=== PATIENT | female | born 1970 | race Caucasian/White ===

== ENCOUNTER 2017-11-19 10:10 | Outpatient (CLI) | payer MEDICAID, SELFPAY ==
[2017-11-19 13:02] LABS: INR 1.4 (1.0-3.5); Prothrombin Time 13.4 sec (9.3-10.8)
== END 2017-11-19 10:30 ==
PROVIDERS: PCP Family Medicine; Visit Provider Family Medicine
DX: I26.99 Other pulmonary embolism without acute cor pulmonale (principal); Z79.01 Long term (current) use of anticoagulants
CPT/HCPCS: 36415; 85610

== ENCOUNTER 2017-12-24 02:31 | Outpatient (CLI) | payer MEDICAID, SELFPAY ==
[2017-12-24 11:37] LABS: Prothrombin Time 59.8 sec (9.3-10.8)
[2017-12-24 11:43] LABS: INR 6.6 (1.0-3.5)
== END 2017-12-24 02:51 ==
PROVIDERS: PCP Family Medicine; Visit Provider Family Medicine
DX: I26.99 Other pulmonary embolism without acute cor pulmonale (principal); Z79.01 Long term (current) use of anticoagulants
CPT/HCPCS: 36415; 85610

== ENCOUNTER 2018-01-18 01:36 | Outpatient (CLI) | payer MEDICAID, SELFPAY ==
[2018-01-18 11:40] LABS: INR 1.6 (1.0-3.5); Prothrombin Time 15.6 sec (9.3-10.8)
[2018-01-18 13:26] LABS: Anion Gap 7.1 mmol/L (3-11); BUN 7 mg/dL (7-18); CO2 28.9 mmol/L (21.0-32.0); CREATININE 1.04 mg/dL (0.55-1.02); Calcium 8.7 mg/dL (8.5-10.1); Chloride 103 mmol/L (98-107); Cholesterol 200 mg/dL (50-200); Estimated GFR 56.56 (mL/min/1.73m2); Glucose 87 mg/dL (70-100); HDL Cholesterol 45 mg/dL (40-60); LDL CHOLESTEROL 134 mg/dL (<100); Potassium 4.4 mmol/L (3.5-5.1); Sodium 139 mmol/L (136-145); Triglyceride 142 mg/dL (30-150)
== END 2018-01-18 01:56 ==
PROVIDERS: PCP Family Medicine; Visit Provider Family Medicine
DX: F41.8 Other specified anxiety disorders (principal); M17.10 Unilateral primary osteoarthritis, unspecified knee; D68.4 Acquired coagulation factor deficiency; Z79.01 Long term (current) use of anticoagulants; Z00.00 Encounter for general adult medical examination without abnormal findings; I26.99 Other pulmonary embolism without acute cor pulmonale
CPT/HCPCS: 36415; 80048; 80061; 83721; 85610

== ENCOUNTER 2018-02-02 10:25 | Outpatient (CLI) | payer MEDICAID, SELFPAY ==
[2018-02-02 11:44] LABS: INR 1.3 (1.0-3.5); Prothrombin Time 12.5 sec (9.3-10.8)
== END 2018-02-02 10:45 ==
PROVIDERS: PCP Family Medicine; Visit Provider Family Medicine
DX: I26.99 Other pulmonary embolism without acute cor pulmonale (principal); Z79.01 Long term (current) use of anticoagulants
CPT/HCPCS: 36415; 85610

== ENCOUNTER 2018-02-18 08:24 | Outpatient (CLI) | payer MEDICAID, SELFPAY ==
[2018-02-18 11:30] LABS: Prothrombin Time 20.7 sec (9.3-10.8)
[2018-02-18 11:35] LABS: INR 2.2 (1.0-3.5)
== END 2018-02-18 08:44 ==
PROVIDERS: PCP Family Medicine; Visit Provider Family Medicine
DX: I26.99 Other pulmonary embolism without acute cor pulmonale (principal); Z79.01 Long term (current) use of anticoagulants
CPT/HCPCS: 36415; 85610

== ENCOUNTER 2018-04-02 08:13 | Outpatient (CLI) | payer MEDICAID, SELFPAY ==
[2018-04-02 12:01] LABS: INR 2.4 (0.9-1.1); Prothrombin Time 24.2 sec (9.3-11.0)
== END 2018-04-02 08:33 ==
PROVIDERS: PCP Family Medicine; Visit Provider Family Medicine
DX: I26.99 Other pulmonary embolism without acute cor pulmonale (principal); Z79.01 Long term (current) use of anticoagulants
CPT/HCPCS: 36415; 85610

== ENCOUNTER 2018-07-16 04:12 | Outpatient (CLI) | payer MEDICAID, SELFPAY ==
[2018-07-16 11:37] LABS: INR 3.7 (0.9-1.1); Prothrombin Time 37.2 sec (9.3-11.0)
== END 2018-07-16 04:32 ==
PROVIDERS: PCP Family Medicine; Visit Provider Family Medicine
DX: I26.99 Other pulmonary embolism without acute cor pulmonale (principal); Z79.01 Long term (current) use of anticoagulants
CPT/HCPCS: 36415; 85610

== ENCOUNTER 2018-07-30 01:16 | Outpatient (CLI) | payer MEDICAID, SELFPAY ==
[2018-07-30 11:32] LABS: INR 2.6 (0.9-1.1)
== END 2018-07-30 01:36 ==
PROVIDERS: PCP Family Medicine; Visit Provider Family Medicine
DX: I26.99 Other pulmonary embolism without acute cor pulmonale (principal); Z79.01 Long term (current) use of anticoagulants
CPT/HCPCS: 36415; 85610

== ENCOUNTER 2018-08-30 09:34 | Outpatient (CLI) | payer MEDICAID, SELFPAY ==
[2018-08-30 13:24] LABS: INR 1.7 (0.9-1.1); Prothrombin Time 16.7 sec (9.3-11.0)
== END 2018-08-30 09:54 ==
PROVIDERS: PCP Family Medicine; Visit Provider Family Medicine
DX: I26.99 Other pulmonary embolism without acute cor pulmonale (principal); Z79.01 Long term (current) use of anticoagulants
CPT/HCPCS: 36415; 85610

== ENCOUNTER 2018-10-19 02:29 | Outpatient (CLI) | payer MEDICAID, SELFPAY ==
[2018-10-19 12:07] LABS: INR 3.2 (0.9-1.1); Prothrombin Time 32.6 sec (9.3-11.0)
== END 2018-10-19 02:49 ==
PROVIDERS: PCP Family Medicine; Visit Provider Family Medicine
DX: I26.99 Other pulmonary embolism without acute cor pulmonale (principal); Z79.01 Long term (current) use of anticoagulants
CPT/HCPCS: 36415; 85610

== ENCOUNTER 2018-12-02 07:51 | Outpatient (CLI) | payer MEDICAID, SELFPAY ==
[2018-12-02 11:43] LABS: INR 1.5 (0.9-1.1); Prothrombin Time 14.6 sec (9.3-11.0)
== END 2018-12-02 08:11 ==
PROVIDERS: PCP Family Medicine; Visit Provider Family Medicine
DX: I26.99 Other pulmonary embolism without acute cor pulmonale (principal); Z79.01 Long term (current) use of anticoagulants
CPT/HCPCS: 36415; 85610

== ENCOUNTER 2018-12-21 10:51 | Outpatient (CLI) | payer MEDICAID, SELFPAY ==
[2018-12-21 14:28] LABS: INR 1.4 (0.9-1.1); Prothrombin Time 13.6 sec (9.3-11.0)
== END 2018-12-21 11:11 ==
PROVIDERS: PCP Family Medicine; Visit Provider Family Medicine
DX: I26.99 Other pulmonary embolism without acute cor pulmonale (principal); Z79.01 Long term (current) use of anticoagulants
CPT/HCPCS: 36415; 85610

== ENCOUNTER 2019-01-26 10:13 | Outpatient (CLI) | payer MEDICAID, SELFPAY ==
[2019-01-26 12:52] LABS: INR 1.3 (0.9-1.1); Prothrombin Time 13.3 sec (9.3-11.0)
== END 2019-01-26 10:33 ==
PROVIDERS: PCP Family Medicine; Visit Provider Family Medicine
DX: I26.99 Other pulmonary embolism without acute cor pulmonale (principal); Z79.01 Long term (current) use of anticoagulants
CPT/HCPCS: 36415; 85610

== ENCOUNTER 2019-02-28 09:46 | Outpatient (CLI) | payer MEDICAID, SELFPAY ==
[2019-02-28 14:07] LABS: Prothrombin Time 40.3 sec (9.3-11.0)
[2019-02-28 14:17] LABS: INR 4.2 (0.9-1.1)
== END 2019-02-28 10:06 ==
PROVIDERS: PCP Family Medicine; Visit Provider Family Medicine
DX: I26.99 Other pulmonary embolism without acute cor pulmonale (principal); Z79.01 Long term (current) use of anticoagulants
CPT/HCPCS: 36415; 85610

== ENCOUNTER 2019-03-11 08:10 | Outpatient (CLI) | payer MEDICAID, SELFPAY ==
[2019-03-11 10:30] LABS: INR 3.2 (0.9-1.1); Prothrombin Time 31.2 sec (9.3-11.0)
== END 2019-03-11 08:30 ==
PROVIDERS: PCP Family Medicine; Visit Provider Family Medicine
DX: I26.99 Other pulmonary embolism without acute cor pulmonale (principal); Z79.01 Long term (current) use of anticoagulants
CPT/HCPCS: 36415; 85610

== ENCOUNTER 2019-04-06 00:32 | Outpatient (CLI) | payer MEDICAID, SELFPAY ==
[2019-04-06 11:08] LABS: INR 1.4 (0.9-1.1)
== END 2019-04-06 00:52 ==
PROVIDERS: PCP Family Medicine; Visit Provider Family Medicine
DX: I26.99 Other pulmonary embolism without acute cor pulmonale (principal); Z79.01 Long term (current) use of anticoagulants
CPT/HCPCS: 36415; 85610

== ENCOUNTER 2019-04-15 01:13 | Outpatient (CLI) | payer MEDICAID, SELFPAY ==
[2019-04-15 13:04] LABS: INR 3.8 (0.9-1.1); Prothrombin Time 37.1 sec (9.3-11.0)
== END 2019-04-15 01:33 ==
PROVIDERS: PCP Family Medicine; Visit Provider Family Medicine
DX: I26.99 Other pulmonary embolism without acute cor pulmonale (principal); Z79.01 Long term (current) use of anticoagulants
CPT/HCPCS: 36415; 85610

== ENCOUNTER 2019-04-29 09:30 | Outpatient (CLI) | payer MEDICAID, SELFPAY ==
[2019-04-29 13:11] LABS: INR 1.5 (0.9-1.1); Prothrombin Time 15.3 sec (9.3-11.0)
== END 2019-04-29 09:50 ==
PROVIDERS: PCP Family Medicine; Visit Provider Family Medicine
DX: I26.99 Other pulmonary embolism without acute cor pulmonale (principal); Z79.01 Long term (current) use of anticoagulants
CPT/HCPCS: 36415; 85610

== ENCOUNTER 2019-11-01 10:45 | Outpatient (REF) | payer MEDICAID, SELFPAY ==
--- NOTE | 2019-11-01 10:20 | PAPFT_PTH ---
PATIENT: Andreia Mayer LOC: [facility] U#:[id number] AGE/SX: 48/F ROOM: RE11/01/[address]: Jossie Gardner NP : 1970 BED: DIS: 11/01/2019 SPEC #: [id number] RECD: 11/01/19 12:52 STATUS: FAIZA REQ #: [id number] JOSE R: 11/01/19 10:[address]: Jossie Gardner NP DEPT: [facility] Cytology RECD BY: Ebony Herrera ENTERED: 11/01/19 12:52 SP TYPE: PAPFT OTHR DR: Latasha Verdugo, ARB[employer]URE INSTRUCTOR Tissues: 1 - CX/ENDOCX FOR PAP SMEARS Procedures: PAP THIN PREP/UVM Screening HPV DNA PROBE Comments: [id number]
== END 2019-11-01 11:05 ==
LOC: LBN 10:45
PROVIDERS: PCP Nurse Practitioner Family; Visit Provider Nurse Practitioner Women's Health
DX: Z12.4 Encounter for screening for malignant neoplasm of cervix (principal); Z11.51 Encounter for screening for human papillomavirus (HPV)
CPT/HCPCS: 88142; 87624

== ENCOUNTER 2019-11-03 01:57 | Outpatient (CLI) | payer MEDICAID, SELFPAY ==
--- NOTE | 2019-11-03 12:00 | DI.MAMMO_ITS ---
EXAM: MG MAMMO SCREENING CLINICAL HISTORY: screening TECHNIQUE: Mammograms were interpreted according to the usual protocol including computer analysis w [employer] CAD system, tomosynthesis and C-view imaging. COMPARISON: FINDINGS: The breasts are of moderate density with fairly symmetrical distribution of fibroglandular tissue. N o dominant mass or clumped microcalcification is identified in either breast. The current examinatio n is compared with previous examination August 2013 and there has been no gross interval change in appe arance in comparison with prior study. IMPRESSION: No specific evidence of malignancy at this time. Routine screening examinations are suggested at yea rly intervals in this age group according to the ACS ACR guidelines. BI-RADS Category 1 - Negative Breast Density - Category B - Scattered areas of fibroglandular density
== END 2019-11-03 02:17 ==
PROVIDERS: PCP Nurse Practitioner Family; Visit Provider Nurse Practitioner Women's Health
DX: Z12.31 Encounter for screening mammogram for malignant neoplasm of breast (principal)
CPT/HCPCS: 77063; 77067

== ENCOUNTER 2019-12-16 03:59 | Outpatient (CLI) | payer MEDICAID, SELFPAY ==
--- NOTE | 2019-12-16 06:30 | DI.RAD_ITS ---
EXAM: XR LUMBAR SPINE COMPLETE CLINICAL HISTORY: chronic low back pain ON ACUTE LOW BACK PAIN,M54.5 TECHNIQUE: COMPARISON: CR LUMBAR SPINE COMPLETE from 12/12/2009 FINDINGS: Five views were obtained. The intervertebral disc spaces are well maintained. There are mild hypert rophic degenerative changes of the vertebral endplates and facet joints throughout the lumbar region. There is no evidence spondylolysis or spondylolisthesis. There are mild degenerative changes of anselmo th SI joints. IMPRESSION: DJD of the lumbar spine as described above. RADIATION DOSE DELIVERED: Total DLP
--- NOTE | 2019-12-16 06:30 | DI.RAD_ITS ---
EXAM: XR KNEE LT 3V AP,LAT,PURA CLINICAL HISTORY: chronic left knee pain, s/p surgery,M25.562 TECHNIQUE: COMPARISON: CR LEFT KNEE 3 VIEW COMPLETE from 12/09/2013 FINDINGS: Three views were obtained. There are fixation screws in the distal femur and proximal tibia with loc ation consistent with ACL reconstruction. Two additional screws of the femur and 1 additional screw of the tibia are noted. There is moderate hypertrophic marginal osteophyte formation involving the m edial and lateral tibiofemoral joints with mild narrowing of the cartilaginous joint space of the lat eral tibiofemoral joint and probably of the patellofemoral joint as well. IMPRESSION: Multiple fixation screws in place, prior ACL reconstruction, moderate DJD most marked involving later al tibiofemoral joint RADIATION DOSE DELIVERED: Total DLP
== END 2019-12-16 04:19 ==
PROVIDERS: PCP Nurse Practitioner Family; Visit Provider Nurse Practitioner Family
DX: M47.816 Spondylosis without myelopathy or radiculopathy, lumbar region (principal); M17.12 Unilateral primary osteoarthritis, left knee; M25.562 Pain in left knee
CPT/HCPCS: 73562; 72110

== ENCOUNTER 2019-12-19 02:10 | Outpatient (CLI) | payer MEDICAID, SELFPAY ==
[2019-12-19 12:30] LABS: HCT 30.6 % (36.0-46.0); HGB 9.1 g/dL (11.2-15.7); MCH 22.2 pg (27.0-33.0); MCHC 29.7 % (32.0-36.0); MCV 74.6 fL (80-95); MPV 11.6 fL (8.0-11.0); Platelet Count 202 10^3/uL (130-400); RDW 14.6 % (11.7-14.6); RDW-SD 39.2 fL
[2019-12-19 13:09] LABS: ALT 26 U/L (14-59); AST 16 U/L (15-37); Albumin 3.5 g/dL (3.4-5.0); Alkaline Phosphatase 61 U/L (46-116); Anion Gap 10.5 mmol/L (3-11); BUN 7 mg/dL (7-18); Bilirubin, Total 0.8 mg/dL (0.2-1.0); CO2 23.5 mmol/L (21.0-32.0); Calcium 8.5 mg/dL (8.5-10.1); Calculated LDL 138 mg/dL (<100); Chloride 106 mmol/L (98-107); Cholesterol 186 mg/dL (<200); Estimated GFR 52.58 (mL/min/1.73m2); Glucose 112 mg/dL (74-106); HDL Cholesterol 29 mg/dL (40-60); Potassium 3.9 mmol/L (3.5-5.1); Sodium 140 mmol/L (136-145); Total Protein 7.1 g/dL (6.4-8.2); Triglyceride 97 mg/dL (<150)
[2019-12-19 13:11] LABS: Hemoglobin A1C 5.9 % (<5.7)
[2019-12-19 13:47] LABS: Total Iron Binding Capacity 513 ug/dL (250-450)
[2019-12-19 14:01] LABS: Ferritin 4 ng/mL (8-252)
== END 2019-12-19 02:30 ==
PROVIDERS: PCP Nurse Practitioner Family; Visit Provider Nurse Practitioner Family
DX: D50.9 Iron deficiency anemia, unspecified (principal); E78.5 Hyperlipidemia, unspecified; R73.09 Other abnormal glucose; Z79.01 Long term (current) use of anticoagulants
CPT/HCPCS: 36415; 80053; 80061; 85027; 82728; 83036; 83550

== ENCOUNTER 2020-01-05 15:53 | Outpatient (REF) | payer MEDICAID, SELFPAY ==
[2020-01-05 21:14] LABS: HCT 30.7 % (36.0-46.0); MCH 21.1 pg (27.0-33.0); MCHC 29.3 % (32.0-36.0); MCV 71.9 fL (80-95); MPV 12.1 fL (8.0-11.0); RBC 4.27 10^6/uL (3.93-5.22); RDW 15.3 % (11.7-14.6); RDW-SD 39.4 fL; WBC 6.73 10^3/uL (4.4-10.8)
[2020-01-05 21:28] LABS: Platelet Count 293 10^3/uL (130-400)
== END 2020-01-05 16:13 ==
LOC: LBN 15:53
PROVIDERS: PCP Nurse Practitioner Family; Visit Provider Nurse Practitioner Family
DX: D64.9 Anemia, unspecified (principal)
CPT/HCPCS: 85027

== ENCOUNTER 2020-01-29 12:47 | Emergency (ER) | payer MEDICAID, SELFPAY ==
[2020-01-29 12:52] VITALS: BP 164/99; PULSE 127; RESP 20; TEMP 36.8; O2SAT 100
[2020-01-29 12:59] VITALS: RESP 20
--- NOTE | 2020-01-29 13:12 | ED.GENADUL_ITS ---
Discharge Plan Disposition Patient Disposition: HOME Condition: Stable Discharge Details Clinical Impression: Acute deep vein thrombosis (DVT) of left lower extremity Primary Care Provider: Latasha Verdugo ED Provider: Vu Merrill Home Meds and New Rx's Prescriptions: Continued gabapentin 300 mg capsule 300 mg PO TID Qty: 270 RF: 3 Narcan 4 mg/actuation spray,non-aerosol 1 spray intranasal Q2-3M PRN (Reason: opioid overdose) Qty: 2 RF: 4 norethindrone acetate [Aygestin] 5 mg tablet 5 mg PO DAILY Qty: 90 RF: 4 ferrous sulfate 325 mg (65 mg iron) tablet 325 mg PO BID Qty: 180 RF: 4 Complete Multi 1 EACH tablet 1 tab PO DAILY RF: 0 oxycodone 10 mg tablet 10 mg PO BID MDD 20 mg PRN (Reason: pain) Qty: 60 RF: 0 clonazepam [Klonopin] 0.5 mg tablet 0.5 mg PO TID PRN (Reason: anxiety) Qty: 90 RF: 0 warfarin 5 mg Tablet 5 mg PO DAILY RF: 0 Discharge Instructions Instructions: Deep Vein Thrombosis (ED) Additional Instructions: Home to rest today. Our care management team will will arrange a follow-up for you in clinic this week for recheck. Continue your warfarin as prescribed 5 mg daily. May apply warm compress to the leg for comfort. Return if you develop new chest pain, difficulty breathing, or any other acute concerns. Medical Decision Making 49-year-old female with history of PE, who has been taking rivaroxaban which she stopped approximately 1 month ago due to excessive vaginal bleeding. She has been seen in gynecology clinic and started on oral contraceptive. She now notes approximately 1 week of left calf pain and swelling. She states she had warfarin at home which she has begun 5 mg daily for the past week. She has not had chest pain or shortness of breath. She arrives to the ER anxious, slightly hypertensive with a pulse approximately 110. She will note that she takes oxycodone 10 mg twice a day and has not had her daily medications. Her exam reveals slightly enlarged left calf that is tender to the touch. Patient referred for laboratory testing and ultrasound of the left lower extremity. Labs reveal sodium 135, potassium 4.0, chloride 101, bicarb 24. Creatinine 1.25. AST 195, ALT 482. Total bili normal at 0.5. INR is 1.8 today. Ultrasound reveals DVT from distal femoral to posterior tibial veins. With INR 1.8, will have her continue warfarin. She has also complained about anxiety disorder and chronic pain. She will require follow-up in clinic this week for recheck. Unclear the impact the recent initiation of oral contraceptive, and the patient's cessation of rivaroxaban and independent initiation of warfarin has had on her development of DVT. Additionally, her slightly elevated transaminases will require recheck. We will ask care management to arrange follow-up. HPI General Mode of arrival: ambulatory . Date/Time Provider Initiated Documentation: 01/29/20 12:48 . Limitations to Documentation: no limitations . Information obtained by: patient . History of Present Illness 49 year old F presents to the emergency department with the chief complaint of Left leg pain, concerned for blood clot, described as moderate, Quality is described as dull and constant, and is localized to the left and lower extremity. Patient reports no radiation. Patient started experiencing this week(s) and it has been constant. No relieving factors improve symptom(s), No exacerbating factors reported . Patient notes denies chest pain and shortness of breath. Patient did receive the following treatments prior to arrival, other (Started warfarin 5 mg daily for the past week) Related Data Home Medications Medication Instructions Recorded Confirmed Complete Multi 1 tab PO DAILY 06/08/12 01/29/20 norethindrone acetate 5 mg tablet 5 mg PO DAILY #90 tab 11/01/19 01/29/20 gabapentin 300 mg capsule 300 mg PO TID #270 tab-cap 11/10/19 01/29/20 naloxone 4 mg/actuation nasal spray 1 spray INTRANASAL Q2-3M PRN #2 ea 12/14/19 01/29/20 ferrous sulfate 325 mg (65 mg 325 mg PO BID #180 tab 01/05/20 01/29/20 iron) tablet oxycodone 10 mg tablet 10 mg PO BID PRN #60 tab MDD 20 mg 01/10/20 01/29/20 clonazepam 0.5 mg tablet 0.5 mg PO TID PRN #90 tab-cap 01/22/20 01/29/20 warfarin 5 mg PO DAILY 01/29/20 01/29/20 Previous Rx's Medication Instructions Recorded norethindrone acetate 5 mg tablet 5 mg PO DAILY #90 tab 11/01/19 gabapentin 300 mg capsule 300 mg PO TID #270 tab-cap 11/10/19 naloxone 4 mg/actuation nasal spray 1 spray INTRANASAL Q2-3M PRN #2 ea 12/14/19 ferrous sulfate 325 mg (65 mg 325 mg PO BID #180 tab 01/05/20 iron) tablet oxycodone 10 mg tablet 10 mg PO BID PRN #60 tab MDD 20 mg 01/10/20 clonazepam 0.5 mg tablet 0.5 mg PO TID PRN #90 tab-cap 01/22/20 Allergies Allergy/AdvReac Type Severity Reaction Status Date / Time streptokinase Allergy Severe SOB; Unverified 01/29/20 12:57 TINGLING;ANAPHALYSIS General Stated Complaint: Vascular REINA: 3 Review of Systems Narrative: 6 systems reviewed and otherwise negative. Not taking rivaroxaban, restarted warfarin. [facility] Medical History Chronic low back pain Factor V Leiden mutation Generalized anxiety disorder Hyperlipidemia Iron deficiency anemia Major depressive disorder Osteoarthritis Perimenopausal menorrhagia Postoperative pain of left knee Prediabetes Pulmonary embolism In 1993 Surgical History S/P left knee surgery (09/30/12) Arthroscopic ligamentous reconstruction of ACL, PCL with menisectomy for dislocation Family History Mother No problems noted. Father No problems noted. Social History Smoking/Tobacco Use Status: Never Smoking risk assessment performed?: Yes Alcohol Intake: never Drug use: Occasionally Substance use type: marijuana Current gender identity: female Duration: 15-30 minutes/day Frequency: 3-4 times per week Seatbelt use: always Do you feel safe at home: Yes Do you feel safe in your relationship?: Yes Female Reproductive History Menstrual Duration of menses: 3-5 days control method: none History History 3 Para 3 Hx # Term Pregnancies Multiple births Hx # Pregnancies Ectopic pregnancies AB induced Hx Number of Living Children AB spontaneous Exam Narrative Exam Narrative: GEN: awake, alert, oriented 3. Pleasant, well groomed, interactive. HEAD: Normocephalic, atraumatic ENT: Mucous membranes moist, oropharynx unremarkable, External ear exam unremarkable EYES: PERRL, EOMI NECK: Full ROM, no UNA, no menigismus CHEST/RESP: Nontender, clear to auscultation bilateral, no wheeze/rhonchi/rales CARDIOVASCULAR: Regular and tachycardic, no murmur, rub robb. 2+ Rad pulse bilateral EXT: Full ROM, left calf asymmetrically swollen approximately 1 cm greater circumference than contralateral. Tender posteriorly, do not appreciate cords. Neuro: Grossly normal neurologic exam, conversant, interactive. Psych: Speech fluent, thoughts congruent, affect normal Course Vital Signs Vital signs: Vital Signs Temperature 36.8 C 01/29/20 12:52 Pulse 127 H 01/29/20 12:52 Respiratory Rate 20 01/29/20 12:52 Blood Pressure 164/99 H 01/29/20 12:52 Pulse Oximetry 100 01/29/20 12:52 Temperature 36.8 C 01/29/20 12:52 Temperature Source Temporal Artery Scan 01/29/20 12:52 Pulse 127 H 01/29/20 12:52 Respiratory Rate 20 01/29/20 12:59 Respiratory Effort Non-Labored 01/29/20 12:59 Respiratory Pattern Normal 01/29/20 12:59 Blood Pressure 164/99 H 01/29/20 12:52 Blood Pressure Position Sitting 01/29/20 12:52 Pulse Oximetry 100 01/29/20 12:52 Oxygen Delivery Method Room Air 01/29/20 12:52 Oxygen Flow Rate 0 01/29/20 12:52 Pain Level 10 01/29/20 12:52
--- NOTE | 2020-01-29 13:15 | DI.US_ITS ---
EXAM: US LOWER EXTREMITY VENOUS LT CLINICAL HISTORY: swelling, hx PE TECHNIQUE: Left lower extremity venous ultrasound performed using grayscale, color-flow, and spectra l Doppler analysis. COMPARISON: No exams were available for comparison FINDINGS: Occlusive thrombus is visible beginning in the distal femoral vein in extending through the popliteal vein through the posterior tibial as well as peroneal veins. Approximate length is 14 cm. The sap henous vein appears free of thrombus. There is mild edema in the distal soft tissues. IMPRESSION: The venous thrombosis extending from the distal femoral vein through the calf. DATA REPOSITORY:
[2020-01-29 13:34] LABS: Abs Immature Grans 0.07 10^3/uL (0.0-0.06); Absolute Basophil Count 0.07 10^3/uL (0.0-0.2); Absolute Eosinophil Count 0.18 10^3/uL (0.0-0.7); Absolute Lymphocyte Count 1.23 10^3/uL (1.2-3.4); Absolute Monocyte Count 0.47 10^3/uL (0.1-0.8); Absolute Neutrophil Count 8.77 10^3/uL (1.2-6.7); Basophils % 0.6; Eosinophils % 1.7; HCT 33.8 % (36.0-46.0); HGB 9.6 g/dL (11.2-15.7); Immature Grans % 0.6; Lymphocytes % 11.4; MCH 19.9 pg (27.0-33.0); MCHC 28.4 % (32.0-36.0); MCV 70.1 fL (80-95); MPV 10.7 fL (8.0-11.0); Monocytes % 4.4; Neutrophils % 81.3; Nucleated RBC 0 %; Platelet Count 312 10^3/uL (130-400); RBC 4.82 10^6/uL (3.93-5.22); RDW 16.6 % (11.7-14.6); WBC 10.79 10^3/uL (4.4-10.8)
[2020-01-29 13:42] LABS: INR 1.8 (0.9-1.1); Prothrombin Time 18.1 sec (9.3-11.0)
[2020-01-29 13:44] LABS: ALT 482 U/L (14-59); AST 185 U/L (15-37); Albumin 3.4 g/dL (3.4-5.0); Alkaline Phosphatase 71 U/L (46-116); Anion Gap 9.6 mmol/L (3-11); BUN 9 mg/dL (7-18); Bilirubin, Total 0.5 mg/dL (0.2-1.0); CO2 24.4 mmol/L (21.0-32.0); CREATININE 1.25 mg/dL (0.55-1.02); Calcium 8.9 mg/dL (8.5-10.1); Chloride 101 mmol/L (98-107); Estimated GFR 45.36 (mL/min/1.73m2); Glucose 102 mg/dL (74-106); Sodium 135 mmol/L (136-145)
[2020-01-29 13:53] LABS: Anisocytosis 1+; Diff Comment RBC Morph Reviewed; Hypochromasia 2+; Microcytosis 2+
[2020-01-29] MEDS: oxyCODONE 10 MG TAB PO ×2 (14:06→14:47)
[2020-01-29 14:08] VITALS: BP 122/78; PULSE 101; RESP 18; O2SAT 100
--- NOTE | 2020-01-29 14:19 | NUR.NOTE ---
Referral to [facility] for f/u dvt/chronic pain.Nursing Note:
--- NOTE | 2020-01-29 14:22 | DI.VRAD_ITS ---
Addendum created by Dawood Christian MD on 01/29/2020 2:23:14 PM EST: THIS REPORT CONTAINS FINDINGS THAT MAY BE CRITICAL TO PATIENT CARE. The findings were verbally communicated via telephone conference with ZEESHAN REILLY at 2:22 PM EST on 01/29/2020. The findings were acknowledged and understood. Initial report created on 01/29/2020 2:21:46 PM EST: PROCEDURE INFORMATION: Exam: US Duplex Left Lower Extremity Veins, Limited Exam date and time: 01/29/2020 2:05 PM Age: 49 years old Clinical indication: Other: Swelling/calf pain x 1 week , HX of pe TECHNIQUE: Imaging protocol: Real-time Duplex ultrasound of the Left Lower Extremity with 2-D trejo scale, color Doppler flow and spectral waveform analysis with image documentation. Limited exam focused on the left lower extremity veins. COMPARISON: No relevant prior studies available. FINDINGS: There is occlusive thrombus extending from the distal lower extremity veins (tibial and peroneal) to the distal femoral vein (approximately 14 cm length). No thrombus identified within the common femoral, proximal femoral and mid femoral veins. The proximal profundus femoral vein is without evidence of thrombus. Saphenofemoral junction is patent without thrombus. Mild distal edema. IMPRESSION: There is occlusive thrombus extending from the distal lower extremity veins (tibial and peroneal) to the distal femoral vein (approximately 14 cm length). Dictated and Authenticated by: Dawood Christian MD. Ordering:JIMMY Womack MD
== END 2020-01-29 14:50 | disposition home or self-care (01) ==
PROVIDERS: Emergency Provider Emergency Medicine; PCP Nurse Practitioner Family
DX: I82.412 Acute embolism and thrombosis of left femoral vein (principal); I82.442 Acute embolism and thrombosis of left tibial vein; R74.01 Elevation of levels of liver transaminase levels; D68.51 Activated protein C resistance; Z86.711 Personal history of pulmonary embolism
CPT/HCPCS: 36415; 80053; 99284; 85025; 85610; 93971

== ENCOUNTER 2020-02-10 01:29 | Outpatient (CLI) | payer MEDICAID, SELFPAY ==
[2020-02-10 13:14] LABS: Prothrombin Time > 83.4 sec (9.3-11.0)
[2020-02-10 13:18] LABS: INR > 8.8 (0.9-1.1)
== END 2020-02-10 01:49 ==
PROVIDERS: PCP Nurse Practitioner Family; Visit Provider Nurse Practitioner Family
DX: I82.412 Acute embolism and thrombosis of left femoral vein (principal); Z79.01 Long term (current) use of anticoagulants
CPT/HCPCS: 36415; 85610

== ENCOUNTER 2020-02-13 02:51 | Outpatient (CLI) | payer MEDICAID, SELFPAY ==
[2020-02-13 13:07] LABS: INR 1.8 (0.9-1.1); Prothrombin Time 17.5 sec (9.3-11.0)
== END 2020-02-13 03:11 ==
PROVIDERS: PCP Nurse Practitioner Family; Visit Provider Nurse Practitioner Family
DX: I26.99 Other pulmonary embolism without acute cor pulmonale (principal); Z79.01 Long term (current) use of anticoagulants
CPT/HCPCS: 36415; 85610

== ENCOUNTER 2020-02-27 03:07 | Outpatient (CLI) | payer MEDICAID, SELFPAY ==
[2020-02-27 13:03] LABS: INR 2.3 (0.9-1.1); Prothrombin Time 22.4 sec (9.3-11.0)
== END 2020-02-27 03:27 ==
PROVIDERS: PCP Nurse Practitioner Family; Visit Provider Nurse Practitioner Family
DX: I26.99 Other pulmonary embolism without acute cor pulmonale (principal); Z79.01 Long term (current) use of anticoagulants
CPT/HCPCS: 36415; 85610

== ENCOUNTER 2020-03-12 03:39 | Outpatient (CLI) | payer MEDICAID, SELFPAY ==
[2020-03-12 12:52] LABS: INR 2.5 (0.9-1.1); Prothrombin Time 24.3 sec (9.3-11.0)
== END 2020-03-12 03:59 ==
PROVIDERS: PCP Nurse Practitioner Family; Visit Provider Nurse Practitioner Family
DX: I26.99 Other pulmonary embolism without acute cor pulmonale (principal); Z79.01 Long term (current) use of anticoagulants
CPT/HCPCS: 36415; 85610

== ENCOUNTER 2020-03-29 18:09 | Outpatient (REF) | payer MEDICAID, SELFPAY ==
[2020-03-31 14:10] LABS: 2-Hydroxy Ethyl Flurazepam Not Detected ng/mL (Cutoff: 10); 6-monoacetylmorphine Not Detected ng/mL (Cutoff: 25); Alpha-Hydroxy Midazolam Not Detected ng/mL (Cutoff: 10); Alpha-Hydroxy Triazolam Not Detected ng/mL (Cutoff: 10); Alpha-Hydroxyalprazolam Not Detected ng/mL (Cutoff: 10); Alpha-OH-alprazolam Glucuronid Not Detected ng/mL (Cutoff: 50); Alprazolam Not Detected ng/mL (Cutoff: 10); Amphetamines Negative ng/mL (Cutoff: 500); Barbiturates Negative ng/mL (Cutoff: 200); Buprenorphine Not Detected ng/mL (Cutoff: 5); Chlordiazepoxide Not Detected ng/mL (Cutoff: 10); Clobazam Not Detected ng/mL (Cutoff: 10); Clonazepam Not Detected ng/mL (Cutoff: 10); Cocaine Negative ng/mL (Cutoff: 150); Codeine Not Detected ng/mL (Cutoff: 25); Comment Normal; Diazepam Not Detected ng/mL (Cutoff: 10); Dihydrocodeine Not Detected ng/mL (Cutoff: 25); EDDP Not Detected ng/mL (Cutoff: 25); Fentanyl Not Detected ng/mL (Cutoff: 2); Flurazepam Not Detected ng/mL (Cutoff: 10); Hydrocodone Not Detected ng/mL (Cutoff: 25); Hydromorphone Present ng/mL (Cutoff: 25); Hydromorphone-3-beta-glucuroni Present ng/mL (Cutoff: 100); Lorazepam Not Detected ng/mL (Cutoff: 10); Lorazepam Glucuronide Not Detected ng/mL (Cutoff: 50); Meperidine Not Detected ng/mL (Cutoff: 25); Methadone Not Detected ng/mL (Cutoff: 25); Midazolam Not Detected ng/mL (Cutoff: 10); Morphine Present ng/mL (Cutoff: 25); N-Desmethylclobazam Not Detected ng/mL (Cutoff: 200); N-desmethyltapentadol Not Detected ng/mL (Cutoff: 50); Naloxone Not Detected ng/mL (Cutoff: 25); Norbuprenorphine Not Detected ng/mL (Cutoff: 5); Norfentanyl Not Detected ng/mL (Cutoff: 2); Norhydrocodone Not Detected ng/mL (Cutoff: 25); Normeperidine Not Detected ng/mL (Cutoff: 25); Noroxycodone Present ng/mL (Cutoff: 25); Noroxymorphone Present ng/mL (Cutoff: 25); O-desmethyltramadol Not Detected ng/mL (Cutoff: 25); Oxazepam Glucuronide Not Detected ng/mL (Cutoff: 50); Phencyclidine Negative ng/mL (Cutoff: 25); Prazepam Not Detected ng/mL (Cutoff: 10); Propoxyphene Not Detected ng/mL (Cutoff: 25); Specific Gravity 1.017; Tapentadol Not Detected ng/mL (Cutoff: 25); Temazepam Not Detected ng/mL (Cutoff: 10); Temazepam Glucuronide Not Detected ng/mL (Cutoff: 50); Tetrahydrocannabinol Presumptive Positive ng/mL (Cutoff: 50); Tramadol Not Detected ng/mL (Cutoff: 25); Triazolam Not Detected ng/mL (Cutoff: 10); Zolpidem Phenyl-4-Carboxy acid Not Detected ng/mL (Cutoff: 10); pH 7.3
[2020-04-10 10:58] LABS: Carboxy-THC Interpretation Positive.; Delta-9 CarboxyThc by LC-MS/MS 368 ng/mL (Cutoff:<3)
== END 2020-03-29 18:29 ==
LOC: LBN 18:09
PROVIDERS: PCP Nurse Practitioner Family; Visit Provider Nurse Practitioner Family
DX: Z79.891 Long term (current) use of opiate analgesic (principal)
CPT/HCPCS: 80307; 80347; 80349; 80364

== ENCOUNTER 2020-04-09 04:18 | Outpatient (CLI) | payer MEDICAID, SELFPAY ==
[2020-04-09 12:56] LABS: Prothrombin Time 47.3 sec (9.3-11.0)
[2020-04-09 13:20] LABS: INR 4.9 (0.9-1.1)
== END 2020-04-09 04:38 ==
PROVIDERS: PCP Nurse Practitioner Family; Visit Provider Nurse Practitioner Family
DX: I26.99 Other pulmonary embolism without acute cor pulmonale (principal); Z79.01 Long term (current) use of anticoagulants
CPT/HCPCS: 36415; 85610

== ENCOUNTER 2020-04-23 01:49 | Outpatient (CLI) | payer MEDICAID, SELFPAY ==
[2020-04-23 12:39] LABS: INR 1.2 (0.9-1.1); Prothrombin Time 11.6 sec (9.3-11.0)
== END 2020-04-23 01:50 | disposition home or self-care (01) ==
LOC: LOS 01:49
PROVIDERS: PCP Nurse Practitioner Family; Visit Provider Nurse Practitioner Family
DX: I26.99 Other pulmonary embolism without acute cor pulmonale (principal); Z79.01 Long term (current) use of anticoagulants
CPT/HCPCS: 36415; 85610

== ENCOUNTER 2020-05-01 01:20 | Outpatient (CLI) | payer MEDICAID, SELFPAY ==
--- NOTE | 2020-05-01 07:45 | DI.US_ITS ---
EXAM: US PELVIS CLINICAL HISTORY: heavy bleeding,PERIMENOPAUSAL MENORRHAGIA,N92.4 TECHNIQUE: Transabdominal imaging was performed using standard protocol. COMPARISON: No exams were available for comparison FINDINGS: KIDNEYS: Kidneys are symmetric in size. No evidence of renal calculi. No evidence of hydronephrosis. No renal mass or cyst identified. UTERUS: Anteverted. 10.9 x 5.3 x 6.5 cm. Endometrium: 8 millimeters. Slightly heterogeneous. No focal abnormality is visible. Myometrium: Unremarkable. Cervix: Unremarkable. OVARIES: Right: Cyst or mass: None. Left: Cyst or mass: None. DOPPLER: Color: Symmetric and uniform flow to both ovaries. No hyperemia. Duplex: Normal ovarian arterial waveforms visualized. CUL-DE-SAC: Free fluid: None. IMPRESSION: 1. Somewhat limited exam due to lack of transvaginal imaging. Mildly heterogeneous endometrium.. 2. Unremarkable bilateral ovaries. DATA REPOSITORY:
== END 2020-05-01 01:21 ==
LOC: DI 01:20
PROVIDERS: PCP Nurse Practitioner Family; Visit Provider Nurse Practitioner Women's Health
DX: N92.4 Excessive bleeding in the premenopausal period (principal)
CPT/HCPCS: 76856

== ENCOUNTER 2020-05-02 16:53 | Outpatient (REF) | payer MEDICAID, SELFPAY ==
--- NOTE | 2020-05-02 15:30 | ENDOMET_PTH ---
PATIENT: Andreia Mayer LOC: [facility] #:[id number] AGE/SX: 49/F ROOM: RE05/02/[address]: Reema Balbuena : 1970 BED: DIS: 05/02/2020 SPEC #: [id number] RECD: 05/02/20 17:33 STATUS: FAIZA REDejuan #: [id number] JOSE R: 05/02/20 15:[address]: Reema Balbuena DEPT: Surgical Specimen RECD BY: Ebony Herrera ENTERED: 05/02/20 17:35 SP TYPE: Endomet OTHR DR: Ottoniel Gaines, MANAGER ORDER Tissues: 1 - ENDOMETRIUM BX/SCOOTER Procedures: GROSS AND MICRO LEVEL 4 Comments: [id number]
[2020-05-04 14:50] LABS: Chlamydia Result Negative (Negative); GC Result Negative (Negative)
[2020-05-04 21:52] LABS: HSV 1 PCR, Varies Negative (Negative); HSV 2 PCR, Varies Positive (Negative); Herpes Source VAGINAL
== END 2020-05-02 16:54 | disposition home or self-care (01) ==
LOC: LBN 16:53
PROVIDERS: PCP Nurse Practitioner Family; Visit Provider Obstetrics & Gynecology Gynecology
DX: B37.3 Candidiasis of vulva and vagina (principal); N92.4 Excessive bleeding in the premenopausal period; R30.0 Dysuria; Z11.59 Encounter for screening for other viral diseases; N85.8 Other specified noninflammatory disorders of uterus
CPT/HCPCS: 87491; 87529; 87591; 88305; 87086

== ENCOUNTER 2020-05-11 02:06 | Outpatient (CLI) | payer MEDICAID, SELFPAY ==
[2020-05-11 12:45] LABS: INR 1.2 (0.9-1.1); Prothrombin Time 11.7 sec (9.3-11.0)
== END 2020-05-11 02:07 | disposition home or self-care (01) ==
LOC: LOS 02:06
PROVIDERS: PCP Nurse Practitioner Family; Visit Provider Nurse Practitioner Family
DX: I26.99 Other pulmonary embolism without acute cor pulmonale (principal); Z79.01 Long term (current) use of anticoagulants
CPT/HCPCS: 36415; 85610

== ENCOUNTER 2020-06-15 01:35 | Outpatient (CLI) | payer MEDICAID, SELFPAY ==
[2020-06-15 13:06] LABS: INR 1.5 (0.9-1.1)
== END 2020-06-15 01:36 | disposition home or self-care (01) ==
LOC: LOS 01:35
PROVIDERS: PCP Nurse Practitioner Family; Visit Provider Nurse Practitioner Family
DX: I26.99 Other pulmonary embolism without acute cor pulmonale (principal); Z79.01 Long term (current) use of anticoagulants
CPT/HCPCS: 36415; 85610

== ENCOUNTER 2020-06-29 02:24 | Outpatient (CLI) | payer MEDICAID, SELFPAY ==
[2020-06-29 14:35] LABS: Prothrombin Time 29.1 sec (9.3-11.0)
== END 2020-06-29 02:25 | disposition home or self-care (01) ==
LOC: LBO 02:25
PROVIDERS: PCP Nurse Practitioner Family; Visit Provider Nurse Practitioner Family
DX: I26.99 Other pulmonary embolism without acute cor pulmonale (principal); Z79.01 Long term (current) use of anticoagulants
CPT/HCPCS: 36415; 85610

== ENCOUNTER 2020-08-13 04:49 | Outpatient (CLI) | payer MEDICAID, SELFPAY ==
[2020-08-13 12:03] LABS: INR 1.8 (0.9-1.1); Prothrombin Time 18.1 sec (9.3-11.0)
[2020-08-13 12:11] LABS: Hemoglobin A1C 5.5 % (<5.7)
[2020-08-13 12:39] LABS: ALT 36 U/L (14-59); AST 18 U/L (15-37); Albumin 3.9 g/dL (3.4-5.0); Alkaline Phosphatase 79 U/L (46-116); Anion Gap 9.7 mmol/L (3-11); BUN 10 mg/dL (7-18); Bilirubin, Total 1.3 mg/dL (0.2-1.0); CO2 27.3 mmol/L (21.0-32.0); CREATININE 1.4 mg/dL (0.55-1.02); Calcium 9.4 mg/dL (8.5-10.1); Calculated LDL 105 mg/dL (<100); Chloride 105 mmol/L (98-107); Cholesterol 175 mg/dL (<200); Glucose 110 mg/dL (74-106); HDL Cholesterol 52 mg/dL (40-60); Potassium 4.6 mmol/L (3.5-5.1); Sodium 142 mmol/L (136-145); Total Protein 7.4 g/dL (6.4-8.2); Triglyceride 94 mg/dL (<150)
== END 2020-08-13 04:50 | disposition home or self-care (01) ==
LOC: LBO 04:49
PROVIDERS: PCP Nurse Practitioner Family; Visit Provider Nurse Practitioner Family
DX: R73.03 Prediabetes; Z13.220 Encounter for screening for lipoid disorders; I26.99 Other pulmonary embolism without acute cor pulmonale; Z79.01 Long term (current) use of anticoagulants
CPT/HCPCS: 36415; 80053; 80061; 83036; 85610

== ENCOUNTER 2020-08-16 01:39 | Outpatient (CLI) | payer MEDICAID, SELFPAY ==
[2020-08-16] MEDS: Breeza Beverage 473 ML BTL PO (12:23)
[2020-08-16] MEDS: Omnipaque 350 MG/ML 100 ML BTL 75 ML IJ (13:25)
--- NOTE | 2020-08-16 13:25 | DI.CT_ITS ---
Exam(s) CT ABDOMEN PELVIS W EXAM: CT ABDOMEN PELVIS W CLINICAL HISTORY: Continued vaginal bleeding with abdominal pain,R10.33. TECHNIQUE: Imaging Protocol: Axial computed tomography images with coronal and sagittal reformatted images were created and reviewed CONTRAST MATERIAL: Intravenous: Omnipaque 350 Contrast volume: 75 ml Oral: yes / COMPARISON: No exams were available for comparison FINDINGS: Exam is somewhat limited by respiratory motion. ABDOMEN: Lung Bases: Normal where visualized. Liver: Normal density. No measurable mass. Gallbladder and biliary tract: No radiodense calculus or dilation. Pancreas: Normal density, no abnormal calcifications or inflammatory process. Spleen: Normal. Kidneys: Normal size, contour and axis. No radiodense stones or obstructive uropathy. No masses seen. Adrenal glands: No masses seen. Abdominal Aorta: Abdominal portion non-dilated. PELVIS: Bladder: Symmetric distention, no gross wall thickening. Bowel: No obstruction or bowel wall thickening. Normal appendix. Normal quantity of stool. Peritoneal cavity: No ascites, collection or mesenteric inflammatory response. Bones: Degenerative changes greater in the lower thoracic region. Reproductive organs: Within normal limits. No visible fibroids. No visible in the medial thickening. Ovaries normal in size. Lymph nodes: Unremarkable. Impression: Unremarkable CT scan of the abdomen and pelvis. RADIATION DOSE DELIVERED: 1,436.82mGy.cm Total DLP DATA REPOSITORY: All CT scans at this facility are submitted to the National Radiology Data Registry (NRDR) Dose Index Registry (DIR) with the [employer] (ACR). RADIATION OPTIMIZATION: All CT scans at this facility use at least one of these dose optimization te chniques: automated exposure control; mA and/or kV adjustment per patient size (includes targeted exa ms where dose is matched to clinical indication); or iterative reconstruction.
[2020-08-16] MEDS: Normal Saline - Diluent 50 ML VIAL IV (13:27)
== END 2020-08-16 01:59 ==
PROVIDERS: PCP Nurse Practitioner Family; Visit Provider Nurse Practitioner Family
DX: R10.33 Periumbilical pain (principal); N93.8 Other specified abnormal uterine and vaginal bleeding
CPT/HCPCS: 74177; J3490

== ENCOUNTER 2020-10-08 02:25 | Outpatient (CLI) | payer MEDICAID, SELFPAY ==
[2020-10-08 11:18] LABS: HCT 46.9 % (36.0-46.0); HGB 15.8 g/dL (11.2-15.7); MCH 29.6 pg (27.0-33.0); MCHC 33.7 % (32.0-36.0); MPV 10.7 fL (8.0-11.0); Platelet Count 252 10^3/uL (130-400); RBC 5.33 10^6/uL (3.93-5.22); RDW 12.8 % (11.7-14.6); RDW-SD 41.1 fL; WBC 7.74 10^3/uL (4.4-10.8)
[2020-10-08 11:31] LABS: INR 1.4 (0.9-1.1); Prothrombin Time 14.2 sec (9.3-11.0)
[2020-10-09 17:46] LABS: Source Nasal/Nares
[2020-10-09 19:33] LABS: COVID-19 PCR Negative (Negative)
== END 2020-10-08 02:26 | disposition home or self-care (01) ==
LOC: LBO 02:26
PROVIDERS: PCP Nurse Practitioner Family; Visit Provider Obstetrics & Gynecology Gynecology
DX: N93.8 Other specified abnormal uterine and vaginal bleeding (principal); R10.2 Pelvic and perineal pain; D68.2 Hereditary deficiency of other clotting factors; Z79.01 Long term (current) use of anticoagulants
CPT/HCPCS: 36415; 85027; 87635; 85610

== ENCOUNTER 2020-10-10 08:40 | Day surgery (SDC) | payer MEDICAID, SELFPAY ==
[2020-10-10] VITALS (9 sets, daily range): BP systolic 105–136; BP diastolic 62–97; PULSE 78–94; RESP 14–19; TEMP 36.2–36.6; O2SAT 99–100; BMI 36.9
[2020-10-10] MEDS: Lactated Ringers 1,000 ML 125 ML IV (09:20)
--- NOTE | 2020-10-10 09:53 | ANES.PREOP_ITS ---
General Info Date of Service Date Performed: 10/10/20 Height: 5 ft 5 in Weight: 100.7 kg Body Mass Index (BMI): 36.9 Surgical Procedure: Operation Date: 10/10/20 10:40 Proposed Procedures Side Surgeon p Endometrial Ablation HTA Reema Balbuena MD Meds Allergies and Home Medications Allergies Allergy/AdvReac Type Severity Reaction Status Date / Time streptokinase Allergy Severe SOB; Verified 10/10/20 09:21 TINGLING;ANAPHALYSIS Home Medication Medication Instructions Recorded Complete Multi 1 tab PO DAILY 06/08/12 gabapentin 300 mg capsule 300 mg PO TID #270 tab-cap 11/10/19 naloxone 4 mg/actuation nasal spray 1 spray INTRANASAL Q2-3M PRN #2 ea 12/14/19 ferrous sulfate 325 mg (65 mg 325 mg PO BID #180 tab 01/05/20 iron) tablet valacyclovir 500 mg tablet 500 mg PO BID #10 tab 05/29/20 warfarin 5 mg tablet 5 mg PO DAILY #60 tab 09/03/20 norethindrone acetate 5 mg tablet 5 mg PO DAILY #60 tab 09/12/20 ropinirole 0.25 mg tablet 0.25 mg PO QHS #90 tab 09/17/20 clonazepam 0.5 mg tablet 0.5 mg PO TID PRN #90 tab-cap 09/28/20 Current Visit Medications: Current Medications Generic Name Dose Route Start Last Admin Trade Name Freq PRN Reason Stop Dose Admin Ringer's Solution 1,000 mls @ 125 mls/hr 10/10/20 06:00 10/10/20 09:20 IV 11/08/20 23:59 125 mls/hr INFUSION PA Administration IV Miscellaneous Supplies 1 each 10/10/20 06:00 Iv Access IV 11/08/20 23:59 DIRECTED PA Sodium Chloride 0 ml 10/10/20 06:00 Normal Saline Flush 10 Ml Syr IV 11/08/20 23:59 PRN PRN Sodium Chloride 0 ml 10/10/20 06:00 Normal Saline 10 Ml Vial IJ 11/08/20 23:59 DIRECTED PRN Sterile Water 0 ml 10/10/20 06:00 Water,Injection,Sterile 10 Ml Vial IJ 11/08/20 23:59 DIRECTED PRN Allergy/Medication Comments:: Coumadin last dose 10/08/20 [facility] Active Problems Active Problems: Problem Status Onset Code Restless leg syndrome G25.81 Abdominal pain R10.9 Abnormal uterine bleeding (AUB) N93.9 Genital herpes A60.00 Opioid use F11.90 Genital lesion, female N94.9 Vaginal candidiasis B37.3 Dysuria R30.0 Encounter for medication review Z79.899 Annual physical exam Z00.00 Prediabetes R73.03 Postoperative pain of left knee G89.18, M25.562 Hyperlipidemia E78.5 Chronic low back pain M54.5, G89.29 Generalized anxiety disorder F41.1 Osteoarthritis M19.90 Major depressive disorder F32.9 Factor V Leiden mutation D68.51 Perimenopausal menorrhagia N92.4 Chronic anticoagulation Z79.01 Medical History Medical History Abnormal uterine bleeding (AUB) Chronic low back pain Factor V Leiden mutation Generalized anxiety disorder Genital herpes Genital lesion, female Hyperlipidemia Iron deficiency anemia Major depressive disorder Osteoarthritis Perimenopausal menorrhagia Postoperative pain of left knee Prediabetes Pulmonary embolism In 1993 Vaginal candidiasis Surgical History Surgical History S/P left knee surgery (09/30/12) Arthroscopic ligamentous reconstruction of ACL, PCL with menisectomy for dislocation Tobacco Smoking/Tobacco Use Status: Never Alcohol Alcohol Intake: never Substance Use Substance use: Occasionally Substance use type: marijuana Details: Smoked marijuana yesterday. Prental History History 3 Para 3 Hx # Term Pregnancies Multiple births Hx # Pregnancies Ectopic pregnancies AB induced Hx Number of Living Children AB spontaneous Vital Signs and Lab Results Vital Signs Most Recent Vital Signs in EMR: Most Recent Vital Signs Temp Pulse Resp BP Pulse Ox 36.4 C L 94 H 18 136/90 100 10/10/20 08:55 10/10/20 08:55 10/10/20 08:55 10/10/20 08:55 10/10/20 08:55 Lab Results Blood Type / Crossmatch: No Data to Display Complete Blood Count: White Blood Count 7.74 10^3/uL (4.4-10.8) 10/08/20 11:08 10/08/20 Red Blood Count 5.33 10^6/uL (3.93-5.22) H 10/08/20 11:08 10/08/20 Hemoglobin 15.8 g/dL (11.2-15.7) H 10/08/20 11:08 10/08/20 Hematocrit 46.9 % (36.0-46.0) H 10/08/20 11:08 10/08/20 Platelet Count 252 10^3/uL (130-400) 10/08/20 11:08 10/08/20 Complete Metabolic Panel: No Data to Display Liver Function Panel: No Data to Display Coagulation Panel: INR International Normalized Ratio 1.4 (0.9-1.1) H 10/08/20 11:08 10/08/20 Prothrombin Time 14.2 sec (9.3-11.0) H 10/08/20 11:08 10/08/20 Cardiac Panel: No Data to Display Arterial Blood Gas: No Data to Display Venous Blood Gas: No Data to Display Pancreas Panel: No Data to Display Thyroid Panel: No Data to Display Infectious Disease: Coronavirus (COVID-19)(PCR) Negative (Negative) 10/08/20 11:08 10/08/20 Coronavirus 2019 Source Nasal/Nares 10/08/20 11:08 10/08/20 Blood Cultures: No Data to Display Toxicology Panel: No Data to Display Panel: No Data to Display Anesthesia Assessment and Plan Anesthesia History Personal History: No History of Anesthesia Complications Family History: No Family History of Anesthesia Complications Exercise Tolerance Exercise Tolerance: Metabolic Equivalents>4 Pertinent Negatives Pertinent Negatives: No Symptoms of GERD, No Major Cardiovascular Symptoms or Complaints and Other (History of PE and mini strokes per patient 1993) Cardiac & Pulmonary Exam Cardiac Exam: Normal S1/S2 Heart Sounds Pulmonary Exam: Clear Bilateral Breath Sounds Airway Exam Known Difficult Airway: No Mallampati Class: 3 Mouth Opening: Normal (> 3cm) Thyromental Distance: Greater than 3 cm Neck Range of Motion: Full ROM and History of Cervical Fusion Neck Circumference: Normal Teeth Condition: Normal Dentition ASA Classification ASA Score: ASA 2 Emergency Case?: No NPO Status NPO Status: NPO Clears >2 hours, Solids >8 hours Status Status: Not Relevant due to Medical History and Not Per Patient Anesthesia Plan Resuscitation Status: Full Code Anesthesia Technique: General Anesthesia Airway Planned: Natural Airway (LMA back up) Pain Management: Surgeon and patient request nerve block Monitors Used: Standard Monitors
[2020-10-10] MEDS: Bupivacaine 0.25% Pres-Free 30 ML VIAL (11:27)
--- NOTE | 2020-10-10 12:02 | ENDOMET_PTH ---
PATIENT: Andreia Mayer LOC: [facility] U#:[id number] AGE/SX: 49/F ROOM: RE10/10/[address]: Reema Balbuena : 1970 BED: DIS: 10/10/2020 SPEC #: [id number] RECD: 10/10/20 18:05 STATUS: FAIZA REQ #: [id number] JOSE R: 10/10/20 12:[address]: Reema Balbuena DEPT: Surgical Specimen RECD BY: Ebony Herrera ENTERED: 10/10/20 18:06 SP TYPE: Endomet OTHR DR: Ottoniel Gaines, CHARY Tissues: 1 - ENDOMETRIUM BX/RANGELETTE Procedures: GROSS AND MICRO LEVEL 4 Comments: [id number]
[2020-10-10] MEDS: Silver Nitrate Stick 1 EACH (12:45)
[2020-10-10] MEDS: fentaNYL 100 MCG/2 ML VIAL IVP ×2 (13:20→13:36)
--- NOTE | 2020-10-10 13:38 | W.PM.DSUDISC ---
Discharge Plan Disposition Patient Disposition: HOME Condition: Fair Discharge Details Reason For Visit: endometrial albation Attending Provider: Reema Balbuena Primary Care Provider: Ottoniel Gaines Home Meds and New Rx's Prescriptions: No Action gabapentin 300 mg capsule 300 mg PO TID Qty: 270 RF: 3 valacyclovir 500 mg tablet 500 mg PO BID Qty: 10 RF: 3 Narcan 4 mg/actuation spray,non-aerosol 1 spray intranasal Q2-3M PRN (Reason: opioid overdose) Qty: 2 RF: 4 ferrous sulfate 325 mg (65 mg iron) tablet 325 mg PO PRN RF: 0 Complete Multi 1 EACH tablet 1 tab PO DAILY RF: 0 clonazepam [Klonopin] 0.5 mg tablet 0.5 mg PO TID PRN (Reason: anxiety) Qty: 90 RF: 0 ropinirole 1 mg tablet 1 mg PO QHS Qty: 90 RF: 4 warfarin 5 mg tablet 5 mg PO DAILY Qty: 60 RF: 5 Discharge Instructions Additional Instructions: A prescription for Oxycodone 10mg tablets will be called into your pharmacy. Take one tablet every 8 hrs as needed for severe pain. Keep your follow up appointment with Dr. Balbuena [facility]. Nothing in the vagina: no tampons, no intercourse. You will have yellow and coffee ground discharge from your vagina for the next 3 to 4 days. That will be followed by watery vaginal discharged for 4 weeks. Stand Alone Forms: Anesthesia Discharge Inst., DSU Post Gynecology Surgery Activity:: Activity as Tolerated Diet:: As Tolerated Discharge Orders Discharge Orders: Discharge Order (Routine); Ordered 10/10/20 Ordered By: Reema Balbuena Discharge Data Discharge Date/Time-TO BE ENTERED AT DEPARTURE: 10/10/20 15:20 Discharge Comment: Ambulated to ride with RN. DS: Diagnosis Discharge Diagnosis (1) Abnormal uterine bleeding (AUB): Status: Acute (2) S/P endometrial ablation: Status: Acute
[2020-10-10] MEDS: oxyCODONE 10 MG TAB PO (14:05)
--- NOTE | 2020-10-10 15:24 | W.ANESPOSTOP ---
Postoperative Evaluation Date, Time and Location Date Performed: 10/10/20 Time Performed: 15:24 Patient Location: Day Surgery Unit Vital Signs Most Recent Imported Vital Signs: Most Recent Vital Signs Temp Pulse Resp BP Pulse Ox 36.6 C 87 16 110/73 100 10/10/20 14:49 10/10/20 14:49 10/10/20 14:49 10/10/20 14:49 10/10/20 14:49 Pain Score Most Recent Pain Score: Most Recent Pain Score Pain Level 8 10/10/20 14:49 Assessment Mental Status: Awake (Alert & Oriented to Patient Baseline) Airway and Respiratory Function: Patent airway with normal (patient baseline) respiratory exam Cardiovascular Function: Hemodynamically Stable Hydration Status: Adequately Hydrated Nausea & Vomiting: No Nausea or Vomiting Pain: Pt. Denies Any Pain Peripheral Nerve Block: Patient did not receive a nerve block
--- NOTE | 2020-10-12 11:14 | ROE_ITS ---
Date of service: 10/12/20 Time of Service: 11:14 Operative Note Operative Note DATE OF PROCEDURE: 10/10/20 PRE-OP DIAGNOSIS: Abnormal uterine bleeding POST-OP DIAGNOSIS: same PROCEDURE: Attempted hydrothermal endometrial ablation. Successfully completed Novosure endometrial ablation SURGEON: Reema Balbuena ANESTHESIA TYPE: General:No Airway Refer to Anesthesia Record ESTIMATED BLOOD LOSS: 200 PATHOLOGY: other (curretting of nodule on anterior uterine wall) COMPLICATIONS: None Patient was transported to: PACU Patient's condition: stable Indications: 49yo female with onset of abnormal uterine bleeding onset with change in administration of chronic anticoagulation. Treated with Norethindrone in varying amounts and dosing schedules w/o complete resolution. EMBx and imaging studies of uterus and pelvis are normal. Findings: At time of hysteroscopy uterine cavity smooth with exception of 0.5cm nodule on broad base. Both tubal orifices visualized. Procedure Description: Patient was taken to the operating room where she was placed in the dorsal supine position and general anesthesia was administered without difficulty. She was then placed in the dorsolithotomy position in yellowfin stirrups and prepped and draped in the usual sterile fashion. SCDs were in place. No antibiotics were required. After a surgical timeout was performed a bivalve speculum was placed in the patient's vagina. The anterior lip of the cervix was infiltrated with 1 cc 0.25% bupivacaine and a single-tooth tenaculum was used to grasp the anterior lip of the cervix. A paracervical block was performed with infiltration of 5 cc of 0.25% bupivacaine at the 4:00 and 6:00 para-cervical spaces respectively. Cervix was then sequentially dilated to a maximum of 16 Du. A HTA hysteroscope sheath was inserted into the uterine cavity and a cavity assessment was performed with the above noted findings. The tip of the hysteroscope sheath was positioned to allow visualization of the uterine fundus, both tubal ostia in the midportion of the uterine cavity. The sheath was protected from the vaginal haas by the vagina proximity to the speculum. Heated isotonic saline was then administered via gravity into the uterus through the sheath. Once a safety assessment was performed the treatment phase of the procedure began but was halted 2x during the heating of the fluid entering into the uterus. Both time the sensor reading indicated a loss of seal. Despite placement of additional single tooth tenaculum in proximity to the external cervical os the sensor reading alarmed a 3rd time and the procedure was halted, the intracavitary fluid drained and the hysteroscopic equipment removed. Two of the three single tooth tenaculum were removed from the cervix. A banjo currete was used to perform a curretage on the anterior uterine wall and the tissue sent to pathology. A Novasure device was then inserted into the uterine cavity after the cavity length and width were measured. The array was inserted and the cervical os sealed with two additional single tooth tenaculums applied vertically in relation to the external cervical os The Novasure array was then successfully deployed and a cavity assessment was performed. The uterine lining was then treated for 2minutes at a current of 144 dean. At the completion of the procedure the device array was closed and removed from the uterine cavity. There was bleeding from where the single tooth tenaculums were removed and careful inspection showed a laceration of the body of the cervix at the 2 o'clock and 6 o'clock postion with the cervical laceration extending to the vaginal epithelium. 2 sutures of 2-0 Vicryl were used to achieve hemostasis at the 2 o'clock position. The cervical laceration and adjoining vaginal epithelium was re- approximated with interrupted sutures of 0-Vicryl. Silver Nitrate was applied to superficial abrasion of the vaginal wall. Monsels paste was applied to the cervix and vaginal haas with excellent hemostasis achieved. Instruments were removed from her vagina, the was placed in the supine position awakened and transported to the recovery room in stable condition. All sponge, lap and sponge counts were correct x2.
== END 2020-10-10 15:20 | disposition home or self-care (01) ==
PROVIDERS: PCP Nurse Practitioner Family; Visit Provider Obstetrics & Gynecology Gynecology
PROC: (CPT 58353; principal; 2020-10-10 10:30)
DX: N84.0 Polyp of corpus uteri (principal); N93.9 Abnormal uterine and vaginal bleeding, unspecified; D68.51 Activated protein C resistance; Z79.01 Long term (current) use of anticoagulants; R73.03 Prediabetes
CPT/HCPCS: 58563; 88305; J1885; J2001; J2250; J2405; J2704; J3010

== ENCOUNTER 2020-10-15 10:13 | Outpatient (CLI) | payer MEDICAID, SELFPAY ==
[2020-10-15 14:21] LABS: INR 1.1 (0.9-1.1); Prothrombin Time 11.5 sec (9.3-11.0)
== END 2020-10-15 10:14 | disposition home or self-care (01) ==
LOC: LOS 10:13
PROVIDERS: PCP Nurse Practitioner Family; Visit Provider Nurse Practitioner Family
DX: I26.99 Other pulmonary embolism without acute cor pulmonale (principal); Z79.01 Long term (current) use of anticoagulants
CPT/HCPCS: 85610

== ENCOUNTER 2020-10-23 15:54 | Outpatient (CLI) | payer MEDICAID, SELFPAY ==
[2020-10-23 12:35] LABS: INR 1.7 (0.9-1.1); Prothrombin Time 16.7 sec (9.3-11.0)
== END 2020-10-23 15:55 | disposition home or self-care (01) ==
LOC: LOS 10-24 15:56
PROVIDERS: PCP Nurse Practitioner Family; Visit Provider Nurse Practitioner Family
DX: I26.99 Other pulmonary embolism without acute cor pulmonale (principal); Z79.01 Long term (current) use of anticoagulants
CPT/HCPCS: 36415; 85610

== ENCOUNTER 2020-11-01 09:09 | Outpatient (CLI) | payer MEDICAID, SELFPAY ==
[2020-11-01 13:02] LABS: INR 1.7 (0.9-1.1); Prothrombin Time 16.7 sec (9.3-11.0)
== END 2020-11-01 09:10 | disposition home or self-care (01) ==
PROVIDERS: PCP Nurse Practitioner Family; Visit Provider Nurse Practitioner Family
DX: I26.99 Other pulmonary embolism without acute cor pulmonale (principal); Z79.01 Long term (current) use of anticoagulants
CPT/HCPCS: 36415; 85610

== ENCOUNTER 2020-11-23 01:13 | Outpatient (CLI) | payer MEDICAID, SELFPAY ==
[2020-11-23 12:35] LABS: INR 1.3 (0.9-1.1); Prothrombin Time 13.2 sec (9.3-11.0)
== END 2020-11-23 01:14 | disposition home or self-care (01) ==
LOC: LOS 01:13
PROVIDERS: PCP Nurse Practitioner Family; Visit Provider Nurse Practitioner Family
DX: I26.99 Other pulmonary embolism without acute cor pulmonale (principal); Z79.01 Long term (current) use of anticoagulants
CPT/HCPCS: 36415; 85610

== ENCOUNTER 2020-12-14 10:32 | Outpatient (CLI) | payer MEDICAID, SELFPAY ==
[2020-12-14 12:27] LABS: INR 1.2 (0.9-1.1); Prothrombin Time 11.6 sec (9.3-11.0)
== END 2020-12-14 10:33 | disposition home or self-care (01) ==
LOC: LBO 10:35
PROVIDERS: PCP Nurse Practitioner Family; Visit Provider Nurse Practitioner Family
DX: Z79.01 Long term (current) use of anticoagulants (principal); I26.99 Other pulmonary embolism without acute cor pulmonale
CPT/HCPCS: 36415; 85610

== ENCOUNTER 2021-01-04 14:24 | Outpatient (CLI) | payer MEDICAID, SELFPAY ==
[2021-01-04 13:24] LABS: Prothrombin Time 19.3 sec (9.3-11.0)
[2021-01-04 13:27] LABS: INR 1.9 (0.9-1.1)
== END 2021-01-04 14:25 | disposition home or self-care (01) ==
LOC: LOS 14:24
PROVIDERS: PCP Nurse Practitioner Family; Visit Provider Nurse Practitioner Family
DX: I26.99 Other pulmonary embolism without acute cor pulmonale (principal); Z79.01 Long term (current) use of anticoagulants
CPT/HCPCS: 36415; 85610

== ENCOUNTER 2021-01-29 04:06 | Outpatient (CLI) | payer MEDICAID, SELFPAY ==
[2021-01-29 11:56] LABS: INR 1.3 (0.9-1.1); Prothrombin Time 13.2 sec (9.3-11.0)
== END 2021-01-29 04:07 | disposition home or self-care (01) ==
PROVIDERS: PCP Nurse Practitioner Family; Visit Provider Nurse Practitioner Family
DX: I26.99 Other pulmonary embolism without acute cor pulmonale (principal); Z79.01 Long term (current) use of anticoagulants
CPT/HCPCS: 36415; 85610

== ENCOUNTER → 2022-01-27 15:15 | Outpatient (CLI) | payer MEDICAID, SELFPAY ==
--- NOTE | 2022-01-27 14:45 | DI.US_ITS ---
Exam(s) US SOFT TISSUE EXTREMITY EXAM: US SOFT TISSUE EXTREMITY CLINICAL HISTORY: dog bite, pain/itching. R/o FB or abscess. TECHNIQUE: Ultrasound was performed using standard protocol. COMPARISON: No exams were available for comparison FINDINGS: Sonographic assessment utilizing grayscale and color Doppler imaging was performed and targeted to th e area of clinical concern. There is no evidence of fluid collection or abscess. There is some edema with mildly hypoechoic area s with surrounding hyperemia in the area of the dog bite. IMPRESSION: No evidence of abscess or drainable fluid collection. DATA REPOSITORY:
--- OUTSIDE RECORDS SUMMARY | 2022-01-27 15:17 | XMS_ITS | Encounter Summary ---
:1970 Author Organization [facility] Address [address] [place] [address] Care Team Providers Name Role Phone Unavailable Primary Care Provider Unavailable Encounter Details Date Type Department Care Team Description 05/08/[address] [facility] - Juhi Gutierrez, Converted Visit Maple conversion CEMETERY VAULT INSTALLER (Maple) [address] [address] [place], [place] [phone] (Wo rk) Social History Tobacco Use Types Packs/Day Years Used Date Smoking Tobacco: Never Assessed Sex Assigned at Date Recorded Not on file documented as of this encounter Plan of Treatment Not on filedocumented as of this encounter Procedures Procedure Name Priority Date/Time Associated Comments Diagnosis HPV DETECTION, HIGH Routine 05/08/2008 9:20 Resul ts for this RISK TYPES EST procedure are i n the results section. CYTOPATHOLOGY Routine 05/08/2008 0:00 Results for this EST procedure are i n the results section. documented in this encounter Results HUMAN PAPILLOMA VIRUS DNA TEST (05/08/2008 9:20 EST) [facility] Method Time Signature Specimen Cervix, CARCAMO Description ThinPrep vial [facility] Result Positive for one or more of HPV types 16,18,31,33,35,39,45,51,52,56,58,59, or 68. These CARCAMO high/intermediate risk HPV t ypes are associated with dysplasia and some cervical cancers. [facility] Report Status Final CARCAMO 05/18/2008 [facility] Specimen Anatomical Collection Method Collection Time Receive d Time (Source) Location / / Volume Laterality 05/08/2008 9:20 05/12/2008 9 :57 EST EST Juhi Gutierrez CEMETERY VAULT INSTALLER MICROBIOLOGY - GENERAL ORDER CASANDRA Performing Organization Address City/State/ZIP Code Phon e Number [facility] [address] [place] [address] SERVICES [facility] [address] [place] [address] CYTOPATHOLOGY (05/08/2008 0:00 EST) Component Value Ref Test Analysis Performed At [facility] Range Method Time Signature Pathology CYTOPATHOLOGY REPORT ? [facility] Report: ? [facility] Reports generated via [employer] interface contain original data; ? however they are lacking the format of the original report. ? Caution should be taken when reading/interpreting unformatted reports. ? Name: ? JORDYN MAYER ? Accession #: ? [id number] ? : ? 1970 (Age: 37) ??F ?Collect Date: ? 05/08/2008 ? Location: ? [facility] ? Receive Date: ? 05/09/2008 ? Provider: ?JUHI HAYG OOD CEMETERY VAULT INSTALLER ? Copy to: ? Specimen/Source: ? Pap Test, Cervix/Endocervix, ThinPrep Imaging System ? with manual evaluation ? Last Menstrual Period: ? 02/22/09 ? Previous Gynecologic Patholo gy: ? LSIL: 12/99 ? ASC-US: 04/01, paps neg. sin ce ? Other: ? HPVA - HPV testing requested if ASC-US on the current ThinPrep Pap test. ? SPECIMEN ADEQUACY ? Satisfactory for Eval uation ? - transformation zone compon ent present ? GENERAL CATEGORIZATION ? Epithelial Cell Abnor mality ? INTERPRETATION ? Squamous Cell Abnorma lity - Atypical squamous cells, undetermined ? significance (ASC-US). ? EDUCATIONAL NOTES/RECOMMENDA TIONS ? [facility] recommends kunalo wing the 2006 Consensus Guidelines for the Management of Women with Abnormal Cervi panda Cancer Screening Tests (JLGTD, ? 2007;11(4):201-222). ??Conse nsus guidelines are available online at ? www.ASCCP.org. ? Document reviewed and electr onically signed by: ? Nury March MD ? Report Date: ??05/11/ 2009 17:59 ? End of Report ? Specimen (Source) Anatomical Location Collection Method / Collectio n Time Received Time / Laterality Volume 05/08/2008 05/09/2008 Juhi Gutierrez CEMETERY VAULT INSTALLER PATHOLOGY ORDERABLES Performing Organization Address City/State/ZIP Code Phon e Number [facility] [address] [place] [address] SERVICES [facility] [address] [place] [address] documented in this encounter Visit Diagnoses Not on filedocumented in this encounter
--- OUTSIDE RECORDS SUMMARY | 2022-01-27 15:17 | XMS_ITS | Encounter Summary ---
:1970 Author Organization [facility] Address [address] [place] [address] Care Team Providers Name Role Phone Dawood Welch MD Primary Care Provider Unavailable Encounter Details Date Type Department Care Team Description 11/02/2019 Lab Requisition [facility] Jossie Gardner En counter for other Pathology & A, COOLER SERVICER general examination Laboratory Medicine [address] [place], [place] [address] [facility] [id number] [place] [address] Social History Tobacco Use Types Packs/Day Years Used Date Smoking Tobacco: Never Assessed Sex Assigned at Date Recorded Not on file documented as of this encounter Plan of Treatment Not on filedocumented as of this encounter Procedures Procedure Name Priority Date/Time Associated Comments Diagnosis PAP TEST Today 11/01/2019 10:20 Encounter for other Resu lts for this EDT general examination procedur e are in the results section. HUMAN PAPILLOMAVIRUS Today 11/01/2019 10:20 Encounter for ot her Results for this (HPV) DETECTION-HIGH EDT general examination procedure are in RISK TYPES the results section. documented in this encounter Results HUMAN PAPILLOMAVIRUS (HPV) DETECTION-HIGH RISK TYPES (11/01/2019 10:20 EDT) [facility] Method Time Signature Human Negative Negative 11/15/2019 [facility] Papillomavirus 20:03 EDT CENTER (HPV) LABORATORY Detection-High SERVICES Types Comment: No E6 or E7 mRNA is detected fr om HPV types 16,18,31,33,35,39,45,51,52,56,58,59,66, and 68 by office machine service supervisor mediated amplification. Specimen Anatomical Collection Method Collection Time Receive d Time (Source) Location / / Volume Laterality Pap Test (Cervix 11/01/2019 10:20 020 and/or EDT 16:47 EDT Endocervix) Jossie Gardner APRN MICROBIOLOGY - GENERAL ORDER CASANDRA Performing Organization Address City/State/ZIP Code Phon e Number [facility] [address] [place] [address] SERVICES PAP TEST (11/01/2019 10:20 EDT) Component Value Ref Test Analysis Performed At [facility] gist Range Method Time Signature Specimens A. Cervix and/or 11/15/2019 [facility] Endocervix , 20:03 [facility] ThinPrep Imaging LABORATORY System with SERVICES Manual Evaluation Specimen Satisfactory for 11/15/2019 [facility] Adequacy Evaluation - 20:03 [facility] transformation LABORATORY zone component SERVICES absent General Negative for 11/15/2019 [facility] Categorization intraepithelial 20:03 [facility] lesion or LABORATORY malignancy SERVICES Attestation . 11/15/2019 [facility] Elect ronically 20:03 [facility] CENTER signed by LABORATORY Óscar Yu, SERVICES CT(ASCP)(I AC) on 0 at 2002 HPV The result for the Human Pap illomavirus (HPV) Detection-High Risk Types is Negative. No E6 or E7 mRNA is detected from HPV types 16,18,31,33,35,39,45,51,52,56,58,59,66, and 68 by office machine service supervisor mediated 11/15/2019 [facility] amplification.Testing was pe rformed on specimen [id number] and was resulted on 11/15/20198 EDT by RUBA, LAB INSTRUMENT RESULTS IN 20:03 [facility] LABORATORY SERVICES Scanned Images 11/15/2019 [facility] 20:03 [facility] LABORATORY SERVICES Specimen Anatomical Collection Method Collection Time Receive d Time (Source) Location / / Volume Laterality Pap Test (Cervix 11/01/2019 10:20 020 9:09 and/or EDT EDT Endocervix) Jossie Gardner APRN PATHOLOGY ORDERABLES Performing Organization Address City/[facility]/ZIP Code Phon e Number [facility] [address] [place] [address] SERVICES documented in this encounter Visit Diagnoses Diagnosis Encounter for other general examination documented in this encounter Care Teams Assembler Flexible Leads Relationship Specialty Start Date End Date Dawood Welch MD PCP - General 08/10/13 [address] [place] [address] documented as of this encounter
--- OUTSIDE RECORDS SUMMARY | 2022-01-27 15:17 | XMS_ITS | Encounter Summary ---
:1970 Author Organization [facility] Address [address] [place] [address] Care Team Providers Name Role Phone aRmy Palmer MD Primary Care Provider Unavailable Encounter Details Date Type Department Care Team Description 04/01/2001 Results Only [facility] - Noe Pineda MD conversion [address] [place] [id number] Social History Tobacco Use Types Packs/Day Years Used Date Smoking Tobacco: Never Assessed Sex Assigned at Date Recorded Not on file documented as of this encounter Plan of Treatment Not on filedocumented as of this encounter Procedures Procedure Name Priority Date/Time Associated Diagnosis Comme nts CYTOPATHOLOGY Routine 04/01/2001 0:00 EST Results for this procedure are i n the results section . documented in this encounter Results CYTOPATHOLOGY (04/01/2001 0:00 EST) Component Value Ref Test Analysis Performed At [facility] Range Method Time Signature Pathology CYTOPATHOLOGY REPORT [facility] Report: [facility] Reports generated via electronic interface contain original data; however they are lacking the format of the original report. Caution should be taken when reading/interpreting unformatte d reports. Name: ? JORDYN MAYER ? Accession #: ? [id number] : ? 1970 (Age: 30) ??F ?Collect Date: ? 04/01/2001 Location: ? [facility] ? Receive Date: ? 04/05/2001 Provider: ?NOE CARUSO MD Copy to: ? Specimen/Source: ?ThinPrep Pap Test, Cervix/Endoce rvix Last Menstrual Period: ? Unsure 18 wks. ago ? Menstrual/ Status: ? Previous Gynecologic Pathology: ? LSIL: ASC-US: cannot rule out JYOTI 06/07 ? SPECIMEN ADEQUACY ? Satisfactory for Evaluation - transformation zone component present GENERAL CATEGORIZATION ? Negative for Intraepithelial Lesion or Malignancy INTERPRETATION ? Fungal organisms pres ent morphologically consistent with Araceli species. ? Document reviewed and electronically signed by: ? Wendy Bangura [facility](ASCP) ? Report Date: ??04/07/2001 09:31 End of Report Specimen (Source) Anatomical Location Collection Method / Collectio n Time Received Time / Laterality Volume 04/01/2001 04/05/2001 Noe Caruso MD PATHOLOGY ORDERABLES Performing Organization Address City/State/ZIP Code Phon e Number [facility] [address] [place] [address] SERVICES [facility] [address] [place] [address] documented in this encounter Visit Diagnoses Not on filedocumented in this encounter Care Teams Product Mgr Relationship Specialty Start Date End Date Ramy Palmer MD PCP - General 01/04/09 08/09/13 documented as of this encounter
--- OUTSIDE RECORDS SUMMARY | 2022-01-27 15:17 | XMS_ITS | Encounter Summary ---
:1970 Author Organization [facility] Address [address] [place] [address] Care Team Providers Name Role Phone Dawood Welch MD Primary Care Provider Unavailable Encounter Details Date Type Department Care Team Description 05/03/2020 Lab Requisition [facility] Outr Resulting Lab, Pathology & Laboratory Provider [facility] [address] [place] [address] Social History Tobacco Use Types Packs/Day Years Used Date Smoking Tobacco: Never Assessed Sex Assigned at Date Recorded Not on file documented as of this encounter Plan of Treatment Not on filedocumented as of this encounter Procedures Procedure Name Priority Date/Time Associated Comments Diagnosis CHLAMYDIA/N. Routine 05/02/2020 13:30 Results for this GONORRHOEAE AMPLIFIED EST proced ure are in RNA the results section. documented in this encounter Results CHLAMYDIA/N. GONORRHOEAE AMPLIFIED RNA (05/02/2020 13:30 EST) [facility] Method Time Signature Gonococcus Negative Negative 05/04/2020 [facility] Result 14:45 [facility] SERVICES Chlamydia Negative Negative 05/04/2020 [facility] Result 14:45 [facility] SERVICES Specimen Anatomical Collection Method Collection Time Receive d Time (Source) Location / / Volume Laterality Swab ENTIRE ENDOCERVIX 05/02/2020 13:30 2020 / Unknown EST 17:40 EST Provider Outr Resulting Lab MICROBIOLOGY - GENERAL ORD ERABLES Performing Organization Address City/State/ZIP Code Phon e Number [facility] [address] [place] [address] SERVICES documented in this encounter Visit Diagnoses Not on filedocumented in this encounter Care Teams Safety Physician Relationship Specialty Start Date End Date Dawood Welch MD PCP - General 08/10/[address] [place] [address] documented as of this encounter
--- OUTSIDE RECORDS SUMMARY | 2022-01-27 15:17 | XMS_ITS | Encounter Summary ---
:1970 Author Organization [facility] Address [address] [place] [address] Care Team Providers Name Role Phone Ramy Palmer MD Primary Care Provider Unavailable Encounter Details Date Type Department Care Team Description 09/21/2009 Results Only [facility] Eric Gutierrez, COMMERCIAL LINES ACCOUNT ASSISTANT Laboratory Services - [address] [facility] [address] [address] [place] [address] [phone] Social History Tobacco Use Types Packs/Day Years Used Date Smoking Tobacco: Never Assessed Sex Assigned at Date Recorded Not on file documented as of this encounter Plan of Treatment Not on filedocumented as of this encounter Procedures Procedure Name Priority Date/Time Associated Diagnosis Comme [facility] CYTOPATHOLOGY Routine 09/21/2009 0:00 EDT Results for this procedure are i n the results section . documented in this encounter Results CYTOPATHOLOGY (09/21/2009 0:00 EDT) Component Value Ref Test Analysis Performed At [facility] Method Time [facility] Pathology CYTOPATHOLOGY REPORT ? [facility] Report: ? [facility] Reports generated via electr [employer]ic interface contain original data; ? however they are lacking the format of the original report. ? Caution should be taken when reading/interpreting unformatted reports. ? Name: ? MAYER, JORDYN ? Accession #: ? [id number] ? : ? 1970 (Age: 38) ??F ?Collect Date: ? 09/21/2009 ? Location: ? [facility] ? Receive Date: ? 09/24/2009 ? Provider: ?JUHI HAYG OOD COMMERCIAL LINES ACCOUNT ASSISTANT ? Copy to: ? Specimen/Source: ? Pap Test, Cervix/Endocervix, ThinPrep Imaging System ? with manual evaluation ? Last Menstrual Period: ? 6/28/10 ? Previous Gynecologic Patholo gy: ? ASC-US: 3/09 ? HPV: + 10/09 ? Treatment History: ? Colposcopy: bx negative ? Other: ? HPVA - HPV testing requested if ASC-US on the current ThinPrep Pap test. ? SPECIMEN ADEQUACY ? Satisfactory for Eval uation ? - transformation zone compon ent present ? GENERAL CATEGORIZATION ? Negative for Intraepi thelial Lesion or Malignancy ? INTERPRETATION ? Fungal organisms pres ent morphologically consistent with Araceli species. ? Document reviewed and electr onically signed by: ? Jessee Armenta, [place] (ASCP) ? Report Date: ??07/21/ 2010 14:30 ? End of Report ? Specimen (Source) Anatomical Location Collection Method / Collectio n Time Received Time / Laterality Volume 09/21/2009 09/24/2009 Juhi Gutierrez COMMERCIAL LINES ACCOUNT ASSISTANT PATHOLOGY ORDERABLES Performing Organization Address City/State/ZIP Code Phon e Number [facility] [address] [place] [address] SERVICES [facility] [address] [place] [address] documented in this encounter Visit Diagnoses Not on filedocumented in this encounter Care Teams Statistics Intern Relationship Specialty Start Date End Date Ramy Palmer MD PCP - General 01/04/09 08/09/13 documented as of this encounter
--- OUTSIDE RECORDS SUMMARY | 2022-01-27 15:17 | XMS_ITS | Encounter Summary ---
:1970 Author Organization [facility] Address [address] [place] [address] Care Team Providers Name Role Phone Dawood Welch MD Primary Care Provider Unavailable Encounter Details Date Type Department Care Team Description 05/02/2020 Lab Requisition [facility] Reema Harris, En counter for other Pathology & MD general examination Laboratory Medicine [address] [place] [address] [address] [place] [address] Social History Tobacco Use Types Packs/Day Years Used Date Smoking Tobacco: Never Assessed Sex Assigned at Date Recorded Not on file documented as of this encounter Plan of Treatment Not on filedocumented as of this encounter Procedures Procedure Name Priority Date/Time Associated Diagnosis Comme nts SURGICAL PATHOLOGY Today 05/02/2020 15:30 Encounter for othe r Results for this EST general examination procedur e are in the results section. documented in this encounter Results SURGICAL PATHOLOGY (05/02/2020 15:30 EST) Component Value Ref Test Analysis Performed At [facility] Range Method Time Signature Final A. ENDOMETRIUM, BIOPSY: 05/07/2020 [facility] Diagnosis - Inactive/atrophic endometr ium with marked exogenous progestin effect 10:09 [facility] LABORATORY SERVICES Attestation There was 05/07/2020 [facility] Elect ronically significant 10:09 EST CENTER signed b y resident/fellow LABORATORY Belkys Brink, involvement in SERVICES MD on 05/07/2020 the diagnostic at 10 09 evaluation of this case. By the signature below, the attending physician certifies that they have personally conducted a gross and/or microscopic examination of the described specimens and rendered or confirmed the above diagnosis. Clinical Abnormal uterine 05/07/2020 [facility] History bleeding 10:09 [facility] LABORATORY SERVICES Gross A. 05/07/2020 [facility] Description Received in formalin chiquita d with proper patient identification (initials H, C) and endometrium is an aggregate of white soft tissue admixed with a scant amount of dark brown blood clot (2.0 x 1.8 x 0.5 cm). Entirely submitted in A1-A2. 10:09 [facility] LABORATORY Joselo Philip 05/03/2020 11:18 SERVICES Resident/Kobi Kebede 05/07/2020 [facility] AL w: DO Dawood 10:09 [facility] LABORATORY SERVICES Performing Lab [facility] 05/07/2020 [facility] AL LAB 10:09 [facility] LABORATORY SERVICES Scanned Images 05/07/2020 [facility] 10:09 [facility] LABORATORY SERVICES Specimen Anatomical Location Collection Method Collection Time Received Time (Source) / Laterality / Volume Tissue ENTIRE ENDOMETRIUM 05/02/2020 15:30 05/02 / Unknown EST 21:41 EST Reema Harris MD PATHOLOGY ORDERABLES Performing Organization Address City/State/ZIP Code Phon e Number [facility] [address] [place] [address] SERVICES documented in this encounter Visit Diagnoses Diagnosis Encounter for other general examination documented in this encounter Care Teams Professional Nursing Tutor Relationship Specialty Start Date End Date Dawood Welch MD PCP - General 08/10/13 [address] [place] [address] documented as of this encounter
--- OUTSIDE RECORDS SUMMARY | 2022-01-27 15:17 | XMS_ITS | Clinical Summary ---
:1970 Author Organization [facility] Address [address] [place] [address] Care Team Providers Name Role Phone Dawood Welch MD Primary Care Provider Unavailable Social History Tobacco Use Types Packs/Day Years Used Date Smoking Tobacco: Never Assessed Sex Assigned at Date Recorded Not on file Plan of Treatment Health Maintenance Due Date Last Done Comments Hepatitis C Screen 1970 COVID-19 Vaccine (#1) 05/17/1970 Insurance Payer Benefit Plan Subscriber ID Effective Phone Address Typ e / Group Dates MEDICAID ACO MEDICAID ACO [id number] 2019-Pres [phone] [address] [place] [address] [facility] [place] [address] Care Teams Belt Builder Relationship Specialty Start Date End Date Dawood Welch MD PCP - General 08/10/13 [address] [place] [address]
--- OUTSIDE RECORDS SUMMARY | 2022-01-27 15:17 | XMS_ITS | Encounter Summary ---
:1970 Author Organization [facility] Address [address] [place] [address] Care Team Providers Name Role Phone Unavailable Primary Care Provider Unavailable Encounter Details Date Type Department Care Team Description 01/02/2009 Orders Only [facility]- Luisito Castanon MD [phone] [place] [address] Social History Tobacco Use Types Packs/Day Years Used Date Smoking Tobacco: Never Assessed Sex Assigned at Date Recorded Not on file documented as of this encounter Plan of Treatment Not on filedocumented as of this encounter Procedures Procedure Name Priority Date/Time Associated Diagnosis Comme nts CYTOPATHOLOGY Routine 01/02/2009 0:00 EDT Results for this procedure are i n the results section. SURGICAL PATHOLOGY Routine 01/02/2009 0:00 EDT Re sults for this procedure are i n the results section. documented in this encounter Results CYTOPATHOLOGY (01/02/2009 0:00 EDT) Component Value Ref Test Analysis Performed At [facility] Range Method Time Signature Pathology CYTOPATHOLOGY REPORT ? [facility]O Report: ? [facility] Reports generated via [place] interface contain original data; ? however they are lacking the format of the original report. ? Caution should be taken when reading/interpreting unformatted reports. ? Name: ? JORDYN MAYER ? Accession #: ? [id number] ? : ? 1970 (Age: 38) ??F ?Collect Date: ? 01/02/2009 ? Location: ? [facility] ? Receive Date: ? 01/03/2009 ? Provider: ?LUISITO S KE NNY MD ? Copy to: ? Specimen/Source: ? Pap Test, Cervix/Endocervix, ThinPrep Imaging System ? with manual evaluation ? Last Menstrual Period: ? Previous Gynecologic Patholo gy: ? ASC-US: previous pap ? SPECIMEN ADEQUACY ? Satisfactory for Eval uation ? - transformation zone compon ent present ? GENERAL CATEGORIZATION ? Negative for Intraepi thelial Lesion or Malignancy ? INTERPRETATION ? Fungal organisms pres ent morphologically consistent with Araceli species. ? Document reviewed and electr onically signed by: ? Cedrick Stjaguar, CT( CP) ? Report Date: ??11/04/ 2009 14:28 ? End of Report ? Specimen (Source) Anatomical Location Collection Method / Collectio n Time Received Time / Laterality Volume 01/02/2009 01/03/2009 Luisito Cardona MD PATHOLOGY ORDERABLES Performing Organization Address City/State/ZIP Code Phon e Number [facility] [address] [place] [address] SERVICES [facility] [address] [place] [address] SURGICAL PATHOLOGY (01/02/2009 0:00 EDT) Component Value Ref Test Analysis Performed At [facility] Range Method Time Signature Pathology SURGICAL PATHOLOGY REPORT ? CARROLL HER Report: Reports generated via electr onic interface contain original data; ? [facility] GOTTI however they are lacking the format of the original report. ? Caution should be taken when reading/interpreting unformatted reports. ? Name: ? JORDYN MAYER ? Accession #: ? [id number] ? : ? 1970 (Age: 38) ??F ? Collec t Date: ? 01/02/2009 ? Location: ? [facility] ? R eceive Date: ? 01/03/2009 ? Provider: LUISITO CARDONA MD ? Copy to: KHADRA BOLAÑOS MD ? Final Pathologic Diagnosis: ? A. ?Cervix, 7 o 'clock, biopsy: ? 1. ?Fragments o f benign squamous and glandular mucosa. ? B. ?Endocervix, curettage: ? 1. ?Fragments o f benign endocervical glands and stroma. ? Comment: ? Deeper sections of sp brendan (A) have been reviewed. ??(Dr. Monteiro) ? Document reviewed and electr onically signed by: ? Yuri Monteiro MD ? Report ??Date: 01/08/2009 13 :25 ? By the signature above, the attending physician certifies that he/she has ? personally conducted a gross and/or microscopic examination of the described ? specimens and rendered or co nfirmed the above diagnosis. ? Specimen(s) Received: ? A. ?Cx 7 o'cloc k ? B. ? Endocervical curett age ? Clinical History: ? Abnormal Pap - ASCUS ? Gross Description: ? Received in formalin labelled Jordyn Mayer and cx 7 o'clock is a ? phoenxi-pink biopsy measuring 0. 4 x 0.3 x 0.2 cm. ??Also present is approximately 0.5 cc of blood tinged mucus. ?? The specimen is submitted entirely as (A). ? Received in formalin chiquita d Jordyn Mayer and endocx is 1 cc of blood ?? tinged mucus admixed with fr agments of red-brown tissue. ??The specimen is ? submitted entirely as (B) fo llowing filtration. ??(TERRI [employer])/tmg ? End of Report ? Specimen (Source) Anatomical Collection Method Collection Time Re ceived Time Location / / Volume Laterality 01/02/2009 01/03/2009 9:46 EDT Luisito Cardona MD PATHOLOGY ORDERABLES Performing Organization Address City/State/ZIP Code Phon e Number [facility] [address] [place] [address] SERVICES [facility] [address] [place] [address] documented in this encounter Visit Diagnoses Not on filedocumented in this encounter
--- OUTSIDE RECORDS SUMMARY | 2022-01-27 15:17 | XMS_ITS | Encounter Summary ---
:1970 Author Organization [facility] Address [address] [place] [address] Care Team Providers Name Role Phone Ramy Palmer MD Primary Care Provider Unavailable Encounter Details Date Type Department Care Team Description 09/25/2011 Results Only [facility] [address] Kiya, DO [phone] [facility] [facility] [place] [address] (Wo rk) Social History Tobacco Use Types Packs/Day Years Used Date Smoking Tobacco: Never Assessed Sex Assigned at Date Recorded Not on file documented as of this encounter Plan of Treatment Not on filedocumented as of this encounter Procedures Procedure Name Priority Date/Time Associated Diagnosis Comme [facility] SURGICAL PATHOLOGY Routine 09/25/2011 0:00 EDT Re sults for this procedure are i n the results section. documented in this encounter Results SURGICAL PATHOLOGY (09/25/2011 0:00 EDT) Component Value Ref Test Analysis Performed At [facility] Range Method Time Signature Pathology SURGICAL PATHOLOGY REPORT NEPTALI JUÁREZ Report: Reports generated via electronic interface contain jennifer max; [facility] GOTTI however they are lacking the format of the original report. Caution should be taken when reading/interpreting unformatte d reports. Name: ? JORDYN MAYER ? Accession #: ? [id number] ? : ? 1970 (Age: 40) ??F ? Collect Date: ? 09/25/2011 ? Location: ? [facility] ? Receive Date: ? 09/25/2011 ? Provider: ANTHONY STREET DO Copy to: MONROE BROWN MD ? Final Pathologic Diagnosis: ? Soft tissue of forearm, left, biopsy: - Angiolipoma. Document reviewed and electronically signed by: OLEKSANDR KENYON MD Report ??Date: 09/30/2011 16:07 By the signature above, the attending physician certifies th at he/she has personally conducted a gross and/or microscopic examin ation of the described specimens and rendered or confirmed the above diagnosis. Specimen(s) Received: ? Surgical removal of left forearm lipoma Clinical History: ? Left forearm lipoma for pathology; clinical diagnosis code: ??214.1 Gross Description: ? Received in formalin labelled Jordyn Mayer and left forearm lipoma is a 2.0 x 1.7 x 1.0 cm unoriented porti on of yellow lobulated adipose tissue. The majority of the outer payne rface is somewhat roughened without any discernible capsule, however, one side has a small amount of possible thin, translucent capsule. ??The specimen is entirely inked black. ??The spe cimen is serially sectioned to reveal a yellow , homogeneous, glistening cut surface. ??The specimen is entirely submitted in (A1) and (A2). ??([employer])/[facility] End of Report Specimen (Source) Anatomical Collection Method Collection Time Re ceived Time Location / / Volume Laterality 09/25/2011 09/25/2011 20:[address] DO PATHOLOGY ORDERABLES Performing Organization Address City/State/ZIP Code Phon e Number [facility] [address] [place] [address] SERVICES [facility] [address] [place] [address] documented in this encounter Visit Diagnoses Not on filedocumented in this encounter Care Teams Appointment Specialist Relationship Specialty Start Date End Date Ramy Palmer MD PCP - General 01/04/09 08/09/13 documented as of this encounter
--- OUTSIDE RECORDS SUMMARY | 2022-01-27 15:17 | XMS_ITS | Encounter Summary ---
:1970 Author Organization [facility] Address [address] [place] [address] Care Team Providers Name Role Phone Ramy Palmer MD Primary Care Provider Unavailable Encounter Details Date Type Department Care Team Description 12/08/2001 Results Only [facility] - Noe Pineda MD conversion [address] [place] [address] Social History Tobacco Use Types Packs/Day Years Used Date Smoking Tobacco: Never Assessed Sex Assigned at Date Recorded Not on file documented as of this encounter Plan of Treatment Not on filedocumented as of this encounter Procedures Procedure Name Priority Date/Time Associated Diagnosis Comme nts CYTOPATHOLOGY Routine 12/08/2001 0:00 EDT Results for this procedure are i n the results section . documented in this encounter Results CYTOPATHOLOGY (12/08/2001 0:00 EDT) Component Value Ref Test Analysis Performed At [facility] Range Method Time Signature Pathology CYTOPATHOLOGY REPORT DONA Report: [facility] Reports generated via electronic interface contain original data; however they are lacking the format of the original report. Caution should be taken when reading/interpreting unformatte d reports. Name: ? JORDYN MAYER ? Accession #: ? [id number] : ? 1970 (Age: 31) ??F ?Collect Date: ? 12/08/2001 Location: ? [facility] ? Receive Date: ? 12/09/2001 Provider: ?NOE CARUSO MD Copy to: ? Specimen/Source: ?ThinPrep Pap Test, Cervix/Endoce rvix Last Menstrual Period: ? 11/29/01 Menstrual/ Status: ? Post Previous Gynecologic Pathology: ? LSIL: ASC-US: DIGITAL RESEARCH ANALYST JYOTI 06/07 ? SPECIMEN ADEQUACY ? Satisfactory for Evaluation - transformation zone component present GENERAL CATEGORIZATION ? Negative for Intraepithelial Lesion or Malignancy INTERPRETATION ? Fungal organisms pres ent morphologically consistent with Araceli species. ? Document reviewed and electronically signed by: ? ATUL Gant(ASCP) ? Report Date: ??12/14/2001 11:03 End of Report Specimen (Source) Anatomical Location Collection Method / Collectio n Time Received Time / Laterality Volume 12/08/2001 12/09/2001 Noe Caruso MD PATHOLOGY ORDERABLES Performing Organization Address City/State/ZIP Code Phon e Number [facility] [address] [place] [address] SERVICES [facility] [address] [place] [address] documented in this encounter Visit Diagnoses Not on filedocumented in this encounter Care Teams Forest Aide Relationship Specialty Start Date End Date Ramy Palmer MD PCP - General 01/04/09 08/09/13 documented as of this encounter
--- OUTSIDE RECORDS SUMMARY | 2022-01-27 15:17 | XMS_ITS | Encounter Summary ---
:1970 Author Organization [facility] Address [address] [place] [address] Care Team Providers Name Role Phone Ramy Palmer MD Primary Care Provider Unavailable Encounter Details Date Type Department Care Team Description 08/05/2013 Hospital Encounter [facility] [place] Unknown, Provider, [facility] [address] [place] [address] [place] [address] (Work) [phone] Social History Tobacco Use Types Packs/Day Years Used Date Smoking Tobacco: Never Assessed Sex Assigned at Date Recorded Not on file documented as of this encounter Discharge Disposition Disposition Code Departure Means Destination Home or Self Half-Way documented in this encounter Plan of Treatment Not on filedocumented as of this encounter Visit Diagnoses Not on filedocumented in this encounter Care Teams Studio Grip Relationship Specialty Start Date End Date Ramy Palmer MD PCP - General 01/04/09 08/09/13 documented as of this encounter
--- OUTSIDE RECORDS SUMMARY | 2022-01-27 15:17 | XMS_ITS | Encounter Summary ---
:1970 Author Organization [facility] Address [address] [place] [address] Care Team Providers Name Role Phone Ramy Palmer MD Primary Care Provider Unavailable Encounter Details Date Type Department Care Team Description 12/13/2004 Results Only [facility] - Juhi Rodriguez od, PROGRAM ARCHITECT [address] [place] [phone] (Wo rk) Social History Tobacco Use Types Packs/Day Years Used Date Smoking Tobacco: Never Assessed Sex Assigned at Date Recorded Not on file documented as of this encounter Plan of Treatment Not on filedocumented as of this encounter Procedures Procedure Name Priority Date/Time Associated Diagnosis Comme [facility] CYTOPATHOLOGY Routine 12/13/2004 0:00 EDT Results for this procedure are i n the results section . documented in this encounter Results CYTOPATHOLOGY (12/13/2004 0:00 EDT) Component Value Ref Test Analysis Performed At [facility] Method Time [facility] Pathology CYTOPATHOLOGY REPORT DONA Report: [facility] Reports generated via electronic interface contain original data; however they are lacking the format of the original report. Caution should be taken when reading/interpreting unformatte d reports. Name: ? JORDYN MAYER ? Accession #: ? [id number] : ? 1970 (Age: 34) ??F ?Collect Date: ? 12/13/2004 Location: ? [facility] ? Receive Date: ? 12/17/2004 Provider: ?JUHI GUTIERREZ PROGRAM ARCHITECT Copy to: ? Specimen/Source: ? ThinPrep Pap Test, Cervix/Endocervix, processed on [employer] ThinPrep Imaging System, with manual evaluation Last Menstrual Period: ? 12/11/04 Previous Gynecologic Pathology: ? LSIL: ASC-US: 06/07 Other: ? HPVA - HPV testing requested if ASC-US on the current ThinPr ep Pap test. ? SPECIMEN ADEQUACY ? Satisfactory for Evaluation - transformation zone component present GENERAL CATEGORIZATION ? Negative for Intraepithelial Lesion or Malignancy INTERPRETATION ? Shift in hugh present suggestive of bacterial vagino sis. ? Document reviewed and electronically signed by: ? AUDREY Castellanos(ASCP) ? Report Date: ??12/23/2004 14:00 End of Report Specimen (Source) Anatomical Location Collection Method / Collectio n Time Received Time / Laterality Volume 12/13/2004 12/17/2004 Juhi Gutierrez PROGRAM ARCHITECT PATHOLOGY ORDERABLES Performing Organization Address City/State/ZIP Code Phon e Number [facility] [address] [place] [address] SERVICES [facility] [address] [place] [address] documented in this encounter Visit Diagnoses Not on filedocumented in this encounter Care Teams Interdisciplinary Professor Relationship Specialty Start Date End Date Ramy Palmer MD PCP - General 01/04/09 08/09/13 documented as of this encounter
--- OUTSIDE RECORDS SUMMARY | 2022-01-27 15:17 | XMS_ITS | Encounter Summary ---
:1970 Author Organization [facility] Address [address] [place] [address] Care Team Providers Name Role Phone Dawood Welch MD Primary Care Provider Unavailable Encounter Details Date Type Department Care Team Description 10/10/2020 Lab Requisition [place] Reema Harris, En counter for other Pathology & MD general examination Laboratory Medicine [facility] [facility] [address] [place] [phone] Social History Tobacco Use Types Packs/Day Years Used Date Smoking Tobacco: Never Assessed Sex Assigned at Date Recorded Not on file documented as of this encounter Plan of Treatment Not on filedocumented as of this encounter Procedures Procedure Name Priority Date/Time Associated Diagnosis Comme nts SURGICAL PATHOLOGY Today 10/10/2020 12:02 Encounter for othe r Results for this EDT general examination procedur e are in the results section. documented in this encounter Results SURGICAL PATHOLOGY (10/10/2020 12:02 EDT) Component Value Ref Test Analysis Performed At [facility] Range Method Time Signature Note to The following 10/15/2020 [facility] MEDICAL Patient pathology results 9:50 EDT CENTER have been LABORATORY interpreted by SERVICES your pathologist and may be available to you before your health provider has had the opportunity to review them. Please allow time for your provider to receive these results and explore management options, if applicable. Final A. ENDOMETRIUM, CURETTINGS: 10/15/2020 [facility] Diagnosis - Benign endometrial polyp. 9:50 EDT CE NTER - Inactive endometrium. VALENCIA TIERNEY SERVICES Attestation There was 10/15/2020 [facility] MEDICAL Elect ronically significant 9:50 EDT CENTER signed mahesh Sandoval, resident/fellow LABORATORY Robyn Aguilar MD on involvement in SERVICES 021 at 0950 the diagnostic evaluation of this case. By the signature below, the attending physician certifies that they have personally conducted a gross and/or microscopic examination of the described specimens and rendered or confirmed the above diagnosis. Clinical Abnormal uterine 10/15/2020 [facility] MEDICAL History bleeding 9:50 [facility] LABORATORY SERVICES Gross A. 10/15/2020 [facility] MEDICAL Description Received in formalin chiquita d with proper patient identification (initials H, C) and endometrial curettings is an aggregate of hemorrhage (2.7 x 2.6 x 0.6 cm). The specimen is submitted entirely in A1-A2. 9:50 [facility] LABORATORY TONY BENÍTEZ(ASCP) 10/11/2020 8:36 SERVICES Resident/Vijaya Zafar, 10/15/2020 [facility] MED KARIS w: 9:50 [facility] LABORATORY SERVICES Performing Lab [facility] 10/15/2020 [facility] MEDIC AL LAB 9:50 [facility] LABORATORY SERVICES Scanned Images 10/15/2020 [facility] MEDICAL 9:50 [facility] LABORATORY SERVICES Specimen Anatomical Location Collection Method Collection Time Received Time (Source) / Laterality / Volume Tissue ENTIRE ENDOMETRIUM 10/10/2020 12:02 10/10 / Unknown EDT 22:52 EDT Reema Harris MD PATHOLOGY ORDERABLES Performing Organization Address City/State/ZIP Code Phon e Number [facility] [address] [place] [address] SERVICES documented in this encounter Visit Diagnoses Diagnosis Encounter for other general examination documented in this encounter Care Teams Financial Planning Consultant Relationship Specialty Start Date End Date Dawood Welch MD PCP - General 08/10/13 [address] [place] [address] documented as of this encounter
--- OUTSIDE RECORDS SUMMARY | 2022-01-27 15:17 | XMS_ITS | Encounter Summary ---
:1970 Author Organization [facility] Address [address] [place] [id number] Care Team Providers Name Role Phone Ramy Palmer MD Primary Care Provider Unavailable Encounter Details Date Type Department Care Team Description 03/18/2012 Results Only [facility] Eric Gutierrez, [employer]TAIN [employer]SEMBLER Laboratory Services - [address] Elizabeth Rodriguez [address] [address] [place] [address] [phone] Social History Tobacco Use Types Packs/Day Years Used Date Smoking Tobacco: Never Assessed Sex Assigned at Date Recorded Not on file documented as of this encounter Plan of Treatment Not on filedocumented as of this encounter Procedures Procedure Name Priority Date/Time Associated Diagnosis Comme nts PAP TEST- RESULT Routine 03/18/2012 0:00 EST Resu lts for this ONLY procedure are i n the results section. documented in this encounter Results PAP TEST- RESULT ONLY (03/18/2012 0:00 EST) Component Value Ref Test Analysis Performed At [facility] Method Time Signature Pathology CYTOPATHOLOGY REPORT DONA Report: [facility] Reports generated via electronic interface contain original data; however they are lacking the format of the original report. Caution should be taken when reading/interpreting unformatte d reports. Name: ? JORDYN MAYER ? Accession #: ? [id number] ? : ? 1970 (Age: 41) ??F ?Collect Da te: ? 03/18/2012 ? Location: ? [facility] ? Receive Date: ? 03/19/2012 ? Provider: JUHI GUTIERREZ [employer]SEMBLER Copy to: ? Final Report SPECIMEN ADEQUACY ? Satisfactory for Evaluation - transformation zone component present - scant squamous epithelial component secondary to excessive inflammation - scant squamous epithelial component secondary to excessive blood GENERAL CATEGORIZATION ? Negative for Intraepithelial Lesion or Malignancy INTERPRETATION ? Shift in hugh present suggestive of bacterial vagino sis. Previous Gynecologic Pathology: ASC-US: 2009 HPV: + Treatment History: Colposcopy: bx ??benign Specimen/Source: ??Pap Test, Cervix/Endocervix, ThinPr ep Imaging System with manual evaluation Document reviewed and electronically signed by: ? Saniya Yu, CT(ASCP)(IAC) ? Report ??Date: 03/23/2012 16:11 HPV with Pap Test ? Date Ordered: ? 03/23/2012 ? Status: ?? Rabia d Out ?Date Complete: ? 03/26/2012 ? By: ??System Interface ? Date Reported: ? 03/26/2012 ? Interpretation RESULT: Negative for HPV. No E6 or E7 mRNA is detected from HPV types 16,18,31,33,35, 39,45,51,52,56,58,59,66, and 68 by employment consultant mediated amplification. Comments Document reviewed and electronically signed by: ? System Interface ? Report date: 03/26/2012 By the signature above, the attending physician certifies th at he/she has personally conducted a gross and/or microscopic examin ation of the described specimens and rendered or confirmed the above diagnosis. End of Report Specimen (Source) Anatomical Location Collection Method / Collectio n Time Received Time / Laterality Volume 03/18/2012 03/19/2012 Juhi Gutierrez [employer] PATHOLOGY ORDERABLES Performing Organization Address City/State/ZIP Code Phon e Number [facility] [address] [place] [address] SERVICES [facility] [address] [place] [address] documented in this encounter Visit Diagnoses Not on filedocumented in this encounter Care Teams Sign Hanger Supervisor Relationship Specialty Start Date End Date Ramy Palmer MD PCP - General 01/04/09 08/09/13 documented as of this encounter
--- OUTSIDE RECORDS SUMMARY | 2022-01-27 15:17 | XMS_ITS | Encounter Summary ---
:1970 Author Organization [facility] Address [address] [place] [address] Care Team Providers Name Role Phone Ramy Palmer MD Primary Care Provider Unavailable Encounter Details Date Type Department Care Team Description 05/14/2010 Results Only [facility] Alpesh Peace MD Laboratory Services - [address] [place] [address],S [facility] [address] [place] [phone] (Wo rk) Social History Tobacco Use Types Packs/Day Years Used Date Smoking Tobacco: Never Assessed Sex Assigned at Date Recorded Not on file documented as of this encounter Plan of Treatment Not on filedocumented as of this encounter Procedures Procedure Name Priority Date/Time Associated Diagnosis Comme [facility] CY[facility]OLOGY Routine 05/14/2010 0:00 EST Results for this procedure are i n the results section . documented in this encounter Results CYTOPATHOLOGY (05/14/2010 0:00 EST) Component Value Ref Test Analysis Performed At [facility] Method [facility] Pathology CYTOPATHOLOGY REPORT ? DONA Report: ? [facility] Reports generated via electr onic interface contain original data; ? however they are lacking the format of the original report. ? Caution should be taken when reading/interpreting unformatted reports. ? Name: ? MAYER, JORDYN ? Accession #: ? [id number] ? : ? 1970 (Age: 39) ??F ?Collect Date: ? 05/14/2010 ? Location: ? [facility] ? Receive Date: ? 05/15/2010 ? Provider: ?GAILYN B T HOMAS MD ? Copy to: ? Specimen/Source: ? Pap Test, Cervix/Endocervix, ThinPrep Imaging System ? with manual evaluation ? Last Menstrual Period: ? 05/02/2010 ? Previous Gynecologic Patholo gy: ? ASC-US: 3/09 ? HPV: 10/09 ? Treatment History: ? Colposcopy: Bx Neg ? SPECIMEN ADEQUACY ? Satisfactory for Eval uation ? - transformation zone compon ent present ? GENERAL CATEGORIZATION ? Negative for Intraepi thelial Lesion or Malignancy ? Document reviewed and electr onically signed by: ? Ngoc Figueredo, SCT( ASCP) ? Report Date: ??03/10/ 2011 15:34 ? End of Report ? Specimen (Source) Anatomical Location Collection Method / Collectio n Time Received Time / Laterality Volume 05/14/2010 05/15/2010 Cassie Peace MD PATHOLOGY ORDERABLES Performing Organization Address City/State/ZIP Code Phon e Number [facility] [address] [place] [address] SERVICES [facility] [address] [place] [address] documented in this encounter Visit Diagnoses Not on filedocumented in this encounter Care Teams Dolly Driver Relationship Specialty Start Date End Date Ramy Palmer MD PCP - General 01/04/09 08/09/13 documented as of this encounter
--- OUTSIDE RECORDS SUMMARY | 2022-01-27 15:17 | XMS_ITS | Encounter Summary ---
:1970 Author Organization [facility] Address [address] [place] [address] Care Team Providers Name Role Phone Ramy Palmer MD Primary Care Provider Unavailable Encounter Details Date Type Department Care Team Description 10/06/2003 Results Only [facility] - Noe Pineda MD conversion [address] [place] [id number] Social History Tobacco Use Types Packs/Day Years Used Date Smoking Tobacco: Never Assessed Sex Assigned at Date Recorded Not on file documented as of this encounter Plan of Treatment Not on filedocumented as of this encounter Procedures Procedure Name Priority Date/Time Associated Diagnosis Comme nts CYTOPATHOLOGY Routine 10/06/2003 0:00 EDT Results for this procedure are i n the results section . documented in this encounter Results CYTOPATHOLOGY (10/06/2003 0:00 EDT) Component Value Ref Test Analysis Performed At [facility] Range Method Time Signature Pathology CYTOPATHOLOGY REPORT DONA Report: [facility] Reports generated via electronic interface contain original data; however they are lacking the format of the original report. Caution should be taken when reading/interpreting unformatte d reports. Name: ? JORDYN MAYER ? Accession #: ? [id number] : ? 1970 (Age: 32) ??F ?Collect Date: ? 10/06/2003 Location: ? [facility] ? Receive Date: ? 10/09/2003 Provider: ?NOE CARUSO MD Copy to: ? Specimen/Source: ?ThinPrep Pap Test, Cervix/Endoce rvix Last Menstrual Period: ? 09/16/2003 Previous Gynecologic Pathology: ? LSIL: ASC-US: 06/07 ? SPECIMEN ADEQUACY ? Satisfactory for Evaluation - transformation zone component present GENERAL CATEGORIZATION ? Negative for Intraepithelial Lesion or Malignancy INTERPRETATION ? Reactive cellular moira nges associated with inflammation present (includes repair). Fungal organisms present morphologically consistent with Can dida species. ? Document reviewed and electronically signed by: ? GRAHAM ANTHONY MD ? Report Date: ??10/16/2003 13:21 End of Report Specimen (Source) Anatomical Location Collection Method / Collectio n Time Received Time / Laterality Volume 10/06/2003 10/09/2003 Noe Caruso MD PATHOLOGY ORDERABLES Performing Organization Address City/State/ZIP Code Phon e Number [facility] [address] [place] [address] SERVICES [facility] [address] [place] [address] documented in this encounter Visit Diagnoses Not on filedocumented in this encounter Care Teams After School Tutor Relationship Specialty Start Date End Date Ramy Palmer MD PCP - General 01/04/09 08/09/13 documented as of this encounter
--- OUTSIDE RECORDS SUMMARY | 2022-01-27 15:18 | XMS_ITS | Encounter Summary ---
:1970 Author Organization [facility] [place] [address] Care Team Providers Name Role Phone Dawood Welch MD Primary Care Provider Encounter Details Date Type Department Care Team Description 09/21/2012 Telephone [place] [facility] Scott, [place] [phone] Social History Tobacco Use Types Packs/Day Years Used Date Smoking Tobacco: Never Smokeless Tobacco: Never Alcohol Use Standard Drinks/Week Comments No 0 (1 standard drink = 0.6 oz pure alcoho l) Sex Assigned at Date Recorded Not on file documented as of this encounter Miscellaneous Notes Telephone Encounter - Terese Scott RN - 09/21/2012 8:48 AM EDT Phone call to the office of Dr. Dawood Welch to inform of upcoming surgery and the possible need to bridge Andreia from coumadin to lovenox prior to surgery dependant on the recommendations of the providermonitoring and managing her coumadin. No answer at this time - message left with this information and request for call back. documented in this encounter Plan of Treatment Not on filedocumented as of this encounter Visit Diagnoses Not on filedocumented in this encounter Care Teams Tint Layer Relationship Specialty Start Date End Date Dawood Welch MD PCP - General 07/23/12 12/05/[address] [place] [address] documented as of this encounter
--- OUTSIDE RECORDS SUMMARY | 2022-01-27 15:18 | XMS_ITS | Encounter Summary ---
:1970 Author Organization [place] [address] Care Team Providers Name Role Phone Monroe Brown MD Primary Care Provider Reason for Referral Consultation (Routine) - Closed by system - unspecified Specialty Diagnoses / Procedures Referred By Contact Refer red To Contact Orthopaedic Surgery Diagnoses Knee dislocation Cherise Neff, HEAD BUYER TOBACCO [facility] [place] [address] Referral ID Status Reason Start Expiration Visits Visits Date Date Requested Authorized [id number] Closed by Assume 10/01/2012 03/30/2013 1 1 system - Subset of unspecified Care Encounter Details Date Type Department Care Team Description 09/30/2012 - [address] Rebekah Kovacs, Protein C def iciency (Primary Dx); 10/01/2012 Encounter Isaias Berumen MD Knee dislocation; [facility] 09/30/2012 Left knee extra-ar ticular, arthroscopic, ligamentous reconstruction of the ACL and PCL with menisectomy for knee dislocation [facility] [address] [place], [place] SURGERY [address] [place], [place] [phone] [id number] Social History Tobacco Use Types Packs/Day Years Used Date Smoking Tobacco: Never Smokeless Tobacco: Never Alcohol Use Standard Drinks/Week Comments No 0 (1 standard drink = 0.6 oz pure alcoho l) Sex Assigned at Date Recorded Not on file documented as of this encounter Last Filed Vital Signs Vital Sign Reading Time Taken Comments Blood Pressure 118/72 10/01/2012 2:04 PM EDT Pulse 113 10/01/2012 2:04 PM EDT Temperature 37.2 ??C (99 ??F) 10/01/2012 2:04 PM EDT Respiratory Rate 18 10/01/2012 2:04 PM EDT Oxygen Saturation 99% 10/01/2012 2:04 PM EDT Inhaled Oxygen Concentration - - Weight 90.2 kg (198 lb 13.7 oz) 09/30/2012 5:21 PM EDT Height 165.1 cm (5' 5) 09/30/2012 5:21 PM EDT Body Mass Index 33.09 09/30/2012 5:21 PM EDT documented in this encounter Discharge Instructions Discharge InstructionsCherise Neff, HEAD BUYER TOBACCO - 10/01/2012 3:49 PM EDT Activity: 1. You can touchdown weight bear on your Left leg remembering to use a walker or crutches at all times for balance and protection. 2. You should NOT place a pillow under your left knee. 3. Keep the knee immobilizer on and locked in extension. When you are reclining in bed, you may openthe knee immobilizer at least once a day to inspect your skin. Re-secure the knee immobilizer beforeyour get up. Do not bend your knee when the immobilizer is open when you are checking your skin. 4. To help with extension you can place a pillow under your heel or lower leg or placed lengthwise along the leg. Again DO NOT place a pillow under the operated knee for comfort. 5. You should wear the FEDERICO hose to knee to your right leg until you are seen in followup. Remove these at least once per day to inspect your skin. Coumadin flow sheet: Date Notes INR Coumadin dose (mg) 09/30 day of operation 1.0 Lovenox 40 + 5 10/01 POD 1 1.0 Lovenox 40 + 5 due at 5 pm Anti-coagulation follow up: 1. You should take 5 mg (one of the 5mg pills) of Coumadin today, October 01, at 5 pm. Take this medication at the same time each day - usually 5pm. 2. Your coumadin level or INR target range is 2-3 and this will need to be checked by the VisitingNurse on the day after discharge and at least twice per week thereafter (usually every Thursday and ). The INR should be reported to the [facility] Ortho clinic at [phone], and you will be informed of any needed changes in your Coumadin dose. 3. If your INR level is ever above 3.5 you should not participate in aggressive Physical therapy exercises - you can mobilize/ambulate. This will decrease the possibility of more bleeding into your joint. Once your INR is less than 3.5 you can resume Physical therapy. One of the Orthopedic nurses willcall you with further instructions as needed. 4. You will continue to be on Coumadin as before your surgery. The Orthopaedic Coumadin Clinic will manage your INR/Coumadin dosing for a short time and then you will be referred back to your Primary Care Physician for ongoing management. Lovenox injections: Your INR level did not increase as much as expected after surgery so you have been discharged on Lovenox AND coumadin. You will be on the Lovenox injections (40mg daily) until your INR level is greater than 2.0. Once that happens, stop the Lovenox and continue just the coumadin as instructed above. Diet: Resume usual diet, but increase your intake of fluids and fiber while you are on narcotic painmeds to prevent constipation Driving: No, not until you are cleared to do so by your Orthopedic surgeon. Ideally you should not drive if you are on narcotic pain meds as these can affect your judgement and reaction time. Call yoursurgeon with any questions. Medication: 1. The pain medication that you are using can cause constipation, so make sure you increase your intake of fluids and fiber while you are on them. You should also take the stool softener that was ordered, sennakot, to factilitate a bowel movement. An yjgf-wbl-psnbzpc medication, miralax can also be used if needed to combat constipation 2. If you need a renewal on your narcotic pain medication, you need to give the Orthopedic clinic enough time to process your request. This can take up to three days, so plan accordingly. 3. You have been discharged on a short acting narcotic, Oxycodone. You will be on this medication for a limited period of time only. As your pain lessens, taper down and off this medication as tolerated. 4. Continue the Tylenol around the clock for the next 10 days (October 10). This can be effective incontrolling pain along with your other medications. Shower: 1. You can shower only if you can securely apply a plastic bag over your leg with immobilizer in place and keep your dressing dry. Remember your activity limitations and always have a chair available for balance and protection. DO NOT submerge the dressing/incision. A sponge bath may be easier. 2. Keep your dressing clean and dry. Do not get wet. Wound (Mepilex): 1. Sutures/nhung: Staple/suture removal will be done at your post-op appointment on October 12. 2. Remove your operative dressing on Post-op day 2 (October 02) and change. Change daily until your follow-up appointment. Keep your leg straight when the immobilizer is off. Re-apply the knee immobilizer after you change the dressing. FOLLOWUP APPOINTMENTS: 1. You will have followup appointments at [facility] as indicated in Future Appointments and Orders. Youwill have an xray prior to those appointments so please come to Radiology, desk 3T, 1 hour BEFORE your appointment for those x-rays. documented in this encounter Medications at Time of Discharge Medication Sig Dispensed Refills Start Date End Date acetaminophen Take 2 tablets by 0 10/01/2012 (TYLENOL) 500 mg mouth every 8 hours. tablet Last day for scheduled dosing = October 10. Then may take every 8 hours as needed. Do not take more than 4,000 mg of acetaminophen in 24 hours. multivitamin Take 1 tablet by mouth 0 10/01/2012 Tkjg-Nv-XX-Min daily. (THERAPEUTIC-M) 27-0.4 mg tablet warfarin (COUMADIN) 5 Take 1 tablet by mouth 45 tablet 0 10/01/2012 mg tablet once for 1 dose. Your dose may vary depending on the INR value. You may need to break or combine pills to achieve the right dose. Take Coumadin 5 mg at 5 pm on October 01. enoxaparin (LOVENOX) Inject 0.4 mLs 2 Syringe 2 10/01/2012 10/12/2012 40 mg/0.4 mL Syrg subcutaneously daily injection as needed (daily until INR is greater than 2.0). OXYcodone 10 mg Tab Take 1-2 tablets by 100 tablet 0 013 10/05/2012 mouth every 3 hours as needed. senna-docusate Take 1-4 tablets by 60 tablet 0 10/01/2012 0 10/12/2012 (PERICOLACE) 8.6-50 mg mouth 2 times daily. per tablet documented as of this encounter Progress Notes Ken Sheets RN - 10/01/2012 4:26 PM EDT Patient discharged to home with VNA services. IV removed, site benign. My assessment remains unchanged from my previous assessment. Patient denies chest pain and shortness of breath. Discussed pain management with patient, pain tolerable. Patient medicated prior to discharge. Patient has all belongings. Patient received discharge summary and prescriptions. These were reviewed. All questions answered.Patient encouraged to call with questions or concerns. Patient discharged to home with family. Discharge Summary was faxed, RN called report to VNA. Keren Stearns RN - 10/01/2012 12:48 PM EDT This is a 41 yo woman who is s/p ACL, PCL and MCL reconstruction on 09/30/[address] Kovacs. 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 Pt has [facility]. Met with pt this am and she is currently comfortable reclined in bed, has a L leg brace in place to knee. Pt has been OOB ambulating with PT and been cleared for discharge home today. Pt explain she has all needed DME. She has arranged for a ride home this afternoon. Pt is agreeable to referral for [facility]NA thru [facility] as she has used in past. We discussed d/c plan. Pt agreeable. Pt explains she has limited funds and may only be able to afford her pain med's. We discussed that she has already got 6 doses of Lovenox at home from [facility] ( pt explains she pays $3 co pay for this script ). We discussed alternative management of potential constipation from her narcotics if she can not afford to get the colace filled right away. Pt plans to take scripts to [facility] in [facility]. They are open til 9pm tonight. No other needs identified, will complete referral for VNA services anticipate d/c later this afternoon. rAen Sepulveda - 10/01/2012 9:34 AM EDT Regional Anesthesia Progress Note Date of Encounter: 10/01/2012 Provider: AREN SEPULVEDA MD Attending: Melita Claire MD ID: Patient is POD# 1 s/p left ACL/PCL/MCL repair for which the patient received left femoral nerve block for post-operative pain control. Subjective: Today the patient has average pain control and at present states pain is 7 out of 10. Objective: Please see VS flowsheet Appears comfortable Sensory Exam: denies numnbess Motor Exam: able to perform straight leg raise Block insertion site free of bruising, hematoma, or erythema Assessment: Peripheral nerve block for post-operative pain control, currently with average pain control. Block appears to be appropriately resolving. Plan and/or Recommendations: ?? Continue current pain regimen as ordered Will sign off; please contact Regional Anesthesia Team ([phone]) for any unresolved sensory or motor deficits or bleeding or bruising at site of block. Thank you for this consultation. AREN SEPULVEDA MD Regional team pager [phone] Rebekah Kovacs MD - 10/01/2012 5:37 AM EDT ORTHOPAEDIC PROGRESS NOTE SURGERY/ISSUE: ACL, PCL and MCL reconstruction Patient Active Problem List Diagnoses Code ??? 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 Hx pulmonary embolism 1993 V12.55 ??? Anxiety 300.00 ??? 09/30/2012 Left knee extra-articular, arthroscopic, ligamentous reconstruction of the ACL and PCLwith menisectomy for knee dislocation 836.50 Interval History: No major issues overnight per nursing. Satting well on RA. Pain well controlled. Denies CP/SOB/N/V. No new numbness or tingling. Tolerating PO. Temp: [36.4 ??C (97.5 ??F)-36.8 ??C (98.2 ??F)] Heart Rate: [104-128] Resp: [16-28] BP: (101-148)/(61-107) SpO2: [95 %-100 %] I/O last 3 completed shifts: In: 3663 [I.V.:3663] Out: 652 [Urine:502; Blood:150] I/O this shift: In: - Out: 1200 [Urine:1200] PE: NAD RRR per palpation LLE Dressing C/D/I SITLT in DP/SP/T 07/11 EHL/TA/GC Foot WWP, palpable PT Lab Results Component Value Date WBC 12.3* 10/01/2012 RBC 3.76* 10/01/2012 HGB 11.0* 10/01/2012 HCT 33.6* 10/01/2012 PLATELET 222 10/01/2012 NA 135 10/01/2012 K 4.1 10/01/2012 CO2 24 10/01/2012 BUN 7* 10/01/2012 CREATININE 0.79 10/01/2012 INR 1.0 10/01/2012 INR 1.3* 07/29/2012 XRAYS: s/p ACL, MCL and PCL reconstruction, hardware intact A/P: Stable this AM. Will begin to mobilize this AM ?? Activity: TDWB ?? Pain Control: transition to PO ?? Antibiotics: x 24 hrs ?? Anticoagulation: Coumadin with lovenox bridge ?? Dressing/Spints: Change daily starting POD#2 ?? Looney: d/c today ?? Dispo: home vs rehab when cleared per PT ?? Follow up as scheduled Future Appointments Date Time Provider Department Center 10/12/2012 1:20 PM Rebekah Kovacs MD [facility] 3D None Attending addendum: The preceeding portion of this note was written by Dr. Nguyễn. I personally saw and evaluated the patient at the bedside and I agree with the assessment and plan documented above. We will need to assure she has appropriate pain medications upon discharge as she has had some trouble getting prescriptions filled in the past. Anticipate D/C late today/tomorrow. Rebekah Kovacs M.D., M.S. Noa Mcmahon RN - 10/01/2012 1:44 AM EDT Pt HR has been 1 teens to 120's. BP 101/66, 96%RA, RR 16. MD made aware. Will continue to monitor. NOA MCMAHON RN Hanna Boykin RN - 09/30/2012 5:20 PM EDT Patient arrived to floor via bed. Patient A&O x 3, lungs clear, heart rate regular. Patient has an IV of LR infusing at 100mL an hour. Patient states their pain level is 4/10. Patient denies chest pain, shortness of breath, numbness or tingling. Patient oriented to room and call almonte in reach. RN will monitor patient. See assessment. Onofre Guzmán MD - 09/30/2012 4:11 PM EDT Orthopaedic Surgery Post-Operative Progress Note Surgery: Left knee extra-articular, arthroscopic, ligamentous reconstruction of the ACL and PCL withmenisectomy Patient Active Problem List Diagnoses Code ??? 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 Hx pulmonary embolism 1993 V12.55 ??? Anxiety 300.00 ??? Knee dislocation 836.50 Patient seen: PACU at 1545 hrs Subjective/Events: Patient extubated. Patient denies chest pain, shortness of breath, dizziness, headache, abdominal pain, nausea, vomiting. Pain well-controlled. Objective: Vitals: Temp: [36.6 ??C (97.9 ??F)] Heart Rate: [105-128] Resp: [18-28] BP: (121-148)/(74-107) SpO2: [97 %-100 %] I/O this shift: In: 3300 [I.V.:3300] Out: 652 [Urine:502; Blood:150] Exam: General: NAD, awake/alert, responds to questions Resp: Breathing comfortably Abd: Soft, nontender, nondistended. LLE: LLE in knee immobilizer, locked in extension Dressing c/d/i Sensory intact to light touch in to SPN/DPN/Tibial/Sural/Saphenous distributions distally Motor intact to FHL/EHL/TA/gastroc-soleus Brisk capillary refill distally, foot warm/well-perfused Labs: No results found for this basename: WBC:3,HGB:3,HCT:3,PLATELET:3,NA:3,K:3,CL:3,CO2:3,BUN:3,CREATININE:3 in the last 72 hours Radiology: 09/30/2012 - A/P and lateral x-ray of the left knee is pending A/P: 41 y.o. year old female POD#0 s/p Left knee extra-articular, arthroscopic, ligamentous reconstruction of the ACL and PCL with menisectomy. Vitals stable, uop adequate. - orders reviewed - continue all post-operative care Dora Young RN - 09/30/2012 3:49 PM EDT Report to 3w. Pt states she feels much better. Dozing on and off. Dr Ahuja in to see pt. Dora Young RN - 09/30/2012 2:26 PM EDT Left foot very cold. Able to doppler pulses. Dr Nguyễn made aware. Warm blanket applied. Denies CP/SOB. Odalis Marquis RN - 09/30/2012 6:41 AM EDT UPT neg. documented in this encounter H&P Notes Jeremi Nguyễn MD - 09/30/2012 6:42 AM EDT No changes in health since seen by PCP. Jeremi Nguyễn MD - 09/30/2012 6:42 AM EDT Please see scanned H&P. documented in this encounter Procedure Notes Provider, Scanning - 10/02/2012 11:43 AM EDTAssociated Order(s): SCAN DOC: IMPLANTABLE DEVICES documented in this encounter Miscellaneous Notes Initial Assessments - Cayla Mg, PT - 10/01/2012 10:21 AM EDT Physical Therapy Evaluation Patient profile: Pt. is a 41 y.o. female admitted on 09/30/2012 by Rebekah Lorenzo MD for ACL, PCLand MCL reconstruction secondary to knee dislocation. PMH: No past medical history on file. Past Surgical History Procedure Date ??? [facility] revision, knee, extra-artic 09/30/2012 LIGAMENTOUS RECONSTRUCTION, KNEE, EXTRA ARTICULAR performed by Rebekah Kovacs MD at [facility] OR ??? Knee scope, med/lat menisectomy 09/30/2012 ARTHROSCOPY KNEE, MENISCECTOMY SINGLE W/ SHAVING performed by Rebekah Kovacs MD at [facility] OR ??? Knee scope, aid ant cruciate repair 09/30/2012 ARTHROSCOPIC ANTERIOR CRUCIATE LIGAMENT REPAIR performed by Rebekah Kovacs MD at [facility] OR ??? Knee scope, aid post cruc repair 09/30/2012 ARTHROSCOPIC POSTERIOR CRUCIATE LIGAMENT REPAIR performed by Rebekah Kovacs MD at [facility] OR Social History/Prior Level of Function: Pt lives with her 3 children (ages 21, 12, 10) in a mobile home. At baseline pt is I with all ADL/IADL, no hx of mobility impairment, no use of AD. Has friends available to stay with her for additional support, as her 21 yo child works maritime engineer. Stairs at home: none, ramped entry, single level inside Precautions/Special Considerations: TDWB L LE, Hinged Knee Brace (Hope) locked in Full Extension at all times Subjective: ???I have been doing this for a month so i know what I'm doing. 'I will NOT try crutches! Objective: Pt seen for evaluation today. Pain: minimal at rest, moderate with activity Vital Signs: Sp02: HR: high 90s-100s at rest, increased up to 110s with activity Mental Status: alert, oriented to person, place, and time Musculoskeletal: ROM: WFL all extremities except L knee locked in extension Strength: WFL Sensation: WFL Bed Mobility: Supine to Sit: independent Sit to Supine: independent Transfers: Sit to Stand: independent with FWW, preferring NWB L LE vs TDWB Stand to Sit: independent Bed <>Chair: independent Gait: Distance: 12 ft x2 Device used: FWW, declined crutches Level of assist: independent Gait pattern: NWB L LE instead of TDWB per pt preference Balance: Sitting: good Standing: good with FWW Informed Consent: The patient agrees to and understands the PT treatment plan and goals. Education: patient has been educated on Bed mobility, Transfers, Assistive device/technique, Positioning, Safety , Gait , Role of therapy and Discharge planning and verbalizes and demonstrates understanding. Patient status, treatment, and mobility recommendations discussed with nursing. Assessment: Pt tolerated today???s evaluation well and has met all PT goals necessary for safe d/c home. Pt has financial concerns and feels she can rehab her own knee rather than go to PT. Made pt's concerns aware to team. Pt will greatly benefit from further PT upon d/c to progress her appropriately. Plan: D/c acute PT Equipment needs: Patient has all necessary equipment Discharge Recommendations: Home PT services given pt does not necessarily have resources/ability to go to outpatient PT Total time spent with patient: 33 minutes Total timed interventions: 0 minutes CAYLA MG, PT 10/01/2012 Pager: [phone] Physical Therapy Rehabilitation Department Plan of Care - Noa Mcmahon RN - 10/01/2012 2:00 AM EDT Problem: Skin Integrity Impairment, Risk/Actual (Adult, Obstetric) Goal: Skin Integrity Impairment, Risk/Actual: Skin Integrity/Wound Healing Outcome: Absent and monitoring Pt. turned q 2 hours or upon pt. request for comfort and as a pressure reduction measure. Bone prominences observed and assessed for signs of erythremia or breakdown. Will continue to monitor. Problem: Pain, Acute (Adult, Obstetric) Goal: Acute Pain: Acceptable Pain Control/Comfort Level - Pain, Acute (Adult, Obstetric) Pt rating pain 6/10. Pt verbalizes adequate pain relief with Dilaudid BONE CRUSHER and PRN Oxycodone. Knows to notify RN when pain is not being controlled. Will continue to monitor. Problem: Trauma/Injury Risk (Adult, Obstetric) Goal: Trauma/Injury Risk: Absence of Trauma/Injury/Falls Outcome: Absent and monitoring Pt call almonte in reach. Bed in low position. Fall reduction program maintained. Safety measures in place.Will continue to monitor. Op Note - Rebekah Kovacs MD - 09/30/2012 6:42 PM EDT [facility] Operative Note Patient Name: Andreia Mayer : [id number] MR#: [id number] Case Date: 09/30/2012 Surgeon: Surgeon(s) and Role: * Rebekah Kovacs MD - Primary * Jeremi Nguyễn MD - Resident-Surgeon Chief * Syed Nolasco MD - Resident-Lesser Role Preoperative diagnosis: LEFT knee dislocation Postoperative diagnosis: LEFT knee dislocation Procedure(s): LIGAMENTOUS RECONSTRUCTION, KNEE, EXTRA ARTICULAR (MCL) ARTHROSCOPY KNEE, MENISCECTOMY SINGLE W/ SHAVING (lateral) ARTHROSCOPIC ANTERIOR CRUCIATE LIGAMENT REPAIR (Allograft BTB) ARTHROSCOPIC POSTERIOR CRUCIATE LIGAMENT REPAIR (Allograft Achilles) General Estimated Blood Loss: 150cc Drains: none Disposition: awakened from anesthesia, extubated and taken to the recovery room in a stable condition, having suffered no apparent untoward event. Condition: doing well without problems Tourniquet time: 204 min @275mmHg. Implants: ACL: Small fragment screw with washer as femoral post - femur, Small fragment screw with washer as tibial post. - tibia. PCL: 8x25 Athrex metal interference screw - femur, 10x30 mitek regina interference screw tibia withtibial post back up. MCL: 6.0 cancellous screw with spiked washer for femur and tibia. Operative Findings: Suprapatellar pouch: moderate adhesions Medial and lateral gutters: clear w/no loose bodies Patellofemoral Joint: Patella: grade 1-2 chondral change Trochlea: grade 1-2 chondral changes. Lateral Compartment: Meniscus: complex tear with compete radial component - debrided. Femoral condyle: grade 2 chondral change Tibial plateau: grade 2 chondral change w/focal grade 3 Medial Compartment: Meniscus: menicocapsular injury - no tear Femoral condyle: grade 1-2 Tibial plateau: grade 1 Interconylar notch: complete rupture of the ACL/PCL INDICATIONS: 41 year old female s/p low energy knee dislocation. After discussing the risks and benefits of operative and non-operative management, the patient elected to undergo the above procedures. PRE-OPERATIVE COURSE: The patient was greeted in the preoperative holding area where the left knee was confirmed to be the correct site of surgery with both the patient and the informed consent. The operative knee was then marked with a green [place]. The plan was reviewed with the patient and all questions were answered. The patient was then taken to the operating room and placed supine on the operating room table. After anesthesia was induced, the patient was positioned with all bony prominences well padded. A non-sterile tourniquet was place high on the operative thigh. A lateral post and sand bag were placed in the appropriate position. An SCD was placed on the non-operative lower extremity. The operative extremity was then prepped and draped in a sterile fashion with chlorhexidine scrub and Chloraprep. A time-out was called with proper procedure, site and consent confirmed. Antibiotics were administered prior to incision. EXAM UNDER ANESTHESIA:\ Lachmans: 3B Anterior drawer 3+ Posterior drawer 3+ ROM: 0-130 Gapped to valgus in full extension and 3+ in 30 of flexion. OPERATIVE DESCRIPTION: Graft Preparation: On the back table the the allografts were soaked in saline with Vancomycin until appropriated thawed. #1 (PCL) The tendon portion was whip stitched with a #2 non-absorbable suture starting 30mm from thebone block. An additional stitch was placed to tubularize the distal portion of the graft. It was then fashioned with a 25mm bone block which passed through a 11 sizer. Two drill holes were placed in the bone block and #2 fiberwire sutures were passed. The graft was then placed on tension in the graftmaster and covered with a Vancomycin soaked gauze. #2 (ACL) graft was fashioned with two 25mm bone blocks which passed through a 10 sizer. Two drill holes were placed in the bone blocks and #2 fiberwire sutures were passed. The graft was then covered with a Vancomycin soaked gauze. #3 MCL - A semitendinosus was whip stitched at each end w/#2 fiberwire. At this point, the knee was injected with 80 mL normal saline. Standard lateral portal was established. Arthroscopic camera was advanced into the joint and a systematic arthroscopic examination of the knee revealed the findings as noted above. Under direct visualization, a medial compartment was established. Lateral Meniscectomy: In the lateral compartment, there was a complex tear of the posterior horn to body of the lateral meniscus with a radial flap component. This was debrided back to stable base. ACL/PCL Preparation: At this point, the intercondylar notch was cleared of both remnant ACL and PCL fibers. This was performed with the use of ArthroCare and a full radius shaver. At this point, we did elevate the tourniquet after exsanguination to 275 mmHg. The tourniquet was let down after two hours and four minutes. We turned our attention first to small notchplasty and then drilling of our ACL femoral tunnel. A size 7 Transportal guide was placed through our medial portal. Beath pin was used to make a fermín on the medial aspect of the lateral femoral condyle. This was viewed from the medial portal and found to be appropriate. The knee was flexed to 110 degrees and the Beath pin was advanced up the lateral thigh. This was overreamed with a size 10 low profile reamer. Checking after 10 mm, we thought we had an appropriate back wall. We therefore reamed to a depth of 25 mm. Viewing from the medial portal, we found we had violated the posterior wall of the femoral condyle. We next turned our attention to the femoral tunnel for the PCL. The camera was switched to the medial portal and a size 11 [place]ore[place] Torres reamer was advanced through the lateral portal and up to the insertion site of the PCL on the lateral aspect of the medial femoral condyle. Beath pin was advanced through this Luis Llorens Torres reamer and then the Luis Llorens Torres reamer was reamed to a depth of 25 mm. At this point we began preparing for our tibial tunnels. Posteromedial dilcia was established with an outside-in technique using a spinal needle. A 5/5 cannula was placed. An ArthroCare wand was used to debride the PCL remnant off the posterior aspect of the tibia. Fluoroscopy was also used at this time to assure that we debrided distal enough. A femoral guide was then placed and a 6 cm incision was made over the anteromedial aspect of the tibia for both our PCL and ACL tibial tunnels as well as for our medial collateral ligament reconstruction. This was dissected down to bone. The PCL guide was then placed and the Beath pin was advanced up the tibia and out the proximal posterior aspect of the tibia. This was visualized with fluoroscopy throughout as well as arthroscopically. We then advanced a size 10 Luis [place]orens Torres reamer over the Beath pin, holding the Beath pin with a curette throughout. Tibial tunnel for ACL was then drilled using an ACL guide centered at the space between the anterior horn and lateral meniscus in the intercondylar notch. The Beath pin and size 10 Luis Llorens Torres reamer were used to create the tibial tunnel for the ACL. Soft tissue was removed from both the intra and extraarticular portions of all tunnels with the use of a shaver as well as Metzenbaum scissors. At this point, we proceeded with a graft passage. First, the size 11 Luis Llorens Torres reamer was advanced back into the femoral tunnel for the PCL. The Beath pin was advanced through the size 11 Luis Llorens Torres reamer and a shuttling stitch was placed. The PCL bone block was advanced into the femur and fixed with an Arthrex metal Interference screw. The [place] rasper had been previously placed up the tibial tunnel. The anterior aspect of the tibial tunnel aperture had been rasped with the [place] rasper and then the [place] rasper was used to shuttle the graft stitches for the Achilles down the tibial tunnel. At this point, we turned our attention to the ACL. The ACL was advanced up the tibial tunnel and out the femoral tunnel, because we did not have an appropriate back wall. I then made a 4 cm lateral incision dissecting down to the passing stitches and ultimately to the lateral aspect of the femur. A small fragment screw with washer was placed to act as a post and the sutures were tied over this post. We then proceeded with cruciate graft fixation on the femur. The knee was flexed to 90 degrees and an anterior drawer was placed. Tension was placed on the graft and a [place] Interference screw was advanced up the PCL tibial tunnel. The knee was then brought to just shy of full extension and gentle posterior drawer was applied. We had graft host mismatch and the bone block was extruding from the tibial tunnel. It was therefore shortened to approximately 15 mm and a trough was made with the oscillating saw and an osteotome. The bone block lay flush within this trough. A tibial post was placed distal to the PCL tunnel and with the knee just shy of full extension the ACL was fixated over this tibial post with appropriate tension on the graft. The knee was then flexed back to 90 and the PCL was backed up over the same tibial post. The tibial post was then advanced flush the cortex. MCL Reconstruction: At this point, fluoroscopy was used to identify the medial epicondyle. A 3 cm incision was made centered over the medial epicondyle with dissection down to bone. Fluoroscopy again identified a position just proximal and posterior to the medial epicondyle and a guide pin was placed. A second guide pin was placed 6 cm distal to the tibial joint line and as posterior as possible on the tibial face. Suture was used to confirm that the points were isometric through flexion and extension. Large fragment was then drilled for both the femoral and tibial fixation points. A 6.5 cancellous screw with a spiked washer was placed on the femur. The graft was looped over this. Tension was applied and the screw was advanced down to bone. On the tibial side, an additional 6.5 cancellous with spiked washer was placed. The graft was looped over this. The knee was brought to just shy of full extension and varus stress was applied. With tension on the graft, the 6.5 cancellous screw was advanced down to bone, capturing our semitendinosus allograft MCL reconstruction. At this point, our reconstruction was complete. We had excellent stability with varus/valgus stress, full extension, and 30 degrees of flexion. We had a negative Magaly's and a negative posterior drawer. Suture and graft were cut flush to bone. All wounds were copiously irrigated and closed in layers with 0 Vicryl suture for deep tissue, 3-0 Vicryl subcutaneous tissue, and 4-0 Prolene for skin. Wounds were covered with Xeroform and a dry sterile dressing. The patient was placed in a Hope brace locked in extension. She was extubated, transferred back to her hospital bed and to the PACU in stable condition. All counts were correct at the end of the case. There were no apparent complications. I should note tourniquet was let down after two hours and four minutes. The patient did experience some difficulty with oxygenation during the case, but was extubated without difficulty postoperatively. Postoperative Plan: The patient will be maintained on Coumadin with a Lovenox bridge due to her underlying hypercoagulable state. Toe touch weightbearing with the knee locked in extension with patella mobilization, quad and hamstring setting exercises for the first 10 days, and then will initiate a range of motion plan after that. Discharge Summary - Cherise Neff APRN - 09/30/2012 6:12 PM EDT Department of Orthopaedic Medicine - Discharge Summary Patient Name: Andreia Mayer Patient Age: 41 y.o. Birthdate: 1970 Admit date: 09/30/2012 Discharge date: 10/01/2012 Attending Physician: Rebekah Kovacs MD Discharge Diagnoses (Hospital Problems) and Secondary Diagnoses (Chronic Problems): Patient Active Problem List Diagnoses Code ??? 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 Hx pulmonary embolism 1993 V12.55 ??? Anxiety 300.00 ??? 09/30/2012 Left knee extra-articular, arthroscopic, ligamentous reconstruction of the ACL and PCLwith menisectomy for knee dislocation 836.50 Operations/Major Procedures: 09/30/2012 Surgeon(s) and Role: * Rebekah Kovacs MD - Primary * Jeremi Nguyễn MD - Resident-Surgeon Chief * Syed Nolasco MD - Resident-Lesser Role Procedure: LIGAMENTOUS RECONSTRUCTION, LEFT KNEE, EXTRA ARTICULAR MODIFIER ACHILLES TENDON ARTHROSCOPY KNEE, MENISCECTOMY SINGLE W/ SHAVING ARTHROSCOPIC ANTERIOR CRUCIATE LIGAMENT REPAIR ARTHROSCOPIC POSTERIOR CRUCIATE LIGAMENT REPAIR Hospital Course: The patient was admitted via Same Day Surgery for the above operation. DVT prophylaxis: Coumadin with Lovenox bridge. Patient began rehab on POD#1 w/ touchdown weight bearing of left leg with knee immobilizer in place, remembering to use protection at all times for balance and protection. Looney was removed POD#1 and patient was voiding spontaneously. Dressing left knee was inspected POD#1 and found to be clean, dry and intact. Patient did not have a bowel movement prior to dischargebut was passing flatus and taking PO without difficulty . By POD#1 the patient was medically stable and was cleared for safe discharge to home. Important Studies and Lab Data: Labs: Lab Results Component Value Date HGB 11.0* 10/01/2012 HCT 33.6* 10/01/2012 Transfusions: No Studies: None. Discharge Conditions/Prognosis: Stable, awake, and alert. Mobilizing with a walker/crutches, pain controlled on oral medications. Vital Signs: Last value Range last 24 hrs Temperature Temp: 37.2 ??C (99 ??F) Temp: [36.4 ??C (97.5 ??F)-37.2 ??C (99 ??F)] Heart Rate Heart Rate: 113 Heart Rate: [108-121] Blood Pressure BP: 118/72 mmHg BP: (101-123)/(61-84) Respiratory Rate Resp: 18 Resp: [16-18] SpO2 SpO2: 99 % SpO2: [95 %-99 %] Art BP BP (Arterial Line): 125/68 mmHg BP (Arterial Line): -- Discharge to: Home with VNA. Discharge Medications: No medications prior to admission that will be resumed at discharge. New medications prescribed at discharge: Medication Sig Dispense Refill ??? acetaminophen (TYLENOL) 500 mg tablet Take 2 tablets by mouth every 8 hours. Last day for scheduled dosing = October 10. Then may take every 8 hours as needed. Do not take more than 4,000 mg of acetaminophen in 24 hours. ??? enoxaparin (LOVENOX) 40 mg/0.4 mL Syrg injection Inject 0.4 mLs subcutaneously daily as needed (daily until INR is greater than 2.0). 2 Syringe 2 ??? multivitamin Cpzd-Be-JU-Min (THERAPEUTIC-M) 27-0.4 mg tablet Take 1 tablet by mouth daily. ??? OXYcodone 10 mg Tab Take 1-2 tablets by mouth every 3 hours as needed. 100 tablet 0 ??? senna-docusate (PERICOLACE) 8.6-50 mg per tablet Take 1-4 tablets by mouth 2 times daily. 60 tablet 0 ??? warfarin (COUMADIN) 5 mg tablet Take 1 tablet by mouth once for 1 dose. Your dose may vary depending on the INR value. You may need to break or combine pills to achieve the right dose. Take Coumadin 5 mg at 5 pm on October 01. 45 tablet 0 Updated Allergies/ADRs: Allergies Allergen Reactions ??? Streptokinase Instructions Given to Patient at Discharge: Provider Instructions None General Instructions Activity: 1. You can touchdown weight bear on your Left leg remembering to use a walker or crutches at all times for balance and protection. 2. You should NOT place a pillow under your left knee. 3. Keep the knee immobilizer on and locked in extension. When you are reclining in bed, you may openthe knee immobilizer at least once a day to inspect your skin. Re-secure the knee immobilizer beforeyour get up. Do not bend your knee when the immobilizer is open when you are checking your skin. 4. To help with extension you can place a pillow under your heel or lower leg or placed lengthwise along the leg. Again DO NOT place a pillow under the operated knee for comfort. 5. You should wear the FEDERICO hose to knee to your right leg until you are seen in followup. Remove these at least once per day to inspect your skin. Coumadin flow sheet: Date Notes INR Coumadin dose (mg) 09/30 day of operation 1.0 Lovenox 40 + 5 10/01 POD 1 1.0 Lovenox 40 + 5 due at 5 pm Anti-coagulation follow up: 1. You should take 5 mg (one of the 5mg pills) of Coumadin today, October 01, at 5 pm. Take this medication at the same time each day - usually 5pm. 2. Your coumadin level or INR target range is 2-3 and this will need to be checked by the VisitingNurse on the day after discharge and at least twice per week thereafter (usually every Thursday and ). The INR should be reported to the [facility] Ortho clinic at [phone], and you will be informed of any needed changes in your Coumadin dose. 3. If your INR level is ever above 3.5 you should not participate in aggressive Physical therapy exercises - you can mobilize/ambulate. This will decrease the possibility of more bleeding into your joint. Once your INR is less than 3.5 you can resume Physical therapy. One of the Orthopedic nurses willcall you with further instructions as needed. 4. You will continue to be on Coumadin as before your surgery. The Orthopaedic Coumadin Clinic will manage your INR/Coumadin dosing for a short time and then you will be referred back to your Primary Care Physician for ongoing management. Lovenox injections: Your INR level did not increase as much as expected after surgery so you have been discharged on Lovenox AND coumadin. You will be on the Lovenox injections (40mg daily) until your INR level is greater than 2.0. Once that happens, stop the Lovenox and continue just the coumadin as instructed above. Diet: Resume usual diet, but increase your intake of fluids and fiber while you are on narcotic painmeds to prevent constipation Driving: No, not until you are cleared to do so by your Orthopedic surgeon. Ideally you should not drive if you are on narcotic pain meds as these can affect your judgement and reaction time. Call yoursurgeon with any questions. Medication: 1. The pain medication that you are using can cause constipation, so make sure you increase your intake of fluids and fiber while you are on them. You should also take the stool softener that was ordered, sennakot, to factilitate a bowel movement. An [id number] medication, miralax can also be used if needed to combat constipation 2. If you need a renewal on your narcotic pain medication, you need to give the Orthopedic clinic enough time to process your request. This can take up to three days, so plan accordingly. 3. You have been discharged on a short acting narcotic, Oxycodone. You will be on this medication for a limited period of time only. As your pain lessens, taper down and off this medication as tolerated. 4. Continue the Tylenol around the clock for the next 10 days (October 10). This can be effective incontrolling pain along with your other medications. Shower: 1. You can shower only if you can securely apply a plastic bag over your leg with immobilizer in place and keep your dressing dry. Remember your activity limitations and always have a chair available for balance and protection. DO NOT submerge the dressing/incision. A sponge bath may be easier. 2. Keep your dressing clean and dry. Do not get wet. Wound (Mepilex): 1. Sutures/nhung: Staple/suture removal will be done at your post-op appointment on October 12. 2. Remove your operative dressing on Post-op day 2 (October 02) and change. Change daily until your follow-up appointment. Keep your leg straight when the immobilizer is off. Re-apply the knee immobilizer after you change the dressing. FOLLOWUP APPOINTMENTS: 1. You will have followup appointments at [facility] as indicated in Future Appointments and Orders. Youwill have an xray prior to those appointments so please come to Radiology, desk 3T, 1 hour BEFORE your appointment for those x-rays. Future Appointments and Orders Future Appointments: Provider: Department: Dept Phone: Center: 10/12/2012 1:20 PM Rebekah Kovacs MD Orthopaedics [phone] None Future Orders Please Complete By Expires Referral for Anticoagulation Monitoring [STV000 Custom] Process Instructions: If no progress note charted, please enter Clinical details in comments. Scheduling Instructions: Comments: Questions: Responses: Responsible Group [facility] Reason for referral Coumadin s/p Left Knee extra-articular arthroscopic ligamentous reconstruction of the ACL/PCL and menisectomy 09/30/12 Risk Factors: HX of PE on Coumadin before surgery. 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: self In discussion with the attending physician, it is certified that this patient is under their care and that they, or a nurse practitioner, clinical nurse specialist or physician's medical assistant internal medicine who is working directly with them, had a face to face encounter that meets the physician face to face encounter re quirements with this patient on 10/01/2012 The encounter with the patient was in whole, or in part, for the following medical condition, which is the primary reason for home health care services: s/p ACL, PCL and MCL reconstruction also on lovenox bridge to coumadin In discussion with the provider, it is certified that, based on their findings, the following services are medically necessary for home health services. To provide the following care/treatments with the clinical findings supporting the need for servicesas follows: Home Health Agency: [facility]. PHONE: [phone] FAX: [phone] Home care orders : RN and or /PT Mobility instructions: Toe touch weightbearing with the knee locked in extension with patella mobilization, quad and hamstring setting exercises until f/u appointment October 12. 1. Draw PT/INR as follows: per MD orders- NEXT INR DRAW-Thursday, October 02, then - PT/INR: every Thursday and x 4 weeks Point of care testing is acceptable to obtain results PT/INR results to be called to the following: [facility] Orthopedic anticoagulation (Coumadin) clinic @ ; 2. Assess wound, pain management, medication effectiveness and management, elimination, nutrition patterns 3. Staple or Suture removal in 10-14 days- will be done at post-op appointment with Dr. Kovacs on October 12. 4. Home safety evaluation and therapy for ongoing strength and conditioning. In discussion with the attending physician, it is certified that the clinical findings support that this patient is homebound (i.e. absences from home require considerable and taxing effort and are formedical reasons or evangelical services of infrequently or of short duration when for other reasons) All VNA agencies which cover the area of patient's residence have been reviewed, either verbally or in writing, and patient/family have chosen the home health care agency as noted for home services. Questions: Responses: Agency name and contact information [facility] Patient location post discharge home What services are requested Registered Nurse Physical Therapy Start date Responsible MD post discharge contact info PCP Primary Care Provider: MONROE BROWN MD [phone] Joints: [phone] Signed: CHERISE NEFF APRN 10/01/2012 Brief Op Note - Rebekah Kovacs MD - 09/30/2012 1:39 PM EDT Brief Operative Note Patient Name: Andreia Mayer : [id number] MR#: [id number] Case Date: 09/30/2012 Surgeon: Surgeon(s) and Role: * Rebekah Kovacs MD - Primary * Jeremi Nguyễn MD - Resident-Surgeon Chief * Syed Nolasco MD - Resident-Lesser Role Preoperative diagnosis: knee dislocation Postoperative diagnosis: knee dislocation Procedure(s): LIGAMENTOUS RECONSTRUCTION, KNEE, EXTRA ARTICULAR MODIFIER ACHILLES TENDON ARTHROSCOPY KNEE, MENISCECTOMY SINGLE W/ SHAVING ARTHROSCOPIC ANTERIOR CRUCIATE LIGAMENT REPAIR ARTHROSCOPIC POSTERIOR CRUCIATE LIGAMENT REPAIR Anesthesia: General Findings: see operative note Complications: Intra-operative hypoxia. Fluids: 3L crystaloid UOP: 425cc Estimated Blood Loss: 150cc Drains: braulio Disposition: extubation pending improved oxygenation Condition: doing well with some problems : Hypoxia - not extubated yet. (Please see the Surgical Encounter Summary for any Implant and Specimen details pertinent to this patient.) OR Attestation - Rebekah Kovacs MD - 09/30/2012 1:39 PM EDT Attestation: Case Date: 09/30/2012 I was present and I participated during the entire procedure (does not need to include opening and closing). REBEKAH KOVACS MD 09/30/2012 Miscellaneous - Provider, Scanning - 09/30/2012 9:26 AM EDT documented in this encounter Plan of Treatment Pending Results Name Type Priority Associated Diagnoses Date/Ti me XR Fluoro OR c-arm Imaging Routine 3 11:10 AM EDT storage only Scheduled Orders Name Type Priority Associated Diagnoses Order S chedule XR Fluoro OR c-arm Imaging Routine Once PRN (for Radiant storage only use) for 1 Occu rrences starting 2012 until 09/30/2012 Scheduled Referrals Name Type Priority Associated Diagnoses Order S chedule Referral for Outpatient Routine 09/30/2012 Left knee Ordered: Anticoagulation Referral extra-articular, 10/02/19 13 Monitoring arthroscopic, ligamentous reconstruction of the ACL and PCL with menisectomy for knee dislocation documented as of this encounter Procedures Procedure Name Priority Date/Time Associated Diagnosis Comme nts IMPLANTABLE DEVICES 10/02/2012 11:43 Resu lts for this SCAN AM EDT procedure are i n the results section. DIFFERENTIAL, Routine 10/01/2012 4:46 AM Results for this AUTOMATED EDT procedure are i n the results section. PROTHROMBIN TIME Routine 10/01/2012 4:46 AM Resul ts for this EDT procedure are i n the results section. CBC (WITH DIFF) Routine 10/01/2012 4:46 AM Result s for this EDT procedure are i n the results section. BASIC METABOLIC PANEL Routine 10/01/2012 4:46 AM Results for this (NON-FASTING) EDT procedure are in the results section. XR KNEE DIAGNOSTIC 1 Routine 09/30/2012 4:34 PM R esults for this OR 2 VIEW EDT procedure are i n the results section. XR CHEST ONE VIEW Routine 09/30/2012 2:49 PM Resu lts for this EDT procedure are i n the results section. BLOOD GAS 2 ARTERIAL Routine 09/30/2012 1:20 PM R esults for this EDT procedure are i n the results section. ARTHROSCOPIC Routine 09/30/2012 1:12 PM Knee dislocation POSTERIOR CRUCIATE EDT LIGAMENT REPAIR ARTHROSCOPIC ANTERIOR Routine 09/30/2012 1:12 PM Knee dislocat ion CRUCIATE LIGAMENT EDT REPAIR BLOOD GAS 2 ARTERIAL Routine 09/30/2012 12:37 Res ults for this PM EDT procedure are i n the results section. BLOOD GAS 2 ARTERIAL Routine 09/30/2012 12:10 Res ults for this PM EDT procedure are i n the results section. BLOOD GAS 2 ARTERIAL Routine 09/30/2012 11:28 Res ults for this AM EDT procedure are i n the results section. ARTHROSCOPIC 09/30/2012 7:16 AM Knee dislocation POSTERIOR CRUCIATE EDT LIGAMENT REPAIR (WRVU 17.41) ARTHROSCOPIC ANTERIOR 09/30/2012 7:16 AM Knee dislocat ion CRUCIATE LIGAMENT EDT REPAIR (WRVU 14.3) ARTHROSCOPY KNEE, 09/30/2012 7:16 AM Knee dislocation MENISCECTOMY SINGLE EDT W/ SHAVING (WRVU 7.03) MODIFIER ACHILLES 09/30/2012 7:16 AM Knee dislocation TENDON EDT LIGAMENTOUS 09/30/2012 7:16 AM Knee dislocation RECONSTRUCTION, KNEE, EDT EXTRA ARTICULAR (WRVU 9.79) PROTHROMBIN TIME STAT 09/30/2012 6:30 AM Protein C deficien cy Results for this EDT procedure are i n the results section. ARTHROSCOPY KNEE, Routine 09/30/2012 6:02 AM Knee dislocation MENISCECTOMY SINGLE EDT W/ SHAVING documented in this encounter Results SCAN DOC: IMPLANTABLE DEVICES (10/02/2012 11:43 AM EDT) Narrative 10/02/2012 11:43 AM EDT Procedure Note Provider, Scanning - 10/02/2012 11:43 AM EDT Scanning Provider MEDIA MGR SCAN EXT ORDR/RSLT (ABNORMAL) Differential, Automated (10/01/2012 4:46 AM EDT) Patholo gist Method Time Signature Neutrophils % 78.8 (H) 34.0 - CERNER 71.0 % MILLENNIUM Neutr Abs (ANC) 9.69 (H) 1.50 - CERNER 6.30 MILLENNIUM x10(3)/mc L Lymphocytes % 13.4 (L) 19.0 - CERNER 53.0 % MILLENNIUM Lymphocytes Abs 1.6 1.0 - 3.6 CERNER x10(3)/mc MILLENNIUM L Monocytes % 7.4 4.0 - CERNER 13.0 % MILLENNIUM Monocyte Abs 0.9 0.2 - 1.0 CERNER x10(3)/mc MILLENNIUM L Eosinophils % 0.1 0.0 - 7.0 CERNER % MILLENNIUM Eosinophils Abs 0.0 0.0 - 0.5 CERNER x10(3)/mc MILLENNIUM L Basophils % 0.1 0.0 - 2.0 CERNER % MILLENNIUM Basophils Abs 0.0 0.0 - 0.2 CERNER x10(3)/mc MILLENNIUM L Immature Gran % 0.20 0.00 - CERNER 0.66 % MILLENNIUM Comment: Immature granulocytes(IG's)percentage an d absolute count will include metamyelocytes, myelocytes, and promyelo cytes. Blood smears from CBCs yielding IG's will be scanned manually for concor dance. If this scan disagrees with the automated IG or if promyelocytes are not ed, a manual differential will be performed. Yolie Gran Abs 0.02 0.00 - 0.05 x10(3)/mcL CER NER MILLENNIUM Specimen Anatomical Collection Method Collection Time Receive d Time (Source) Location / / Volume Laterality Blood specimen 10/01/2012 4:46 AM 013 4:53 (specimen) EDT AM EDT Rebekah Kovacs MD HEMATOLOGY ORDERABLES Performing Organization Address City/State/ZIP [place] [address] CERNER MILLENNIUM Prothrombin Time (10/01/2012 4:46 AM EDT) athologist Signature PT 14.0 12.0 - 15.0 CERNER sec MILLENNIUM Comment: [facility] Transfusion Committee Guidelines: I NR less than 2.0, PTT less than OR equal to 43.5 seconds, or Fibrinogen gre ater than or equal to 100 mg/dl indicate adequate procoagulant activity for hemostasis in patients without underlying bleeding disorders. INR 1.0 0.9 - 1.1 CERNER MILLENNIUM Specimen Anatomical Collection Method Collection Time Receive d Time (Source) Location / / Volume Laterality Blood specimen 10/01/2012 4:46 AM 013 4:53 (specimen) EDT AM EDT Resulting Agency Comment Spec In Lab Rebekah Kovacs MD HEMATOLOGY ORDERABLES Performing Organization Address City/State/ZIP Code Phon e Number [place] [phone] CERNER MILLENNIUM (ABNORMAL) Basic Metabolic Panel (non-fasting) (10/01/2012 4:46 AM EDT) P athologist Signature Glucose Lvl 108 60 - 199 CERNER mg/dL MILLENNIUM Comment: Diabetes: >=200 mg/dL plus symp toms BUN 7 (L) 8 - 18 mg/dL CERNER MILLENNIUM Creatinine 0.79 0.70 - 1.20 mg/dL CERNER MILL ENNIUM Comment: Please note that the pediatric reference intervals supplied above were not validated at [facility]. Results from pediatri c patients should be interpreted in conjunction to the patient's age, height and muscle mass. Sodium 135 135 - 145 mmol/L CERNER PADMINI NIUM Potassium 4.1 3.5 - 5.0 mmol/L CERNER PADMINI NIUM Comment: Please note: ??Patients with WBC >100,00 0 may have falsely elevated Potassium levels. ??For accurate Potassium quantif ication in these patients send serum separator tube (gold top) for subsequent determinations. ??Contact the Clinical Chemistry Laboratory if there are any qu estions. Chloride 100 98 - 107 mmol/L CERNER MILLENN IUM CO2 24 22 - 31 mmol/L CERNER MILLENNI UM Anion Gap 11 5 - 15 mmol/L CERNER MILLENNIU M Calcium 8.5 8.5 - 10.5 mg/dL CERNER PADMINI NIUM Estimated GFR >60 >=60 CERNER MILLENNIU M Comment: This estimated GFR (eGFR) value was calc ulated using the MDRD equation which has been validated on patients between t he ages of 18 and 70. The MDRD should not be used to assess kidney function in patients < 18 years of age or in patients with extremes of body mass, or in patients with acute kidney failure. This value should be multiplied by 1.2 f or patients. For further information please copy and past e the following links into your internet browser. http://www.nkdep.nih.gov/lab-evaluation. shtml http://www.kidney.org/professionals/ Specimen Anatomical Collection Method Collection Time Receive d Time (Source) Location / / Volume Laterality Blood specimen 10/01/2012 4:46 AM 013 4:53 (specimen) EDT AM EDT Resulting Agency Comment Spec In Lab Rebekah Kovacs MD CHEMISTRY ORDERABLES Performing Organization Address City/State/[place] [address] CERNER MILLENNIUM (ABNORMAL) CBC (with Diff) (10/01/2012 4:46 AM EDT) P athologist Signature WBC 12.3 (H) 4.0 - 10.0 CERNER x10(3)/mcL MILLENNIUM RBC 3.76 (L) 3.93 - CERNER 5.22 MILLENNIUM x10(6)/mcL Hemoglobin 11.0 (L) 11.2 - CERNER 15.7 gm/dL MILLENNIUM Hematocrit 33.6 (L) 34.0 - CERNER 45.0 % MILLENNIUM MCV 89.4 79.0 - CERNER 94.0 fL MILLENNIUM MCH 29.3 26.6 - CERNER 32.2 pg MILLENNIUM MCHC 32.7 32.0 - CERNER 36.5 gm/dL MILLENNIUM Platelets 222 145 - 370 CERNER x10(3)/mcL MILLENNIUM RDWSD 45.7 35.0 - CERNER 46.0 fL MILLENNIUM RDWCV 14.1 10.9 - CERNER 14.4 % MILLENNIUM MPV 9.8 9.0 - 12.0 CERNER fL MILLENNIUM Specimen Anatomical Collection Method Collection Time Receive d Time (Source) Location / / Volume Laterality Blood specimen 10/01/2012 4:46 AM 013 4:53 (specimen) EDT AM EDT Resulting Agency Comment Spec In Lab Rebekah Kovacs MD HEMATOLOGY ORDERABLES Performing Organization Address City/State/ZIP [place] [address] MIKE J&J SolutionsENNIUM XR knee diagnostic 1 or 2 view (09/30/2012 4:34 PM EDT) Anatomical Region Laterality Modality Knee N/A Radiographic Imaging Specimen (Source) Anatomical Collection Method Collection Time Re ceived Time Location / / Volume Laterality 09/30/2012 4:34 PM EDT Narrative 09/30/2012 4:51 PM EDT Examination KNEE 1 OR 2 VIEWS/LEFT/XPORT Clinical History s/p ACL/PCL/MCL reconstructions, verify alignment, placement, etc Comparison None Technique Findings Interval repair of AC, PCL and MCL. ??Th ere are additional screws in the distal femur and proximal tibia. air-fluid level in the left knee joint r epresents early postsurgical change. ?? Multiple bone fragments overlie the post erior joint line. ??The alignment of the knee is anatomic. Impression Interval repair of ACL PCL and MCL. Procedure Note Magui Cao MD - 09/30/2012Formatt ing of this note might be different from the original. Examination KNEE 1 OR 2 VIEWS/LEFT/XPORT Clinical History s/p ACL/PCL/MCL reconstructions, verify alignment, placement, etc Comparison None Technique Findings Interval repair of AC, PCL and MCL. Ther e are additional screws in the distal femur and proximal tibia. air-fluid level in the left knee joint r epresents early postsurgical change. Multiple bone fragments overlie the post erior joint line. The alignment of the knee is anatomic. Impression Interval repair of ACL PCL and MCL. Rebekah Kovacs MD IMG DX ORDERABLES XR chest PA or AP- 1 view (09/30/2012 2:49 PM EDT) Anatomical Region Laterality Modality Chest N/A Radiographic Imaging Specimen (Source) Anatomical Collection Method Collection Time Re ceived Time Location / / Volume Laterality 09/30/2012 2:49 PM EDT Narrative 10/04/2012 8:54 AM EDT Examination CHEST AP/XPORT Clinical History low p to f ratio Comparison None. Technique AP portable. Findings Significantly low lung volumes. No pneum othorax. Bilateral haziness of lung bases which is due to decreased lung vol umes and vascular crowding. Cardiomediastinal silhouette, neto, and pleura are unremarkable. Moderately distended stomach. ?? Impression Haziness of lungs which is due to low carlos ng volumes and subsequent vascular crowding. No acute cardiopulmonary proce ss. Moderately distended stomach filled with air. Film and interpretation reviewed by the attending Procedure Note Tiffany Davila MD - 10/04/2012Formatt ing of this note might be different from the original. Examination CHEST AP/XPORT Clinical History low p to f ratio Comparison None. Technique AP portable. Findings Significantly low lung volumes. No pneum othorax. Bilateral haziness of lung bases which is due to decreased lung vol umes and vascular crowding. Cardiomediastinal silhouette, neto, and pleura are unremarkable. Moderately distended stomach. Impression Haziness of lungs which is due to low carlos ng volumes and subsequent vascular crowding. No acute cardiopulmonary proce ss. Moderately distended stomach filled with air. Film and interpretation reviewed by the attending Ann-Marie Metzger MD IMG DX ORDERABLES (ABNORMAL) BLOOD GAS 2 ARTERIAL (09/30/2012 1:20 PM EDT) Analysis Performed At Patho logist Time Signature pH Art 7.42 CERNER MILLENNIUM pCO2 Art 30 (L) mmHg CERNER MILLENNIUM pO2 Art 146 (H) mmHg CERNER MILLENNIUM HCO3 Art 19.3 (L) mmol/L CERNER MILLENNIUM BE Art -5.1 (L) mmol/L CERNER MILLENNIUM Hgb Blood Gas 13.4 [facility] Comment: Total Hemoglobin (in gm/dL) ?Based on [facility] Hematology ran ges: ?Age ?Referen ce Range Less than 3 days ?14.5 to 22.5 3 days to 2 weeks ? 12.5 to 20.5 2 weeks to 1 month ?10.0 to 18.0 1 to 6 months ?9.4 to 14 .0 6 months to 2 years ? 10.5 to 13.5 2 to 6 years ?11.5 to 13 .5 6 to 12 years ? 11.5 to 15. 5 12 to 18 years (female) 12.0 to 16.0 ? (male) ?? 13.0 to 16.0 > 18 years ? (female) 11.2 to 15.7 ? (male) ?? 13.7 to 17.5 O2HB Art 97.9 (H) % CERNER MILLENNIUM COHB Art 1.2 % CERNER MILLENNIUM Comment: Nonsmokers: 0.5-1.5% COHB Smokers: Variable, but usually less than 10% Toxic: 20-30% COHB Lethal: Greater than 60% COHB METHB Art 0.1 % CERNER MILLENNIUM Na Whole Blood 135 mmol/L CERNER MILLENNI UM K Whole Blood 4.4 mmol/L CERNER MILLENNIU M Comment: Please note: Patients with WBC >100,000 may have falsely elevated Potassium levels. Contact the Clinical Chemistry L aboratory if there are any questions. ICa Whole Blood 1.04 (L) mmol/L CERNER MILLENN IUM Comment: Reference Ranges: ?? < 19 yrs: 1.22 - 1.37 mmol/L ? Adults: 1.15 - 1.33 mmol/L Note: ??Total bilirubin higher than 20 m g/dL may lead to falsely low ionized calcium. CL Whole Blood 109 (H) mmol/L CERNER MILLENNI UM Gluc Whole Bld 126 mg/dL CERNER MILLENNI UM Comment: Diabetes: >=200 mg/dL plus symp toms. Specimen Anatomical Collection Method Collection Time Receive d Time (Source) Location / / Volume Laterality Blood specimen 09/30/2012 1:20 PM 013 1:20 (specimen) EDT PM EDT Rebekah Kovacs MD CHEMISTRY ORDERABLES Performing Organization Address City/State/ZIP Code Phon e Number [place] [phone] CERNER MILLENNIUM (ABNORMAL) BLOOD GAS 2 ARTERIAL (09/30/2012 12:37 PM EDT) P athologist Signature pH Art 7.42 CERNER MILLENNIUM pCO2 Art 34 (L) mmHg CERNER MILLENNIUM pO2 Art 185 (H) mmHg CERNER MILLENNIUM HCO3 Art 21.5 mmol/L CERNER MILLENNIUM BE Art -2.9 mmol/L CERNER MILLENNIUM Hgb Blood Gas 14.1 gm/dL CERNER MILLENNIUM Comment: Total Hemoglobin (in gm/dL) ?Based on [facility] Hematology ran ges: ?Age ?Referen ce Range Less than 3 days ?14.5 to 22.5 3 days to 2 weeks ? 12.5 to 20.5 2 weeks to 1 month ?10.0 to 18.0 1 to 6 months ?9.4 to 14 .0 6 months to 2 years ? 10.5 to 13.5 2 to 6 years ?11.5 to 13 .5 6 to 12 years ? 11.5 to 15. 5 12 to 18 years (female) 12.0 to 16.0 ? (male) ?? 13.0 to 16.0 > 18 years ? (female) 11.2 to 15.7 ? (male) ?? 13.7 to 17.5 O2HB Art 98.4 (H) % CERNER MILLENNIUM COHB Art 1.2 % CERNER MILLENNIUM Comment: Nonsmokers: 0.5-1.5% COHB Smokers: Variable, but usually less than 10% Toxic: 20-30% COHB Lethal: Greater than 60% COHB METHB Art 0.0 % CERNER MILLENNIUM Na Whole Blood 134 (L) mmol/L CERNER MILLENNI UM K Whole Blood 5.2 (H) mmol/L CERNER MILLENNIU M Comment: Please note: Patients with WBC >100,000 may have falsely elevated Potassium levels. Contact the Clinical Chemistry L aboratory if there are any questions. ICa Whole Blood 1.10 (L) mmol/L CERNER MILLENN IUM Comment: Reference Ranges: ?? < 19 yrs: 1.22 - 1.37 mmol/L ? Adults: 1.15 - 1.33 mmol/L Note: ??Total bilirubin higher than 20 m g/dL may lead to falsely low ionized calcium. CL Whole Blood 106 mmol/L CERNER MILLENNI UM Gluc Whole Bld 133 mg/dL CERNER MILLENNI UM Comment: Diabetes: >=200 mg/dL plus symp toms. Specimen Anatomical Collection Method Collection Time Receive d Time (Source) Location / / Volume Laterality Blood specimen 09/30/2012 12:37 3 (specimen) PM EDT 12:37 PM EDT Rebekah Kovacs MD CHEMISTRY ORDERABLES Performing Organization Address City/State/Z[place] [address] CERNER MILLENNIUM (ABNORMAL) BLOOD GAS 2 ARTERIAL (09/30/2012 12:10 PM EDT) Analysis Performed At Patho logist Time Signature pH Art 7.32 (L) CERNER MILLENNIUM pCO2 Art 47 (H) mmHg CERNER MILLENNIUM pO2 Art 120 (H) mmHg CERNER MILLENNIUM HCO3 Art 23.5 mmol/L CERNER MILLENNIUM BE Art -2.6 mmol/L CERNER MILLENNIUM Hgb Blood Gas 14.1 gm/dL CERNER MILLENNIUM Comment: Total Hemoglobin (in gm/dL) ?Based on [facility] Hematology ran ges: ?Age ?Referen ce Range Less than 3 days ?14.5 to 22.5 3 days to 2 weeks ? 12.5 to 20.5 2 weeks to 1 month ?10.0 to 18.0 1 to 6 months ?9.4 to 14 .0 6 months to 2 years ? 10.5 to 13.5 2 to 6 years ?11.5 to 13 .5 6 to 12 years ? 11.5 to 15. 5 12 to 18 years (female) 12.0 to 16.0 ? (male) ?? 13.0 to 16.0 > 18 years ? (female) 11.2 to 15.7 ? (male) ?? 13.7 to 17.5 O2HB Art 97.1 (H) % CERNER MILLENNIUM COHB Art 1.2 % CERNER MILLENNIUM Comment: Nonsmokers: 0.5-1.5% COHB Smokers: Variable, but usually less than 10% Toxic: 20-30% COHB Lethal: Greater than 60% COHB METHB Art 0.1 % CERNER MILLENNIUM Na Whole Blood 134 (L) mmol/L CERNER MILLENNI UM K Whole Blood 5.2 (H) mmol/L CERNER MILLENNIU M Comment: Please note: Patients with WBC >100,000 may have falsely elevated Potassium levels. Contact the Clinical Chemistry L aboratory if there are any questions. ICa Whole Blood 1.13 (L) mmol/L CERNER MILLENN IUM Comment: Reference Ranges: ?? < 19 yrs: 1.22 - 1.37 mmol/L ? Adults: 1.15 - 1.33 mmol/L Note: ??Total bilirubin higher than 20 m g/dL may lead to falsely low ionized calcium. CL Whole Blood 105 mmol/L CERNER MILLENNI UM Gluc Whole Bld 139 mg/dL CERNER MILLENNI UM Comment: Diabetes: >=200 mg/dL plus symp toms. Specimen Anatomical Collection Method Collection Time Receive d Time (Source) Location / / Volume Laterality Blood specimen 09/30/2012 12:10 3 (specimen) PM EDT 12:10 PM EDT Rebekah Kovacs MD CHEMISTRY ORDERABLES Performing Organization Address City/State/ZIP Code Phon e Number [place] [phone] CERNER MILLENNIUM (ABNORMAL) BLOOD GAS 2 ARTERIAL (09/30/2012 11:28 AM EDT) athologist Signature pH Art 7.25 CERNER (Critical) MILLENNIUM Comment: Noted by instrument and control technician. pCO2 Art 54 (Critical) mmHg ARASELINER MILLENNIU M Comment: Noted by instrument and control technician. pO2 Art 79 (L) mmHg CERNER MILLENNIUM HCO3 Art 22.8 mmol/L CERNER MILLENNIUM BE Art -4.4 (L) mmol/L CERNER MILLENNIUM Hgb Blood Gas 14.7 gm/dL MIKE PICKARDIU M Comment: Total Hemoglobin (in gm/dL) ?Based on [facility] Hematology ran ges: ?Age ?Referen ce Range Less than 3 days ?14.5 to 22.5 3 days to 2 weeks ? 12.5 to 20.5 2 weeks to 1 month ?10.0 to 18.0 1 to 6 months ?9.4 to 14 .0 6 months to 2 years ? 10.5 to 13.5 2 to 6 years ?11.5 to 13 .5 6 to 12 years ? 11.5 to 15. 5 12 to 18 years (female) 12.0 to 16.0 ? (male) ?? 13.0 to 16.0 > 18 years ? (female) 11.2 to 15.7 ? (male) ?? 13.7 to 17.5 O2HB Art 91.8 (L) % CERNER MILLENNIUM COHB Art 1.4 % CERNER MILLENNIUM Comment: Nonsmokers: 0.5-1.5% COHB Smokers: Variable, but usually less than 10% Toxic: 20-30% COHB Lethal: Greater than 60% COHB METHB Art 0.2 % CERNER MILLENNIUM Na Whole Blood 133 (L) mmol/L CERNER MILLENNI UM K Whole Blood 5.1 (H) mmol/L CERNER MILLENNIU M Comment: Please note: Patients with WBC >100,000 may have falsely elevated Potassium levels. Contact the Clinical Chemistry L aboratory if there are any questions. ICa Whole Blood 1.18 mmol/L CERNER MILLENN IUM Comment: Reference Ranges: ?? < 19 yrs: 1.22 - 1.37 mmol/L ? Adults: 1.15 - 1.33 mmol/L Note: ??Total bilirubin higher than 20 m g/dL may lead to falsely low ionized calcium. CL Whole Blood 103 mmol/L CERNER MILLENNI UM Gluc Whole Bld 139 mg/dL CERNER MILLENNI UM Comment: Diabetes: >=200 mg/dL plus symp toms. Specimen Anatomical Collection Method Collection Time Receive d Time (Source) Location / / Volume Laterality Blood specimen 09/30/2012 11:28 3 (specimen) AM EDT 11:28 AM EDT Rebekah Kovacs MD CHEMISTRY ORDERABLES Performing Organization Address City/[facility]/[place]IP [place] [address] CERNER MILLENNIUM Prothrombin Time (09/30/2012 6:30 AM EDT) P athologist Signature PT 13.0 12.0 - 15.0 CERNER sec MILLENNIUM Comment: [facility] Transfusion Committee Guidelines: I NR less than 2.0, PTT less than OR equal to 43.5 seconds, or Fibrinogen gre ater than or equal to 100 mg/dl indicate adequate procoagulant activity for hemostasis in patients without underlying bleeding disorders. INR 1.0 0.9 - 1.1 CERNER MILLENNIUM Specimen Anatomical Collection Method Collection Time Receive d Time (Source) Location / / Volume Laterality Blood specimen 09/30/2012 6:30 AM 013 6:40 (specimen) EDT AM EDT Resulting Agency Comment Spec In Lab Corey Gaviria MD HEMATOLOGY ORDERABLES Performing Organization Address City/[facility]/ZIP Code Phon e Number [address] CERNER MILLENNIUM documented in this encounter Visit Diagnoses Diagnosis 09/30/2012 Left knee extra-articular, art hroscopic, ligamentous reconstruction of the ACL and PCL with menisectomy for knee di slocation - Primary Closed dislocation of knee, unspecified part Protein C deficiency Primary hypercoagulable state 09/30/2012 Left knee extra-articular, art hroscopic, ligamentous reconstruction of the ACL and PCL with menisectomy for knee di slocation Closed dislocation of knee, unspecified part documented in this encounter Administered Medications Inactive Administered Medications - up to 3 most recent administrations Medication Order MAR Action Action Date Dose Rate Site acetaminophen (TYLENOL) tablet Given 10/01/2012 2:00 PM EDT 1,00 0 mg 1,000 mg 1,000 mg, Oral, EVERY 8 HOURS SCHEDULED, First dose on Lydia 09/30/12 at 1445, Until Discontinued, Maximum dose of acetaminophen is 4000 mg from all sources in 24 hours., Routine Given 10/01/2012 5:16 AM EDT 1,000 mg Given 09/30/2012 9:05 PM EDT 1,000 mg ceFAZolin (ANCEF) 1g in dextrose New Bag 10/01/2012 6:06 AM ED T 1,000 mg 100 mL/hr 5% 50mL 1,000 mg (1 g), Intravenous, EVERY 8 HOURS, 3 doses, First dose on Lydia 09/30/12 at 1445, Last dose on Thu10/01/12 at 0645, Administer over 30 Minutes, For 3 doses postoperatively. Adjust to 8 hours from intraoperative dose., Indication for (Active or Suspected): Prophylaxis New Bag 09/30/2012 10:01 PM EDT 1,000 mg 100 mL/hr New Bag 09/30/2012 4:00 PM EDT 1,000 mg 100 mL/hr enoxaparin (LOVENOX) injection 40 mg Given 10/01/2012 9:00 AM EDT 40 mg 40 mg, Subcutaneous, DAILY, First dose on Lydia 09/30/12 at 2000, Until Discontinued, Continue daily until INR > 1.8, Routine Given 09/30/2012 8:00 PM EDT 40 mg HYDROmorphone (DILAUDID) 1 mg/mL New Syringe/Cartridge 09/30/2012 2:3 0 PM EDT BONE CRUSHER 30 mL Intravenous, BONE CRUSHER ONLY, Starting on Lydia 09/30/12 at 1445, Until Thu10/01/12 at 0550 HYDROmorphone (DILAUDID) injection 0.2-0 .4 mg Given 09/30/2012 2:49 PM EDT 0.4 mg 0.2-0.4 mg, Intravenous, EVERY 5 MIN PRN, Starting on Lydia 09/30/12 at 1403, Until Lydia 09/30/12 at 1626, Pain, For moderate pain give: 0.2 mg every 5 minute prn For severe pain give: 0.4 mg every 5 minutes prn Maximum dose: 4 mg per hour Hold for respiratory rate less than 10 per minute., PACU Recovery, Routine Given 09/30/2012 2:33 PM EDT 0.4 mg Given 09/30/2012 2:26 PM EDT 0.4 mg lactated ringers infusion 1,000 New Bag 10/01/2012 1:30 AM EDT 1,000 mLs 100 mL/hr mL 1,000 mL, at 100 mL/hr, Intravenous, CONTINUOUS, Starting on Lydia 09/30/12 at 1445, Until Thu10/01/12 at 1047 New Bag 09/30/2012 2:45 PM EDT 1,000 mLs 100 mL/hr multivitamin Wlsm-Ty-XV-Min (THERAPEUTIC-M) Given 09/07 9:00 AM EDT 1 tablet 27-0.4 mg tablet 1 tablet 1 tablet, Oral, DAILY, First dose on Lydia 09/30/12 at 1830, Until Discontinued OXYcodone (ROXICODONE) immediate release Given 10/01/2012 1:35 A M EDT 10 mg tablet 10 mg 10 mg, Oral, EVERY 4 HOURS PRN, Starting on Lydia 09/30/12 at 1417, Until Thu10/01/12 at 1012, Pain, moderate pain, For Moderate pain. Do not exceed 15 mg in 4 hours. If pain not relieved, call provider., Routine Given 09/30/2012 7:59 PM EDT 10 mg Given 09/30/2012 2:43 PM EDT 10 mg OXYcodone (ROXICODONE) immediate release Given 10/01/2012 9:30 A M EDT 15 mg tablet 15 mg 15 mg, Oral, EVERY 4 HOURS PRN, Starting on Lydia 09/30/12 at 1417, Until Thu10/01/12 at 1012, Pain, severe pain, For severe pain. Do not exceed 15 mg in 4 hours. If pain not relieved, call provider., Routine Given 10/01/2012 5:42 AM EDT 15 mg OXYcodone (ROXICODONE) immediate release Given 10/01/2012 3:08 P M EDT 20 mg tablet 20 mg 20 mg, Oral, EVERY 3 HOURS PRN, Starting on Thu10/01/12 at 1015, Until Thu10/01/12 at 1832, Pain, severe pain, Routine Given 10/01/2012 11:56 AM EDT 20 mg senna-docusate (PERICOLACE) 8.6-50 mg per Given 2012 9:00 AM EDT 2 tablets tablet 1-4 tablet 1-4 tablet, Oral, 2 TIMES DAILY, First dose on Lydia 09/30/12 at 2100, Until Discontinued, Start with 1 tablet or liquid equivalent orally twice daily and titrate up to achieve: 1. One bowel movement at least every 48 hours, AND 2. Without straining, Routine Given 09/30/2012 8:00 PM EDT 2 tablets sodium chloride 0.9 % flush 5 mL Given by Other 09/30/2012 6:45 AM EDT 5 mLs 5 mL, Intravenous, EVERY 12 HOURS, First dose on Thu09/30/12 at 0645, Until Discontinued, Day of Surgery (Day of Procedure) sodium chloride 0.9 % flush 5 mL Given by Other 09/30/2012 6:45 AM EDT 5 mLs 5 mL, Intravenous, EVERY 12 HOURS, First dose on Lydia 09/30/12 at 0645, Until Discontinued, Day of Surgery (Day of Procedure) sodium chloride 0.9 % flush 5 mL Given 10/01/2012 5:16 AM EDT 5 mLs 5 mL, Intravenous, EVERY 12 HOURS, First dose on Lydia 09/30/12 at 1745, Until Discontinued Given 09/30/2012 5:45 PM EDT 5 mLs warfarin (COUMADIN) tablet 5 mg Given 09/30/2012 4:45 PM EDT 5 mg 5 mg, Oral, ONCE, 1 dose, On Lydia 09/30/12 at 1745, Routine documented in this encounter Active and Recently Administered Medications Times are shown in EDT. Scheduled Medication Order 09/29/2012 09/30/2012 10/01/2012 acetaminophen (TYLENOL) tablet 1,000 mg 1445 (Not Given - Provider: Dora Young RN - Reason: Patient Unable)2105 (Given - Provider: Noa Mcmahon, RN) 0516 (Given - Provider: Noa Mcmahon, MIKE)1400 (Given - Provider: Ken Sheets RN) 1,000 mg, Oral, EVERY 8 HOURS SCHEDULED, First dose on Lydia 09/30/12 at 1445, Until Discontinued, Maximum dose of acetaminophen is 4000 mg from all sources in 24 hours., Routine ceFAZolin (ANCEF) 1g in dextrose 5% 50mL (COMPLETED) 1600 (New Bag - Provider: Dora Young, MIKE)2201 (New Bag - Provider: Noa Mcmahon, RN) 0606 (New Bag - Provider: Noa Mcmahon RN) 1 g = 1,000 mg, Intravenous, EVERY 8 JAZZ RS, 3 doses, First dose on Lydia 09/30/12 at 1445, Last dose on Thu10/01/12 at 0645, for 30 Minutes, For 3 doses postoperatively. Adjust to 8 hours from intraoperati ve dose., Indication (Active or Suspected): Prophylaxis enoxaparin (LOVENOX) injection 40 mg 1999 (Given - Provider: Noa Mcmahon RN) 0900 (Given - Provider: Ken Sheets RN) 40 mg, Subcutaneous, DAILY, First dose o n Lydia 09/30/12 at 2000, Until Discontinued, Continue daily until INR > 1.8, Routine multivitamin Loax-Fn-CD-Min (THERAPEUTIC-M) 27-0.4 mg tablet 1 tablet 1830 (Not Given - Provider: Hanna Boykin RN - Reason: See comment - Comment: will take am dose) 0900 (Given - Provider: Ken willson RN) 1 tablet, Oral, DAILY, First dose on Lydia 09/30/12 at 1830, Until Discontinued, Routine senna-docusate (PERICOLACE) 8.6-50 mg per tablet 1-4 tablet 1999 (Given - Provider: Noa Mcmahon RN) 0900 (Given - Provider: Ken willson RN) 1-4 tablet, Oral, 2 TIMES DAILY, First d ose on Lydia 09/30/12 at 2100, Until Discontinued, Start with 1 tablet or liquid equivalent orally twice daily and titrate up to achieve: 1. One bowel movement at le ast every 48 hours, AND 2. Without straining, Routine sodium chloride 0.9 % flush 5 mL (CANCELED) 0645 (Given by Other - Provider: Dora Young RN) 5 mL, Intravenous, EVERY 12 HOURS, First dose on Lydia 09/30/12 at 0645, Until Discontinued, Day of Surgery (Day of Procedure), Routine sodium chloride 0.9 % flush 5 mL (CANCELED) 0645 (Given by Other - Provider: Dora Young RN)1845 (Canceled Entry - Provider: Dora Young RN) 5 mL, Intravenous, EVERY 12 HOURS, First dose on Lydia 09/30/12 at 0645, Until Discontinued, Day of Surgery (Day of Procedure), Routine sodium chloride 0.9 % flush 5 mL (CANCELED) 1745 (Given - Provider: Hanna Boykin RN) 0516 (Given - Provider: Noa Mcmahon RN) 5 mL, Intravenous, EVERY 12 HOURS, First dose on Lydia 09/30/12 at 1745, Until Discontinued, Routine warfarin (COUMADIN) tablet 5 mg (COMPLETED) 1645 (Given - Provider: Hanna Boykin RN) 5 mg, Oral, ONCE, 1 dose, Lydia 09/30/12 at 1745, Routine warfarin (COUMADIN) tablet 5 mg 5 mg, Oral, ONCE, 1 dose, Thu10/01/12 at 1700, Routine Continuous Medication Order 09/29/2012 09/30/2012 10/01/2012 HYDROmorphone (DILAUDID) 1 mg/mL BONE CRUSHER 30 mL (CANCELED) 1430 (New Syringe/Cartridge - Provider: Dora Young RN) Intravenous, BONE CRUSHER ONLY, Starting Lydia 09/30/12 at 1445, Until F ri 10/01/12 at 0550 lactated ringers infusion 1,000 mL (CANCELED) 0645 (Canceled Entry - Provider: Dora Young RN)0725 (New Bag - Provider: Syed Hayes)0904 (New Bag - Provider: Syed Hayes)1207 (Stopped - Provider: Syed Hayes)1329 (New Bag - Provider: Syed Hayes) 1,000 mL, at 100 mL/hr, Intravenous, CON TINUOUS, Starting Lydia 09/30/12 at 0645, Until Lydia 09/30/12 at 1626, Day of Surgery (Day of Procedure) 1340 (Anesthesia Volume Adjustment - Provider: Syed Hayes) lactated ringers infusion 1,000 mL (CANCELED) 1445 (New Bag - Provider: Dora Young RN) 0130 (New Bag - Provider: Edgar Villalobos) 1,000 mL, at 100 mL/hr, Intravenous, CON TINUOUS, Starting Lydia 09/30/12 at 1445, Until Thu10/01/12 at 1047 PRN Medication Order 09/29/2012 09/30/2012 10/01/2012 HYDROmorphone (DILAUDID) injection 0.2-0.4 mg (CANCELED) 1414 (Given - Provider: Dora Young RN)1421 (Given - Provider: Dora Young RN)1426 (Given - Provider: Dora Young RN)1433 (Given - Provider: Dora Young RN)1449 (Given - Provider: Dora Young RN) 0.2-0.4 mg, Intravenous, EVERY 5 MIN PRN , Starting Lydia 09/30/12 at 1403, Until Lydia 09/30/12 at 1626, Pain, For moderate pain give: 0.2 mg every 5 minute prn For severe pain give: 0.4 mg every 5 minutes pr n Maximum dose: 4 mg per hour Hold for r espiratory rate less than 10 per minute., PACU Recovery, Routine OXYcodone (ROXICODONE) immediate release tablet 10 mg (CANCE LED) 1443 (Given - Provider: Dora Young RN)1959 (Given - Provider: Noa Mcmahon RN) 0135 (Given - Provider: Noa Mcmahon, MIKE)0542 (See Alternative - Provider: Noa Mcmahon RN)0930 (See Alternative - Provider: Ken Sheets RN)1156 (See Alternative - Provider: Ken Sheets RN) 10 mg, Oral, EVERY 4 HOURS PRN, Starting Lydia 09/30/12 at 1417, Until Thu10/01/12 at 1012, Pain, moderate pain, For Moderate pain. Do not exceed 15 mg in 4 hours. If pain not relieved, call provider., Routine 1508 (See Alternative - Provider: Ken Sheets RN) OXYcodone (ROXICODONE) immediate release tablet 10 mg 1156 (See Alternative - Provider: Ken Sheets RN)1508 (See Alternative - Provider: Ken Sheets RN) 10 mg, Oral, EVERY 3 HOURS PRN, Starting Thu10/01/12 at 1015, Until Thu10/01/12 at 1832, Pain, Routine OXYcodone (ROXICODONE) immediate release tablet 15 mg (CANCE LED) 1443 (See Alternative - Provider: Dora Young RN)1959 (See Alternative - Provider: Noa Mcmahon RN) 0135 (See Alternative - Provider: Noa Mcmahon RN)0542 (Given - Provider: Noa Mcmahon RN)0930 (Given - Provider: Ken Sheets RN)1156 (See Alternative - Provider: Ken Sheets RN)1508 (See Alternative - Provider: Ken Sheets RN) 15 mg, Oral, EVERY 4 HOURS PRN, Starting Lydia 09/30/12 at 1417, Until Thu10/01/12 at 1012, Pain, severe pain, For severe pain. Do not exceed 15 mg in 4 hours. If pain not relieved, call provider., Routine OXYcodone (ROXICODONE) immediate release tablet 20 mg (CANCELED) 1156 (Given - Provider: Ken Sheets RN)1508 (Given - Provider: Ken Sheets RN) 20 mg, Oral, EVERY 3 HOURS PRN, Pain, severe pain, Sta rting Thu10/01/12 at 1015 vancomycin (VANCOCIN) injection (CANCELED) 0900 (Given - Provider: Rebekah Kovacs MD - Comment: grafts soaked in Nacl with vancomyciin) ONCE PRN, Starting Lydia 09/30/12 at 0900, Until Lydia 09/30/12 at 1626, Intra- Operative (Intra-Procedure), Routine documented in this encounter Care Teams Charter Pilot Relationship Specialty Start Date End Date Monroe Brown MD PCP - General 07/23/12 12/05/12 [address] [place] [address] documented as of this encounter
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
--- OUTSIDE RECORDS SUMMARY | 2022-01-27 15:18 | XMS_ITS | Encounter Summary ---
:1970 Author Organization [facility] [place] [address] Care Team Providers Name Role Phone Dawood Welch MD Primary Care Provider Encounter Details Date Type Department Care Team Description 10/05/2012 Anti-Coag Telephone Orthopaedics at [facility] Terese Scott, Knee dislocation Visit One [facility] [place] RN (Primary Dx) [place] [address] Social History Tobacco Use Types Packs/Day Years Used Date Smoking Tobacco: Never Smokeless Tobacco: Never Alcohol Use Standard Drinks/Week Comments No 0 (1 standard drink = 0.6 oz pure alcoho l) Sex Assigned at Date Recorded Not on file documented as of this encounter Plan of Treatment Not on filedocumented as of this encounter Visit Diagnoses Diagnosis Knee dislocation - Primary Closed dislocation of knee, unspecified part documented in this encounter Care Teams Mounter Clarinets Relationship Specialty Start Date End Date Dawood Welch MD PCP - General 07/23/12 12/05/[address] [place], [place] [address] documented as of this encounter
--- OUTSIDE RECORDS SUMMARY | 2022-01-27 15:18 | XMS_ITS | Encounter Summary ---
:1970 Author Organization [facility] [place] [address] Care Team Providers Name Role Phone Dawood Welch MD Primary Care Provider Reason for Visit Reason Onset Date Comments Medication Refill 11/11/2012 Encounter Details Date Type Department Care Team Description 11/11/2012 Refill Orthopaedics at [facility] [place] [address] Social History Tobacco Use Types Packs/Day Years Used Date Smoking Tobacco: Never Smokeless Tobacco: Never Alcohol Use Standard Drinks/Week Comments No 0 (1 standard drink = 0.6 oz pure alcoho l) Sex Assigned at Date Recorded Not on file documented as of this encounter Miscellaneous Notes Telephone Encounter - Kathleen Field RN - 11/11/2012 8:53 AM EDT Patient called and left a message 11/10/12 at 5:50 pm. She called back at 8:45 am today and questionedif her request for her Oxycodone was done from last week. She was advised that the prescription was done 11/09/12. I reviewed the dosing, weaning instructions and the amount ordered with patient. She wasadvised that the prescription was mailed to her home 11/09/12 in the afternoon or the next day. Patient has a follow up visit with Dr. Blanchard 11/12/12. documented in this encounter Plan of Treatment Not on filedocumented as of this encounter Visit Diagnoses Not on filedocumented in this encounter Care Teams Assistant Food Service Manager Relationship Specialty Start Date End Date Dawood Welch MD PCP - General 07/23/12 12/05/[address] [place] [address] documented as of this encounter
--- OUTSIDE RECORDS SUMMARY | 2022-01-27 15:18 | XMS_ITS | Encounter Summary ---
:1970 Author Organization [facility] [place] [address] Care Team Providers Name Role Phone Dawood Welch MD Primary Care Provider Reason for Visit Reason Onset Date Comments Medication Refill 11/18/2012 Oxycodone wean sched starbolivar. Encounter Details Date Type Department Care Team Description 11/18/2012 Refill [place] [facility] [place] Field, Left knee pain (Primary One [facility] Veronica velarde RN Dx) [place] [address] Social History Tobacco Use Types Packs/Day Years Used Date Smoking Tobacco: Never Smokeless Tobacco: Never Alcohol Use Standard Drinks/Week Comments No 0 (1 standard drink = 0.6 oz pure alcoho l) Sex Assigned at Date Recorded Not on file documented as of this encounter Miscellaneous Notes Telephone Encounter - Kathleen Field, RN - 11/18/2012 10:01 AM EDT Date of surgery: 09/30/2012 Left knee extra-articular, arthroscopic, ligamentous reconstruction of the ACL and PCL with menisectomy for knee dislocation by Dr. Blanchard. Last refill: 11/16/[address] Blanchard Patient's usage: Oxycodone 10 mg 1-2 tablets po every 8 hours prn. Gradually begin to space the timebetween doses further apart. Plan going forward: Wean schedule set up as noted below per Dr. Blanchard. Patient was advised to call he as noted below to initiate the prescription refill. Medication dispensed: Starting: On 11/18/12 mail prescription for #60 for anticipated arrival to patient 11/22/12. On 11/25/12 mail prescription for #50 for anticipated arrival to patient 11/29/12. On 12/02/12 mail prescription for #40 for anticipated arrival to patient 12/06/12. On 12/09/12 mail prescription for #30 for anticipated arrival to patient 12/13/12. On 12/16/12 mail prescription for #20 for anticipated arrival to patient 12/20/12. On 12/23/12 mail prescription for #10 for anticipated arrival to patient 12/27/12. Mailed prescription for today, 11/18/12 to patient's home. documented in this encounter Plan of Treatment Not on filedocumented as of this encounter Visit Diagnoses Diagnosis Left knee pain - Primary Pain in joint, lower leg documented in this encounter Care Teams Gas Usage Meter Clerk Relationship Specialty Start Date End Date Dawood Welch MD PCP - General 07/23/12 12/05/[address] [place] [address] documented as of this encounter
--- OUTSIDE RECORDS SUMMARY | 2022-01-27 15:18 | XMS_ITS | Encounter Summary ---
:1970 Author Organization [facility] [place] [address] Care Team Providers Name Role Phone Dawood Welch MD Primary Care Provider Reason for Visit Reason Onset Date Comments Medication Refill 12/02/2012 Encounter Details Date Type Department Care Team Description 12/02/[address] [facility] Kathleen Field, Left knee pain (Primary One [facility] Veronica velarde RN Dx) [place] [address] Social History Tobacco Use Types Packs/Day Years Used Date Smoking Tobacco: Never Smokeless Tobacco: Never Alcohol Use Standard Drinks/Week Comments No 0 (1 standard drink = 0.6 oz pure alcoho l) Sex Assigned at Date Recorded Not on file documented as of this encounter Miscellaneous Notes Telephone Encounter - Kathleen Field, RN - 12/02/2012 12:32 PM EDT Received a call from patient requesting a refill of Oxycodone wean. Patient states that she is stressed She has contacted [facility] and is awaiting follow up. Patient advised to reschedule her Pain Clinic appointment as soon as able. She was advised that the Pain Clinic may only make recommendation for pain management and not to expect that they will prescribe meds for her.She may also need to talk with her PCP regarding the pain management. She was reminded that the narcotic wean set up by Dr. Blanchard will continue. The following action was taken: x Refill mailed to the patient's home address. Refer to the medication record for specific information. Patient knows how to contact the nurse and understands that she may do so at any time should any further questions or concerns occur. documented in this encounter Plan of Treatment Not on filedocumented as of this encounter Visit Diagnoses Diagnosis Left knee pain - Primary Pain in joint, lower leg documented in this encounter Care Teams Packaging Clerk Relationship Specialty Start Date End Date Dawood Welch MD PCP - General 07/23/12 12/05/[address] [place] [address] documented as of this encounter
--- OUTSIDE RECORDS SUMMARY | 2022-01-27 15:18 | XMS_ITS | Encounter Summary ---
:1970 Author Organization [facility] [place] [address] Care Team Providers Name Role Phone Dawood Welch MD Primary Care Provider Reason for Visit Reason Onset Date Comments Other 2012 6-WK CK Encounter Details Date Type Department Care Team Description 2012 Telephone [place] [facility] [place]ando Blanchard MD Other (6-WK CK) [facility] [place] [address] ORTHOPAEDIC SURGERY [phone] [place], [place] [address] (Wo rk) Social History Tobacco Use Types Packs/Day Years Used Date Smoking Tobacco: Never Smokeless Tobacco: Never Alcohol Use Standard Drinks/Week Comments No 0 (1 standard drink = 0.6 oz pure alcoho l) Sex Assigned at Date Recorded Not on file documented as of this encounter Miscellaneous Notes Telephone Encounter - Dannielle Soler - 11/18/2012 10:24 AM EDT LMOM #2 to call for 6 week appt w/Dr. Blanchard. Telephone Encounter - Dannielle Soler - 2012 8:17 AM EDT LMOM#1 for 6 week follow up from her 11/[address] Blanchard. No xrays needed. documented in this encounter Plan of Treatment Not on filedocumented as of this encounter Visit Diagnoses Not on filedocumented in this encounter Care Teams Interactive Video Technician Relationship Specialty Start Date End Date Dawood Welch MD PCP - General 07/23/12 12/05/[address] [place] [address] documented as of this encounter
--- OUTSIDE RECORDS SUMMARY | 2022-01-27 15:18 | XMS_ITS | Encounter Summary ---
:1970 Author Organization [facility] [place] [address] Care Team Providers Name Role Phone Dawood Welch MD Primary Care Provider Reason for Visit Reason Onset Date Comments Medication Refill 10/29/2012 Encounter Details Date Type Department Care Team Description 10/29/2012 Refill Orthopaedics at [facility] Terese Scott, RN Left knee pain (Primary One [facility] D [place]ve Dx) [place] [address] Social History Tobacco Use Types Packs/Day [...] leg documented in this encounter Care Teams Feather Separator Relationship Specialty Start Date End Date Dawood Welch MD PCP - General 07/23/12 12/05/[address] [place] [address] documented as of this encounter
--- OUTSIDE RECORDS SUMMARY | 2022-01-27 15:18 | XMS_ITS | Encounter Summary ---
:1970 Author Organization [place] [address] Care Team Providers Name Role Phone Dawood Welch MD Primary Care Provider Reason for Referral Home Health Care (Routine) - Closed by system - unspecified Specialty Diagnoses / Procedures Referred By Contact Refer red To Contact Unknown Specialty Diagnoses Left knee dislocation [facility] Orthopaedics 3[address] [facility] [place] [address] Referral ID Status Reason Start Expiration Visits Visits Date Date Requested Authorized [id number] Closed by Consult, 07/30/2012 01/26/2013 12 12 system - Test & unspecified Treat Encounter Details Date Type Department Care Team Description 07/30/2012 Orders Only Orthopaedics at [facility] Terese Scott, Left knee dislocation [facility] Veronica syd [place] (Primary Dx) [place] [address] Social History Tobacco Use Types Packs/Day Years Used Date Smoking Tobacco: Never Smokeless Tobacco: Never Alcohol Use Standard Drinks/Week Comments No 0 (1 standard drink = 0.6 oz pure alcoho l) Sex Assigned at Date Recorded Not on file documented as of this encounter Plan of Treatment Scheduled Referrals Name Type Priority Associated Diagnoses Order S chedule Referral to Home Outpatient Referral Routine Left knee disloca tion Ordered: Health 07/30/2012 documented as of this encounter Visit Diagnoses Diagnosis Left knee dislocation - Primary Closed dislocation of knee, unspecified part documented in this encounter Care Teams Floral Arranger Relationship Specialty Start Date End Date Dawood Welch MD PCP - General 07/23/12 12/05/[address] [place] [address] documented as of this encounter
--- OUTSIDE RECORDS SUMMARY | 2022-01-27 15:18 | XMS_ITS | Encounter Summary ---
:1970 Author Organization [facility] Address [address] [address] Care Team Providers Name Role Phone Dawood Welch MD Primary Care Provider Reason for Visit Reason Onset Date Comments Other 10/19/2012 bued appointment Encounter Details Date Type Department Care Team Description 10/19/2012 Telephone Orthopaedics at [facility] Brando Blanchard MD Other ([facility] D [facility] appointment) [place] [address] ORTHOPAEDIC SURGERY [place], [place] [address] Social History Tobacco Use Types Packs/Day Years Used Date Smoking Tobacco: Never Smokeless Tobacco: Never Alcohol Use Standard Drinks/Week Comments No 0 (1 standard drink = 0.6 oz pure alcoho l) Sex Assigned at Date Recorded Not on file documented as of this encounter Miscellaneous Notes Telephone Encounter - Lidia Kowalski - 10/25/2012 12:13 PM EDT PATIENT CALLED BACK AND WAS RESCHEDULED TO 11/12/12. Telephone Encounter - Isabela Aguilar - 10/25/2012 9:17 AM EDT LMOM for patient to reschedule bumped appointment. Can see Lo the same day but in the PM. Telephone Encounter - Lora Israel - 10/19/2012 8:38 AM EDT LM for patient, she is on Lo bump list for 11/09. This is the 2nd call to her. documented in this encounter Plan of Treatment Not on filedocumented as of this encounter Visit Diagnoses Not on filedocumented in this encounter Care Teams Net Developer With W[employer] Relationship Specialty Start Date End Date Dawood Welch MD PCP - General 07/23/12 12/05/[address] [place] [address] [address] [place] [address] documented as of this encounter
--- OUTSIDE RECORDS SUMMARY | 2022-01-27 15:18 | XMS_ITS | Encounter Summary ---
:1970 Author Organization [facility] [address] Care Team Providers Name Role Phone Dawood Welch MD Primary Care Provider Reason for Visit Reason Onset Date Comments Medication Refill 07/26/2012 Encounter Details Date Type Department Care Team Description 07/26/2012 Refill Orthopaedics at [facility] Cain Moon MD Pain (Primary Dx) [facility] [place] [address] ORTHOPAEDIC SURGERY [phone] [place], [place] [address] (Wo rk) Social History Tobacco Use Types Packs/Day Years Used Date Smoking Tobacco: Never Assessed Sex Assigned at Date Recorded Not on file documented as of this encounter Plan of Treatment Not on filedocumented as of this encounter Visit Diagnoses Diagnosis Pain - Primary Generalized pain documented in this encounter Care Teams Pediatric Nephrologist Relationship Specialty Start Date End Date Dawood Welch MD PCP - General 07/23/12 12/05/[address] [place] [address] documented as of this encounter
--- OUTSIDE RECORDS SUMMARY | 2022-01-27 15:18 | XMS_ITS | Encounter Summary ---
:1970 Author Organization [facility] [place] [address] Care Team Providers Name Role Phone Dawood Welch MD Primary Care Provider Reason for Visit Reason Onset Date Comments Medication Refill 08/13/2012 Encounter Details Date Type Department Care Team Description 08/13/2012 Refill Orthopaedics at [facility] Terese Scott RN Dislocation of left knee [facility] Veronica velarde (Primary Dx) [place] [address] Social History Tobacco Use Types Packs/Day Years Used Date Smoking Tobacco: Never Smokeless Tobacco: Never Alcohol Use Standard Drinks/Week Comments No 0 (1 standard drink = 0.6 oz pure alcoho l) Sex Assigned at Date Recorded Not on file documented as of this encounter Miscellaneous Notes Telephone Encounter - Terese Scott RN - 08/13/2012 1:26 PM EDT Discuss with Ita JIMENEZ - prescription to hold until next office visit mailed to Andreia. Telephone Encounter - Terese Scott RN - 08/13/2012 10:59 AM EDT Discuss with Keyana Groves refill of medication - Adnreia has medication at this point and Keyana reports that she is closely monitoring. Andreia will need #40 tablets to have enough to last until she is seen in the clinic next. documented in this encounter Plan of Treatment Not on filedocumented as of this encounter Visit Diagnoses Diagnosis Dislocation of left knee - Primary Closed dislocation of knee, unspecified part documented in this encounter Care Teams Information Systems Specialist Relationship Specialty Start Date End Date Dawood Welch MD PCP - General 07/23/12 12/05/[address] [place] [address] documented as of this encounter
--- OUTSIDE RECORDS SUMMARY | 2022-01-27 15:18 | XMS_ITS | Encounter Summary ---
:1970 Author Organization [facility] [place] [address] Care Team Providers Name Role Phone Nima Hauser MD Primary Care Provider Reason for Referral Physical Therapy (Routine) - Complete - Patient Seen (External Appt Consult Notes Rcv'd) Specialty Diagnoses / Procedures Referred By Contact Refer red To Contact Physical Therapy Diagnoses Knee instability, right Michael Pollard PA [facility] [place] [address] Referral ID Status Reason Start Expiration Visits Visits Date Date Requested Authorized [id number] Complete - Evaluate and 08/16/2013 1 1 Patient Seen Treat 3 (External Appt Consult Notes Rcv'd) Reason for Visit Reason Comments Follow Up Surgery Left knee ligament recon DOS 09/30/2012 Encounter Details Date Type Department Care Team Description 02/17/2013 Office Visit Orthopaedics at [facility] Brando Blanchard MD Knee instability, right (Primary Dx); [facility] [address] Knee disl ocation, left, subsequent encounter [facility] [place] [address] ORTHOPAEDIC [phone] SURGERY [place], [place] [address] Social History Tobacco Use Types Packs/Day Years Used Date Smoking Tobacco: Never Smokeless Tobacco: Never Alcohol Use Standard Drinks/Week Comments No 0 (1 standard drink = 0.6 oz pure alcoho l) Sex Assigned at Date Recorded Not on file documented as of this encounter Last Filed Vital Signs Vital Sign Reading Time Taken Comments Blood Pressure 108/79 02/17/2013 10:27 AM EST Pulse 100 02/17/2013 10:27 AM EST Temperature - - Respiratory Rate - - Oxygen Saturation - - Inhaled Oxygen Concentration - - Weight 94.2 kg (207 lb 11.2 oz) 02/17/2013 10:27 AM EST Height 165.1 cm (5' 5) 02/17/2013 10:27 AM EST Body Mass Index 34.56 02/17/2013 10:27 AM EST documented in this encounter Progress Notes Michael Pollard PA - 02/21/2013 8:50 AM EST Case Date: 09/30/2012 Surgeon: Brando Blanchard MD Pre-operative diagnosis: LEFT knee dislocation Procedure(s): LIGAMENTOUS RECONSTRUCTION, KNEE, EXTRA ARTICULAR (MCL) ARTHROSCOPY KNEE, MENISCECTOMY SINGLE W/ SHAVING (lateral) ARTHROSCOPIC ANTERIOR CRUCIATE LIGAMENT REPAIR (Allograft BTB) ARTHROSCOPIC POSTERIOR CRUCIATE LIGAMENT REPAIR (Allograft Achilles) Implants: ACL: Small fragment screw with washer as femoral post - femur, Small fragment screw with washer as tibial post. - tibia. PCL: 8x25 Athrex metal interference screw - femur, 10x30 mitek edmund interference screw tibia withtibial post back up. MCL: 6.0 cancellous screw with spiked washer for femur and tibia. HPI: Ms Mayer returns 6 months from her knee dislocation and reconstruction. She continues to have pain; she had chronic pain prior to the injury. The knee is more symptomatic with activity and willswell. She has done little PT; she was forced to relocate her family and had to spend all her energypacking and moving her house. She was able to do this but was symptomatic. She uses her hinged brace. Her health has been stable aside from the knee. No chest pain or SOB. Physical exam: Ambulatory without assist or antalgia; hinged brace to the left knee. No effusion. There is diffuse tenderness to the knee. No pain or laxity with varus and valgus stress. Some laxity with anterior drawer with some apprehension but firm endpoint. Calves soft and nontender without edema.Some quad deficit compared to the contralateral knee. Assessment: S/p Multi ligamentous knee reconstruction Plan: We discussed her knee. I see no complication. I think she would benefit from PT; I wrote her areferral today. Given the magnitude of her injury and pre- existing degenerative changes, I think shemay well have residual discomfort indefinetly. There may be acute increased discomfort associated with this. I gave her a prescription for celebrex to help counteract the increased symptoms. She is on coumadin and cannot tolerate NSAIDs. We'll plan to see her again as needed. documented in this encounter Plan of Treatment Scheduled Referrals Name Type Priority Associated Diagnoses Order S chedule Referral to Outpatient Referral Routine Knee instability, Ord ered: Physical Therapy right 02/17/2013 documented as of this encounter Visit Diagnoses Diagnosis Knee instability, right - Primary Knee dislocation, left, subsequent encou nter documented in this encounter Care Teams Grader Marker Relationship Specialty Start Date End Date Nima Hauser MD PCP - General 12/06/[address] [place] [phone] documented as of this encounter
--- OUTSIDE RECORDS SUMMARY | 2022-01-27 15:18 | XMS_ITS | Encounter Summary ---
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 Mailed to pt. documented in this encounter Plan of Treatment Not on filedocumented as of this encounter Visit Diagnoses Diagnosis Left knee pain - Primary Pain in joint, lower leg documented in this encounter Care Teams Emergency Medicine Medical Director Relationship Specialty Start Date End Date Dawood Welch MD PCP - General 07/23/12 12/05/[address] [place] [address] documented as of this encounter
--- OUTSIDE RECORDS SUMMARY | 2022-01-27 15:18 | XMS_ITS | Encounter Summary ---
:1970 Author Organization [facility] [place] [address] Care Team Providers Name Role Phone Dawood Welch MD Primary Care Provider Reason for Visit Reason Onset Date Comments Medication Refill 09/17/2012 Encounter Details Date Type Department Care Team Description 09/17/2012 Refill Orthopaedics at [facility] Michael Pollard, Dislocation of left [facility] PA knee (Primary Dx) [facility] [place] [address] ORTHOPAEDIC SURGERY [phone] [place], [place] [address] (Wo rk) Social History Tobacco Use Types Packs/Day Years Used Date Smoking Tobacco: Never Smokeless Tobacco: Never Alcohol Use Standard Drinks/Week Comments No 0 (1 standard drink = 0.6 oz pure alcoho l) Sex Assigned at Date Recorded Not on file documented as of this encounter Miscellaneous Notes Telephone Encounter - FriendMarleni - 09/17/2012 9:56 AM EDT Mailed Oxycodone 10 mg to Andreia Mayer 09/17/[address] Blanchard - refill every 7 days to manage post operative pain . Ameya JIMENEZ changed script to 2 tabs every 8 hours. documented in this encounter Plan of Treatment Not on filedocumented as of this encounter Visit Diagnoses Diagnosis Dislocation of left knee - Primary Closed dislocation of knee, unspecified part documented in this encounter Care Teams Manager Hospital Relationship Specialty Start Date End Date Dawood Welch MD PCP - General 07/23/12 12/05/[address] [place] [address] documented as of this encounter
--- OUTSIDE RECORDS SUMMARY | 2022-01-27 15:18 | XMS_ITS | Encounter Summary ---
:1970 Author Organization [facility] [place] [address] Care Team Providers Name Role Phone Dawood Welch MD Primary Care Provider Encounter Details Date Type Department Care Team Description 12/03/2012 Notes Only Care Management Coty Aponte, [place] [address] Social History Tobacco Use Types Packs/Day Years Used Date Smoking Tobacco: Never Smokeless Tobacco: Never Alcohol Use Standard Drinks/Week Comments No 0 (1 standard drink = 0.6 oz pure alcoho l) Sex Assigned at Date Recorded Not on file documented as of this encounter Progress Notes Coty Aponte - 12/03/2012 3:38 PM EDT I met with this patient who had questions about filing for disability. She was hoping it was something that I could for her. I explained disability and that the process was lengthy. I offered her information about the [facility]. I asked her if she has inquired with her employer possibilitiesof changing her job duties temporarily while she is rehabing. She has not asked them and feels it isnot an option. I explained that I cannot complete the application for her, but offered to look at the application with her on one of the computers in the health education area. She declined and seemed frustrated by this. She states she has someone who can help her with this at home. She has my contact information and I am available if she has further needs or questions. documented in this encounter Plan of Treatment Not on filedocumented as of this encounter Visit Diagnoses Not on filedocumented in this encounter Care Teams Marketing Traffic Coordinator Relationship Specialty Start Date End Date Dawood Welch MD PCP - General 07/23/12 12/05/[address] [facility] [place] [address] documented as of this encounter
--- OUTSIDE RECORDS SUMMARY | 2022-01-27 15:18 | XMS_ITS | Encounter Summary ---
:1970 Author Organization [facility] Address [address] [place] [address] Care Team Providers Name Role Phone Ramy Palmer MD Primary Care Provider Unavailable Encounter Details Date Type Department Care Team Description 02/04/2001 Results Only [facility] - Marybeth Arguelles CNM conversion [address] [place] [address] [place], [place] [address] [phone] Social History Tobacco Use Types Packs/Day Years Used Date Smoking Tobacco: Never Assessed Sex Assigned at Date Recorded Not on file documented as of this encounter Plan of Treatment Not on filedocumented as of this encounter Procedures Procedure Name Priority Date/Time Associated Diagnosis Comme [facility] CYTOPATHOLOGY Routine 02/04/2001 0:00 EST Results for this procedure are i n the results section . documented in this encounter Results CYTOPATHOLOGY (02/04/2001 0:00 EST) Component Value Ref Test Analysis Performed At [facility] Method Time Signature Pathology CYTOPATHOLOGY REPORT DONA Report: [facility] Reports generated via electronic interface contain original data; however they are lacking the format of the original report. Caution should be taken when reading/interpreting unformatte d reports. Name: ? JORDYN MAYER ? Accession #: ? [id number] : ? 1970 (Age: 30) ??F ?Collect Date: ? 02/04/2001 Location: ? [facility] ? Receive Date: ? 02/05/2001 Provider: ?MARYBETH CRANDALL CNM Copy to: ? Specimen/Source: ?Conventional Pap Test, Cervix/En docervix Last Menstrual Period: ? 11/23/00 Menstrual/ Status: ? Previous Gynecologic Pathology: ? LSIL: ASC-US: 06/07 ASC-US: Cannot R/o JYOTI ? SPECIMEN ADEQUACY ? Unsatisfactory for evaluation due to obscuring blood, which precludes interpretation of 75% or more of the epithelial cells. GENERAL CATEGORIZATION ? Unsatisfactory Recommend repeat Pap test or further follow up, as clinicall y indicated. ? Document reviewed and electronically signed by: ? AUDREY Castellanos(ASCP) ? Report Date: ??02/10/2001 08:19 End of Report Specimen (Source) Anatomical Location Collection Method / Collectio n Time Received Time / Laterality Volume 02/04/2001 02/05/2001 Marybeth Aamir [facility] ORDERABLES Performing Organization Address City/State/ZIP Code Phon e Number [facility] [address] [place] [address] [facility] [address] [place] [address] documented in this encounter Visit Diagnoses Not on filedocumented in this encounter Care Teams Health Outcomes Liaison Relationship Specialty Start Date End Date Ramy Palmer MD PCP - General 01/04/09 08/09/13 documented as of this encounter
--- OUTSIDE RECORDS SUMMARY | 2022-01-27 15:18 | XMS_ITS | Encounter Summary ---
:1970 Author Organization [facility] [place] [address] Care Team Providers Name Role Phone Dawood Welch MD Primary Care Provider Reason for Visit Reason Onset Date Comments Medication Refill 09/03/2012 Encounter Details Date Type Department Care Team Description 09/03/2012 Refill [place] [place] [facility] Terese Scott, RN Dislocation of left knee [facility] Veronica velarde (Primary Dx) [place] [address] Social History Tobacco Use Types Packs/Day [...] part documented in this encounter Care Teams Conductor Road Freight Relationship Specialty Start Date End Date Dawood Welch MD PCP - General 07/23/12 12/05/[address] [place] [address] documented as of this encounter
--- OUTSIDE RECORDS SUMMARY | 2022-01-27 15:18 | XMS_ITS | Encounter Summary ---
:1970 Author Organization [facility] Address [address] [facility] [place] [address] Care Team Providers Name Role Phone Dawood Welch MD Primary Care Provider Reason for Visit Reason Comments Left Knee Pain Encounter Details Date Type Department Care Team Description 08/24/2012 Office Visit Orthopaedics at [facility] Brando Blanchard MD Knee dislocation (Primary Dx); [facility] Dislocati on of left knee [place] [address] ORTHOPAEDIC [phone] SURGERY [place], [place] [address] Social History Tobacco Use Types Packs/Day Years Used Date Smoking Tobacco: Never Smokeless Tobacco: Never Alcohol Use Standard Drinks/Week Comments No 0 (1 standard drink = 0.6 oz pure alcoho l) Sex Assigned at Date Recorded Not on file documented as of this encounter Last Filed Vital Signs Vital Sign Reading Time Taken Comments Blood Pressure 117/72 08/24/2012 1:30 PM EDT Pulse 117 08/24/2012 1:30 PM EDT Temperature - - Respiratory Rate - - Oxygen Saturation - - Inhaled Oxygen Concentration - - Weight 90.3 kg (199 lb) 08/24/2012 1:30 PM EDT Height 165.1 cm (5' 5) 08/24/2012 1:30 PM EDT Body Mass Index 33.12 08/24/2012 1:30 PM EDT documented in this encounter Progress Notes Brando Blanchard MD - 08/24/2012 2:33 PM EDT Injury: Left knee dislocation. Date of Injury: 07/23/2012 Interval History: Andreia returns now 1 month status post her knee dislocation. She has been working hard on her range of motion. She continues to have pain and is on narcotic pain medicines. She is anxious to move forward with operative reconstruction of her ligaments. Physical Exam: Andreia appears well today, her spirits are high. Left knee exam shows a significant decrease in swelling from her last visit. Ecchymosis is nearly resolved although it is still present. Still with a significant knee effusion. She has pain to palpation medially as well as laterally along the joint line. In full extension she has 2+ gapping to valgus stress, she is stable to varus stress. At 30 degrees of flexion gapping is increased to valgus stress but remains stable to varus stress. She has a 1 to 2+ Magaly's, 1 to 2+ anterior drawer, 1 to 2+ posterior drawer with a posterior sag. Her MRI scan is reviewed and shows the complete obliteration of her medial collateral ligament as well as ACL and PCL tears and a lateral meniscal tear. We had an extensive discussion today around surgical management, we discussed single stage versus double stage reconstruction. Given the extent of challenges of rehabilitation Andreia has elected to have this performed in a staged manner, will therefore proceed initially with an MCL reconstruction and knee arthroscopy to treat her lateral meniscus tear, we will follow that with a planned ACL/PCL reconstruction approximately 12 weeks following the MCL reconstruction. Goals, risks and benefits of MCL reconstruction with knee arthroscopy were reviewed in detail today. Informed consent was obtained. We are going to have to plan coordination of Andreia's Coumadin with a transition to Lovenox prior to surgery and will plan to transition her back onto Coumadin in the postop period. We will plan to do this as an inpatient with an overnight stay, allograft Achilles for her MCL, prescription for pain medication was refilled today with the assistance of Terese Scott. documented in this encounter Plan of Treatment Not on filedocumented as of this encounter Procedures Procedure Name Priority Date/Time Associated Diagnosis Comme nts LIGAMENTOUS Routine 08/24/2012 2:16 PM EDT Knee dislocation RECONSTRUCTION, KNEE, EXTRA ARTICULAR documented in this encounter Visit Diagnoses Diagnosis Knee dislocation - Primary Closed dislocation of knee, unspecified part Dislocation of left knee Closed dislocation of knee, unspecified part documented in this encounter Care Teams Rate And Cost Analyst Relationship Specialty Start Date End Date Dawood Welch MD PCP - General 07/23/12 12/05/[address] [place] [address] documented as of this encounter
--- OUTSIDE RECORDS SUMMARY | 2022-01-27 15:18 | XMS_ITS | Encounter Summary ---
:1970 Author Organization [facility] [place] [address] Care Team Providers Name Role Phone Dawood Welch MD Primary Care Provider Encounter Details Date Type Department Care Team Description 09/10/2012 Orders Only Orthopaedics at [facility] Frandy Baptiste [place] [address] ORTHOPAEDIC SURGERY [phone] [place], [place] [address] (Wo rk) Social History Tobacco [...] on filedocumented in this encounter Care Teams Strip Mill Operator Relationship Specialty Start Date End Date Dawood Welch MD PCP - General 07/23/12 12/05/[address] [place] [address] documented as of this encounter
--- OUTSIDE RECORDS SUMMARY | 2022-01-27 15:18 | XMS_ITS | Encounter Summary ---
:1970 Author Organization [facility] [place] [address] Care Team Providers Name Role Phone Dawood Welch MD Primary Care Provider Reason for Referral Physical Therapy (Routine) - Complete - Patient Will Schedule External Appt Specialty Diagnoses / Procedures Referred By Contact Refer red To Contact Physical Therapy Diagnoses Knee dislocation Brando Blanchard MD [facility] [place] [address] Referral ID Status Reason Start Expiration Visits Visits Date Date Requested Authorized [id number] Complete - Evaluate and 10/12/2012 04/10/2013 16 16 Patient Will Treat Schedule External Appt Reason for Visit Reason Comments Follow Up Surgery Left Knee Reconst. Encounter Details Date Type Department Care Team Description 10/12/2012 Office Visit Orthopaedics at [facility] Brando Blanchard, 09/30/2012 Left knee extra-ar ticular, arthroscopic, ligamentous reconstruction of the ACL and PCL with menisectomy for knee dislocation (Primary Dx); [facility] [place] [address] [facility] [phone] [place] [address] Social History Tobacco Use Types Packs/Day Years Used Date Smoking Tobacco: Never Smokeless Tobacco: Never Alcohol Use Standard Drinks/Week Comments No 0 (1 standard drink = 0.6 oz pure alcoho l) Sex Assigned at Date Recorded Not on file documented as of this encounter Last Filed Vital Signs Vital Sign Reading Time Taken Comments Blood Pressure 102/67 10/12/2012 1:43 PM EDT Pulse 95 10/12/2012 1:43 PM EDT Temperature - - Respiratory Rate - - Oxygen Saturation - - Inhaled Oxygen Concentration - - Weight 96.2 kg (212 lb) 10/12/2012 1:43 PM EDT Height 165.1 cm (5' 5) 10/12/2012 1:43 PM EDT Body Mass Index 35.28 10/12/2012 1:43 PM EDT documented in this encounter Progress Notes Brando Blanchard MD - 10/12/2012 2:28 PM EDT Case Date: 09/30/2012 Surgeon: Surgeon(s) and Role: * Brando Blanchard MD - Primary Postoperative diagnosis: LEFT knee dislocation Procedure(s): LIGAMENTOUS RECONSTRUCTION, KNEE, EXTRA ARTICULAR (MCL) ARTHROSCOPY KNEE, MENISCECTOMY SINGLE W/ SHAVING (lateral) ARTHROSCOPIC ANTERIOR CRUCIATE LIGAMENT REPAIR (Allograft BTB) ARTHROSCOPIC POSTERIOR CRUCIATE LIGAMENT REPAIR (Allograft Achilles) 2 weeks s/p above injury. Doing fairly well. Pain has been reasonable until today when she ran out of medication. Has been TTWB w/the knee in extension. Back on coumadin. Incisions are benign. Moderate effusion. Patella mobilizes well. ROM 0-30. A/P: Stable 2 weeks post-op. Pain medication. Continue TTWB. Unlock brace and initiate PT for ROM 0-90. F/U 4 weeks w/x-rays. documented in this encounter Plan of Treatment Scheduled Referrals Name Type Priority Associated Diagnoses Order S chedule Referral to Outpatient Referral Routine 09/30/2012 Left knee O rdered: Physical Therapy extra-articular, 013 arthroscopic, ligamentous reconstruction of the ACL and PCL with menisectomy for knee dislocation documented as of this encounter Visit Diagnoses Diagnosis 09/30/2012 Left knee extra-articular, art hroscopic, ligamentous reconstruction of the ACL and PCL with menisectomy for knee di slocation - Primary Closed dislocation of knee, unspecified part Left knee pain Pain in joint, lower leg documented in this encounter Care Teams Physician Asst Relationship Specialty Start Date End Date Dawood Welch MD PCP - General 07/23/12 12/05/[address] [place] [address] documented as of this encounter
--- OUTSIDE RECORDS SUMMARY | 2022-01-27 15:18 | XMS_ITS | Encounter Summary ---
:1970 Author Organization [facility] [place] [address] Care Team Providers Name Role Phone Dawood Welch MD Primary Care Provider Encounter Details Date Type Department Care Team Description 07/29/2012 Anti-Coag Telephone Orthopaedics at [facility] Terese Scott, Knee dislocation Visit [facility] RN (Primary Dx) [place] [address] Social History Tobacco Use Types Packs/Day Years Used Date Smoking Tobacco: Never Assessed Sex Assigned at Date Recorded Not on file documented as of this encounter Progress Notes Terese Scott, RN - 07/29/2012 3:54 PM EDT Anticoagulation Therapy Nurse Visit Andreia Mayer 68 Indication: DVT prophylaxis Duration of Treatment: Ongoing Monitored by: ROMAINE ortho Therapeutic Range: 2.0-3.0 INR: 1.3 Warfarin dose: xx Increased Decreased Maintained Comments: Patient presents with no signs of bleeding or bruising or signs of thromboembolic events related to primary diagnosis above. Follow-up for re- evaluation and safety of continuing anticoagulation. Bleeding: Epistaxis Black tarry stools Gingival bleeding Increased bruising Hematuria Other: Hemoptysis x No bleeding / bruising noted Comments: Symptoms of recurring primary event: Chest pain Dyspnea Palpitations Headache Dizziness Edema Confusion Slurred speech Weakness Visual changes Tender/Red/Swollen extremities x No symptoms reported Other: Comments: Recent Medication Changes: no Comments: Have you missed any dose of Coumadin this past week? No Comments: Any Illness/Cold SX/Diarrhea/Constipation> 48 hours: no Comments: Dietary Changes: No Comments: Have you increased or decreased alcohol consumption recently? No documented in this encounter Plan of Treatment Not on filedocumented as of this encounter Procedures Procedure Name Priority Date/Time Associated Diagnosis Comme nts EXTERNAL LAB RESULTS Routine 07/29/2012 Results for this procedure are i n the results section . documented in this encounter Results (ABNORMAL) External Lab Results (07/29/2012) P athologist Signature POC INR 1.3 0.9 - 1.1 (External Lab) Historical Provider CHEMISTRY ORDERABLES documented in this encounter Visit Diagnoses Diagnosis Knee dislocation - Primary Closed dislocation of knee, unspecified part documented in this encounter Care Teams Tractor Distributor Relationship Specialty Start Date End Date Dawood Welch MD PCP - General 07/23/12 12/05/[address] [place] [address] documented as of this encounter
--- OUTSIDE RECORDS SUMMARY | 2022-01-27 15:18 | XMS_ITS | Encounter Summary ---
:1970 Author Organization [facility] [place] [address] Care Team Providers Name Role Phone Dawood Welch MD Primary Care Provider Reason for Visit Reason Onset Date Comments Medication Refill 07/30/2012 Encounter Details Date Type Department Care Team Description 07/30/2012 Refill [place] [facility] [place]rese Scott RN Dislocation of left knee [facility] Veronica velarde (Primary Dx) [place] [address] Social History Tobacco Use Types Packs/Day Years Used Date Smoking Tobacco: Never Smokeless Tobacco: Never Alcohol Use Standard Drinks/Week Comments No 0 (1 standard drink = 0.6 oz pure alcoho l) Sex Assigned at Date Recorded Not on file documented as of this encounter Miscellaneous Notes Telephone Encounter - Terees Scott, RN - 07/30/2012 3:23 PM EDT New prescription generated for mailing to [facility] - they are unable to fill original script because originator is not covered under [place] Medicaid. documented in this encounter Plan of Treatment Not on filedocumented as of this encounter Visit Diagnoses Diagnosis Dislocation of left knee - Primary Closed dislocation of knee, unspecified part documented in this encounter Care Teams Electrical Logger Relationship Specialty Start Date End Date Dawood Welch MD PCP - General 07/23/12 12/05/[address] [place] [address] documented as of this encounter
--- OUTSIDE RECORDS SUMMARY | 2022-01-27 15:18 | XMS_ITS | Clinical Summary ---
:1970 Author Organization [facility] [place] [address] Care Team Providers Name Role Phone Nima Hauser MD Primary Care Provider Allergies Active Allergy Reactions Severity Noted Date Comments Streptokinase 07/23/2012 Medications Medication Sig Dispensed Refills Start Date End Date Status acetaminophen Take 2 tablets by 0 10/01/2012 Active (TYLENOL) 500 mg mouth every 8 hours. tablet Last day for scheduled dosing = October 10. Then may take every 8 hours as needed. Do not take more than 4,000 mg of acetaminophen in 24 hours. multivitamin Take 1 tablet by 0 10/01/2012 Active Naaw-Br-AU-Min mouth daily. (THERAPEUTIC-M) 27-0.4 mg tablet OXYcodone 10 mg Take 1-2 tablets by 40 tablet 0 12/02/2012 Active TabIndications: Left mouth every 8 hours knee pain as needed. Gradually decrease tablets from 2 to 1, and increase the time between your doses. Weaning schedule started 11/18/12. clonAZEpam Take 0.5 mg by mouth 0 Active (KLONOPIN) 0.5 mg 3 times daily as tablet needed. warfarin (COUMADIN) Take 7.5 mg by mouth 0 Active 5 mg tablet daily. Scale based on readings Active Problems Problem Noted Date Psychosocial stressors 12/03/2012 09/30/2012 Left knee extra-articular, arthroscopic, lig amentous 08/24/2012 reconstruction of the ACL and PCL with menisectomy for knee dislocation 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 Hx pulmonary embolism 199307/23/2012 Anxiety 07/23/2012 Resolved Problems Problem Noted Date Resolved Date Knee dislocation left 07/23/2012 08/13/2012 Social History Tobacco Use Types Packs/Day Years Used Date Smoking Tobacco: Never Smokeless Tobacco: Never Alcohol Use Standard Drinks/Week Comments No 0 (1 standard drink = 0.6 oz pure alcoho l) Sex Assigned at Date Recorded Not on file Last Filed Vital Signs Vital Sign Reading Time Taken Comments Blood Pressure 108/79 02/17/2013 10:27 AM EST Pulse 100 02/17/2013 10:27 AM EST Temperature 36.8 ??C (98.2 ??F) 12/03/2012 9:52 AM EDT Respiratory Rate 18 10/01/2012 2:04 PM EDT Oxygen Saturation 100% 12/03/2012 9:05 AM EDT Inhaled Oxygen Concentration - - Weight 94.2 kg (207 lb 11.2 oz) 02/17/2013 10:27 AM EST Height 165.1 cm (5' 5) 02/17/2013 10:27 AM EST Body Mass Index 34.56 02/17/2013 10:27 AM EST Plan of Treatment Health Maintenance Due Date Last Done Comments Hepatitis B vaccine (0-59 yrs) (1 of 3 - 3-dose series) 11/17/18 70 Covid-19 Vaccine (#1) 05/17/1970 HIV screen 11/18/1987 Hepatitis C Screening 11/18/1987 Tdap adult 1988 Tetanus vaccine 1988 HPV test 11/18/1999 PAP Smear 11/18/1999 Breast Cancer Share Decision Needed 2009 Colonoscopy 2014 Breast Cancer screening 11/18/2019 Zoster vaccine (1 of 2) 11/18/2019 Influenza (Flu) vaccine (1 of 1 - Influenza standard 11/07/2021 series) Medical Devices Implanted Type Area Strategy Analyst Device Shelf Model / Identifier Expiration Serial / Date Lot Screw,Cancls,Bn,F-T,6.5x25mm ([id number]) - [id number] IMPLANTS Left: DO NOT USE 218.025 / Implanted: Qty: 1 on 09/30/2012 by Brando Blanchard MD at [facility] Knee SY[employer]ES - / [id number] Explanted Type Area Strategy Analyst Device Shelf Model / Identifier Expiration Serial / Date Lot Screw,Cnula,Intrfrnc,7x25mm ([id number]) - [id number] IMPLANTS Left : [employer] - 05/31/2014 [id number] / Explanted: Qty: 1 on 09/30/2012 by Brando Blanchard MD at [facility] Knee [id number] / [id number] Advance Directives Latest Code Status on File Code Status Date Activated Date Inactivated Comments Full Code 09/30/2012 2:17 PM 10/01/2012 6:32 PM Code Status History Code Status Date Activated Date Inactivated Comments Full Code 07/23/2012 12:56 PM 07/25/2012 7:54 PM Care Teams Ethylene Plant Helper Relationship Specialty Start Date End Date Nima Hauser MD PCP - General 12/06/[address] [place] [address] [phone]
--- OUTSIDE RECORDS SUMMARY | 2022-01-27 15:18 | XMS_ITS | Encounter Summary ---
:1970 [place] [address] Care Team Providers Name Role Phone Monroe Brown MD Primary Care Provider Encounter Details Date Type Department Care Team Description 09/30/2012 Surgery Main Operating Room Rebekah Kovacs MD LIGAMENTOUS [facility] RECONSTRUCTION, KNEE, Hospital DR NAIF CASTANEDA ([facility] ORTHOPAEDIC S URGERY 9.79) [place] [id number] [place] [id number] [phone] Social History Tobacco Use Types Packs/Day Years [...] this encounter Discharge Instructions Discharge InstructionsCherise Neff, DISPATCHER CHIEF COAL SLURRY - 10/01/2012 3:49 PM EDT Activity: 1. [...] The INR should be reported to the [facility] Ortho clinic at [phone], and you will be informed of any [...] sennakot, to factilitate a bowel movement. An cgat-zxq-cejvulx medication, miralax can also be used if [...] 1. You will have followup appointments at [facility] as indicated in Future Appointments and Orders. [...] Take 1 tablet by mouth 0 10/01/2012 Mlgd-Cz-HW-Min daily. (THERAPEUTIC-M) 27-0.4 mg tablet warfarin (COUMADIN) [...] coumadin with h/o PE 1993. Pt has [facility]. Met with pt this am and she is currently comfortable reclined in bed, has a L leg brace in place to knee. Pt has been OOB ambulating with PT and been cleared for discharge home today. Pt explain she has all needed DME. She has arranged for a ride home this afternoon. Pt is agreeable to referral for VNA thru [facility] as she has used in past. We discussed d/c plan. Pt agreeable. Pt explains she has limited funds and may only be able to afford her pain med's. We discussed that she has already got 6 doses of Lovenox at home from [facility]. ( pt explains she pays $3 co pay for this script ). We discussed alternative management of potential constipation from her narcotics if she can not afford to get the colace filled right away. Pt plans to take scripts to [facility] in [facility]. They are open til 9pm [facility]. No other needs identified, will complete referral for VNA services anticipate d/c later this afternoon. Aren Sepulveda - 10/01/2012 9:34 AM EDT Regional [...] sign off; please contact Regional Anesthesia Team ([phone]) for any unresolved sensory or motor deficits or bleeding or bruising at site of block. Thank you for this consultation. AREN SEPULVEDA MD Regional team pager [phone] Rebekah Kovacs MD - 10/01/2012 5:37 AM [...] file. Past Surgical History Procedure Date ??? Ligmt revision, knee, extra-artic 09/30/2012 LIGAMENTOUS RECONSTRUCTION, KNEE, EXTRA ARTICULAR performed by Rebekah Kovacs MD at [facility] MAIN OR ??? Knee scope, med/lat menisectomy 09/30/2012 ARTHROSCOPY KNEE, MENISCECTOMY SINGLE W/ SHAVING performed by Rebekah Kovacs MD at [facility] MAIN OR ??? Knee scope, aid ant cruciate repair 09/30/2012 ARTHROSCOPIC ANTERIOR CRUCIATE LIGAMENT REPAIR performed by Rebekah Kovacs MD at [facility] MAIN OR ??? Knee scope, aid post cruc repair 09/30/2012 ARTHROSCOPIC POSTERIOR CRUCIATE LIGAMENT REPAIR performed by Rebekah Kovacs MD at [facility] MAIN OR Social History/Prior Level of Function: Pt lives with her 3 children (ages 21, 12, 10) in a mobile home. At baseline pt is I with all ADL/IADL, no hx of mobility impairment, no use of AD. Has friends available to stay with her for additional support, as her 21 yo child works inspector [employer]. Stairs at home: none, ramped entry, single level inside Precautions/Special Considerations: TDWB L LE, Hinged Knee Brace ([place]) locked in Full Extension at all times [...] 0 minutes CAYLA MG, PT 10/01/2012 Pager: [phone] Physical Therapy Rehabilitation Department Plan of Care [...] Pt verbalizes adequate pain relief with Dilaudid QUALITY CONTROL REPRESENTATIVE and PRN Oxycodone. Knows to notify RN when pain is not being controlled. Will continue to monitor. Problem: Trauma/Injury Risk (Adult, Obstetric) Goal: Trauma/Injury Risk: Absence of Trauma/Injury/Falls Outcome: Absent and monitoring Pt call almonte in reach. Bed in low position. Fall reduction program maintained. Safety measures in place.Will continue to monitor. Op Note - Rebekah Kovacs MD - 09/30/2012 6:42 PM EDT [facility] Operative Note Patient Name: Andreia Mayer : [id number] MR#: [id number] Case Date: 09/30/2012 Surgeon: Surgeon(s) and Role: [...] knee was then marked with a green bill moore's slough. The plan was reviewed with the patient [...] the medial portal and a size 11 [place] reamer was advanced through the lateral portal and up to the insertion site of the PCL on the lateral aspect of the medial femoral condyle. Beath pin was advanced through this [place] reamer and then the [place] reamer was reamed to a depth of [...] arthroscopically. We then advanced a size 10 [place] reamer over the Beath pin, holding the Beath pin with a curette throughout. Tibial tunnel for ACL was then drilled using an ACL guide centered at the space between the anterior horn and lateral meniscus in the intercondylar notch. The Beath pin and size 10 [place] reamer were used to create the tibial tunnel for the ACL. Soft tissue was removed from both the intra and extraarticular portions of all tunnels with the use of a shaver as well as Metzenbaum scissors. At this point, we proceeded with a graft passage. First, the size 11 [place] reamer was advanced back into the femoral tunnel for the PCL. The Beath pin was advanced through the size 11 [place] reamer and a shuttling stitch was placed. The PCL bone block was advanced into the femur and fixed with an Arthrex metal Interference screw. The [place] rasper had been previously placed up the tibial tunnel. The anterior aspect of the tibial tunnel aperture had been rasped with the [place] rasper and then the [place] rasper was used to shuttle the graft [...] dressing. The patient was placed in a Shivam brace locked in extension. She was extubated, [...] than 2.0). 2 Syringe 2 ??? multivitamin Oyuq-Fr-EE-Min (THERAPEUTIC-M) 27-0.4 mg tablet Take 1 tablet [...] The INR should be reported to the [facility] Ortho clinic at [phone], and you will be informed of any [...] sennakot, to factilitate a bowel movement. An rcyo-wlf-tyyjlmi medication, miralax can also be used if [...] 1. You will have followup appointments at [facility] as indicated in Future Appointments and Orders. Youwill have an xray prior to those appointments so please come to Radiology, desk 3T, 1 hour BEFORE your appointment for those x-rays. Future Appointments and Orders Future Appointments: Provider: Department: Dept Phone: Center: 10/12/2012 1:20 PM Rebekah Kovacs MD Orthopaedics [phone] None Future Orders Please Complete By Expires Referral for Anticoagulation Monitoring [OFM502 Custom] Process Instructions: If no progress note charted, please enter Clinical details in comments. Scheduling Instructions: Comments: Questions: Responses: Responsible Group [facility] ANTICO Reason for referral Coumadin s/p Left Knee extra-articular arthroscopic ligamentous reconstruction of the ACL/PCL and menisectomy 09/30/12 Risk Factors: HX of PE on Coumadin before surgery. To receive Lovenox 40 SQ QD until INR greater than 2 Next due INR 10/02/2012 INR Goal 2.0-3.0 Target End Date 10/28/2012 Referral to Home Health [HOC7494 CPT(R)] Process Instructions: Scheduling Instructions: Comments: DOCUMENTATION FOR VNA SERVICES (INCLUDING THOSE PATIENTS WITH MEDICARE COVERAGE REQUIRING HOME VNA SERVICES AND/OR HOSPICE SERVICES) Andreia Mayer Discharge to own home: [address] [facility] [phone] (home) Investigator's Name: self In discussion with the attending physician, it is certified that this patient is under their care and that they, or a nurse practitioner, clinical nurse specialist or physician's dental assistant who is working directly with them, had [...] need for servicesas follows: Home Health Agency: [facility] PHONE: [phone] FAX: [phone] Home care orders : RN and or [...] results to be called to the following: [facility] Orthopedic anticoagulation (Coumadin) clinic @ ; 2. [...] taxing effort and are formedical reasons or gnosticist services of infrequently or of short duration when for other reasons) All VNA agencies which cover the area of patient's residence have been reviewed, either verbally or in writing, and patient/family have chosen the home health care agency as noted for home services. Questions: Responses: Agency name and contact information [facility] Patient location post discharge home What services are requested Registered Nurse Physical Therapy Start date Responsible MD post discharge contact info PCP Primary Care Provider: MONROE BROWN MD [phone] Joints: [phone] Signed: CHERISE NEFF, ISABELLE 10/01/2012 Brief Op Note - Rebekah Kovacs MD - 09/30/2012 1:39 PM EDT Brief Operative Note Patient Name: Andreia Mayer : [id number] MR#: [id number] Case Date: 09/30/2012 Surgeon: Surgeon(s) and Role: [...] closing). REBEKAH KOVACS MD 09/30/2012 Miscellaneous - Cristobal, Danielle - 09/30/2012 9:26 AM EDT documented in [...] (ABNORMAL) Differential, Automated (10/01/2012 4:46 AM EDT) [facility] Method Time Signature Neutrophils % 78.8 (H) [...] Kovacs MD HEMATOLOGY ORDERABLES Performing Organization Address City/[facility]/ZIP Code Phon e Number [address] [facility] Prothrombin Time (10/01/2012 4:46 AM EDT) P athologist Signature PT 14.0 12.0 - 15.0 CERNER sec MILLENNIUM Comment: [facility] Transfusion Committee Guidelines: I NR less than 2.0, PTT less than OR equal to 43.5 seconds, or Fibrinogen gre ater than or equal to 100 mg/dl indicate adequate procoagulant activity for hemostasis in patients without underlying bleeding disorders. [facility]0 0[facility]9 - [facility] Spec[facility] Anatomical Collection Method Collection Time Receive d Time (Source) Location / / Volume Laterality Blood specimen 10/01/2012 4:46 AM 013 4:53 (specimen) EDT AM EDT Resulting Agency Comment Spec In Lab Rebekah Kovacs MD HEMATOLOGY ORDERABLES Performing Organization Address City/[facility]/ZIP Code Phon e Number [address] CERNER MILLENNIUM (ABNORMAL) Basic Metabolic Panel (non-fasting) (10/01/2012 4:46 AM EDT) athologist Signature Glucose Lvl 108 60 - 199 CERNER mg/dL MILLENNIUM Comment: Diabetes: >=200 mg/dL plus symp toms BUN 7 (L) 8 - 18 mg/dL CERNER MILLENNIUM Creatinine 0.79 0.70 - 1.20 mg/dL CERNER MILL ENNIUM Comment: Please note that the pediatric reference intervals supplied above were not validated at [facility]. Results from pediatri c patients should be [...] Kovacs MD CHEMISTRY ORDERABLES Performing Organization Address City/[facility]/[place] [address] CERNER MILLENNIUM (ABNORMAL) CBC [...] Kovacs MD HEMATOLOGY ORDERABLES Performing Organization Address City/[facility]/ZIP Code Phon e Number [place] [id number] CERNER MILLENNIUM XR knee diagnostic 1 or 2 view [...] (09/30/2012 1:20 PM EDT) Analysis Performed At [facility] Time Signature pH Art 7.42 CERNER MILLENNIUM pCO2 Art 30 (L) mmHg CERNER MILLENNIUM pO2 Art 146 (H) mmHg CERNER MILLENNIUM HCO3 Art 19.3 (L) mmol/L CERNER MILLENNIUM BE Art -5.1 (L) mmol/L CERNER MILLENNIUM Hgb Blood Gas 13.4 gm/dL CERNER MILLENNIUM Comment: Total Hemoglobin (in gm/dL) ?Based on [facility] Hematology ran ges: ?Age ?Referen ce Range [...] Organization Address City/State/[place] [address] CERNER MILLENNIUM (ABNORMAL) BLOOD GAS 2 ARTERIAL (09/30/2012 12:37 PM EDT) P athologist Signature pH Art 7.42 CERNER MILLENNIUM pCO2 Art 34 (L) mmHg CERNER MILLENNIUM pO2 Art 185 (H) mmHg CERNER MILLENNIUM HCO3 Art 21.5 mmol/L CERNER MILLENNIUM BE Art -2.9 mmol/L CERNER MILLENNIUM Hgb Blood Gas 14.1 gm/dL CERNER MILLENNIUM Comment: Total Hemoglobin (in gm/dL) ?Based on [facility] Hematology ran ges: ?Age ?Referen ce Range [...] Location / / Volume Laterality Blood specimen 09/30/2012:37 3 (specimen) PM EDT 12:37 PM EDT Rebekah Kovacs MD CHEMISTRY ORDERABLES Performing Organization Address City/State/ZIP Code Phon e Number [place] [phone] CERNER MILLENNIUM (ABNORMAL) BLOOD [...] Comment: Total Hemoglobin (in gm/dL) ?Based on [facility] Hematology ran ges: ?Age ?Referen ce Range [...] Organization Address City/State/[place] [address] CERNER MILLENNIUM (ABNORMAL) BLOOD GAS 2 ARTERIAL (09/30/2012 11:28 AM EDT) P athologist Signature pH Art 7.25 CERNER (Critical) MILLENNIUM Comment: Noted by instrumentation designer. pCO2 Art 54 (Critical) mmHg CERNER MILLENNIU M Comment: Noted by instrumentation designer. pO2 Art 79 (L) mmHg CERNER MILLENNIUM HCO3 Art 22.8 mmol/L CERNER MILLENNIUM BE Art -4.4 (L) mmol/L CERNER MILLENNIUM Hgb Blood Gas 14.7 gm/dL CERNER MILLENNIU M Comment: Total Hemoglobin (in gm/dL) ?Based on [facility] Hematology ran ges: ?Age ?Referen ce Range [...] Kovacs MD CHEMISTRY ORDERABLES Performing Organization Address City/[facility]/ZIP Code Phon e Number [address] [facility] Prothrombin Time (09/30/2012 6:30 AM EDT) athologist Signature PT 13.0 12.0 - 15.0 CERNER sec MILLENNIUM Comment: [facility] Transfusion Committee Guidelines: I NR less than 2.0, PTT less than OR equal to 43.5 seconds, or Fibrinogen gre ater than or equal to 100 mg/dl indicate adequate procoagulant activity for hemostasis in patients without underlying bleeding disorders. INR 1.0 0.9 - 1.1 [facility] Specimen Anatomical Collection Method Collection Time Receive d Time (Source) Location / / Volume Laterality Blood specimen 09/30/2012 6:30 AM 013 6:40 (specimen) EDT AM EDT Resulting Agency Comment Spec In Lab Corey Gaviria MD HEMATOLOGY ORDERABLES Performing Organization Address City/[facility]/ZIP Code Phon e Number [address] [facility] documented in this encounter Visit Diagnoses Diagnosis [...] slocation Closed dislocation of knee, unspecified part Knee dislocation Closed dislocation of knee, unspecified part documented in this encounter Administered Medications Inactive Administered Medications - up to 3 most recent administrations Medication Order MAR Action Action Date Dose Rate Site vancomycin (VANCOCIN) Given 09/30/2012 9:00 AM 1 g 19- Surgical Site injection EDT ONCE PRN, Starting on Lydia 09/30/12 at 0900, Until Lydia 09/30/12 at 1626, Intra-Operative (Intra-Procedure), Routine documented in this encounter Active and Recently Administered Medications Times are shown in EDT. Scheduled Medication Order 09/29/2012 09/30/2012 10/01/2012 acetaminophen (TYLENOL) tablet 1,000 mg 1445 (Not Given - Provider: Dora Young RN - Reason: Patient Unable)2105 (Given - Provider: Noa Mcmahon RN) 0516 (Given - Provider: Noa Mcmahon RN)1400 (Given - Provider: Ken Sheets RN) 1,000 mg, Oral, EVERY 8 HOURS SCHEDULED, First dose on Lydia 09/30/12 at 1445, Until Discontinued, Maximum dose of acetaminophen is 4000 mg from all sources in 24 hours., Routine ceFAZolin (ANCEF) 1g in dextrose 5% 50mL (COMPLETED) 1600 (New Bag - Provider: Dora Young RN)2201 (New Bag - Provider: Noa Mcmahon RN) 0606 (New Bag - Provider: Noa [...] daily until INR > 1.8, Routine multivitamin Mzzc-Ny-MO-Min (THERAPEUTIC-M) 27-0.4 mg tablet 1 tablet 1830 [...] Boykin RN) 0516 (Given - Provider: Noa Mcmahon, MIKE) 5 mL, Intravenous, EVERY 12 HOURS, First [...] 09/29/2012 09/30/2012 10/01/2012 HYDROmorphone (DILAUDID) 1 mg/mL QUALITY CONTROL REPRESENTATIVE 30 mL (CANCELED) 1430 (New Syringe/Cartridge - Provider: Dora Young RN) Intravenous, QUALITY CONTROL REPRESENTATIVE ONLY, Starting Lydia 09/30/12 at 1445, Until [...] Mcmahon RN) 0135 (Given - Provider: Noa Mcmahon RN)0542 (See Alternative - Provider: Noa Mcmahon RN)0930 [...] mg, Oral, EVERY 3 HOURS PRN, Starting 10/01/12 at 1015, Until Thu10/01/12 at 1832, Pain, [...] Routine documented in this encounter Care Teams Housing Relocation Relationship Specialty Start Date End Date Monroe Brown MD PCP - General 07/23/12 12/05/[address] [place] [address] documented as of this encounter
--- OUTSIDE RECORDS SUMMARY | 2022-01-27 15:18 | XMS_ITS | Encounter Summary ---
:1970 Author Organization [facility] [place] [address] Care Team Providers Name Role Phone Dawood Welch MD Primary Care Provider Encounter Details Date Type Department Care Team Description 09/30/2012 Anesthesia Event Main Operating Room Ann-Marie Karimi MD [facility] [place] [address] [place] [address] [phone] Anesthesia Record Procedure Summary Procedure Name Responsible Anesthesia Start Anesthesia Stop Anesthesiologist Time Time LIGAMENTOUS Ann-Marie Metzger MD 09/30/12 0725 09/30/12 140 9 RECONSTRUCTION, KNEE, EXTRA ARTICULAR (WRVU 9.79) (Left: Knee) Events Date Time Event Comment 09/30/2012 0725 Start 0727 AN Verify 0727 An Start Data 0730 An Induction 0731 An Intubation 0732 Anesthesia Ready 0851 An Tourn Inflated To 275 0856 Break/Relief In 0921 Break/Relief Out 1057 An Tourn Deflated 1108 Break/Relief In 1134 Break/Relief Out 1141 An Intubation 1403 Extubation/LMA Out 1409 Stop 1413 an stop data 10/01/2012 0806 Name Total fentaNYL 275 mcg Propofol 200 mg PHENYLephrine 400 mcg Dexamethasone 4 mg ceFAZolin 2 g Albuterol Inhaler 30 puff HYDROmorphone 1.8 mg Labetalol 10 mg Succinylcholine 100 mg Atropine 0.5 mg PHENYLephrine INF 160 mcg lactated ringers infusion 1,000 mL 0 mL Sodium Chloride 0.9% 1,000 mL Agents Name O2 Air N2O Sevoflurane (et) Isoflurane (et) Blood No blood administrations on file. Lines, Drains, and Airways Type Details Placement Removal PIV 09/30/12; 06/22/17 09/30/12 0000 by 06/22/17 092 1 by Harsha, (Auto removal via Dora Young, RN User utility); 0921 (Auto removal via utility) Urethral Catheter 09/30/12; indwelling 09/30/12 0000 by 10/01/12 0912 by double lumen catheter Julia Raphael RN Langl ey, Christianna (inserted using Joseph RN sterile technique by Fabiano MCKEON); 100% silicone; 16; inserted; 1; drainage bag to dependent drainage; 10/01/12; 0912 Incision 09/30/12; knee; 09/30/12 0000 by 11/04/21 1715 b y 11/04/21 (LDA cleanup Julia Raphael RN Mulle r, Dierdre L utility RA#[id number]); 1715 (LDA cleanup utility RA#[id number]) (RETIRED) Mask Ventilation: Easy 09/30/12 0742 by 09/30/12 1403 by Freddy, Non-Surgical Airway (1); LMA Type: iGel; Syed Ortiz MD LMA Size: 4 (RETIRED) Arterial 20 G; Radial 09/30/12 1217 by 09/30/12 153 6 by Dora Tabares, MIKE (RETIRED) ETT Type: Cuffed; ETT 09/30/12 1234 by 09/30/12 1403 by Freddy, Non-Surgical Airway Size: 7.5 mm Sasha Scott documented in this encounter Social History Tobacco Use Types Packs/Day Years Used Date Smoking Tobacco: Never Smokeless Tobacco: Never Alcohol Use Standard Drinks/Week Comments No 0 (1 standard drink = 0.6 oz pure alcoho l) Sex Assigned at Date Recorded Not on file documented as of this encounter OR Notes Anesthesia Postprocedure Evaluation - Syed Hayes - 09/30/2012 3:28 PM EDT Patient: Andreia Mayer Procedure(s) Performed: Procedure(s): LIGAMENTOUS RECONSTRUCTION, KNEE, EXTRA ARTICULAR MODIFIER ACHILLES TENDON ARTHROSCOPY KNEE, MENISCECTOMY SINGLE W/ SHAVING ARTHROSCOPIC ANTERIOR CRUCIATE LIGAMENT REPAIR ARTHROSCOPIC POSTERIOR CRUCIATE LIGAMENT REPAIR Actual Anesthetic: No value filed. Patient location: PACU Post-op pain: Adequate analgesia Post-op nausea: no nausea or vomiting Last Vitals: Filed Vitals: 09/30/12 1515 BP: Pulse: 112 Temp: Resp: 18 Post-op cardiovascular and respiratory status: is stable Level of consciousness: awake, alert and oriented Complications: Intraoperatively developed hypoxia with LMA in place. Switched to ETT. Improved saturations. Extubated at end of case and soing well in PCAu on NC. Fluid Status: normal No Recall Anesthesia Procedure Notes - Aren Sepulveda - 09/30/2012 7:20 AM EDTAssociated Order(s): ANESTHESIA BLOCK Procedure: Anesthesia Block Block: Post-op Pain Control, femoral nerve block Start time: 09/30/2012 7:07 AM End time: 09/30/2012 7:18 AM This patient was greeted in the block room and the risks and benefits of the anesthetic block were reviewed. The risks of infection, bleeding, local anesthetic toxicity, and nerve injury were discussed. Specifically, the approximate risk of nerve injury (03/2999-03/4999) including neuropathy, loss of sensation and motor function, whether permanent or temporary, was discussed as well as the fact that post-surgical nerve injury can be unrelated to the actual injection and may be related to intra-operative issues such as positioning and tourniquet usage. The anesthetic consent was obtained. The timeout was performed prior to procedure start. Standard ASA monitors were applied. Indication/Prep Position: supine Prep: patient draped and chlorhexidine Laterality: left Ultrasound Guidance: live and in-plane Skin Medication lidocaine 1% 5 ml Injection Injection technique:single-shot Needle Length: 5 cm Gauge: 22 Needle Type: P-[id number]-kjuwe Medication injection made incrementally with aspirations. Nerve infiltration solution through a needle Ropivicaine 0.5% 30 mL Performed by: Coco Supervising Attending/Fellow: Alethea ~~~~~~~~~~~~~~~~~~~~~~~~~~~~~~~~~~~~~~~~~~~~~~~~~~~~~~~~~~~~ Anesthesia Preprocedure Evaluation - Aren Sepulveda - 09/30/2012 5:56 AM EDT Pre-Anesthesia Evaluation for: Andreia Mayer a 41 y.o. female. Procedure(s): LIGAMENTOUS RECONSTRUCTION, KNEE, EXTRA ARTICULAR MODIFIER ACHILLES TENDON ARTHROSCOPY KNEE, MENISCECTOMY SINGLE W/ SHAVING Patient Active Problem List Diagnoses ??? Knee dislocation ??? 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 ??? Hx pulmonary embolism 1993 ??? Anxiety No past medical history on file. No past surgical history on file. History Substance Use Topics ??? Smoking status: Never Smoker ??? Smokeless tobacco: Never Used ??? Alcohol Use: No History Drug Use No Allergies Allergen Reactions ??? Streptokinase Medications: MAR and/or home medications have been reviewed. Physical Exam: There were no vitals filed for this visit. There is no height or weight on file to calculate BMI. Airway Assessment: Mallampati: III TM distance: >3 FB Neck ROM: full Cardiovascular Assessment: Rhythm: regular Rate: normal Pulmonary Assessment: breath sounds clear to auscultation Dental Assessment: - normal exam Mis Assessment: Anesthesia Plan: ASA 2 general and regional, with a(n) intravenous induction Patient is a 41 yo female wit history of protein C deficiency presenting for repair of her MCL following knee dislocation. Preoperative block with GA and LMA for anesthetic. Reports taking 47mg of Lovenox yesterday morning. Discussed R/B/A to GA and regional. Questions sought and answered. Consent obtained. Patient quite anxious. Region - Other Informed Consent: Anesthetic plan and risks discussed with patient. Use of blood products discussed with patient whom. Plan discussed with attending. [facility]. Assessment: documented in this encounter Miscellaneous Notes Addendum Note - Aren Sepulveda - 10/06/2012 1:14 PM EDT Addendum created 10/06/12 1314 by Aren Sepulveda MD Modules edited:Anesthesia Blocks and Procedures, Inpatient Notes Addendum Note - Aren Sepulveda - 10/06/2012 1:14 PM EDT Addendum created 10/06/12 1314 by Aren Sepulveda MD Modules edited:Anesthesia Blocks and Procedures, Inpatient Notes documented in this encounter Plan of Treatment Not on filedocumented as of this encounter Procedures Procedure Name Priority Date/Time Associated Diagnosis Comme nts ANESTHESIA BLOCK Routine 10/06/2012 1:14 PM Resul ts for this EDT procedure are i n the results section. documented in this encounter Results Anesthesia Block (10/06/2012 1:14 PM EDT) Narrative Aren Sepulveda - 10/06/2012 1:14 PM EDT Aren Sepulveda MD ? 10/06/2012 ??1:14 PM Procedure: ??Anesthesia Block Block: Post-op Pain Control, femoral ner ve block Start time: 09/30/2012 7:07 AM End time: 09/30/2012 7:18 AM This patient was greeted in the block ro om and the risks and benefits of the anesthetic block were re viewed. ??The risks of infection, bleeding, local anesthetic to xicity, and nerve injury were discussed. ??Specifically, the appr oximate risk of nerve injury (03/2999-03/4999) including neuropa thy, loss of sensation and motor function, whether permanent or temporary, was discussed as well as the fact that post-surgical n erve injury can be unrelated to the actual injection and ma y be related to intra-operative issues such as positioni ng and tourniquet usage. ?? The anesthetic consent was obtained. The timeout was performed prior to procedure start. ??Standard ASA monitors were applied. Indication/Prep Position: supine Prep: patient draped and chlorhexidine Laterality: left Ultrasound Guidance: live and in-plane Skin Medication lidocaine 1% 5 ml Injection Injection technique:single-shot Needle Length: 5 cm Gauge: 22 Needle Type: [id number]-uqmta Medication injection made incrementally with aspirations. Nerve infiltration solution through a ne edle Ropivicaine 0.5% 30 mL Performed by: ??Coco Supervising Attending/Fellow: ??Alethea ~~~~~~~~~~~~~~~~~~~~~~~~~~~~~~~~~~~~~~~~ ~~~~~~~~~~~~~~~~~~~~ Procedure Note Aren Sepulveda - 09/30/2012 7:20 AM EDTFo rmatting of this note might be different from the original. Procedure: Anesthesia Block Block: Post-op Pain Control, femoral ner ve block Start time: 09/30/2012 7:07 AM End time: 09/30/2012 7:18 AM This patient was greeted in the block ro om and the risks and benefits of the anesthetic block were reviewed. The risks of infection, bleeding, local anesthetic toxicity, and nerve injury were discussed. Specifically, the approximate risk of nerve injury (1/ 3000-03/4999) including neuropathy, loss of sensation and motor function, whether permanent or temporary, was discussed as well as the fact that post-surgical nerve injury can be unrelated to the actual injection and ma y be related to intra-operative issues such as positioning and tourniquet usage. The anesthetic consent was obtained. The timeout was performed prior to procedure start. Standard ASA monitors were applied. Indication/Prep Position: supine Prep: patient draped and chlorhexidine Laterality: left Ultrasound Guidance: live and in-plane Skin Medication lidocaine 1% 5 ml Injection Injection technique:single-shot Needle Length: 5 cm Gauge: 22 Needle Type: J-kpukt-eeptf Medication injection made incrementally with aspirations. Nerve infiltration solution through a ne edle Ropivicaine 0.5% 30 mL Performed by: Coco Supervising Attending/Fellow: Alethea ~~~~~~~~~~~~~~~~~~~~~~~~~~~~~~~~~~~~~~~~ ~~~~~~~~~~~~~~~~~~~~ Aren Goldberg MD DIGITAL ADVERTISING ANALYST [facility] documented in this encounter Visit Diagnoses Not on filedocumented in this encounter Administered Medications Inactive Administered Medications - up to 3 most recent administrations Medication Order MAR Action Action Date Dose Rate Site albuterol (PROVENTIL Given 09/30/2012 1:35 PM EDT 10 puffs HFA;VENTOLIN HFA) 90 mcg/actuation inhaler PRN, Starting on Lydia 09/30/12 at 0919, Until Lydia 09/30/12 at 1413, Wheezing, Anesthesia Intra-op, Routine Given 09/30/2012 12:00 PM EDT 10 puffs Given 09/30/2012 9:19 AM EDT 10 puffs atropine injection Given 09/30/2012 11:38 AM EDT 0.5 mg PRN, Starting on Lydia 09/30/12 at 1138, Until Lydia 09/30/12 at 1413, Anesthesia Intra-op, Routine ceFAZolin (ANCEF) 1g in dextrose 5% 50mL Given 09/30/2012 7:41 AM EDT 2 g PRN, Starting on Lydia 09/30/12 at 0741, Until Lyida 09/30/12 at 1413, Administer over 30 Minutes, Anesthesia Intra-op dexamethasone (DECADRON) injection Given 09/30/2012 7:34 AM EDT 4 mg PRN, Starting on Lydia 09/30/12 at 0734, Until Lydia 09/30/12 at 1413, Anesthesia Intra-op, Routine fentaNYL 50mcg/mL injection Given 09/30/2012 9:38 AM EDT 25 mcg PRN, Starting on Lydia 09/30/12 at 0746, Until Lydia 09/30/12 at 1413, Pain, Anesthesia Intra-op, Routine Given 09/30/2012 9:32 AM EDT 25 mcg Given 09/30/2012 9:27 AM EDT 25 mcg HYDROmorphone (DILAUDID) injection Given 09/30/2012 2:08 PM EDT 0.4 mg PRN, Starting on Lydia 09/30/12 at 0956, Until Lydia 09/30/12 at 1413, Pain, Anesthesia Intra-op, Routine Given 09/30/2012 11:03 AM EDT 0.2 mg Given 09/30/2012 10:50 AM EDT 0.2 mg labetalol (NORMODYNE;TRANDATE) injection Given 09/30/2012 10:02 AM EDT 5 mg PRN, Starting on Lydia 09/30/12 at 0952, Until Lydia 09/30/12 at 1413, High Blood Pressure, Anesthesia Intra-op, Routine Given 09/30/2012 9:52 AM EDT 5 mg lactated ringers infusion 1,000 mL New Bag 09/30/2012 1:29 PM EDT mL 1,000 mL, at 100 mL/hr, Intravenous, CONTINUOUS, Starting on Lydia 09/30/12 at 0645, Until Lydia 09/30/12 at 1626, Day of Surgery (Day of Procedure) New Bag 09/30/2012 9:04 AM EDT mL New Bag 09/30/2012 7:25 AM EDT mL PHENYLephrine (VILMA-SYNEPHRINE) 20 New Bag 09/30/2012 12:58 PM 20 mcg/min 15 mL/hr mg in sodium chloride 250 mL EDT infusion CONTINUOUS PRN, Starting on Lydia 09/30/12 at 1258, Until Lydia 09/30/12 at 1413, Anesthesia Intra-op, Routine PHENYLephrine HCl in NS (PF) (VILMA-SYNEPHRINE) Given 1:13 PM EDT 80 mcg 0.8 mg/10 mL (80 mcg/mL) injection Syrg PRN, Starting on Lydia 09/30/12 at 1152, Until Lydia 09/30/12 at 1413, Anesthesia Intra-op, Routine Given 09/30/2012 12:50 PM EDT 80 mcg Given 09/30/2012 12:49 PM EDT 80 mcg propofol (DIPRIVAN) 10 mg/mL bolus injection Given 7:30 AM EDT 200 mg (Anesthesia) PRN, Starting on Lydia 09/30/12 at 0730, Until Lydia 09/30/12 at 1413, Anesthesia Intra-op sodium chloride 0.9% infusion New Bag 09/30/2012 12:05 PM EDT mL CONTINUOUS PRN, Starting on Lydia 09/30/12 at 1205, Until Lydia 09/30/12 at 1413, Anesthesia Intra-op succinylcholine (ANECTINE) injection Given 09/30/2012 11:37 AM EDT 100 mg PRN, Starting on Lydia 09/30/12 at 1141, Until Lydia 09/30/12 at 1413, Anesthesia Intra-op, Routine documented in this encounter Care Teams Foil Spinner Relationship Specialty Start Date End Date Dawood Welch MD PCP - General 07/23/12 12/05/[address] [place] [address] documented as of this encounter
--- OUTSIDE RECORDS SUMMARY | 2022-01-27 15:18 | XMS_ITS | Encounter Summary ---
:1970 Author Organization [facility] [place] [address] Care Team Providers Name Role Phone Dawood Welch MD Primary Care Provider Reason for Visit Reason Onset Date Comments Medication Refill 08/27/2012 Encounter Details Date Type Department Care Team Description 08/27/2012 Refill Orthopaedics at [facility] Terese Scott RN Dislocation of left knee [facility] Veronica renettabolivar (Primary Dx) [place] [phone] Social History Tobacco Use Types Packs/Day Years Used Date Smoking Tobacco: Never Smokeless Tobacco: Never Alcohol Use Standard Drinks/Week Comments No 0 (1 standard drink = 0.6 oz pure alcoho l) Sex Assigned at Date Recorded Not on file documented as of this encounter Miscellaneous Notes Telephone Encounter - Terese Scott RN - 08/27/2012 9:02 AM EDT Mailed to Andreia gOdenrey 08/27/[address] Blanchard - refill every 7 days to manage post operative pain . documented in this encounter Plan of Treatment Not on filedocumented as of this encounter Visit Diagnoses Diagnosis Dislocation of left knee - Primary Closed dislocation of knee, unspecified part documented in this encounter Care Teams Registered Occupational Therapist Relationship Specialty Start Date End Date Dawood Welch MD PCP - General 07/23/12 12/05/[address] [place] [address] documented as of this encounter
--- OUTSIDE RECORDS SUMMARY | 2022-01-27 15:18 | XMS_ITS | Encounter Summary ---
:1970 Author Organization [facility] [place] [address] Care Team Providers Name Role Phone Dawood Welch MD Primary Care Provider Reason for Visit Reason Comments Left Knee Pain s/p left knee ligament recon struction 09/30/12 Encounter Details Date Type Department Care Team Description 12/03/2012 Office Visit Orthopaedics at [facility] Brando Blanchard, 09/30/2012 Left knee [facility] extra-articular, [facility] arthroscopic, [place] [address] [place] [address] ligamentous [phone] ORTHOPAEDIC reconstruction of the SURGERY ACL and PCL with [place], [place] menisectomy for knee 11421 dislocation Social History Tobacco Use Types Packs/Day Years Used Date Smoking Tobacco: Never Smokeless Tobacco: Never Alcohol Use Standard Drinks/Week Comments No 0 (1 standard drink = 0.6 oz pure alcoho l) Sex Assigned at Date Recorded Not on file documented as of this encounter Last Filed Vital Signs Vital Sign Reading Time Taken Comments Blood Pressure 154/106 12/03/2012 9:52 AM EDT Pulse 94 12/03/2012 9:52 AM EDT Temperature 36.8 ??C (98.2 ??F) 12/03/2012 9:52 AM EDT Respiratory Rate - - Oxygen Saturation - - Inhaled Oxygen Concentration - - Weight 93 kg (205 lb) 12/03/2012 9:52 AM EDT Height 165.1 cm (5' 5) 12/03/2012 9:52 AM EDT Body Mass Index 34.11 12/03/2012 9:52 AM EDT documented in this encounter Progress Notes David Morton PA - 12/03/2012 11:00 AM EDT Subjective: Andreia Mayer is here for follow-up after left kneearthroscopy assisted multi ligament reconstruction surgery. Pain is controlled with current analgesics. Medication(s) being used: narcotic analgesics. The patient denies fever, wound drainage, increasing redness, pus, increasing pain, increasing swelling. Post op problems reported: none She is ambulating with a slight antalgic gait no assistive devices. ROS: Denies fevers, chills, night sweats, nausea, or vomiting. Objective: General : alert, appears stated age, cooperative and mild distress Gait: Antalgic. Incision: well healed Tenderness: mild Flexion ROM: 115 Extension ROM: 0 Effusion: no DVT Evaluation: No evidence of DVT seen on physical exam. Imaging None indicated Assessment: Status post left knee arthroscopy Postoperative course complicated by continued pain Plan: Physical Therapy for post-operative rehabilitation. 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 Follow up in 8 weeks Patient was seen and evaluated with TONY Bowles documented in this encounter Plan of Treatment Not on filedocumented as of this encounter Visit Diagnoses Diagnosis 09/30/2012 Left knee extra-articular, art hroscopic, ligamentous reconstruction of the ACL and PCL with menisectomy for knee di slocation Closed dislocation of knee, unspecified part documented in this encounter Care Teams Contact Lens Lathe Operator Relationship Specialty Start Date End Date Dawood Welch MD PCP - General 07/23/12 12/05/[address] [place] [address] [address] [place] [address] documented as of this encounter
--- OUTSIDE RECORDS SUMMARY | 2022-01-27 15:18 | XMS_ITS | Encounter Summary ---
:1970 Author Organization [facility] [place] [address] Care Team Providers Name Role Phone Nima Hauser MD Primary Care Provider Reason for Visit Reason Onset Date Comments Medication Refill 12/08/2012 Encounter Details Date Type Department Care Team Description 12/08/2012 Refill Orthopaedics at [facility] Terese Scott, [place] [address] Social History Tobacco Use Types Packs/Day Years Used Date Smoking Tobacco: Never Smokeless Tobacco: Never Alcohol Use Standard Drinks/Week Comments No 0 (1 standard drink = 0.6 oz pure alcoho l) Sex Assigned at Date Recorded Not on file documented as of this encounter Miscellaneous Notes Telephone Encounter - Terese Scott RN - 12/08/2012 3:12 PM EDT Andreia calls to remind re refill of pain medication and to ask the date of her follow up appointment in the clinic. Per office note and verbal confirmation Andreia will be receiving pain medication refills through her PCP. Reminded of this. Next office appointment scheduled for 12/28/12 at 0945 am. Informed of this appointment. No answer at this time - above information left on Andreia's answering servicewith request for follow up if further questions. documented in this encounter Plan of Treatment Not on filedocumented as of this encounter Visit Diagnoses Not on filedocumented in this encounter Care Teams Apparel Trimmings Sales Representative Relationship Specialty Start Date End Date Nima Hauser MD PCP - General 12/06/[address] [place] [phone] documented as of this encounter
--- OUTSIDE RECORDS SUMMARY | 2022-01-27 15:18 | XMS_ITS | Encounter Summary ---
:1970 Author Organization [place] [address] Care Team Providers Name Role Phone Dawood Welch MD Primary Care Provider Encounter Details Date Type Department Care Team Description 11/22/2012 Telephone Care Management Coty Aponte, L[employer]ED [place] [address] Social History Tobacco Use Types Packs/Day Years Used Date Smoking Tobacco: Never Smokeless Tobacco: Never Alcohol Use Standard Drinks/Week Comments No 0 (1 standard drink = 0.6 oz pure alcoho l) Sex Assigned at Date Recorded Not on file documented as of this encounter Miscellaneous Notes Telephone Encounter - Coty Aponte - 11/22/2012 11:05 AM EDT I spoke with patient who has concerns about her housing. She has been notified by her landlord that if she does not come up with rent this month she will be evicted. She was inquiring if [facility] can help her. I explained that while there is not a specific program or way for to come up with her rent, we could write a letter explaining why she might be out of work that she could give to her landlord or check with her [facility] clerks office to see if the [facility] has any funds available to help her. I also suggested that the [facility] might be aware of any preventative programs in the area. She will call if she is interested in a letter. documented in this encounter Plan of Treatment Not on filedocumented as of this encounter Visit Diagnoses Not on filedocumented in this encounter Care Teams Fire Extinguisher Repairer Inspector Relationship Specialty Start Date End Date Dawood Welch MD PCP - General 07/23/12 12/05/[address] [place] [address] documented as of this encounter
--- OUTSIDE RECORDS SUMMARY | 2022-01-27 15:18 | XMS_ITS | Encounter Summary ---
:1970 Author Organization [place] [address] Care Team Providers Name Role Phone Dawood Welch MD Primary Care Provider Reason for Referral Consultation (Routine) - Complete - Unable to Contact Patient Specialty Diagnoses / Procedures Referred By Contact Refer red To Contact Hematology / Diagnoses ? need for continued anticoagulation [facility] Orthopaedics 3d [facility] Hem Onc 3k Hematology and [facility] [place] [address] [place] [address] Fax: Referral ID Status Reason Start Expiration Visits Visits Date Date Requested Authorized [id number] Complete - Consult, 08/03/2012 01/30/2013 1 1 Unable to Test & Contact Treat Patient onsultation (Routine) - Closed Specialty Diagnoses / Procedures Referred By Contact Refer red To Contact Pain Management Diagnoses Left knee pain [facility] Orthopaedics 3d [facility] D ri[address] [place] [phone] [facility] [address] [place], [place] [phone] Phone: Fax: Referral ID Status Reason Start Date Expiration Date Visits V isits Requested Authorized [id number] Closed Consult, 08/03/2012 01/30/2013 1 1 Test & Treat Encounter Details Date Type Department Care Team Description 08/03/2012 Orders Only Orthopaedics at [facility] [place], Terese R, Left knee pain [facility] Veronica velarde RN (Primary Dx) [place] [address] Social History Tobacco Use Types Packs/Day Years Used Date Smoking Tobacco: Never Smokeless Tobacco: Never Alcohol Use Standard Drinks/Week Comments No 0 (1 standard drink = 0.6 oz pure alcoho l) Sex Assigned at Date Recorded Not on file documented as of this encounter Plan of Treatment Scheduled Referrals Name Type Priority Associated Order Schedule Diagnoses Referral to Pain Outpatient Referral Routine Left knee pain Or dered: Clinic 08/03/2012 Referral to Outpatient Referral Routine Left knee pain Ordere d: Hematology and 08/03/2012 Oncology documented as of this encounter Visit Diagnoses Diagnosis Left knee pain - Primary Pain in joint, lower leg documented in this encounter Care Teams Health Workers Relationship Specialty Start Date End Date Dawood Welch MD PCP - General 07/23/12 12/05/[address] [place] [address] documented as of this encounter
--- OUTSIDE RECORDS SUMMARY | 2022-01-27 15:18 | XMS_ITS | Encounter Summary ---
:1970 Author Organization [facility] [place] [address] Care Team Providers Name Role Phone Dawood Welch MD Primary Care Provider Reason for Visit Reason Comments Follow Up Surgery left knee ligamnet recon 09/07 07/19 Encounter Details Date Type Department Care Team Description 11/16/2012 Office Visit Orthopaedics at [facility] Brando Blanchard, 09/30/2012 Left knee [facility] extra-articular, [facility] arthroscopic, [place] [address] [place] [address] ligamentliam [phone] ORTHOPAEDIC reconstruction of the SURGERY ACL and PCL with menisectomy for knee [address] dislocation (Primary [phone] Dx) (Work) Social History Tobacco Use Types Packs/Day Years Used Date Smoking Tobacco: Never Smokeless Tobacco: Never Alcohol Use Standard Drinks/Week Comments No 0 (1 standard drink = 0.6 oz pure alcoho l) Sex Assigned at Date Recorded Not on file documented as of this encounter Last Filed Vital Signs Vital Sign Reading Time Taken Comments Blood Pressure 136/86 11/16/2012 4:23 PM EDT Pulse 137 11/16/2012 4:23 PM EDT Temperature - - Respiratory Rate - - Oxygen Saturation - - Inhaled Oxygen Concentration - - Weight 96.2 kg (212 lb) 11/16/2012 4:23 PM EDT Height 165.1 cm (5' 5) 11/16/2012 4:23 PM EDT Body Mass Index 35.28 11/16/2012 4:23 PM EDT documented in this encounter Progress Notes Brando Blanchard MD - 2012 3:46 PM EDT Case Date: 09/30/2012 Surgeon: Surgeon(s) and Role: * Brando Blanchard MD - Primary Postoperative diagnosis: LEFT knee dislocation Procedure(s): LIGAMENTOUS RECONSTRUCTION, KNEE, EXTRA ARTICULAR (MCL) ARTHROSCOPY KNEE, MENISCECTOMY SINGLE W/ SHAVING (lateral) ARTHROSCOPIC ANTERIOR CRUCIATE LIGAMENT REPAIR (Allograft BTB) ARTHROSCOPIC POSTERIOR CRUCIATE LIGAMENT REPAIR (Allograft Achilles) 6 weeks post-op. Doing okay. Still requiring high dose opioids - we are working on a taper although she feels this taper is moving too fast and is impeding her ability to work with PT. L knee with well healed incisions. Stable to varus/valgus. Stable Magaly's and posterior drawer. ROM 0-85 today. A/P: Stable but we need to be aggressive with ROM. Discussed a modified opioid taper which she agrees to. We will stop managing pain medications at the 3 month post-op point. If she is still requiring pain medications, will ask PCP to take over. documented in this encounter Plan of Treatment Not on filedocumented as of this encounter Visit Diagnoses Diagnosis 09/30/2012 Left knee extra-articular, art hroscopic, ligamentous reconstruction of the ACL and PCL with menisectomy for knee di slocation - Primary Closed dislocation of knee, unspecified part documented in this encounter Care Teams Cath Lab Relationship Specialty Start Date End Date Dawood Welch MD PCP - General 07/23/12 12/05/[address] [place] [address] [address] [place] [address] documented as of this encounter
--- OUTSIDE RECORDS SUMMARY | 2022-01-27 15:18 | XMS_ITS | Encounter Summary ---
:1970 Author Organization [facility] [place] [address] Care Team Providers Name Role Phone Dawood Welch MD Primary Care Provider Encounter Details Date Type Department Care Team Description 08/10/2012 Telephone Orthopaedics at [facility] Terese Scott, [place] [address] Social History Tobacco Use Types Packs/Day Years Used Date Smoking Tobacco: Never Smokeless Tobacco: Never Alcohol Use Standard Drinks/Week Comments No 0 (1 standard drink = 0.6 oz pure alcoho l) Sex Assigned at Date Recorded Not on file documented as of this encounter Miscellaneous Notes Telephone Encounter - Terese Scott RN - 08/10/2012 2:09 PM EDT Phone call received from Keyana Cabral RN with the [facility] seeing Andreia Mayer. Calls to inform that will be needing refill of pain medication oxycodone. States that she has advised Andreia to cut back on medication use - currently Andreia is reported to be using 8 tablets daily. Andreia had been using 2 tablets every 4 hours (approx 12 daily) per Yoniarian's report. Discuss with Keyana referral to Pain Clinic forevaluation and consultation. Keyana is supportive of this referral. Refill of oxycodone 5 mg tablets # 90 generated and mailed 08/05/12. Request for account of this prescription and current # tablets left requested of Keyana Cabral RN. Awaiting information. documented in this encounter Plan of Treatment Not on filedocumented as of this encounter Visit Diagnoses Not on filedocumented in this encounter Care Teams Air Plant Engineer Relationship Specialty Start Date End Date Dawood Welch MD PCP - General 07/23/12 12/05/12 [address] [place] [address] documented as of this encounter
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
--- OUTSIDE RECORDS SUMMARY | 2022-01-27 15:18 | XMS_ITS | Encounter Summary ---
:1970 Author Organization [facility] [place] [address] Care Team Providers Name Role Phone Dawood Welch MD Primary Care Provider Reason for Visit Reason Onset Date Comments Medication Refill 07/26/2012 error Encounter Details Date Type Department Care Team Description 07/26/2012 Refill Orthopaedics at [facility] Vee Mercer, [place] [address] Social History Tobacco Use Types Packs/Day Years Used Date Smoking Tobacco: Never Assessed Sex Assigned at Date Recorded Not on file documented as of this encounter Plan of Treatment Not on filedocumented as of this encounter Visit Diagnoses Not on filedocumented in this encounter Care Teams Mica Inspector Relationship Specialty Start Date End Date Dawood Welch MD PCP - General 07/23/12 12/05/[address] [place] [address] documented as of this encounter
--- OUTSIDE RECORDS SUMMARY | 2022-01-27 15:18 | XMS_ITS | Encounter Summary ---
:1970 Author Organization [facility] Address [address] [place] [address] Care Team Providers Name Role Phone Ramy Palmer MD Primary Care Provider Unavailable Encounter Details Date Type Department Care Team Description 01/16/2000 Results Only [facility] Noe Pineda MD conversion [address] [place] [address] Social History Tobacco Use Types Packs/Day Years Used Date Smoking Tobacco: Never Assessed Sex Assigned at Date Recorded Not on file documented as of this encounter Plan of Treatment Not on filedocumented as of this encounter Procedures Procedure Name Priority Date/Time Associated Diagnosis Comme [facility] CYTOPATHOLOGY Routine 01/16/2000 0:00 EST Results for this procedure are i n the results section . documented in this encounter Results CYTOPATHOLOGY (01/16/2000 0:00 EST) Component Value Ref Test Analysis Performed At [facility] Method Time Signature Pathology CYTOPATHOLOGY REPORT DONA Report: [facility] Reports generated via electronic interface contain original data; however they are lacking the format of the original report. Caution should be taken when reading/interpreting unformatte d reports. Name: ? JORDYN MAYER ? Accession #: ? [id number] : ? 1970 (Age: 29) ??F ?Collect Date: ? 01/16/2000 Location: ? [facility] ? Receive Date: ? 01/20/2000 Provider: ?NOE CARUSO MD Copy to: ? Specimen/Source: ?ThinPrep Pap Test, Cervix/Endoce rvix Last Menstrual Period: ? 01/01/00 Menstrual/ Status: ? Post Previous Gynecologic Pathology: ? LSIL: ? SPECIMEN ADEQUACY ? Satisfactory for evaluation. GENERAL CATEGORIZATION ? Epithelial Cell Abnormality DESCRIPTIVE DIAGNOSIS ? Atypical squamous kenna ls of undetermined significance (ASCUS), cannot rule out squamous intraepithelial lesion (JYOTI). RECOMMENDATION ? Recommend clinical correlation and further evaluati on, as clinically indicated. ? Document reviewed and electronically signed by: ? ISHMAEL KAUFFMAN MD [facility] ? Report Date: ??02/05/2000 10:18 End of Report Specimen (Source) Anatomical Location Collection Method / Collectio n Time Received Time / Laterality Volume 01/16/2000 01/20/2000 Noe Caruso MD PATHOLOGY ORDERABLES Performing Organization Address City/State/ZIP Code Phon e Number [facility] [address] [place] [address] SERVICES [facility] [address] [place] [address] documented in this encounter Visit Diagnoses Not on filedocumented in this encounter Care Teams Mysql Dba Relationship Specialty Start Date End Date Ramy Palmer MD PCP - General 01/04/09 08/09/13 documented as of this encounter
--- OUTSIDE RECORDS SUMMARY | 2022-01-27 15:18 | XMS_ITS | Encounter Summary ---
:1970 Author Organization [facility] [place] [address] Care Team Providers Name Role Phone Dawood Welch MD Primary Care Provider Reason for Visit Reason Onset Date Comments Medication Refill 10/25/2012 Encounter Details Date Type Department Care Team Description 10/25/2012 Refill Orthopaedics at [facility] Brando Blanchard MD Left knee pain (Primary [facility] [address] [facility] [facility] Dx) [place] [address] [address] [phone] ORTHOPAEDIC SURG [place], [place] [address] (Wo rk) Social History Tobacco Use Types Packs/Day Years Used Date Smoking Tobacco: Never Smokeless Tobacco: Never Alcohol Use Standard Drinks/Week Comments No 0 (1 standard drink = 0.6 oz pure alcoho l) Sex Assigned at Date Recorded Not on file documented as of this encounter Miscellaneous Notes Addendum Note - Sarahy Tolbert LPN - 10/25/2012 2:40 PM EDT Addended by: SARAHY TOLBERT on: 10/25/2012 02:40 PM Modules accepted: Orders documented in this encounter Plan of Treatment Not on filedocumented as of this encounter Visit Diagnoses Diagnosis Left knee pain - Primary Pain in joint, lower leg documented in this encounter Care Teams Plant Engineering Supervisor Relationship Specialty Start Date End Date Dawood Welch MD PCP - General 07/23/12 12/05/[address] [place] [address] (work) documented as of this encounter
--- OUTSIDE RECORDS SUMMARY | 2022-01-27 15:18 | XMS_ITS | Encounter Summary ---
:1970 Author Organization [facility] [place] [address] Care Team Providers Name Role Phone Dawood Welch MD Primary Care Provider Reason for Visit Reason Onset Date Comments Medication Refill 10/18/2012 Encounter Details Date Type Department Care Team Description 10/18/2012 Refill Orthopaedics at [facility] Terese Scott RN Left knee pain (Primary [facility] [place] [place] [place] [address] Social History Tobacco Use Types Packs/Day Years Used Date Smoking Tobacco: Never Smokeless Tobacco: Never Alcohol Use Standard Drinks/Week Comments No 0 (1 standard drink = 0.6 oz pure alcoho l) Sex Assigned at Date Recorded Not on file documented as of this encounter Miscellaneous Notes Telephone Encounter - Terese Scott RN - 10/18/2012 10:53 AM EDT Andreia calls to request refill of pain medication - leaves message on nurse's line. Phone call to Andreia - unable to reach, no [employer] machine. Andreia calls back and reports that he pain has decreased to about an 8 - states that [facility] is supposed to be coming in this week to begin PT. Refill to [facility] at her home address. Phone call to [facility] to confirm PT. documented in this encounter Plan of Treatment Not on filedocumented as of this encounter Visit Diagnoses Diagnosis Left knee pain - Primary Pain in joint, lower leg documented in this encounter Care Teams Data Entry Clerk Relationship Specialty Start Date End Date Dawood Welch MD PCP - General 07/23/12 12/05/[address] [place] [address] documented as of this encounter
--- OUTSIDE RECORDS SUMMARY | 2022-01-27 15:18 | XMS_ITS | Encounter Summary ---
:1970 Author Organization [facility] [place] [address] Care Team Providers Name Role Phone Dawood Welch MD Primary Care Provider Reason for Visit Reason Onset Date Comments Medication Refill 08/05/2012 Encounter Details Date Type Department Care Team Description 08/05/2012 Refill Orthopaedics at [facility] Terese Scott RN Dislocation of left knee [facility] Veronica velarde (Primary Dx) [place] [phone] Social History Tobacco Use Types Packs/Day Years Used Date Smoking Tobacco: Never Smokeless Tobacco: Never Alcohol Use Standard Drinks/Week Comments No 0 (1 standard drink = 0.6 oz pure alcoho l) Sex Assigned at Date Recorded Not on file documented as of this encounter Miscellaneous Notes Telephone Encounter - Terese Scott RN - 08/05/2012 1:27 PM EDT Phone call to Andreia to discuss pain medication, need to start to cut down on amount and frequency asable and referral to Pain Clinic. She is comfortable beginning to cut medication back - states thereare times when she does not need it as badly and then times when she has more pain. She is comfortable with referral to Pain Clinic. Medication for pain until she is seen through Pain Clinic per Dr. Blanchard. documented in this encounter Plan of Treatment Not on filedocumented as of this encounter Visit Diagnoses Diagnosis Dislocation of left knee - Primary Closed dislocation of knee, unspecified part documented in this encounter Care Teams Operations Research Manager Relationship Specialty Start Date End Date Dawood Welch MD PCP - General 07/23/12 12/05/[address] [place] [address] documented as of this encounter
--- OUTSIDE RECORDS SUMMARY | 2022-01-27 15:19 | XMS_ITS | Encounter Summary ---
:1970 [place] [address] Care Team Providers Name Role Phone Dawood Welch MD Primary Care Provider Encounter Details Date Type Department Care Team Description 07/23/2012 Orders Only Emergency Department Kobi Bell MD [facility] [place] [address] [place] [address] [phone] (Wo rk) Social History Tobacco Use Types Packs/Day Years Used Date Smoking Tobacco: Never Assessed Sex Assigned at Date Recorded Not on file documented as of this encounter Plan of Treatment Not on filedocumented as of this encounter Procedures Procedure Name Priority Date/Time Associated Diagnosis Comme nts FILM LIBRARY Routine 07/23/2012 9:48 AM Results f or this STORAGE ONLY DX EDT procedure ar e in KNEE the results section. documented in this encounter Results Film Library- Storage only DX Knee (07/23/2012 9:48 AM EDT) Specimen (Source) Anatomical Collection Method Collection Time Re ceived Time Location / / Volume Laterality 07/23/2012 9:48 AM EDT Narrative RAD - 10/31/2013 11:03 PM EDT This is a non-reportable exam. Procedure Note Pascual Guillaume - 10/31/2013Formatti ng of this note might be different from the original. This is a non-reportable exam. Kobi Kay MD [facility] FILM LIBRARY ORDERABLES Performing Organization Address City/State/ZIP Code Phon e Number RAD RAD [address] [facility] [place] [address] documented in this encounter Visit Diagnoses Not on filedocumented in this encounter Care Teams Compressor Repairer Relationship Specialty Start Date End Date Dawood Welch MD PCP - General 07/23/12 12/05/[address] [place] [address] documented as of this encounter
--- OUTSIDE RECORDS SUMMARY | 2022-01-27 15:19 | XMS_ITS | Encounter Summary ---
:1970 Author Organization [facility] [place] [address] Care Team Providers Name Role Phone Dawood Welch MD Primary Care Provider Encounter Details Date Type Department Care Team Description 07/23/2012 External Results XRay at [facility] [place] [facility] Provider, [facility] [address] [place] [address] Social History Tobacco Use Types Packs/Day Years Used Date Smoking Tobacco: Never Assessed Sex Assigned at Date Recorded Not on file documented as of this encounter Plan of Treatment Not on filedocumented as of this encounter Procedures Procedure Name Priority Date/Time Associated Diagnosis Comme nts DIAGNOSTIC RADIOLOGY SCAN Routine 07/23/2012 documented in this encounter Results Scan Doc: Diagnostic Radiology (07/23/2012) Anatomical Region Laterality Modality Other Narrative This result has an attachment that is no t available. Scanning Provider MEDIA MGR SCAN EXT ORDR/RSLT documented in this encounter Visit Diagnoses Not on filedocumented in this encounter Care Teams Erp Specialist Relationship Specialty Start Date End Date Dawood Welch MD PCP - General 07/23/12 12/05/[address] [place] [address] documented as of this encounter
--- OUTSIDE RECORDS SUMMARY | 2022-01-27 15:19 | XMS_ITS | Encounter Summary ---
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 ortho service for knee dislocation. I discussed the case with resident/fellowof the accepting service. The patient was deemed to be stable and not requiring significant involvement from the attending emergency physician at this time. The accepting service has assumed further care of the patient. Please see their notes for any further clinical details. Kobi Kay MD 07/26/12 0411 documented in this encounter Miscellaneous Notes Plan of Care - Melita Moreno RN - 07/25/2012 4:34 PM EDT Problem: Pressure Ulcer Risk (Using Dillon Scale) (Adult, Obstetric) Goal: Pressure Ulcer Risk (using Dillon Scale): Tissue Integrity Patient able to change position independently. Pt with no evidence of pressure ulcers. Discharge soon.MELITA MORENO RN Problem: Pain, Acute (Adult, Obstetric) Goal: Acute Pain: Acceptable Pain Control/Comfort Level - Pain, Acute (Adult, Obstetric) Patient medicated with oxycodone 15 mg every 3 hours for pain with pain number 7/10 before pain medication and pain number 5-7/10 after pain medication given. Absence of pain indicators after medication given. Pt to be discharged with prescription for oxycodone. Educated about medication prior to disch arge.MELITA MORENO RN Problem: Trauma/Injury Risk (Adult, Obstetric) Goal: Trauma/Injury Risk: Absence of Trauma/Injury/Falls OOB NWB to left lower extremity with walker. Worked with PT and pt cleared for discharge from PT standpoint. Will be discharged with VNA services and home PT. MELITA MORENO RN Plan of Care - Bee Bright RN - 07/24/2012 6:10 PM EDT Problem: Trauma/Injury Risk (Adult, Obstetric) Intervention: Trauma/Injury Risk: Related Risk Factors Patient ambulating with standby assist and a FWW. Patient remains free of falls during this hospitalization. Patient has a call almonte within reach, and aware to alert RN when they are wanting to mobilize. Initial Assessments - Esthela Gomez RN - 07/24/2012 3:22 PM EDT Office of Care Management/Clinical [employer] (CRC)/Initial Assessment CRC Esthela Gomez RN (pager [phone]) Patient: Andreia Mayer : 1970 (41 y.o.) Home: [facility] [id number] LOS: 1 day Care reviewed with Dr. Johnson. Reviewed record and interviewed patient. Introduced CRC role and services accepted. Patient Active Problem List Diagnoses Code ??? Knee dislocation left 836.50 ??? 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 Hx pulmonary embolism 1993 V12.55 ??? Anxiety 300.00 ?? Social/Family situation: Lives with 3 young children. Reports she is well supported by friends who will stay with her 29/09 when she is discharged home. Extended Emergency Contact Information Primary Emergency Contact: Frederick Lucio Relation: Stepchild ?? Code status: Full Code ?? Advance directives: None in eDH and not interested in completing at this time. ?? Insurance coverage: [place] [employer] ?? Financial concerns: None ?? Anticipated barriers to discharge: None ?? Identified patient/family concerns r/t discharge: None ?? Lamps Tester And Inspector referral indicated: No ?? Baseline functional status/mobility: Independent ?? Current home/community services/equipment: None ?? Current functional status/mobility: Independent with walker ?? Anticipated discharge date: Possibly as early as today, Monday 07/24 ?? Anticipated discharge place: Home ?? Anticipated discharge needs: Front wheeled walker from [facility]. Requesting Deputy Sheriff Bailiff Ann-Marie Caceres contact [facility] for delivery to [facility] room 304A in anticipation of discharge home today and page me at 1501 with estimated delivery time. Patient is 5'5 and 97.5 kg. ?? Home health agency: [facility] PT orders pended. ?? Transportation at discharge: Friend ?? PCP: MONROE BROWN MD, Plan: Care Management will continue to monitor progress, follow for continuity of care, and assist with discharge planning. Plan of Care - Lexie Toribio RN - 07/24/2012 12:51 PM EDT Problem: Pressure Ulcer Risk (Using Dillon Scale) (Adult, Obstetric) Goal: Pressure Ulcer Risk (using Dillon Scale): Tissue Integrity Patients skin noted to be intact at this time and free of pressure ulcers. Patient able to independently turn themselves every 2 hours. RN will monitor patients skin. Initial Assessments - Cayla Newell, PT - 07/24/2012 10:30 AM EDT Physical Therapy Evaluation Patient profile: Patient is a 41 y.o. female adm to [facility] via ED on 07/23/[address] Blanchard, 2' traumatic lateral dislocation of the L knee. Pt report, pt was stepping out of a parked car (+ intoxication)and sustained a fall with immediate pain and obvious deformity. Was taken to OSH where x-rays confirmed dislocation and joint was reduced. Pt was transferred to [facility] for further management 2' potentialfor vascular injury and pt PMH of Protein C deficiency with chronic coumadin use. Vascular injury has been ruled out, pt awaits MRI for further assessment of likely underlying major ligamentous injury to determine further course of care. PMH: No past medical history on file. No past surgical history on file. Social History/Prior Level of Function: Pt lives with her 3 children (ages 21, 12, 10) in a mobile home. At baseline pt is I with all ADL/IADL, no hx of mobility impairment, no use of AD. Has friends available to stay with her for additional support, as her 21 yo child works time checker. Stairs at home: 3 DOLORES with rail, single level inside Equipment at home: none Precautions/Special Considerations: NWB L LE, Hinged Knee Brace (Haines) locked in Full Extension at all times. Subjective: Have you see what me leg looks like? You really expect me to get UP? Objective: Pt was seen for initial assessment Pain: 05/16, pt pre-medicated by RN 1 hr prior to rx Vital Signs: Sp02: 99% HR: 80s BP: NT, no c.o dizziness or LH Mental Status/Behavior: Drowsy but easily aroused, A+Ox3, agreeable to rx with minimal encouragement Strength: WFL in all extremities, L LE NT, intact PF/DF ROM: WFL except at L LE, brace locked Sensation: intact to LT t.o Skin: diffusely eccyhmotic t.o L LE>RLE, distal to knee Posture: WFL Bed Mobility: Supervision with minimal A for L LE Transfers: Sit <-> Stand CGA with min VC for hand placement Gait: Pt. ambulated 30'x2 with RW, CGA NWB L LE. VC for technique, no LOB Balance: intact Education: Role of PT, POC, Goals of Rx, Anticipated D/c recommendations, Use/positioning of brace Patient status, treatment, and mobility recommendations discussed with nursing. Assessment: Pt presents to skilled physical therapy with deficits in endurance and functional mobility tolerance 2' L knee dislocation with as yet undefined soft tissue/ligament injury. Anticipate thatpt will benefit from ongoing skilled PT including therex, theract, gait training, pt/caregiver education and d/c planning in order to facilitate return to prior level of function. Pt is in agreement with plan and goals of therapy. Goals: To be achieved by 07/26/12. 1. Pt will demonstrate independence with all transfers without vc 2. Pt will demonstrate independence amb >= 150' with LRAD on levels, maintaining NWB L LE 3. Pt will demonstrate independence ascend/descending 3 steps with rail and AD 4. Pt will demonstrate awareness and compliance with all precautions (locked brace, positioning/alignment) Plan: Pt to be seen 5 - 7 x per week for skilled PT rx to include gait training, therapeutic activity, therex, pt/caregiver education, and d/c planning Discharge Recommendations: Anticipate pt will d/c to home when medically ready without further skilled PT f.u. Pt in agreement with POC Total time spent with patient: 25 minutes Total timed interventions: 0 minutes (IE) Pager: [phone] CAYLA NEWELL PT Physical Therapy Rehabilitation Department Miscellaneous - Provider, Danielle - 07/23/2012 5:47 PM EDT Plan of Care - Roopa Huertas RN - 07/23/2012 4:39 PM EDT Problem: Trauma/Injury Risk (Adult, Obstetric) Goal: Trauma/Injury Risk: Absence of Trauma/Injury/Falls Outcome: Absent and monitoring Pt. Instructed on the risks for injury related to possible fatigue, decreased mobility, or decreasedROM. Pt. Understands risk factors involved with injury as it relates to their condition and treatment plan .Patient stand pivot to commode with 1 assist and walker. NWB on LLE. Patient remains free of falls during this hospitalization. Patient has a call almonte within reach, and aware to alert RN when they are wanting to mobilize. Plan of Care - Roopa Huertas RN - 07/23/2012 4:36 PM EDT Problem: Pressure Ulcer Risk (Using Dillon Scale) (Adult, Obstetric) Goal: Pressure Ulcer Risk (using Dillon Scale): Tissue Integrity Outcome: Absent and monitoring Patients skin noted to be intact at this time and free of pressure ulcers. Patient instructed to turn frequently and call for assistance if needed. RN will monitor patients skin. Problem: Pain, Acute (Adult, Obstetric) Goal: Acute Pain: Acceptable Pain Control/Comfort Level - Pain, Acute (Adult, Obstetric) Outcome: Present (see interventions, notes) Patient tolerating oxycodone Patient states pain is 7/10. When in pain pt.is aware of multiple relief techniques that may be utilized. Patient aware to alert RN if pain is not being controlled with current pain medication. RN will monitor patient. Discharge Summary - Cain Ghosh - 07/23/2012 4:36 PM EDT Department of Orthopaedic Medicine - Discharge Summary Patient Name: Andreia Mayer Patient Age: 41 y.o. Birthdate: 1970 Admit date: 07/23/2012 Discharge date: 07/25/2012 Attending Physician: Brando Blanchard MD Discharge Diagnoses (Hospital Problems) and Secondary Diagnoses (Chronic Problems): Patient Active Problem List Diagnoses Code ??? Knee dislocation left 836.50 ??? 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 Hx pulmonary embolism 1993 V12.55 ??? Anxiety 300.00 History of Presentation: 41 yo female who was stepping out of a parked car but sustained a dislocation to her left knee had immediate pain and taken to [facility] and subsequently was reduced and then transferred here for further care. Of note the patient has a protein C deficiency and is on coumadin chronically where she had an unmeasurable INR and a pt greater than 100 at [facility].She otherwise denies any other pain besides the left knee. She is able to feel her feet and and moveit. She has no other complaints. No headache, no abdominal pain. No chest Pain. Left Lower Extremity: Painless range of motion to ankle and foot. Gross swelling and edema of knee soft calf and painless movement of ankle, tense knee jiont only. Palpable pt pulse, nondopplerable and non palpable dp pulse. Skin intact. Sensation superficial peroneal intact, deep peroneal intact, tibial intact, medial plantar intact, lateral plantar intact, saphenous nerve distribution intact and sural nerve distributionintact. Motor: intact ankle df, ankle pf, ehl Hospital Course: Andreia Mayer was admitted from the Emergency Department for evaluation and treatment of the above injury. She was treated non-operatively. Pain was controlled on oral medications. The patient was referred to PT for mobility training - non-weight bearing of left leg with shivam brace in place locked in extension at all times. The farias was removed and the patient was voiding spontaneously in good amounts. She was taking po without difficulty. On HD#3 the patient was medically clear with stable vital signs and determined safe for discharge to home. Of note: Hematology and Vascular Surgery were consulted to assist with her management. Important Studies and Lab Data: Labs: Lab Results Component Value Date HGB 13.7 07/23/2012 HCT 40.1 07/23/2012 Transfusions: No Studies: CTA leg; Patent left popliteal artery. Superficial and deep muscular and subcutaneous left knee hematoma without contrast extravasation. Multiple bony fragments within the soft tissues posterior to theleft knee joint line. 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 A dominant branch of the left peroneal artery crosses behind the lateral malleolus opacifying a small vessel on the proximal lateral aspect of the dorsum of the foot. Discharge Conditions: Stable, awake, and alert. Mobilizing with walker/crutches, pain controlled on oral medications. Foot is warm and well perfused with intact sensation throughout. Vital Signs: Last value Range last 24 hrs Temperature Temp: 37.1 ??C (98.8 ??F) Temp: [37.1 ??C (98.8 ??F)-37.7 ??C (99.9 ??F)] Heart Rate Heart Rate: 112 Heart Rate: [92-112] Blood Pressure BP: 116/76 mmHg BP: (102-135)/(63-76) Respiratory Rate Resp: 18 Resp: [16-20] SpO2 SpO2: 94 % SpO2: [93 %-99 %] Art BP BP (Arterial Line): -- Discharge to: Home Discharge Medications: No medications prior to admission that will be resumed at discharge. New medications prescribed at discharge: Medication Sig Dispense Refill ??? acetaminophen (TYLENOL) 500 mg tablet Take 2 tablets by mouth every 8 hours. 30 tablet ??? OXYcodone (ROXICODONE) 5 mg immediate release tablet Take 1-3 tablets by mouth every 3 hours as needed for Pain. 100 tablet 0 ??? senna-docusate (PERICOLACE) 8.6-50 mg per tablet Take 1-4 tablets by mouth 2 times daily. 60 tablet 1 ??? warfarin (COUMADIN) 5 mg tablet Take 1 tablet by mouth daily. 30 tablet 0 ??? enoxaparin (LOVENOX) 40 mg/0.4 mL Syrg injection Inject 0.4 mLs subcutaneously daily. 5 Syringe 0 Updated Allergies/ADRs: Allergies Allergen Reactions ??? Streptokinase Instructions Given to Patient at Discharge: General Instructions Activity level: 1. Non-weight bearing on your left leg. Wear the shivam immobilizer locked in extension at all times. The brace can be opened/loosened when you are reclining in a chair BUT always secure it when you move. 2. Remember to keep your Left leg elevated on at least 2 pillows to decrease swelling and control your pain. 3. If possible, you should wear FEDERICO hose on the right until you are seen in followup. These should be removed at least once per day to inspect your skin. Coumadin dosing chart: Date notes INR Coumadin dose(mg) 07/23 HD 1 7.3 none 07/24 HD 2 1.7 07/25 HD 3 1.7 5mg Anticoagulation: You have been discharged on Coumadin (warfarin). Your dose of coumadin for today is5mg (1 of the 5mg pill). Take this medication at the same time each day - usually 5pm. Your dose of coumadin is based on your INR value. This needs to be drawn on the day after dischargeand then at least twice a week (usually every Thursday and ). Results should be called into the Orthopedic coumadin clinic [phone] for future dosing of your coumadin. Once you are stable youshould be able to reconnect with your regular prescriber for your coumadin dosing. You will be on this medication indefinitely due to your Protein C deficiency Diet: You may return to your usual diet, but increase your fluids and fiber intake to keep you hydrated and your bowels soft. To help with wound healing increase your intake of high protein foods and fluids Driving: Do not drive until cleared to do so by your orthopaedic physician. Ideally you should not drive while you are on narcotic pain meds as these can affect your judgement and reaction time. Contact your surgeon if you have any questions. Medications: 1. The pain medication you are on can cause constipation, so increase your intake of fluids and fiber while you are taking them. You should also take the stool softener that was ordered, Sennakot, to facilitate a bowel movement. Miralax, an esjh-zor-zzablzb medication can also be taken to help if needed to combat constipation. 2. If you need a renewal on your narcotic pain medication, you need to give the Orthopedic clinic enough time to process your request. This can take up to three days, so plan accordingly. 3. Continue to take the tylenol every 8hrs around the clock for the next 10 days (until August 02). It can be effective in controlling pain along with your other medications. Shower/Bath: You may shower BUT do not get the brace wet and you MUST wear the brace at all times. Completely cover the brace with a plastic bag taped at the top. Remove this after the shower. Always have a chair available to balance. Call your doctor (#[phone]) if you develop: 1. fevers greater than 100.5 2. severe nausea or vomiting 3. increasing pain not controlled by pain medications 4. Change in sensation FOLLOWUP APPOINTMENTS: You will have followup appointments at [facility] as indicated in Future Appointment and Orders. You will have an xray prior to those appointments so please come to Radiology, desk 3T, 1 hour BEFORE your appointment for those x-rays. Future Appointments and Orders Future Orders Please Complete By Expires Referral for Anticoagulation Monitoring [[id number] Custom] Process Instructions: If no progress note charted, please enter Clinical details in comments. Scheduling Instructions: Comments: Questions: Responses: Responsible Group [facility] ANTICOAG Reason for referral anticoagulation after knee dislocation, pt previously on coumadin for Protein Cdeficiency, managed by primary care Risk Factors: Next due INR 07/26/2012 INR Goal Target End Date 08/06/2012 Referral to Home Health [[id number] CPT(R)] Process Instructions: Scheduling Instructions: Comments: DOCUMENTATION FOR VNA SERVICES PATIENT'S LOCATION: [address] [address] (home) Harvest Crew Supervisor's Name: Self In discussion with the attending physician, it is certified that this patient is under their care and that they, or a Nurse Practitioner,Clinical Nurse specialist or Physician Process Engineering Technician who is working directly with them, had a face to face encounter that meets the physician face to face encounter requirements with this patient on 07/24/2012. The encounter with the patient was in whole, or in part, for the following medical condition, which is the primary reason for home health care services: left knee dislocation In discussion with the provider, it is certified that, based on their findings, the following services are medically necessary for home health services. To provide the following care/treatments with the clinical findings supporting the need for services as follows: HOME CARE ORDERS: PT ORDERS: Continue rehab for endurance, gait stability and strength with mobility and transfers. Home safety evaluation. Home exercise program if appropriate. HOME HEALTH CARE AGENCY: [facility] [place] [facility] PHONE: [phone] FAX: [phone] Start of care: Wednesday 07/26 Please note that any additional orders needs or changes will need to be obtained from this patient'sPCP: MONROE BROWN MD [address] / [facility] [address] All VNA agencies which cover the area of patient's residence have been reviewed, either verbally or in writing, and patient/family have chosen the home health care agency noted. Questions: Responses: Agency name and contact information [facility] Patient location post discharge Home What services are requested Physical Therapy Start date Responsible MD post discharge contact info PCP/[facility] Orthopaedics Walker standard [EQ135 Custom] Process Instructions: Scheduling Instructions: Comments: Questions: Responses: Vendor Name/Contact information: [facility] You will be contacted with your follow-up appointment information early next week. Your appointment will be on Thursday, July [address] Blanchard. Primary Care Provider: MONROE BROWN MD [phone] Dr Blanchard = Trauma: [phone] Signed: CAIN GHOSH MD 07/25/2012 Consult Note - Dannielle Magallanes MD - 07/23/2012 12:41 PM EDT Images from the original note were not included. Inpatient Hematology/Oncology Consult Hematology/Oncology Attending: Dr.Deborah Magallanes Initial Consult Date:07/23/2012 Admission Date: 07/23/2012 Requesting physician: Kobi Kay MD Consult Question: We are seeing Andreia Mayer for pre op evaluation in the setting of supra therpeutic INR and protein C deficiency. I have reviewed the available records, interviewed, and examined the patient. HPI: Ms.Candy Mayer is a 41 y/o caucacian female who is on group home anticoagulation with coumadin for pulmonary embolism. Last night she was stepping out of the car in intoxicated state and sustained Left knee dislocation and was taken to [facility]. She was found to have supra therapeutic INR and was transferred to [facility] for further management. Here she was noticed to have left knee hematoma and absent DP pulse. So the plan is take her to surgery [facility]. She had PE in 1993 and work up at that time revealed protein C deficiency. She denied any transientrisk factors at that time. She does not have any other blood clots since then. She reports that her coumadin dose was increased 2 weeks ago as here INR was sub therapeutic. Her INR is monitored once a month. Past Medical History: Pulmonary embolism diagnosed in 1993 Protein C deficiency diagnosed in 1993 Anxiety Social History: She is single, lives with her 3 children, eldest is 21 y/o and youngest is 12y/o and none of them have any h/o blood clots. 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 Alcohol: occasional 1-2 beers per her. Illicit Drugs: denies Family History: Mother: healthy Father: she does not know about him Siblings: none ROS: General: Denies fever, chills, nightsweats. No recent weight changes Eyes: Denies pain, vision changes ENT: Denies vertigo, hearing changes, epistaxis, mouth pain or lesions Cardiovascular: Denies chest pain, pressure or palpitations Respiratory: Denies SOB, othopnea, cough GI: Denies dysphagia, abd pain, GERD Sx, N/V/C/D, black or bloody stool : Denies dysuria, hesitation Musculoskeletal: has severe left knee pain with restricted range of movements. Endocrine: Denies polydipsea, polyuria, cold or heat intolerance Neuro: Denies numbness or tingling, weakness Hem/Lymph: Denies new lumps or bumps Skin: Denies rash or concerning lesions Other systems reviewed and negative. Meds: reviewed in MAY, notable for following: Scheduled Meds: ??? morphine 5 mg Intravenous Once ??? phytonadione 5 mg Oral Once Continuous Infusions: PRN Meds:.iohexol Outpatient medications: Coumadin 10 mg on four days a week and 7.5 mg three days a week. Clonazepam for anxiety Allergies: Streptokinase Physical Exam: Last value Range last 24 hrs Temperature Temp: 37.1 ??C (98.8 ??F) Temp: [37.1 ??C (98.8 ??F)] Heart Rate Heart Rate: 107 Heart Rate: [101-107] Blood Pressure BP: 127/90 mmHg BP: (127-136)/(90-91) Respiratory Rate Resp: 17 Resp: [15-22] SpO2 SpO2: 97 % on RA SpO2: [97 %-100 %] General: in mild distress from pain. Eyes: Non-icteric, not injected, PERRL, EOMI ENT: MM moist, no oral lesions, no thyromegaly Cardiovascular: RRR, no murmurs /gallops Respiratory: CTAB Hem/Lymph/Immuno: No cervical or supraclavicular UNA GI: Soft, NT, ND, no organomegaly, BS+ : No CVA tenderness Skin: No rash. Neuro:No focal deficits. Extremities: Bruise on right leg. Left knee is swollen, with ecchymoses, restricted range of movements. Absent dorsalid pedis pulse on left side. Sensations intact on both lower extremities. Distal left foot is hypothermic. Labs: Recent Labs Basename 07/23/12 0950 WBC 15.1* HGB 13.7 PLATELET 262 Lab Results Component Value Date NEUTROABS 12.50* 07/23/2012 Recent Labs Basename 07/23/12 0950 NA 141 K 3.4* CL 106 CO2 23 BUN 7* CREATININE 0.83 GLUCOSE -- CALCIUM 7.9* MAGNESIUM -- PHOS -- Recent Labs Basename 07/23/12 0950 INR 7.3* PT 64.8* PTT 66* ASSESSMENT: The patient is a 41 y.o. F with left knee dislocation,hemarthrosis, s/p trauma, evaluated pre operatively for supra therapeutic INR. She carries the diagnosis of protein C deficiency. Recommendations: 1) Give her Vitamin K 5 gm oral, x once ( ordered) and Plasma - 5 units( ordered) to correct INR. 2) Anticoagulation can be resumed 6-12 hours post op. Bridge coumadin with Lovenox 40 mg daily, for five days. The plan was discussed with the orthopedic resident. Thank you for the courtesy of this consult. Don't hesitate to call us should you have any questions/concerns. Arash.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 posterior to the medial malleolus, givin g rise to the patent plantar artery. Right dorsalis pedis artery is patent. L eft popliteal artery intact without dissection, extravasation or contour abn ormality. The origin of the anterior tibial artery as well as the tibioperone al trunk is patent. Origins of peroneal and posterior tibial arteries a re patent. The anterior tibial artery sequeira out in the region of the mid calf without filling defect, expansion nor dissection. Peroneal and posterior tibia l arteries cross the ankle joint. A dominant branch of the peroneal artery c rosses behind the lateral malleolus opacifying a small vessel on the proxima l lateral aspect of the dorsum of the foot. The posterior tibial artery suppli es the patent plantar artery. Review of osseous structures shows multi ple small fragments posterior to the left knee joint line. Pelvis: No free fluid. Imaged portions o f loops of small and large bowel are normal in caliber. Lower extremity soft tissues: Asymmetric left lower extremity swelling confined to the region of the left knee with subcutaneous and muscular hematoma. No contrast extravasation into this. Impression Patent left popliteal artery. Superficial and deep muscular and subcut aneous left knee hematoma without contrast extravasation. Multiple bony fragments within the soft tissues posterior to the left knee joint line. 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 Given the robust nature of the 2 left ru n-off vessels, I suspect a congenital variant exists in this lower extremity a s well, and the fact that the left anterior tibial artery sequeira out in the mid calf without filling defect nor dissection, supports this. A dominant br anch of the left peroneal artery crosses behind the lateral malleolus opa cifying a small vessel on the proximal lateral aspect of the dorsum of the foot . Kobi Kay MD IMG CT ORDERABLES Antibody screen (07/23/2012 11:00 AM EDT) Analysis Performed At Patho logist Time Signature Ab Screen Negative [facility] Expires at [id number] [facility] [id number] on: [facility] Specimen Anatomical Collection Method Collection Time Receive d Time (Source) Location / / Volume Laterality Blood specimen 07/23/2012 11:00 3 (specimen) AM EDT 11:01 AM EDT Resulting Agency Comment Spec In Lab Kobi Kay MD BLOOD BANK ORDERABLES Performing Organization Address City/[facility]/ZIP Code Phon e Number [address] [facility] ABO/Rh Typing (07/23/2012 11:00 AM EDT) P athologist Signature ABORh Type B Pos [facility] Specimen Anatomical Collection Method Collection Time Receive d Time (Source) Location / / Volume Laterality Blood specimen 07/23/2012 11:00 3 (specimen) AM EDT 11:01 AM EDT Resulting Agency Comment Spec In Lab Kobi Kay MD BLOOD BANK ORDERABLES Performing Organization Address City/[facility]/ZIP Code Phon e Number [address] [facility] POCT urine (07/23/2012 10:58 AM EDT) Patholo gist Method Time Signature POC Urine HCG Negative (none) POC Control Internal (none) Controls Acceptable Kobi Kay MD POINT OF CARE TEST ORDERABLE S XR knee diagnostic 1 or 2 view (07/23/2012 10:41 AM EDT) Anatomical Region Laterality Modality Knee N/A Radiographic Imaging Specimen (Source) Anatomical Collection Method Collection Time Re ceived Time Location / / Volume Laterality 07/23/2012 10:41 AM EDT Narrative 07/23/2012 10:47 AM EDT Examination KNEE 1 OR 2 VIEWS/LEFT Clinical History s/p knee dislocation Comparison July 23, 2012. Technique 2 views ?? Findings See impression. ?? Impression Interval reduction of left knee dislocat ion. ??Prepatellar soft tissue swelling and a moderate knee effusion are seen. I rregularity of the lateral aspect of the lateral femoral condyle articular payne rface likely represents chip fracture. No other fractures seen. ?? Procedure Note Gary Tavares MD - 07/23/2012For matting of this note might be different from the original. Examination KNEE 1 OR 2 VIEWS/LEFT Clinical History s/p knee dislocation Comparison July 23, 2012. Technique 2 views Findings See impression. Impression Interval reduction of left knee dislocat ion. Prepatellar soft tissue swelling and a moderate knee effusion are seen. I rregularity of the lateral aspect of the lateral femoral condyle articular payne rface likely represents chip fracture. No other fractures seen. Kobi Kay MD IMG DX ORDERABLES (ABNORMAL) Differential, Automated (07/23/2012 9:50 AM EDT) [facility] Method Time Signature Neutrophils % 82.9 (H) 34.0 - CERNER 71.0 % [facility] Neutr Abs (ANC) 12.50 (H) 1.50 - CERNER 6.30 MILL[facility]NIUM x10(3)/mc L Lymphocytes % 10.5 (L) 19.0 - CERNER 53.0 % [facility]EN[facility] Lymphocytes Abs 1.6 1.0 - 3.6 CERNER x10(3)/mc [facility]EN[facility]UM L Monocytes % 6.1 4.0 - CERNER 13.0 % MILLENNIUM Monocyte Abs 0.9 0.2 - 1.0 CERNER x10(3)/mc MILLENNIUM L Eosinophils % 0.1 0.0 - 7.0 CERNER % MILLENNIUM Eosinophils Abs 0.0 0.0 - 0.5 CERNER x10(3)/mc M[facility]ENNIUM L Basophils % 0.1 0.0 - 2.0 CERNER % MILLENNIUM Basophils Abs 0.0 0.0 - 0.2 CERNER x10(3)/mc [facility]ENNIUM L Immature Gran % 0.30 0.00 - CERNER 0.66 % [facility]EN[facility] Comment: Immature granulocytes(IG's)percentage an d absolute count will include metamyelocytes, myelocytes, and promyelo cytes. Blood smears from CBCs yielding IG's will be scanned manually for concor dance. If this scan disagrees with the automated IG or if promyelocytes are not ed, a manual differential will be performed. Yolie Gran Abs 0.05 0.00 - 0.05 x10(3)/mcL CER NER MILLENNIUM Specimen Anatomical Collection Method Collection Time Receive d Time (Source) Location / / Volume Laterality Blood specimen 07/23/2012 9:50 AM 013 9:58 (specimen) EDT AM EDT Kobi Kay MD HEMATOLOGY ORDERABLES Performing Organization Address City/[facility]/ZIP [facility] [place] [address] CERNER MILLENNIUM (ABNORMAL) APTT (07/23/2012 9:50 AM EDT) P athologist Signature PTT 66 (H) 25 - 35 sec CERNER MILLENNIUM Comment: Recommended therapeutic PTT range for fu ll dose unfractionated heparin is 80-114 seconds. Specimen Anatomical Collection Method Collection Time Receive d Time (Source) Location / / Volume Laterality Blood specimen 07/23/2012 9:50 AM 013 9:58 (specimen) EDT AM EDT Resulting Agency Comment Spec In Lab Kobi Kay MD HEMATOLOGY ORDERABLES Performing Organization Address City/[facility] [place] [address] CERNER MILLENNIUM (ABNORMAL) Prothrombin Time (07/23/2012 9:50 AM EDT) P athologist Signature PT 64.8 12.0 - CERNER (Critical) 15.0 sec [facility]ILL[facility]NIUM Comment: Called by: stacey, Read back by: hieu eubanks_, Date/Time:07/23/12 10:51_. [facility] Transfusion Committee Guidelines: I NR less than 2.0, PTT less than OR equal to 43.5 seconds, or Fibrinogen gre ater than or equal to 100 mg/dl indicate adequate procoagulant activity for hemostasis in patients without underlying bleeding disorders. INR 7.3 (H) 0.9 - 1.1 CERNER MILLENNIUM Specimen Anatomical Collection Method Collection Time Receive d Time (Source) Location / / Volume Laterality Blood specimen 07/23/2012 9:50 AM 013 9:58 (specimen) EDT AM EDT Resulting Agency Comment Spec In Lab Kobi Kay MD HEMATOLOGY ORDERABLES Performing Organization Address City/[facility]/ZIP [place] [address] CERNER MILLENNIUM (ABNORMAL) CBC (with Diff) (07/23/2012 9:50 AM EDT) P athologist Signature WBC 15.1 (H) 4.0 - 10.0 CERNER x10(3)/mcL [facility]ILLENNIUM RBC 4.42 3.93 - CERNER 5.22 MILLENNIUM x10(6)/mcL Hemoglobin 13.7 11.2 - CERNER 15.7 gm/dL MILLENNIUM Hematocrit 40.1 34.0 - CERNER 45.0 % MILLENNIUM MCV 90.7 79.0 - CERNER 94.0 fL MILLENNIUM MCH 31.0 26.6 - CERNER 32.2 pg MILLENNIUM MCHC 34.2 32.0 - CERNER 36.5 gm/dL MILLENNIUM Platelets 262 145 - 370 CERNER x10(3)/mcL MILLENNIUM RDWSD 44.1 35.0 - CERNER 46.0 fL MILLENNIUM RDWCV 13.5 10.9 - CERNER 14.4 % MILLENNIUM MPV 10.5 9.0 - 12.0 CERNER fL [facility]ENNIUM Specimen Anatomical Collection Method Collection Time Receive d Time (Source) Location / / Volume Laterality Blood specimen 07/23/2012 9:50 AM 013 9:58 (specimen) EDT AM EDT Resulting Agency Comment Spec In Lab Kobi Kay MD HEMATOLOGY ORDERABLES Performing Organization Address City/State/ZIP [place] [address] CERNER MILLENNIUM (ABNORMAL) BMP w/fasting Glucose (07/23/2012 9:50 AM EDT) P athologist Signature Glucose 101 (H) 65 - 99 CERNER Fasting mg/dL [facility] Comment: ?Fasting* Glucose Interpretive C riteria Normal ?65-99 mg/dL Impaired Fasting glucose ?100-125 mg/dL Consistent with Diabetes Mellitus ? >or= 126 mg/dL *Fasting is defined as no caloric intake for at least 8 hours In the absence of unequivocal hypergly cemia a plasma glucose value of >or= 126 mg/dL should be repeated on a subseq uent day. Diagnosis and Classification of Diabetes Mellitus, Position Statement from the [place] [employer]. ??Diabete s Care, Volume 33, Supplement 1, Mar 2009 BUN 7 (L) 8 - 18 mg/dL CERNER MILLENNIUM Creatinine 0.83 0.70 - 1.20 mg/dL CERNER MILL ENNIUM Comment: Please note that the pediatric reference intervals supplied above were not validated at [facility]. Results from pediatri c patients should be interpreted in conjunction to the patient's age, height and muscle mass. Sodium 141 135 - 145 mmol/L CERNER PADMINI NIUM Potassium 3.4 (L) 3.5 - 5.0 mmol/L CERNER PADMINI NIUM Comment: Please note: ??Patients with WBC >100,00 0 may have falsely elevated Potassium levels. ??For accurate Potassium quantif ication in these patients send serum separator tube (gold top) for subsequent determinations. ??Contact the Clinical Chemistry Laboratory if there are any qu estions. Chloride 106 98 - 107 mmol/L CERNER MILLENN IUM CO2 23 22 - 31 mmol/L CERNER MILLENNI UM Anion Gap 12 5 - 15 mmol/L CERNER MILLENNIU M Calcium 7.9 (L) 8.5 - 10.5 mg/dL CERNER PADMINI NIUM [...] Location / / Volume Laterality Blood specimen 07/23/2012 9:50 AM 013 9:58 (specimen) EDT AM EDT Resulting Agency Comment Spec In Lab Kobi Kay MD CHEMISTRY ORDERABLES Performing Organization Address City/State/ZIP Code Phon e Number [place] [phone] [facility] documented in this encounter Visit Diagnoses Diagnosis Knee dislocation left - Primary Closed dislocation of knee, unspecified part 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 Primary hypercoagulable state documented in this encounter Administered Medications Inactive Administered Medications - up to 3 most recent administrations Medication Order MAR Action Action Date Dose Rate Site acetaminophen (TYLENOL) tablet Given 07/25/2012 2:22 PM EDT 1,00 0 mg 1,000 mg 1,000 mg, Oral, EVERY 8 HOURS SCHEDULED, First dose on Thu07/23/12 at 1400, Until Discontinued, Maximum dose of acetaminophen is 4000 mg from all sources in 24 hours., Routine Given 07/25/2012 5:52 AM EDT 1,000 mg Given 07/24/2012 9:00 PM EDT 1,000 mg calcium carbonate (TUMS) chewable tablet Given 07/25/2012 4:54 P M EDT 1,000 mg 1,000 mg 1,000 mg, Oral, 2 TIMES DAILY WITH MEALS, First dose on Thu07/24/12 at 1700, Until Discontinued, Routine Given 07/25/2012 8:25 AM EDT 1,000 mg Given 07/24/2012 5:47 PM EDT 1,000 mg calcium carbonate (TUMS) chewable tablet Given 07/24/2012 9:00 A M EDT 1,000 mg 1,000 mg 1,000 mg, Oral, ONCE, 1 dose, On Thu07/24/12 at 0900, Routine enoxaparin (LOVENOX) injection 40 mg Given 07/25/2012 12:01 PM EDT 40 mg 40 mg, Subcutaneous, EVERY 24 HOURS SCHEDULED (Daily), First dose on Thu07/25/12 at 1130, Until Discontinued, Routine famotidine (PEPCID) tablet 20 mg Given 07/25/2012 8:26 AM EDT 20 mg 20 mg, Oral, 2 TIMES DAILY, First dose on Thu07/23/12 at 2100, Until Discontinued, Routine Given 07/24/2012 8:31 PM EDT 20 mg iohexol (OMNIPAQUE) 350 mg iodine/mL Given 07/23/2012 11:38 AM E DT 52,500 mg injection 52,500 mg 52,500 mg (150 mL), Intravenous, ONCE PRN, 1 dose, Starting on Thu07/23/12 at 1138, Until Thu07/23/12 at 1138, Per Protocol, Routine morphine injection 5 mg Given 07/23/2012 12:14 PM EDT 5 mg 5 mg, Intravenous, ONCE, On Thu07/23/12 at 1230, 1 dose multivitamin Ooup-Eo-AQ-Min (THERAPEUTIC-M) Given 07/07 8:26 AM EDT 1 tablet 27-0.4 mg tablet 1 tablet 1 tablet, Oral, DAILY, First dose on Thu07/23/12 at 1315, Until Discontinued Given 07/24/2012 8:05 AM EDT 1 tablet OXYcodone (ROXICODONE) immediate release Given 07/23/2012 1:30 P M EDT 15 mg tablet 15 mg 15 mg, Oral, EVERY 4 HOURS PRN, Starting on Thu07/23/12 at 1256, Until Thu07/23/12 at 1623, Pain, severe pain, For severe pain. Do not exceed 15 mg in 4 hours. If pain not relieved, call provider., Routine OXYcodone (ROXICODONE) immediate release Given 07/25/2012 9:10 A M EDT 15 mg tablet 15 mg 15 mg, Oral, EVERY 3 HOURS PRN, Starting on Thu07/23/12 at 1630, Until Thu07/25/12 at 1954, Pain, severe pain, For severe pain. Do not exceed 15 mg in 4 hours. If pain not relieved, call provider., Routine Given 07/25/2012 5:52 AM EDT 15 mg Given 07/25/2012 2:50 AM EDT 15 mg OXYcodone (ROXICODONE) immediate release Given 07/25/2012 3:56 P M EDT 15 mg tablet 5-15 mg 5-15 mg, Oral, EVERY 3 HOURS PRN, Starting on Thu07/23/12 at 1630, Until Thu07/25/12 at 1954, Pain, For Mild pain. Do not exceed 15 mg in 4 hours. If pain not relieved, call provider, Routine Given 07/25/2012 12:14 PM EDT 15 mg Given 07/23/2012 4:34 PM EDT 15 mg phytonadione (MEPHYTON) tablet 5 mg Given 07/23/2012 1:52 PM EDT 5 mg 5 mg, Oral, ONCE, 1 dose, On Thu07/23/12 at 1330, Routine senna-docusate (PERICOLACE) 8.6-50 mg per Given 2012 8:26 AM EDT 2 tablets tablet 1-4 tablet 1-4 tablet, Oral, 2 TIMES DAILY, First dose on Thu07/23/12 at 2100, Until Discontinued, Start with 1 tablet or liquid equivalent orally twice daily and titrate up to achieve: 1. One bowel movement at least every 48 hours, AND 2. Without straining, Routine Given 07/24/2012 8:31 PM EDT 2 tablets sodium chloride 0.9 % flush 5 mL Given 07/25/2012 4:30 AM EDT 5 mLs 5 mL, Intravenous, EVERY 12 HOURS, First dose on Thu07/23/12 at 1630, Until Discontinued Given 07/24/2012 3:43 PM EDT 5 mLs Given 07/24/2012 5:46 AM EDT 5 mLs warfarin (COUMADIN) tablet 5 mg Given 07/24/2012 5:47 PM EDT 5 mg 5 mg, Oral, ONCE, 1 dose, On 07/24/12 at 1800, STAT warfarin (COUMADIN) tablet 5 mg Given 07/25/2012 4:54 PM EDT 5 mg 5 mg, Oral, ONCE, 1 dose, On 07/25/12 at 1700, Routine documented in this encounter Active and Recently Administered Medications Times are shown in EDT. Scheduled Medication Order 07/23/2012 07/24/2012 07/25/2012 acetaminophen (TYLENOL) tablet 1,000 mg 1400 (Not Give n - Provider: Roopa Santos RN - Reason: See comment)2100 (Given - Provider: Roopa Santos RN) 0519 (Given - Provider: Oli Stock, MIKE)1313 (Given - Provider: Lexie Toribio, MIKE)2099 (Given - Provider: Bee Bright RN) 0552 (Given - Provider: Yamilka Pepe, MIKE)1422 (Given - Provider: Melita Moreno, MIKE) 1,000 mg, Oral, EVERY 8 HOURS SCHEDULED, First dose on Thu07/23/12 at 1400, Until Discontinued, Maximum dose of acetaminophen is 4000 mg from all sources in 24 hours., Routine calcium carbonate (TUMS) chewable tablet 1,000 mg (CANCELED) 174 (Given - Provider: Bee Bright RN) 0825 (Given - Provider: Melita galaviz, RN)1654 (Given - Provider: Melita Moreno RN) 1,000 mg, Oral, 2 TIMES DAILY WITH MEALS , First dose on 07/24/12 at 1700, Until Discontinued, Routine calcium carbonate (TUMS) chewable tablet 1,000 mg (COMPLETED ) 09 (Given - Provider: Lexie Toribio RN) 1,000 mg, Oral, ONCE, 1 dose, 07/24/12 at 0900, Routine enoxaparin (LOVENOX) injection 40 mg 120 (Given - Provider: Melita Moreno RN) 40 mg, Subcutaneous, EVERY 24 HOURS SCHE DULED (Daily), First dose on Thu07/25/12 at 1130, Until Discontinued, Routine famotidine (PEPCID) tablet 20 mg (CANCELED) 2099 (Not Given - Provider: Roopa Santos RN - Reason: Patient/family refused) 0900 (Not Given - Provider: Lexie Toribio RN - Reason: Patient/family refused)2030 (Given - Provider: Bee Bright RN) 0826 (Given - Provider: Melita galaviz RN) 20 mg, Oral, 2 TIMES DAILY, First dose o n Thu07/23/12 at 2100, Until Discontinued, Routine morphine injection 5 mg (COMPLETED) 1214 (Given - Provider: Javier Frankel, MIKE) 5 mg, Intravenous, ONCE, 1 dose, Thu07/23/12 at 1230, STAT multivitamin Jrat-Sd-WB-Min (THERAPEUTIC -M) 27-0.4 mg tablet 1 tablet (CANCELED) 1315 (Not Given - Provider: Roopa Santos RN - Reason: See comment) 0805 (Given - Provider: Lexie Toribio, MIKE) 082 6 (Given - Provider: Melita Moreno, MIKE) 1 tablet, Oral, DAILY, First dose on Thu07/23/12 at 1315, Until Discontinued, Routine phytonadione (MEPHYTON) tablet 5 mg (COMPLETED) 1352 ( Given - Provider: Javier Frankel, MIKE) 5 mg, Oral, ONCE, 1 dose, Thu07/23/12 at 1330, Routine senna-docusate (PERICOLACE) 8.6-50 mg per tablet 1-4 t ablet 2100 (Not Given - Provider: Roopa Santos RN - Reason: Patient/family refused) 0900 (Not Given - Provider: Lexie Toribio RN - Reason: Patient/family refused)2030 (Given - Provider: Bee Bright RN) 0826 (Given - Provider: Melita Moreno, MIKE) 1-4 tablet, Oral, 2 TIMES DAILY, First d ose on Thu07/23/12 at 2100, Until Discontinued, Start with 1 tablet or liquid equivalent orally twice daily and titrate up to achieve: 1. One bowel movement at le ast every 48 hours, AND 2. Without straining, Routine sodium chloride 0.9 % flush 5 mL (CANCELED) 1630 (Give n - Provider: Roopa Santos RN) 0546 (Given - Provider: Oli Stock RN)1543 (Given - Provider: Bee Bright RN) 0430 (Given - Provider: Yamilka Pepe RN)1630 (Not Given - Provider: Melita Moreno RN - Reason: See comment - Comment: IV discontinued x 2) 5 mL, Intravenous, EVERY 12 HOURS, First dose on Thu07/23/12 at 1630, Until Discontinued, Routine warfarin (COUMADIN) tablet 5 mg (COMPLETED) 174 (Given - Provider: Bee Bright, MIKE) 5 mg, Oral, ONCE, 1 dose, 07/24/12 at 1800, STAT warfarin (COUMADIN) tablet 5 mg 1654 (Given - Provider: Melita Moreno, MIKE) 5 mg, Oral, ONCE, 1 dose, 07/25/12 at 1700, Routine PRN Medication Order 07/23/2012 07/24/2012 07/25/2012 iohexol (OMNIPAQUE) 350 mg iodine/mL injection 52,500 mg (COMPLETED) 1138 (Given - Provider: Isabela Woo) 150 mL = 52,500 mg, Intravenous, ONCE [place] N, 1 dose, Starting 07/23/12 at 1138, Until 07/23/12 at 1138, Per Protocol, Routine OXYcodone (ROXICODONE) immediate release tablet 15 mg (CANCELED) 1330 (Given - Provider: Javier Frankel, MIKE)1634 (See Alternative - Provider: Roopa Santos RN) 0027 (See Alternative - Provider: Oli Stock RN)0416 (See Alternative - Provider: Oli Stock, MIKE)0759 (See Alternative - Provider: Lexie Toribio, MIKE)1203 (See Alternative - Provider: Lexie Toribio, MIKE) 0250 (See Alternative - Provider: Yamilka Pepe, MIKE)0552 (See Alternative - Provider: Yamilka Pepe, RN)0910 (See Alternative - Provider: Melita Moreno, MIKE)1214 (See Alternative - Provider: Melita Moreno, MIKE) 15 mg, Oral, EVERY 4 HOURS PRN, Starting 07/23/12 at 1256, Until 07/23/12 at 1623, Pain, severe pain, For severe pain. Do not exceed 15 mg in 4 hours. If pain not relieved, call provider., Routine 1553 (See A lternative - Provider: Bee Bright RN)2031 (See Alternative - Provider: Bee Bright, RN)2340 (See Alternative - Provider: Yamilka Pepe, MIKE) 1556 (See Alternative - Provider: Melita Moreno, MIKE) OXYcodone (ROXICODONE) immediate release tablet 15 mg (CANCELED) 1634 (See Alternative - Provider: Roopa Santos RN) 0027 (Given - Provider: Oli Stock RN)0416 (Given - Provider: Oli Stock RN)0759 (Given - Provider: Lexie Toribio, MIKE)1203 (Given - Provider: Lexie Toribio, RN)1553 (Given - Provider: Bee Bright RN) 0250 (Given - Provider: Yamilka Pepe, MIKE)0552 (Given - Provider: Yamilka Pepe, RN)0910 (Given - Provider: Melita Moreno, MIKE)1214 (See Alternative - Provider: Melita Moreno, MIKE)1556 (See Alternative - Provider: Melita Moreno, MIKE) 15 mg, Oral, EVERY 3 HOURS PRN, Starting 07/23/12 at 1630, Until 07/25/12 at 1954, Pain, severe pain, For severe pain. Do not exceed 15 mg in 4 hours. If pain not relieved, call provider., Routine 2030 (Given - Provider: Bee Bright, MIKE)2340 (Given - Provider: Yamilka Pepe, MIKE) OXYcodone (ROXICODONE) immediate release tablet 5-15 m g 1634 (Given - Provider: Roopa Santos RN) 0027 (See Alternative - Provider: Oli Stock RN)0416 (See Alternative - Provider: Oli Stock RN)0759 (See Alternative - Provider: Lexie Toribio, MIKE)1203 (See Alternative - Provider: Lexie Toribio, MIKE) 0250 (See Alternative - Provider: Yamilka Pepe, MIKE)0552 (See Alternative - Provider: Yamilka Pepe RN)0910 (See Alternative - Provider: Melita Moreno, MIKE)1214 (Given - Provider: Melita Moreno, MIKE) 5-15 mg, Oral, EVERY 3 HOURS PRN, Starti ng Thu07/23/12 at 1630, Until 07/25/12 at 1954, Pain, For Mild pain. Do not exceed 15 mg in 4 hours. If pain not relieved, call provider, Routine 155 (See Alterna tive - Provider: Bee Bright, RN)2030 (See Alternative - Provider: Bee Bright, MIKE)234 (See Alternative - Provider: Yamilka Pepe, MIKE) 1556 (Given - Provider: Melita Moreno RN) documented in this encounter Care Teams Termite Helper Relationship Specialty Start Date End Date Monroe Brown MD PCP - General 07/23/12 12/05/[address] [place] [address] [address] [place] [address] documented as of this encounter
== END ==
PROVIDERS: PCP Nurse Practitioner Family; Visit Provider Physician Assistant
DX: S71.152D Open bite, left thigh, subsequent encounter; W54.0XXD Bitten by dog, subsequent encounter; L29.8 Other pruritus
CPT/HCPCS: 76881

== ENCOUNTER 2022-07-31 11:43 | Outpatient (REF) | payer MEDICAID, SELFPAY | END 2022-07-31 11:44 | disposition home or self-care (01) | LOC: LBN 11:43 | PROVIDERS: PCP Nurse Practitioner Family; Visit Provider Obstetrics & Gynecology | DX: N39.0 Urinary tract infection, site not specified (principal) | CPT/HCPCS: 87086 ==

== ENCOUNTER 2022-08-10 15:20 | Emergency (ER) | payer MEDICAID, SELFPAY ==
[2022-08-10 15:26] VITALS: BP 130/85; PULSE 96; RESP 16; TEMP 36.4; O2SAT 100
--- NOTE | 2022-08-10 15:36 | ED.GENADUL_ITS ---
Discharge Plan Disposition Patient Disposition: Home Discharge Details Clinical Impression: UTI (urinary tract infection) Primary Care Provider: Ottoniel Gaines ED Provider: Bhupinder Gardner Home Meds and New Rx's Prescriptions: New cefpodoxime 200 mg tablet 200 mg PO BID 7 Days Qty: 14 0RF Rx Instructions: must administer with a meal/food Continued valacyclovir 500 mg tablet 500 mg PO BID Qty: 10 3RF Patient Comments: does not have anymore clotrimazole-betamethasone 1-0.05 % cream 1 applic topical BID Qty: 15 1RF Patient Comments: does not have anymore Rx Instructions: apply small amount to skin outside of vagina twice daily for 5 days naloxone [Narcan] 4 mg/actuation spray,non-aerosol 1 spray intranasal Q2-3M PRN (Reason: opioid overdose) Qty: 2 4RF Patient Comments: does not have anymore Rx Instructions: spray 1 dose into ONE nostril; alternate nostrils w each dose until help arrives Complete Multi 1 EACH tablet 1 tab PO DAILY pregabalin 300 mg capsule 300 mg PO DAILY Qty: 90 3RF ropinirole 1 mg tablet 1 mg PO QHS Qty: 90 4RF cyclobenzaprine 10 mg tablet 10 mg PO TID PRN (Reason: muscle spasm) Qty: 90 3RF warfarin 5 mg tablet 5 mg PO DAILY Qty: 60 5RF Protocol: Dose Management Condition: Thursday Dose/Route: 5 mg Instruction: 1 x 5 mg tablet Condition: Thursday Dose/Route: 7.5 mg Instruction: 1.5 x 5 mg tablets Condition: Thursday Dose/Route: 5 mg Instruction: 1 x 5 mg tablet Condition: Thursday Dose/Route: 5 mg Instruction: 1 x 5 mg tablet Condition: Dose/Route: 7.5 mg Instruction: 1.5 x 5 mg tablets Condition: Thursday Dose/Route: 5 mg Instruction: 1 x 5 mg tablet Condition: Thursday Dose/Route: 7.5 mg Instruction: 1.5 x 5 mg tablets Protocol Text: Adjustment Start Date: 07/31/22 INR Value: 3.5 INR Date: 07/31/22 Recheck Date: 08/07/22 Rx Instructions: Present dosing is 1.5 tablets 5 days, 1 tablet 2 days / week. clonazepam [Klonopin] 0.5 mg tablet 0.5 mg PO TID PRN (Reason: anxiety) Qty: 84 0RF Discontinued fluconazole [Diflucan] 150 mg tablet 150 mg PO Q3D Qty: 2 0RF Patient Comments: does not have anymore Rx Instructions: may repeat second dose 72 hrs after first dose if symptoms persist Discharge Instructions Instructions: Urinary Tract Infection in Women (ED) Additional Instructions: You were seen in the emergency department for painful urination. We tested your urine and there is lingering signs of infection. We sent a prescription for antibiotics. We gave your first dose here. Return for any worsening symptoms. Take the antibiotics for the full course even if you start to feel better. Follow-up with your primary care doctor about this visit. Referrals: Ottoniel Gaines, MANAGER INFORMATION [Primary Care Provider] - 1 week Discharge Data Discharge Physician: Bhupinder Gardner Medical Decision Making 51-year-old female presents with dysuria. Based off exam likely represents UTI. Urine microscopic supports this. We will give another course of antibiotics. We will change her antibiotic given recent outpatient failure of 2 different antibiotics though I do not think the patient needs inpatient treatment as she does not show any signs of pyelonephritis or sepsis. Otherwise well-appearing and tolerating p.o. We will give her first dose here and discharged with return precautions. Medical Records Medical records reviewed: Yes I reviewed the patient's medical records. Lab Data Lab results reviewed: Yes I reviewed the patient's lab results. Labs: Urinalysis consistent with UTI. Urine culture has been sent and is in process. HPI General Mode of arrival: ambulatory . Date/Time Provider Initiated Documentation: 08/10/22 15:25 . Limitations to Documentation: no limitations . Information obtained by: patient . HPI Narrative: 51-year-old female with history of factor V Leiden, previous DVT/PE on warfarin, restless legs, anxiety/depression, neuropathy, recurrent UTIs is now presenting with urinary symptoms. Has urinary frequency urgency and dysuria. No vaginal bleeding or discharge. Just finished her second course of antibiotics a few days ago and symptoms have now returned. No fevers or chills. No flank or back pain. No abdominal pain nausea or vomiting. Denies any other complaints. Related Data Home Medications Medication Instructions Recorded Confirmed multivit,Ca,jfug-LZ-wbymaaav-lutn 1 tab PO DAILY 06/08/12 08/10/22 18 mg-500 mcg-300 mcg-250 mcg tablet (Complete Multi) naloxone 4 mg/actuation nasal 1 spray intranasal Q2-3M PRN 12/14/19 01/27/22 spray (Narcan) opioid overdose #2 ea valacyclovir 500 mg tablet 500 mg PO BID #10 tabs 05/29/20 01/27/22 clotrimazole-betamethasone 1 1 applic topical BID vulvar 11/22/21 01/27/22 %-0.05 % topical cream candidasis #15 grams pregabalin 300 mg capsule 300 mg PO DAILY #90 caps 02/19/22 08/10/22 ropinirole 1 mg tablet 1 mg PO QHS #90 tabs 03/05/22 08/10/22 cyclobenzaprine 10 mg tablet 10 mg PO TID PRN muscle spasm #90 05/28/22 08/10/22 tabs warfarin 5 mg tablet 5 mg PO DAILY #60 tabs 05/28/22 08/10/22 clonazepam 0.5 mg tablet (Klonopin) 0.5 mg PO TID PRN anxiety #84 07/28/22 08/10/22 tab-caps cefpodoxime 200 mg tablet 200 mg PO BID 7 days #14 tabs 08/10/22 Previous Rx's Medication Instructions Recorded naloxone 4 mg/actuation nasal 1 spray intranasal Q2-3M PRN 12/14/19 spray (Narcan) opioid overdose #2 ea valacyclovir 500 mg tablet 500 mg PO BID #10 tabs 05/29/20 clotrimazole-betamethasone 1 1 applic topical BID vulvar 11/22/21 %-0.05 % topical cream candidasis #15 grams pregabalin 300 mg capsule 300 mg PO DAILY #90 caps 02/19/22 ropinirole 1 mg tablet 1 mg PO QHS #90 tabs 03/05/22 cyclobenzaprine 10 mg tablet 10 mg PO TID PRN muscle spasm #90 05/28/22 tabs warfarin 5 mg tablet 5 mg PO DAILY #60 tabs 05/28/22 clonazepam 0.5 mg tablet (Klonopin) 0.5 mg PO TID PRN anxiety #84 07/28/22 tab-caps cefpodoxime 200 mg tablet 200 mg PO BID 7 days #14 tabs 08/10/22 Allergies Allergy/AdvReac Type Severity Reaction Status Date / Time streptokinase Allergy Severe SOB; Verified 08/10/22 15:32 TINGLING;ANAPHALYSIS General Stated Complaint: Urinary REINA: 4 Review of Systems Constitutional Constitutional: Denies chills, Denies fever(s) and Denies headache(s) Eyes Eyes: Denies change in vision ENT Ears, Nose, Mouth, and Throat: Denies headache(s) and Denies odynophagia Cardiovascular Cardiovascular: Denies chest pain and Denies dyspnea Respiratory Respiratory: Denies dyspnea Gastrointestinal Gastrointestinal: Denies abdominal pain, Denies diarrhea, Denies nausea, Denies odynophagia and Denies vomiting Genitourinary Genitourinary: Denies abnormal vaginal bleeding, Reports dysuria, Reports urinary urgency and Denies vaginal discharge Musculoskeletal Musculoskeletal: Denies myalgias Integumentary/Breasts Skin/Breast: Denies changing lesions Neurologic Neurologic: Denies behavioral changes and Denies headache(s) Psychiatric Psychiatric: Denies behavioral changes Endocrine Endocrine: Denies heat intolerance Hematologic/Lymphatic Hematologic/Lymphatic: Denies lymphadenopathy PFSH All Active Problems UTI (urinary tract infection) (Acute) UTI (urinary tract infection) (Acute) Elevated serum creatinine (Acute) Dog bite (Acute) DVT (deep venous thrombosis) (Chronic) 11.2019- leg , while off anticoagulants for bleeding, and Coumadin-goal INR is 2.5-3.5 Chronic kidney disease, stage 3a (Acute) 2020, Cr-1.4 Pulmonary emboli (Chronic) 1993, chronic coumadin, hx of factor 5 Leiden Neuropathic pain (Acute) Restless leg syndrome (Acute) Abdominal pain (Acute) Genital herpes (Acute) Opioid use (Acute) Broke contract with pain clinic. Tested + for MS Vaginal candidiasis (Acute) 11/21/2021. Fluconazole x1 with Lotrimin. 12/04/2021 symptoms recurred. Fluconazole on 150 mg once a week for 3 weeks Prediabetes (Chronic) Hyperlipidemia (Chronic) Chronic low back pain (Chronic) Generalized anxiety disorder (Acute) Osteoarthritis (Chronic) Major depressive disorder (Chronic) Factor V Leiden mutation (Acute) Perimenopausal menorrhagia (Acute) Chronic anticoagulation (Chronic) On Coumadin as of 2021-goal INR is 2.5-3.5 Medical History Iron deficiency anemia Pulmonary embolism In 1993 Surgical History S/P endometrial ablation 10/10/20. [facility]. S/P left knee surgery (09/30/12) Arthroscopic ligamentous reconstruction of ACL, PCL with menisectomy for dislocation Family History Mother No problems noted. Father No problems noted. Social History Smoking/Tobacco Use Status: Never Smoking risk assessment performed?: Yes Alcohol Intake: never Substance use type: marijuana Details: Smoked marijuana yesterday. Household members: significant other Housing: other Details: [facility] Number of Children: 3 number of grandchildren: 0 current occupation: unemployed Current gender identity: female What type of physical activity do you participate in: walking and independent ambulation Duration: 15-30 minutes/day Frequency: 3-4 times per week Seatbelt use: always Do you feel safe at home: Yes Do you feel safe in your relationship?: Yes Female Reproductive History Menstrual Duration of menses: 3-5 days control method: none History History 3 Para 3 Hx # Term Pregnancies Multiple births Hx # Pregnancies Ectopic pregnancies AB induced Hx Number of Living Children AB spontaneous Exam Const General: cooperative Nutritional Appearance: average body habitus Orientation: alert, awake and oriented x3 HENMT Head: normal to inspection Ears: external ears normal Mouth: moist mucous membranes Eyes Pupils: PERRL EOM: EOM intact bilaterally and No nystagmus Neck Neck: full ROM and no tracheal deviation Chest Chest: normal inspection of the chest Resp Auscultation: clear to auscultation bilaterally Cardio Rate: regular rate Rhythm: regular rhythm GI Inspection: normal to inspection Palpation: soft, no guarding, not rigid and nontender Back/Spine/Pelvis Back: No no CVA tenderness Thoracic/Lumbar Spine: thoracic and lumbar spine normal to inspection Skin General skin exam: no rashes or lesions noted Neuro General: patient alert, patient awake and patient oriented x3 Cranial Nerves: CN's II-XI intact bilaterally, PERRL and no nystagmus Cognition: normal cognition Motor: muscle tone normal throughout and strength 5/5 throughout Sensory Exam: no sensory deficits noted Extrem General: normal to inspection Course Vital Signs Vital signs: Vital Signs Temperature 36.4 C L 08/10/22 15:26 Pulse 96 H 08/10/22 15:26 Respiratory Rate 16 08/10/22 15:26 Blood Pressure 130/85 08/10/22 15:26 Pulse Oximetry 100 08/10/22 15:26 Temperature 36.4 C L 08/10/22 15:26 Temperature Source Tympanic 08/10/22 15:26 Pulse 96 H 08/10/22 15:26 Respiratory Rate 16 08/10/22 15:26 Respiratory Effort Normal, Non-Labored 08/10/22 15:31 Blood Pressure 130/85 08/10/22 15:26 Blood Pressure Position Sitting 08/10/22 15:26 Pulse Oximetry 100 08/10/22 15:26 Oxygen Delivery Method Room Air 08/10/22 15:26 Oxygen Flow Rate 0 08/10/22 15:26 Pain Level 8 08/10/22 15:26 Lab/Test Results Lab/Test Results: 08/10/22 15:35 Urine - Clean Catch Urine Culture - Pending
[2022-08-10 15:59] LABS: Clarity Sl Cloudy (Clear)
[2022-08-10 16:00] LABS: Specific Gravity 1.013 (1.005-1.025)
[2022-08-10 16:02] LABS: Bacteria Moderate HPF (Negative); C & S Indicated? C&S Done As Ordered; Casts Negative LPF (Negative); Crystals Negative HPF (Negative); Epithelial Cells Few HPF (Negative); Mucus Negative (Negative); WBC 20-50 HPF (0-5)
[2022-08-10 16:23] VITALS: BP 130/85; PULSE 82; RESP 16; TEMP 36.4; O2SAT 100
[2022-08-10] MEDS: Cefpodoxime 200 MG TAB PO (16:23)
== END 2022-08-10 16:44 | disposition home or self-care (01) ==
PROVIDERS: Emergency Provider Student in an Organized Health Care Education/Training Program; PCP Nurse Practitioner Family
DX: N39.0 Urinary tract infection, site not specified (principal); R30.9 Painful micturition, unspecified
CPT/HCPCS: 99283; 81003; 81015; 87086; 99284

== ENCOUNTER 2022-08-26 11:31 | Emergency (ER) | payer MEDICAID, SELFPAY ==
[2022-08-26 11:35] VITALS: BP 127/97; PULSE 103; RESP 16; TEMP 36.8; O2SAT 100
[2022-08-26 12:25] LABS: Bilirubin Negative (Negative); Blood Small (Negative); Clarity Clear (Clear); Glucose Negative (Negative); Ketones Negative (Negative); Leukocyte Esterase Negative (Negative); Nitrite Negative (Negative); Urobilinogen 0.2 mg/dL (Up to 0.2)
[2022-08-26 12:31] LABS: Bacteria Negative HPF (Negative); C & S Indicated? No; Casts Negative LPF (Negative); Crystals Negative HPF (Negative); Epithelial Cells Rare HPF (Negative); Mucus Negative (Negative); RBC 0-2 HPF (0-2); WBC 0-2 HPF (0-5)
[2022-08-26 13:42] VITALS: BP 137/90; PULSE 93; RESP 18; TEMP 36.6; O2SAT 98
--- NOTE | 2022-08-26 14:32 | ED.GENADUL_ITS ---
Discharge Plan Disposition Patient Disposition: Home Condition: Stable Discharge Details Clinical Impression: Dysuria Primary Care Provider: Ottoniel Gaines ED Provider: Kar Gardner [place] Meds and New Rx's Prescriptions: Continued valacyclovir 500 mg tablet 500 mg PO BID Qty: 10 3RF Patient Comments: does not have anymore clotrimazole-betamethasone 1-0.05 % cream 1 applic topical BID Qty: 15 1RF Patient Comments: does not have anymore Rx Instructions: apply small amount to skin outside of vagina twice daily for 5 days naloxone [Narcan] 4 mg/actuation spray,non-aerosol 1 spray intranasal Q2-3M PRN (Reason: opioid overdose) Qty: 2 4RF Patient Comments: does not have anymore Rx Instructions: spray 1 dose into ONE nostril; alternate nostrils w each dose until help arrives Complete Multi 1 EACH tablet 1 tab PO DAILY pregabalin 300 mg capsule 300 mg PO DAILY Qty: 90 3RF ropinirole 1 mg tablet 1 mg PO QHS Qty: 90 4RF cyclobenzaprine 10 mg tablet 10 mg PO TID PRN (Reason: muscle spasm) Qty: 90 3RF warfarin 5 mg tablet 5 mg PO DAILY Qty: 60 5RF Protocol: Dose Management Condition: Thursday Dose/Route: 5 mg Instruction: 1 x 5 mg tablet Condition: Thursday Dose/Route: 7.5 mg Instruction: 1.5 x 5 mg tablets Condition: Thursday Dose/Route: 5 mg Instruction: 1 x 5 mg tablet Condition: Thursday Dose/Route: 5 mg Instruction: 1 x 5 mg tablet Condition: Dose/Route: 7.5 mg Instruction: 1.5 x 5 mg tablets Condition: Thursday Dose/Route: 5 mg Instruction: 1 x 5 mg tablet Condition: Thursday Dose/Route: 7.5 mg Instruction: 1.5 x 5 mg tablets Protocol Text: Adjustment Start Date: Thursday08/15/22 INR Value: 3.5 INR Date: 08/15/22 Recheck Date: 08/22/22 Rx Instructions: Present dosing is 1.5 tablets 5 days, 1 tablet 2 days / week. clonazepam [Klonopin] 0.5 mg tablet 0.5 mg PO TID PRN (Reason: anxiety) Qty: 84 0RF Discharge Instructions Instructions: Dysuria (ED) Additional Instructions: your urine test today was not concerning for infection follow up with your primary care provider or obgyn within 1 week if you feel more ill, have high fevers or difficulty breathing return to the emergency department Medical Decision Making 51 yo female who states she gets frequent UTIs and was treated earlier this month for a uti with negative culture other than gram positive hugh, who comes in with cc of continued dysuria for a month. She denies chest pain, dyspnea, fevers, abd pain, back pain. She arrives stable speaking clearly in no distress. She has no abdominal tenderness or back tenderness. DEnies any vaginal irritation or discharge. Her ua today is unremarkable which I explained to the patient but she was quite adamant about receiving treatment for a uti, despite me trying to educate her on downsides of chronic antibiotic use including resistance bacteria she still wanted to receive one, provided a one time dose of oral fosfomycin. She has no findings to suggest sepsis and do not feel labs or imaging indicated. 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 Return precautions given Differential Diagnosis Differential Diagnosis: cystitis, urethritis Medical Records Medical records reviewed: Yes I reviewed the patient's medical records. HPI General Mode of arrival: ambulatory . Date/Time Provider Initiated Documentation: 08/26/22 11:58 . Limitations to Documentation: no limitations . Information obtained by: patient . History of Present Illness 51 year old F presents to the emergency department with the chief complaint of dysuria, described as moderate, Patient started experiencing this month(s) (1) and it has been constant. No relieving factors improve symptom(s), No exacerbating factors reported . Patient notes denies fever/chills. Related Data Home Medications Medication Instructions Recorded Confirmed multivit,Ca,nsnq-DS-qxonddpi-lutn 1 tab PO DAILY 06/08/12 08/10/22 18 mg-500 mcg-300 mcg-250 mcg tablet (Complete Multi) naloxone 4 mg/actuation nasal 1 spray intranasal Q2-3M PRN 12/14/19 01/27/22 spray (Narcan) opioid overdose #2 ea valacyclovir 500 mg tablet 500 mg PO BID #10 tabs 05/29/20 01/27/22 clotrimazole-betamethasone 1 1 applic topical BID vulvar 11/22/21 01/27/22 %-0.05 % topical cream candidasis #15 grams pregabalin 300 mg capsule 300 mg PO DAILY #90 caps 02/19/22 08/10/22 ropinirole 1 mg tablet 1 mg PO QHS #90 tabs 03/05/22 08/10/22 cyclobenzaprine 10 mg tablet 10 mg PO TID PRN muscle spasm #90 05/28/22 08/10/22 tabs warfarin 5 mg tablet 5 mg PO DAILY #60 tabs 05/28/22 08/10/22 clonazepam 0.5 mg tablet (Klonopin) 0.5 mg PO TID PRN anxiety #84 08/25/22 tab-caps Previous Rx's Medication Instructions Recorded naloxone 4 mg/actuation nasal 1 spray intranasal Q2-3M PRN 12/14/19 spray (Narcan) opioid overdose #2 ea valacyclovir 500 mg tablet 500 mg PO BID #10 tabs 05/29/20 clotrimazole-betamethasone 1 1 applic topical BID vulvar 11/22/21 %-0.05 % topical cream candidasis #15 grams pregabalin 300 mg capsule 300 mg PO DAILY #90 caps 02/19/22 ropinirole 1 mg tablet 1 mg PO QHS #90 tabs 03/05/22 cyclobenzaprine 10 mg tablet 10 mg PO TID PRN muscle spasm #90 05/28/22 tabs warfarin 5 mg tablet 5 mg PO DAILY #60 tabs 05/28/22 clonazepam 0.5 mg tablet (Klonopin) 0.5 mg PO TID PRN anxiety #84 08/25/22 tab-caps Allergies Allergy/AdvReac Type Severity Reaction Status Date / Time streptokinase Allergy Severe SOB; Verified 08/10/22 15:32 [place]INGLING;ANAPHALYSIS General Stated Complaint: Urinary REINA: 3 Review of Systems All systems reviewed & are unremarkable except as noted in HPI and below Constitutional Constitutional: Denies chills, Denies fever(s) and Denies weakness Cardiovascular Cardiovascular: Denies chest pain and Denies dyspnea Respiratory Respiratory: Denies cough and Denies dyspnea Gastrointestinal Gastrointestinal: Denies abdominal pain, Denies nausea and Denies vomiting Musculoskeletal Musculoskeletal: Denies joint swelling Integumentary/Breasts Skin/Breast: Denies rash Neurologic Neurologic: Denies weakness PFSH All Active Problems (Updated 08/26/22 @ 14:33 by Kar Gardner MD) UTI (urinary tract infection) (Acute) Dysuria (Acute) UTI (urinary tract infection) (Acute) Elevated serum creatinine (Acute) Dog bite (Acute) DVT (deep venous thrombosis) (Chronic) - leg , while off anticoagulants for bleeding, and Coumadin-goal INR is 2.5-3.5 Chronic kidney disease, stage 3a (Acute) 2020, Cr-1.4 Pulmonary emboli (Chronic) 1993, chronic coumadin, hx of factor 5 Leiden Neuropathic pain (Acute) Restless leg syndrome (Acute) Abdominal pain (Acute) Genital herpes (Acute) Opioid use (Acute) Broke contract with pain clinic. Tested + for MS Vaginal candidiasis (Acute) 11/21/2021. Fluconazole x1 with Lotrimin. 12/04/2021 symptoms recurred. Fluconazole on 150 mg once a week for 3 weeks Prediabetes (Chronic) Hyperlipidemia (Chronic) Chronic low back pain (Chronic) Generalized anxiety disorder (Acute) Osteoarthritis (Chronic) Major depressive disorder (Chronic) Factor V Leiden mutation (Acute) Perimenopausal menorrhagia (Acute) Chronic anticoagulation (Chronic) On Coumadin as of 2021-goal INR is 2.5-3.5 Medical History Iron deficiency anemia Pulmonary embolism In 1993 Surgical History S/P endometrial ablation 10/10/20. Novasure. S/P left knee surgery (09/30/12) Arthroscopic ligamentous reconstruction of ACL, PCL with menisectomy for dislocation Family History Mother No problems noted. Father No problems noted. Social History Smoking/Tobacco Use Status: Never Smoking risk assessment performed?: Yes Alcohol Intake: never Substance use type: marijuana Details: Smoked marijuana yesterday. Household members: significant other Housing: other Details: [facility] Number of Children: 3 number of grandchildren: 0 current occupation: unemployed Current gender identity: female What type of physical activity do you participate in: walking and independent ambulation Duration: 15-30 minutes/day Frequency: 3-4 times per week Seatbelt use: always Do you feel safe at home: Yes Do you feel safe in your relationship?: Yes Female Reproductive History Menstrual Duration of menses: 3-5 days control method: none History History 3 Para 3 Hx # Term Pregnancies Multiple births Hx # Pregnancies Ectopic pregnancies AB induced Hx Number of Living Children AB spontaneous Exam Const General: no acute distress Orientation: alert HENMT Head: normal to inspection Ears: external ears normal General nose exam: external nose normal Mouth: moist mucous membranes Eyes General: appearance normal, both eyes and all related structures Neck Neck: normal visual inspection Resp Effort & Inspection: normal respiratory effort and able to speak in complete sentences Cardio Rate: regular rate GI Palpation: soft and nontender General: No CVA tenderness Skin General skin exam: no rashes or lesions noted Neuro General: patient alert and patient oriented x3 Extrem General: normal to inspection Psych Mental Status: mental status grossly normal Course Vital Signs Vital signs: Vital Signs Temperature 36.8 C 08/26/22 11:35 Pulse 103 H 08/26/22 11:35 Respiratory Rate 16 08/26/22 11:35 Blood Pressure 127/97 H 08/26/22 11:35 Pulse Oximetry 100 08/26/22 11:35 Temperature 36.6 C 08/26/22 13:42 Temperature Source Oral 08/26/22 13:42 Pulse 93 H 08/26/22 13:42 Respiratory Rate 18 08/26/22 13:42 Respiratory Effort Normal, Non-Labored 08/26/22 14:18 Blood Pressure 137/90 08/26/22 13:42 Blood Pressure Position Sitting 08/26/22 11:35 Pulse Oximetry 98 08/26/22 13:42 Oxygen Delivery Method Room Air 08/26/22 13:42 Oxygen Flow Rate 0 08/26/22 13:42 Pain Level 10 08/26/22 11:35 Lab/Test Results Lab/Test Results: Laboratory Tests Range/Units 08/26/22 11:41 Urine Color (Yellow) Yellow Urine Clarity (Clear) Clear Urine pH (5-8) 7.0 Ur Specific [place] (1.005-1.025) 1.010 Urine Protein (Negative) mg/dL Negative Urine Ketones (Negative) mg/dL Negative Urine Blood (Negative) Small H Urine Nitrite (Negative) Negative Urine Bilirubin (Negative) Negative Urine Urobilinogen (Up to 0.2) mg/dL 0.2 Ur Leukocyte Esterase (Negative) Negative Urine RBC (0-2) HPF 0-2 Urine WBC (0-5) HPF 0-2 Ur Epithelial Cells (Negative) HPF Rare Urine Crystals (Negative) HPF Negative Urine Bacteria (Negative) HPF Negative Urine Casts (Negative) LPF Negative Urine Mucus (Negative) Negative Ur Culture Indicated? No Urine Glucose (Negative) mg/dL Negative
[2022-08-26 14:41] VITALS: BP 137/90; PULSE 88; RESP 18; TEMP 36.6; O2SAT 98
[2022-08-26] MEDS: Fosfomycin Tromethamine 3 GM PACKET PO (14:41)
== END 2022-08-26 14:41 | disposition home or self-care (01) ==
PROVIDERS: Emergency Medicine; Emergency Provider Emergency Medicine; PCP Nurse Practitioner Family
DX: R30.0 Dysuria (principal)
CPT/HCPCS: 99283; 81003; 81015; J3490

== ENCOUNTER 2022-08-27 13:55 | Outpatient (REF) | payer MEDICAID, SELFPAY ==
--- NOTE | 2022-08-27 13:40 | PAPFT_PTH ---
PATIENT: Andreia Mayer LOC: [facility]#:[id number] AGE/SX: 51/F ROOM: RE08/27/[address]: Reema Balbuena : 1970 BED: DIS: 08/27/2022 SPEC #: [id number] RECD: 08/27/22 18:22 STATUS: FAIZA REQ #: [id number] JOSE R: 08/27/22 13:[address]: Reema Balbuena DEPT: [facility] Cytology RECD BY: Ebony Herrera ENTERED: 08/27/22 18:23 SP TYPE: PAPFT OTHR DR: Ottoniel Gaines, CHARY Tissues: 1 - CX/ENDOCX FOR PAP SMEARS Procedures: PAP THIN PREP/UVM Screening HPV DNA PROBE Comments: [id number]
[2022-08-28 13:24] LABS: Chlamydia Result Negative (Negative); GC Result Negative (Negative)
== END 2022-08-27 13:56 | disposition home or self-care (01) ==
LOC: LBN 13:55
PROVIDERS: PCP Nurse Practitioner Family; Visit Provider Obstetrics & Gynecology Gynecology
DX: R10.2 Pelvic and perineal pain (principal); Z11.3 Encounter for screening for infections with a predominantly sexual mode of transmission; Z12.4 Encounter for screening for malignant neoplasm of cervix; Z11.51 Encounter for screening for human papillomavirus (HPV)
CPT/HCPCS: 87491; 87591; 88142; 87624

== ENCOUNTER 2022-08-27 14:01 | Outpatient (CLI) | payer MEDICAID, SELFPAY ==
[2022-08-27 14:16] LABS: HCT 39.7 % (36.0-46.0); HGB 13.4 g/dL (11.2-15.7); MCH 28.6 pg (27.0-33.0); MCHC 33.8 % (32.0-36.0); MCV 85 fL (80-95); MPV 10.1 fL (8.0-11.0); Platelet Count 177 10^3/uL (130-400); RBC 4.68 10^6/uL (3.93-5.22); RDW 13.4 % (11.7-14.6); RDW-SD 40.7 fL; WBC 6.94 10^3/uL (4.4-10.8)
[2022-08-27 14:48] LABS: ALT 30 U/L (14-59); AST 27 U/L (15-37); Albumin 3.4 g/dL (3.4-5.0); Alkaline Phosphatase 92 U/L (46-116); Anion Gap 7.2 mmol/L (3-11); BUN 7 mg/dL (7-18); Bilirubin, Total 0.9 mg/dL (0.2-1.0); CO2 29.8 mmol/L (21.0-32.0); CREATININE 1.3 mg/dL (0.55-1.02); Chloride 103 mmol/L (98-107); Estimated GFR 49.48 (mL/min/1.73m2); Glucose 117 mg/dL (74-106); Potassium 3.5 mmol/L (3.5-5.1); Sodium 140 mmol/L (136-145); Total Protein 7.2 g/dL (6.4-8.2)
== END 2022-08-27 14:02 | disposition home or self-care (01) ==
LOC: LBO 14:01
PROVIDERS: PCP Nurse Practitioner Family; Visit Provider Obstetrics & Gynecology Gynecology
DX: N18.31 Chronic kidney disease, stage 3a (principal); R10.2 Pelvic and perineal pain; R79.89 Other specified abnormal findings of blood chemistry; Z79.01 Long term (current) use of anticoagulants
CPT/HCPCS: 36415; 80053; 85027

== ENCOUNTER 2022-09-11 02:15 | Outpatient (CLI) | payer MEDICAID, SELFPAY ==
--- NOTE | 2022-09-11 08:15 | DI.MAMMO_ITS ---
Exam(s) MAMMO SCREENING EXAM: MAMMO SCREENING CLINICAL HISTORY: screening, Z12.39 TECHNIQUE: Mammograms were interpreted according to the usual protocol including computer analysis w H.BLOOM CAD system, tomosynthesis and C-view imaging. COMPARISON: 2013 and 2019 FINDINGS: The breasts are composed of scattered fibroglandular densities, Breast Density category B. Left breast: No suspicious masses or suspicious microcalcifications are seen. No skin thickening or abnormal axillary lymph nodes are seen. There has been no significant change from prior exams. Right breast: New area of ovoid nodularity seen in the lateral subareolar region measuring roughly 10 millimeters. No suspicious calcifications. No skin thickening or abnormal axillary lymph nodes. Spot compression views and ultrasound are requested for further evaluation. IMPRESSION: Spot compression views and ultrasound are recommended for further evaluation of a new area of nodular ity in the right breast. BI-RADS Category 0 - Assessment Incomplete: Need additional imaging evaluation. Breast Density - Category B, scattered fibroglandular densities. A negative radiographic report should not delay biopsy if a dominant or clinically suspicious mass is present. Up to ten percent of cancers are not identified on mammography. A negative report may reinforce clinical impression. Adenosis and dense breasts may obscure an underlying neoplasm. False positive reports average 6 to 10%. Patient will receive a letter notifying them of these results.
--- NOTE | 2022-09-11 08:15 | DI.US_ITS ---
Exam(s) US PELVIS EXAM: US PELVIS CLINICAL HISTORY: pelvic pressure, bloating, chronic kidney disease, elevated creat TECHNIQUE: Transabdominal imaging was performed using standard protocol. COMPARISON: US US PELVIS from 05/01/[address] ABDOMEN PELVIS W from 08/16/2020 FINDINGS: The bladder is unremarkable. UTERUS: Anteverted. 8.5 x 2.7 x 5.0 cm Endometrium: Not well visualized on transabdominal imaging. Myometrium: Unremarkable. Cervix: Unremarkable. OVARIES: Right: Cyst or mass: None. Left: Cyst or mass: None. DOPPLER: Color: Symmetric and uniform flow to both ovaries. No hyperemia. CUL-DE-SAC: Free fluid: None. IMPRESSION: 1. Transabdominal imaging only. Normal-appearing uterus with endometrial stripe within normal limits but not well seen.. 2. Unremarkable bilateral ovaries. DATA REPOSITORY:
== END 2022-09-11 02:35 ==
LOC: DI 02:16
PROVIDERS: PCP Nurse Practitioner Family; Visit Provider Obstetrics & Gynecology Gynecology
DX: Z12.31 Encounter for screening mammogram for malignant neoplasm of breast (principal); R79.89 Other specified abnormal findings of blood chemistry; R10.2 Pelvic and perineal pain; Z79.01 Long term (current) use of anticoagulants; N18.31 Chronic kidney disease, stage 3a
CPT/HCPCS: 77063; 77067; 76856

== ENCOUNTER 2022-09-16 01:55 | Outpatient (CLI) | payer MEDICAID, SELFPAY ==
--- NOTE | 2022-09-16 | DI.US_ITS ---
Exam(s) US BREAST RT COMPLETE EXAM: US BREAST RT COMPLETE CLINICAL HISTORY: F/U MAMMO, R92.8, NEW AREA OF NODULARITY. TECHNIQUE: Complete ultrasound of the RIGHT breast was performed including all 4 quadrants, the retr oareolar region, and the ipsilateral axilla. COMPARISON: Prior mammograms were reviewed. FINDINGS: SEE COMBINED REPORT IMPRESSION: SEE COMBINED REPORT
--- NOTE | 2022-09-16 07:45 | DI.MAMMO_ITS ---
Exam(s) MG MAMMO SCREEN CALL BACK UNI EXAM: MAMMO SCREEN CALL BACK UNI-RIGHT AND COMPLETE RIGHT BREAST ULTRASOUND CLINICAL HISTORY: f/u mammo, r92.8,new ovoid nodularity. TECHNIQUE: Unilateral spot mammographic images obtained with 3D tomosynthesisand utilizing computer aided detection (CAD). . Complete RIGHT breast Ultrasound was also performed, including all 4 quadrants, the retroareolar noble on, and the ipsilateral axilla. COMPARISON: Prior mammograms were reviewed. This additional imaging was performed due to findings described on the recent screening mammogram of 09/11/2022. FINDINGS: DIAGNOSTIC RIGHT BREAST MAMMOGRAM: Additional mammographic views performed todaydo not dissipate the ending. COMPLETE RIGHT BREAST ULTRASOUND: Ultrasound performed today reveals a 1.4 by 0.5 cm cyst which corresponds to the finding on the mammo gram. Does not appear to contain solid components. There are no other focal findings ultrasound findings in all 4 quadrants of the right breast. Scanning of the ipsilateral axilla reveals no significant adenopathy. IMPRESSION: 1. There is a 14 x 5 mm cyst which appears to correspond to the finding on the recent mammogram. Appropriate follow-up as discussed by myself with the patient today is repeat right breast mammogram and ultrasound in 6 months, with earlier imaging if a self detected breast change is noted.. The patient was informed of these findings and recommendations prior to leaving the department today. BI-RADS Category 3 - 6 month - Probably Benign Finding: Recommend follow-up mammography in 6 months Breast Density - Category B - Scattered areas of fibroglandular density Breast density Category C or D implies that the patient has dense breast tissue. Dense breast tissue can make it harder to find cancer on a mammogram. Dense breast tissue is also associated with an incr eased risk of breast cancer. This information about the result of the mammogram report was provided to the patient to raise their awareness. Use this report when you speak with the patient about their risks for breast cancer, which includes their family history. At that time, you may recommend additional screening tests (Ultrasoun d or MRI) as these tests may add significant information. A negative radiographic report should not delay biopsy if a dominant or clinically suspicious mass is present. Up to ten percent of cancers are not identified on mammography. A negative report may reinforce clinical impression. Adenosis and dense breasts may obscure an underlying neoplasm. False positive reports average 6 to 10%. Patient will receive a letter notifying them of these results.
== END 2022-09-16 02:15 ==
LOC: DI 01:55
PROVIDERS: PCP Nurse Practitioner Family; Visit Provider Nurse Practitioner Family
DX: R92.8 Other abnormal and inconclusive findings on diagnostic imaging of breast (principal); N63.10 Unspecified lump in the right breast, unspecified quadrant
CPT/HCPCS: 76642; 77063; 77067

== ENCOUNTER → 2023-03-18 01:34 | Outpatient (CLI) | payer MEDICAID, SELFPAY ==
--- NOTE | 2023-03-18 13:33 | DI.MAMMO_ITS ---
Exam(s) MG MAMMO DIAGNOSTIC UNI US BREAST RT LIMITED EXAM: MG MAMMO DIAGNOSTIC UNI and U/S breast RT limited CLINICAL HISTORY: 6 MO F/U, R92.8,CYST. TECHNIQUE: Craniocaudal and mediolateral oblique Full Field Digital Mammography views of the right b reast with Computer Aided Diagnosis followed by Tomosynthesis and right breast ultrasound. COMPARISON: Comparison is made with prior examinations. FINDINGS: Mammography/Tomosynthesis: Masses/Architectural Distortion: There has been no change in appearance of the nodular density at the 9 o'clock position of the right breast. No suspicious masses are seen. No suspicious areas of arch itectural distortion are seen. Microcalcifictions: No suspicious pleomorphic-type are seen. Skin Thickening/Nipple Retraction: None. Limited right breast US: Echotexture: Normal appearance of the glandular tissue. Shadowing: No suspicious foci. Cyst: None. Solid lesions: None seen. Ductal dilation: The cystic areas seen on the previous examination has the appearance of a mildly dil ated duct on the current examination. IMPRESSION: 1. No evidence of malignancy is noted. 2. Unless there is more urgent need, follow-up screening mammography is recommended, as per [place] [employer] guidelines. 3. The findings were discussed with the patient on the date of the examination. BI-RADS Category 1 - Negative Breast Density - Category B - Scattered areas of fibroglandular density Breast density Category C or D implies that the patient has dense breast tissue. Dense breast tissue can make it harder to find cancer on a mammogram. Dense breast tissue is also associated with an incr eased risk of breast cancer. This information about the result of the mammogram report was provided to the patient to raise their awareness. Use this report when you speak with the patient about their risks for breast cancer, which includes their family history. At that time, you may recommend additional screening tests (Ultrasoun d or MRI) as these tests may add significant information. A negative radiographic report should not delay biopsy if a dominant or clinically suspicious mass is present. Up to ten percent of cancers are not identified on mammography. A negative report may reinforce clinical impression. Adenosis and dense breasts may obscure an underlying neoplasm. False positive reports average 6 to 10%. Patient will receive a letter notifying them of these results.
== END ==
PROVIDERS: PCP Nurse Practitioner Family; Visit Provider Obstetrics & Gynecology Gynecology
DX: N60.01 Solitary cyst of right breast (principal); N60.41 Mammary duct ectasia of right breast
CPT/HCPCS: 76642; 77061; 77065; G0279

== ENCOUNTER 2023-11-24 01:08 | Outpatient (CLI) | payer MEDICAID, SELFPAY ==
--- NOTE | 2023-11-24 10:55 | DI.MRI_ITS ---
Exam(s) MR LOWER JOINT LT WO EXAM: MR LOWER JOINT LT WO CLINICAL HISTORY: Chronic left knee pain,INJURY,S89.92XA. TECHNIQUE: Multiplanar multisequence MRI was performed. COMPARISON: CR XR KNEE LT 3V AP,LAT,PURA from 12/16/2019. No recent plain films available. FINDINGS: BONES: There is no fracture or contusion pattern. Multiple screws related to prior surgery. This c reates artifact. Prominent spurring at the femoral condyles and tibial plateaus. Degenerative signa l changes in the femoral condyles and tibial plateaus. JOINTS: A moderate-sized joint effusion is present. Articular cartilage: Patellofemoral joint: Cartilage thinning greater at the medial facet. Periarticular spurring. Medial femoral tibial joint: Severe degenerative changes with marked cartilage thinning, extending do wn to involving underlying bone. Lateral femoral tibial joint: Severe degenerative changes with marked cartilage thinning extending do wn to and involving underlying bone. LIGAMENTS: Anterior Cruciate: Prior ACL repair appears torn. Posterior Cruciate: Prior PCL repair appears intact. Medial Collateral:Unremarkable. Lateral Collateral ligament complex: Unremarkable. TENDONS: Extensor mechanism: Unremarkable. Medial retinaculum: Unremarkable. Lateral retinaculum: Unremarkable. Popliteus: Unremarkable. MENISCI: The medial meniscus is severely degenerated. The lateral meniscus is severely degenerated. MUSCLES: Somewhat atrophic. SOFT TISSUES: Small Barbosa's cyst. IMPRESSION: End-stage degenerative changes of the femoral tibial joints. Disruption of the ACL repair. PCL repair appears intact. DATA REPOSITORY:
== END 2023-11-24 01:28 ==
LOC: DI 01:08
PROVIDERS: PCP Nurse Practitioner Family; Visit Provider Nurse Practitioner Family
DX: S89.92XA Unspecified injury of left lower leg, initial encounter (principal); X58.XXXA Exposure to other specified factors, initial encounter; M25.562 Pain in left knee
CPT/HCPCS: 73721

== ENCOUNTER 2024-01-18 15:40 | Outpatient (CLI) | payer MEDICAID, SELFPAY ==
--- NOTE | 2024-01-18 10:45 | DI.RAD_ITS ---
Exam(s) XR KNEE LT 3V AP,LAT,PURA XR STANDING ALIGNMENT EXAM: XR STANDING ALIGNMENT CLINICAL HISTORY: pain. TECHNIQUE: 2D digital imaging was performed. Standing AP views were performed from the pelvis throu gh the ankles. COMPARISON: CR XR KNEE LT 3V AP,LAT,PURA from 12/16/2019 FINDINGS: BONES: No acute fracture is present. No bony destructive lesion is seen. Leg length discrepancy: No significant overall leg length discrepancy. JOINTS: Knees: Joint spaces of the right knee are maintained. Postsurgical and degenerative changes noted in the left knee. There is periarticular spurring but no significant joint space narrowing. The ankle joints are unremarkable. The hip joints are unremarkable. SOFT TISSUE: Normal. IMPRESSION: Postsurgical and mild degenerative changes of the left knee . No significant leg length discrepancy. DATA REPOSITORY: RADIATION DOSE DELIVERED:
== END 2024-01-18 15:41 | disposition home or self-care (01) ==
LOC: DIORS 15:40
PROVIDERS: PCP Nurse Practitioner Family; Visit Provider Physician Assistant
DX: Z98.890 Other specified postprocedural states (principal); M17.12 Unilateral primary osteoarthritis, left knee
CPT/HCPCS: 73562; 77073

== ENCOUNTER 2024-03-25 00:58 | Outpatient (CLI) | payer MEDICAID, SELFPAY ==
[2024-03-25 12:32] LABS: HCT 45.1 % (36.0-46.0); MCH 29.9 pg (27.0-33.0); MCHC 33.3 % (32.0-36.0); MCV 90 fL (80-95); MPV 9.9 fL (8.0-11.0); Platelet Count 234 10^3/uL (130-400); RBC 5.02 10^6/uL (3.93-5.22); RDW 13.2 % (11.7-14.6); RDW-SD 42.5 fL; WBC 7.36 10^3/uL (4.4-10.8)
[2024-03-25 12:44] LABS: Hemoglobin A1C 5.6 % (<5.7)
[2024-03-25 13:03] LABS: Calculated LDL 114 mg/dL (<100); Cholesterol 198 mg/dL (<200); HDL Cholesterol 59 mg/dL (40-60); Triglyceride 127 mg/dL (<150)
[2024-03-25 13:29] LABS: Anion Gap 5.2 mmol/L (3-11); BUN 7 mg/dL (7-18); CO2 33.8 mmol/L (21.0-32.0); CREATININE 1.2 mg/dL (0.55-1.02); Calcium 9.9 mg/dL (8.5-10.1); Chloride 102 mmol/L (98-107); Estimated GFR 53.79 (mL/min/1.73m2); Glucose 86 mg/dL (74-106); Potassium 4.5 mmol/L (3.5-5.1); Sodium 141 mmol/L (136-145)
== END 2024-03-25 00:59 | disposition home or self-care (01) ==
LOC: LBO 00:58
PROVIDERS: PCP Nurse Practitioner Family; Visit Provider Student in an Organized Health Care Education/Training Program
DX: Z13.220 Encounter for screening for lipoid disorders (principal); Z13.1 Encounter for screening for diabetes mellitus; M17.12 Unilateral primary osteoarthritis, left knee; Z01.818 Encounter for other preprocedural examination
CPT/HCPCS: 36415; 80048; 80061; 85027; 83036

== ENCOUNTER 2024-03-29 12:31 | Observation (INO) | payer MEDICAID, SELFPAY ==
[2024-03-29] VITALS (44 sets, daily range): BP systolic 114–173; BP diastolic 69–119; PULSE 71–190; RESP 10–27; TEMP 35.8–37.7; O2SAT 94–100; BMI 21.2
--- NOTE | 2024-03-29 09:40 | ANES.PREOP_ITS ---
General Info Date of Service Date Performed: 03/29/24 Height: 5 ft 5 in Weight: 57.72 kg Body Mass Index (BMI): 21.2 Surgical Procedure: Operation Date: 03/29/24 12:40 Proposed Procedure Side Surgeon p Knee Total Arthroplasty w/OrthAlign, Cementless CR Left Syed Lee MD Meds Allergies and Home Medications Allergies Allergy/AdvReac Type Severity Reaction Status Date / Time streptokinase Allergy Severe SOB; Verified 03/29/24 10:39 [place];ANAPHALYSIS Home Medication ?Medication ?Instructions ?Recorded multivit,Ca,pghe-IR-bzgibhxa-lutn 1 tab PO DAILY 06/08/12 18 mg-500 mcg-300 mcg-250 mcg tablet (Complete Multi) naloxone 4 mg/actuation nasal 1 spray intranasal Q2-3M PRN 12/14/19 spray (Narcan) opioid overdose #2 ea clonazepam 0.5 mg tablet (Klonopin) 0.5 mg PO TID PRN anxiety #84 02/29/24 tab-caps clotrimazole-betamethasone 1 1 applic topical .COMPLEX #15 grams 03/23/24 %-0.05 % topical cream valacyclovir 500 mg tablet 500 mg PO BID #10 tabs 03/23/24 warfarin 5 mg tablet 5 mg PO DAILY #60 tabs 03/23/24 Current Visit Medications: Current Medications Generic Name Dose Route Start Last Admin Trade Name Freq PRN Reason Stop Dose Admin Acetaminophen 1,000 mg 03/29/24 06:00 Acetaminophen 500 Mg Tab PO 03/29/24 23:59 PREOP PA Celecoxib 400 mg 03/29/24 06:00 Celecoxib 200 Mg Cap PO 03/29/24 23:59 PREOP PA Gabapentin 300 mg 03/29/24 06:00 Gabapentin 300 Mg Cap PO 03/29/24 23:59 PREOP PA Ringer's Solution 1,000 mls @ 0 mls/hr 03/29/24 06:00 IV 03/29/24 23:59 INFUSION PA Cefazolin Sodium/Dextrose 2 gm in 50 mls @ 100 mls/hr 03/29/24 06:00 Ancef Duplex IVPB 03/29/24 23:59 PREOP PA Tranexamic Acid/Sodium Chloride 1,000 mg in 100 mls @ 600 mls/hr 03/29/24 06:00 IVPB 03/29/24 23:59 PREOP [facility] IV Miscellaneous Supplies 1 each 03/29/24 06:00 Iv Access IV 03/29/24 23:59 DIRECTED PA Sodium Chloride 0 ml 03/29/24 06:00 Normal Saline Flush 10 Ml Syr IV 03/29/24 23:59 PRN PRN Sodium Chloride 0 ml 03/29/24 06:00 Normal Saline 10 Ml Vial IJ 03/29/24 23:59 DIRECTED PRN Sterile Water 0 ml 03/29/24 06:00 Water,Injection,Sterile 10 Ml Vial IJ 03/29/24 23:59 DIRECTED PRN PFSH Active Problems Active Problems: Problem Status Onset Code Left ACL tear Acute S83.512A Arthritis of left knee Acute M17.12 Left knee injury Acute S89.92XA Housing instability, currently housed, at risk for homelessness Acute Z59.811 Cyst of right breast Acute N60.01 Problem with transportation Acute Financial insecurity Acute Z59.86 Other social stressor Acute Z65.9 Pelvic pressure in female Acute R10.2 Elevated serum creatinine Acute R79.89 DVT (deep venous thrombosis) Chronic I82.409 Chronic kidney disease, stage 3a Acute N18.31 Pulmonary emboli Chronic I26.99 Neuropathic pain Acute M79.2 Restless leg syndrome Acute G25.81 Abdominal pain Acute R10.9 Genital herpes Acute A60.00 Opioid use Acute F11.90 Prediabetes Chronic R73.03 Hyperlipidemia Chronic E78.5 Chronic low back pain Chronic M54.5, G89.29 Generalized anxiety disorder Acute F41.1 Osteoarthritis Chronic M19.90 Major depressive disorder Chronic F32.9 Factor V Leiden mutation Acute D68.51 Chronic anticoagulation Chronic Z79.01 Medical History Medical History UTI (urinary tract infection) Dog bite Vaginal candidiasis 11/21/2021. Fluconazole x1 with Lotrimin. 12/04/2021 symptoms recurred. Fluconazole on 150 mg once a week for 3 weeks Iron deficiency anemia Perimenopausal menorrhagia Pulmonary embolism In 1993 Surgical History Surgical History S/P endometrial ablation 10/10/20. Novasure. S/P left knee surgery (09/30/12) Arthroscopic ligamentous reconstruction of ACL, PCL with menisectomy for dislocation Tobacco Smoking/Tobacco Use Status: Never Passive smoking exposure: No Alcohol Alcohol Intake: never Substance Use Substance use: Daily Substance use type: marijuana Details: Smoked marijuana yesterday. Prental History History 3 Para 3 Hx # Term Pregnancies Multiple births Hx # Pregnancies Ectopic pregnancies AB induced Hx Number of Living Children AB spontaneous Vital Signs and Lab Results Vital Signs Most Recent Vital Signs in EMR: Temp Pulse Resp Pulse Ox 36.2 C L 85 20 99 03/29/24 10:49 03/29/24 10:49 03/29/24 10:49 03/29/24 10:49 Lab Results Blood Type / Crossmatch: No Data to Display Complete Blood Count: White Blood Count 7.36 10^3/uL (4.4-10.8) 03/25/24 12:15 Red Blood Count 5.02 10^6/uL (3.93-5.22) 03/25/24 12:15 Hemoglobin 15.0 g/dL (11.2-15.7) 03/25/24 12:15 Hematocrit 45.1 % (36.0-46.0) 03/25/24 12:15 Platelet Count 234 10^3/uL (130-400) 03/25/24 12:15 Complete Metabolic Panel: Sodium 141 mmol/L (136-145) 03/25/24 12:15 Potassium 4.5 mmol/L (3.5-5.1) 03/25/24 12:15 Chloride 102 mmol/L (98-107) 03/25/24 12:15 Carbon Dioxide 33.8 mmol/L (21.0-32.0) H 03/25/24 12:15 BUN 7 mg/dL (7-18) 03/25/24 12:15 Creatinine 1.2 mg/dL (0.55-1.02) H 03/25/24 12:15 Est GFR (CKD-EPI 2020) 53.79 (mL/min/1.73m2) 03/25/24 12:15 Calcium 9.9 mg/dL (8.5-10.1) 03/25/24 12:15 Glucose 86 mg/dL (74-106) 03/25/24 12:15 Hemoglobin A1c 5.6 % (<5.7) 03/25/24 12:15 Liver Function Panel: No Data to Display Coagulation Panel: INR International Normalized Ratio 2.2 (0.9-1.1) H 03/29/24 10 :45 Prothrombin Time 20.9 sec (9.1-11.1) H 03/29/24 10:45 Cardiac Panel: No Data to Display Arterial Blood Gas: No Data to Display Venous Blood Gas: No Data to Display Pancreas Panel: No Data to Display Thyroid Panel: No Data to Display Infectious Disease: No Data to Display Blood Cultures: No Data to Display Toxicology Panel: No Data to Display Panel: No Data to Display Anesthesia Assessment and Plan Anesthesia History Personal History: No History of Anesthesia Complications Family History: No Family History of Anesthesia Complications Exercise Tolerance Exercise Tolerance: Metabolic Equivalents>4 Cardiac & Pulmonary Exam Cardiac Exam: Normal S1/S2 Heart Sounds Pulmonary Exam: Clear Bilateral Breath Sounds Implantable Cardiac Device Does patient have a Pacemaker or an ICD?: No Airway Exam Known Difficult Airway: No Mallampati Class: 3 Mouth Opening: Normal (> 3cm) Thyromental Distance: Greater than 3 cm Neck Range of Motion: Full ROM and History of Cervical Fusion Neck Circumference: Normal Teeth Condition: Normal Dentition ASA Classification ASA Score: ASA 3 Emergency Case?: No NPO Status NPO Status: NPO Clears >2 hours, Solids >8 hours Status Status: Negative HCG Anesthesia Plan Resuscitation Status: Full Code Anesthesia Technique: General Anesthesia Airway Planned: Endotracheal Tube Pain Management: Surgeon and patient request nerve block Monitors Used: Standard Monitors Preoperative Comments:: 53 yo female for TKA. Sig PMHx: PE/DVT (warfarin. INR 2.2), CKDIII, PreDM, chronic LBP, neuropathic pain, anxiety (clonazepam), factor V Leiden. daily cannabis. Previous Anes: - ablation, dex/midaz/prop, natural airway, no issues. Due to INR will be GA. Difficult IV start.
[2024-03-29 11:06] LABS: INR 2.2 (0.9-1.1); Prothrombin Time 20.9 sec (9.1-11.1)
[2024-03-29] MEDS: Celecoxib 200 MG CAP 400 MG PO (11:21)
[2024-03-29] MEDS: Gabapentin 300 MG CAP PO ×2 (11:21→20:37)
[2024-03-29] MEDS: Acetaminophen 500 MG TAB 1000 MG PO (11:21)
[2024-03-29] MEDS: Lactated Ringers 1,000 ML 80 ML IV ×2 (12:19→19:04)
--- NOTE | 2024-03-29 12:21 | W.PREOPHP ---
Assessment and Plan Assessment and plan (1) Arthritis of left knee: Status: Acute Assessment and plan: Andreia is a 53-year-old female who suffered a knee dislocation years ago and is now status post multiple ligament reconstruction. She has had worsening pain. She does not have significant instability. I had a long discussion with her in the office previously about treatment options. She has failed a host of other nonoperative options and has pain on a daily basis with all weightbearing activities. This limits her ability to exercise, be active. She is frustrated with her ongoing pain and feels that she is always been in pain since the injury 2012. I had a long discussion with Andreia today about her increase in INR. She is stepped on a rock and a hard place given her factor V Leiden deficiency as well as history of pulmonary emboli as well as DVT when not on the anticoagulation. She has been tried on different anticoagulants in the past but has been mostly treated with Coumadin although labile with INR readings. While I would desire this INR to be slightly lower I do believe is low and that we may be able to continue with surgery. I did discuss with Andreia that she has a slightly higher increased risk of postoperative Lena and bleeding during surgery. We would use a tourniquet if necessary but focus on meticulous hemostasis throughout the surgery. She does have the previous history of multiligament repair which may make the surgeon more challenging and there is always the risk of instability. She also has multiple screws about both the femur and the knee. I plan to only take out the hardware if necessary although I do not think any screws into, except for potentially the femoral interference screw. If there is any ligamentous disruption, although unlikely given her examination preoperatively and the mechanically centered alignment, we would convert to a more constrained knee replacement. I reviewed the tentacle details of the surgery. I discussed the risk to include bleeding, infection, pain, stiffness, instability, need for repeat procedures, wound healing difficulties, damage nerves and vessels, damage to muscle and tendons, need for repeat procedures, blood clot. Despite these risk, he elects to proceed. She does report having a single level home to return to with support from a friend. She would still like to go home today we will try for same-day discharge although she may need to stay the night given the complexity of this knee and her elevated INR. History of Present Illness Narrative: Andreia is a 53-year-old female who suffered a left knee dislocation some years ago. She recovered well from her multiligamentous reconstruction but is had ongoing pain. The pain limits all function. Please of the previous office note for complete detailed history. She does have a history of factor V Leiden disease with blood clots and pulmonary emboli. The plan was for a short discontinuation of Coumadin, 3 days. Unfortunately, Andreia did take her Coumadin 3 days ago and this is only been on for 2 and half days. Her INR this morning is 2.2 which is down to 3.5. She denies any other issues with the left knee. She denies any fevers or chills. She denies any sick contacts. Review of Systems All systems reviewed & are unremarkable except as noted in HPI and below PFSH All Active Problems Left ACL tear (Acute) Arthritis of left knee (Acute) Left knee injury (Acute) Housing instability, currently housed, at risk for homelessness (Acute) Cyst of right breast (Acute) Problem with transportation (Acute) Financial insecurity (Acute) Other social stressor (Acute) living with BF. His grandchildren involved with DCF. Pelvic pressure in female (Acute) Elevated serum creatinine (Acute) DVT (deep venous thrombosis) (Chronic) 11.2019- leg , while off anticoagulants for bleeding, and Coumadin-goal INR is 2.5-3.5 Chronic kidney disease, stage 3a (Acute) 2020, Cr-1.4 Pulmonary emboli (Chronic) 1993, chronic coumadin, hx of factor 5 Leiden Neuropathic pain (Acute) Restless leg syndrome (Acute) Abdominal pain (Acute) Genital herpes (Acute) Opioid use (Acute) Broke contract with pain clinic. Tested + for MS Prediabetes (Chronic) Hyperlipidemia (Chronic) Chronic low back pain (Chronic) Generalized anxiety disorder (Acute) Osteoarthritis (Chronic) Major depressive disorder (Chronic) Factor V Leiden mutation (Acute) Chronic anticoagulation (Chronic) On Coumadin as of 2021-goal INR is 2.5-3.5 Medical History UTI (urinary tract infection) Dog bite Vaginal candidiasis 11/21/2021. Fluconazole x1 with Lotrimin. 12/04/2021 symptoms recurred. Fluconazole on 150 mg once a week for 3 weeks Iron deficiency anemia Perimenopausal menorrhagia Pulmonary embolism In 1993 Surgical History S/P endometrial ablation 10/10/20. Novtatianna. S/P left knee surgery (09/30/12) Arthroscopic ligamentous reconstruction of ACL, PCL with menisectomy for dislocation Family History Mother No problems noted. Father No problems noted. Social History Smoking/Tobacco Use Status: Never Smoking risk assessment performed?: Yes Alcohol Intake: never Drug use: Daily Substance use type: marijuana Counseling given: No Details: Smoked marijuana yesterday. Household members: significant other and other Details: BF has his son living with pt and her son Housing: house Number of Children: 3 number of grandchildren: 0 current occupation: unemployed Current gender identity: female What type of physical activity do you participate in: walking and independent ambulation Duration: 15-30 minutes/day Frequency: 3-4 times per week Seatbelt use: always Do you feel safe at home: Yes Do you feel safe in your relationship?: Yes Female Reproductive History Menstrual Duration of menses: 3-5 days control method: none History History 3 Para 3 Hx # Term Pregnancies Multiple births Hx # Pregnancies Ectopic pregnancies AB induced Hx Number of Living Children AB spontaneous Meds Allergies and Home Medications Allergies Allergy/AdvReac Type Severity Reaction Status Date / Time streptokinase Allergy Severe SOB; Verified 03/29/24 10:39 [place];ANAPHALYSIS Home Medications ?Medication ?Instructions ?Recorded ?Confirmed ?Type multivit,Ca,ebra-GQ-zpsfhupx-lutn 1 tab PO DAILY 06/08/12 03/29/24 History 18 mg-500 mcg-300 mcg-250 mcg tablet (Complete Multi) naloxone 4 mg/actuation nasal 1 spray intranasal Q2-3M PRN 12/14/19 03/29/24 Rx spray (Narcan) opioid overdose #2 ea clonazepam 0.5 mg tablet (Klonopin) 0.5 mg PO TID PRN anxiety #84 02/29/24 03/29/24 Rx tab-caps clotrimazole-betamethasone 1 1 applic topical .COMPLEX #15 grams 03/23/24 03/29/24 Rx %-0.05 % topical cream valacyclovir 500 mg tablet 500 mg PO BID #10 tabs 03/23/24 03/29/24 Rx warfarin 5 mg tablet 5 mg PO DAILY #60 tabs 03/23/24 03/28/24 Rx Exam Const General: cooperative, comfortable and no acute distress Resp Effort & Inspection: normal respiratory effort Auscultation: clear to auscultation bilaterally Cardio Rate: regular rate Rhythm: regular rhythm Results Labs Labs: Laboratory Results - last 24 hr 03/29/24 10:45 PT 20.9 H INR 2.2 H Last Vital Signs Temp 36.2 C L 03/29/24 10:49 Pulse 85 03/29/24 10:49 Resp 20 03/29/24 10:49 Pulse Ox 99 03/29/24 10:49
--- NOTE | 2024-03-29 12:34 | PDOC.DSDIS_ITS ---
Discharge Plan Disposition Patient Disposition: Home Condition: Good Discharge Details Reason For Visit: Left knee DJD Attending Provider: Syed Lee Primary Care Provider: Ottoniel Gaines Home Meds and New Rx's Prescriptions: New celecoxib [Celebrex] 200 mg capsule 200 mg PO BID PRNQty: 60 0RF Rx Instructions: Take one tablet twice daily for pain and inflammation acetaminophen 500 mg tablet 1,000 mg PO Q8H PRN Qty: 90 0RF Rx Instructions: Take two tablets up to every 8 hours as needed for pain pantoprazole 40 mg tablet,delayed release (DR/EC) 40 mg PO DAILY Qty: 14 0RF dexamethasone 4 mg tablet 4 mg PO DAILY Qty: 2 0RF Rx Instructions: Take one tablet once daily for two days docusate sodium [Colace] 100 mg capsule 100 mg PO BID Qty: 30 0RF gabapentin 300 mg capsule 300 mg PO QHS Qty: 14 0RF Rx Instructions: Take one tablet at bedtime oxycodone 10 mg tablet 10 mg PO Q4H PRNQty: 18 0RF Rx Instructions: Take one tablet up to every 4 hours as needed for severe postoperative pain Continued naloxone [Narcan] 4 mg/actuation spray,non-aerosol 1 spray intranasal Q2-3M PRN (Reason: opioid overdose) Qty: 2 4RF Patient Comments: does not have anymore Rx Instructions: spray 1 dose into ONE nostril; alternate nostrils w each dose until help arrives clotrimazole-betamethasone 1-0.05 % cream 1 applic topical .COMPLEX Qty: 15 0RF Rx Instructions: 1 applic topically to vulva and around urethra; valacyclovir 500 mg tablet 500 mg PO BID Qty: 10 3RF Patient Comments: does not have anymore warfarin 5 mg tablet 5 mg PO DAILY Qty: 60 5RF Protocol: Dose Management Condition: Thursday (Week One) Dose/Route: 7.5 mg Instruction: 1.5 x 5 mg tablets Condition: Thursday Dose/Route: 7.5 mg Instruction: 1.5 x 5 mg tablets Condition: Thursday Dose/Route: 7.5 mg Instruction: 1.5 x 5 mg tablets Condition: Thursday Dose/Route: 0 mg Instruction: 0 tablets Condition: Dose/Route: 7.5 mg Instruction: 1.5 x 5 mg tablets Condition: Thursday Dose/Route: 7.5 mg Instruction: 1.5 x 5 mg tablets Condition: Thursday Dose/Route: 7.5 mg Instruction: 1.5 x 5 mg tablets Condition: Thursday (Week Two) Dose/Route: 7.5 mg Instruction: 1.5 x 5 mg tablets Condition: Thursday Dose/Route: 0 mg Instruction: 0 tablets Condition: Thursday Dose/Route: 0 mg Instruction: 0 tablets Condition: Thursday Dose/Route: 5 mg Instruction: 1 x 5 mg tablet Condition: Dose/Route: 7.5 mg Instruction: 1.5 x 5 mg tablets Condition: Thursday Dose/Route: 7.5 mg Instruction: 1.5 x 5 mg tablets Condition: Thursday Dose/Route: 7.5 mg Instruction: 1.5 x 5 mg tablets Protocol Text: Adjustment Start Date: Thursday03/23/24 INR Value: 3.6 INR Date: 03/23/24 Recheck Date: 04/04/24 Rx Instructions: 7.5mg daily is what pt reports taking clonazepam [Klonopin] 0.5 mg tablet 0.5 mg PO TID PRN (Reason: anxiety) Qty: 84 2RF Complete Multi 1 EACH tablet 1 tab PO DAILY Discharge Instructions Additional Instructions: Total Knee Discharge Instructions Activity: The most important activity is to walk and to work on gentle motion (both flexion and extension). You should try to take short walks a few times a day. It is important that when resting you work on keeping the knee straight. Avoid putting a pillow behind the knee as this will encourage flexion. Work on range of motion exercises as provided by Physical Therapy. - Start outpatient physical therapy within 2 weeks. - You should wear the FEDERICO hose on both legs for 2 weeks. You may remove these at night. You may also use any compression sock in place of the FEDERICO hose. - Utilize [employer] to review exercises, see videos on exercises and obtain basic information pertaining to your surgery and your recovery. Dressing: Remove the Jeremy wrap by 2 days after your surgery and put on the FEDERICO stocking given to you from the hospital. Keep the surgical dressing (underneath the JEREMY wrap) in place for at least one week. After the first week it may be removed and replaced with light gauze and tape or nothing. The wound and dressing may get wet after 3 days but avoid soaking the dressing or otherwise it will need to be changed. Many people prefer covering the dressing with cling wrap (saran wrap) to minimize it from getting soaked. If it gets wet, just pat dry. If it starts to peel off then it will need to be changed. Medications: - You should take Tylenol and anti-inflammatory Celebrex as your primary pain control medications. If the Celebrex is too expensive or not covered, please call the office for another alternative (Advil/Ibuprofen or Naproxen/Aleve) - You have been prescribed a stronger pain medication Oxycodone for breakthrough pain, take as needed as prescribed. - You have also been prescribed a stomach acid reduction agent Pantoprozole to help reduce stomach acid and reflux. - You have been prescribed Gabapentin to take at night for restlessness and nerve pain. - You resume taking your baseline warfarin tomorrow for DVT prevention. - You have also been prescribed Decadron to take to control post-operative nausea and pain. You will start this tomorrow. - If you have constipation you should take Colace (which has been prescribed) or Miralax (which is available [id number]). It takes most people 3-4 days to have a bowel movement. Follow-up: 2 weeks If you have any acute concerns or questions, please do not hesitate to contact the office at [phone]. You may contact Dr. Lee with any questions after hours through the hospital at [phone] or on his cell phone at [phone]. Referrals: Syed Lee MD [ [facility] STAFF PHYSICIAN] - Equipment/Supplies: Walker Activity:: Elevate Remove Dressings/Wound Care:: Do Not Remove Shower/Bathe:: Cover Diet:: As Tolerated DS: Diagnosis Discharge Diagnosis (1) Arthritis of left knee: Status: Acute
--- NOTE | 2024-03-29 12:48 | W.ANESVAS ---
Midline Placement Date Performed: 03/29/24 Procedure Time: 12:15 Requesting Provider: Chad Hernandez Procedure Location: Day Surgery Unit Sedation Given (Indicate Dose Given): No Sedation given Patient Mental Status: Awake Sterility: Hand Hygiene, Surgical Cap, Surgical Mask, Sterile Gloves and Chlorhexidine Laterality: Right Insertion Site: Basilic Midline Device: PowerGlide Pro 20G Catheter Length: 10 cm Midline Procedure Procedure: 1% Lidocaine to skin and subcutaneous tissue with 25g needle and Catheter placed without resistance Dressing: Tegaderm Applied and Statlock Applied Blood Return: Present Flushes: Easily Ultrasound: Sterile probe cover and gel used (saved with block US. ) Ultrasound Image Saved?: Yes Number of Attempts (See previous attempts in note section): 1 Procedure Tolerated: No Complications Procedure Outcome: Successful Procedure Comment:: Has been stuck be DSU already a few times. Minimal visible veins noted. Scanned both arms with US with minimal small caliber veins. midline placed. Performed By: Chad Hernandez
--- NOTE | 2024-03-29 12:50 | W.ANESNERVE ---
Nerve Block Single Injection Procedure Date and Time Date Performed: 03/29/24 Procedure Start: 12:33 Location Where Procedure Performed Procedure Location: Day Surgery Unit Reason Performed: Postoperative Analgesia Requesting Provider: Syed Lee Timeout Performed Timeout Performed: Yes Monitoring Used ECG, Blood Pressure and SpO2 Sterility Sterility: Hand Hygiene, Surgical Cap, Surgical Mask, Sterile Gloves and Chlorhexidine Sedation Given During Procedure Sedation Given (Indicate Dose Given): Versed IV Dose:: 2 mg Patient Mental Status Patient Mental Status: Sedate with meaningful communication Nerve Block 1st Nerve Block: Laterality: Left Block Type: Adductor Canal Ultrasound Image Saved?: Yes Needle / Catheter Used: 100mm SonoPlex II Local Anesthetic Bolus (Indicate Dose Given): Lidocaine used for local infiltration of skin, Injected in 3-5ml increments after negative blood aspiration and Bupivacaine 0.25% Dose:: 10 mL Additives (Indicate Dose Given): None Ultrasound: Sterile probe cover and gel used Nerve Stimulator: Supplement to Ultrasound use and No twitch or parasthesia noted < 0.5 mA Paresthesia: None Procedure Tolerated: No Complications Procedure Outcome: Successful Performed By: Chad Hernandez
[2024-03-29] MEDS: ceFAZolin 2 GM/50 ML BAG IVPB (13:10)
[2024-03-29] MEDS: TRANEXAMIC ACID/SOD. CHL. 1,000 MG/100 ML BAG 600 MG IVPB (13:15)
--- NOTE | 2024-03-29 15:39 | W.PM.OP ---
Operative Note Operative Note PRE-OP DIAGNOSIS: Left Post-Traumatic Knee Osteoarthritis POST-OP DIAGNOSIS: same PROCEDURE: Left Total Knee Replacement with Intraoperative Navigation SURGEON: Syed Lee EXPORT TRAFFIC DEPARTMENT MANAGER: Tessa Wang ANESTHESIA TYPE: General LMA/ETT Refer to Anesthesia Record ESTIMATED BLOOD LOSS: 300 PATHOLOGY: none sent TOURNIQUET TIME: 0 COMPLICATIONS: None Patient was transported to: PACU Patient's condition: stable Implants: 1. Depuy Attune Cementless Cruciate Retaining Femoral Component, Size 6 Narrow 2. Depuy Attune Cementless Fixed Bearing Tibial Component, Size 4 3. Depuy Attune 6x8mm CR/FB Poly 4. Depuy Attune Patellar Component, Size 35 Indications: I have seen Andreia in clinic for symptoms of LEFT knee arthritis, confirmed with radiographic findings. Andreia has exhausted nonoperative methods and was having significant limitations in daily function and desired better function and less pain. I discussed the technical details of a knee replacement. I explained the risks of the procedure to include, but not limited to, bleeding, infection, pain, stiffness, fracture, damage to nerves and vessels, damage to muscles and tendons, loosening, need for repeat procedure, blood clot and cardiopulmonary demise. Unfortunate, following the regimen from her PCP, she still had an elevated INR of 2.2. However, given her clot history and the low risk of significant bleeding I did offer to proceed with the surgery with potential for increased blood loss and potential hematoma afterwards. Despite these risks, Andreia elected to proceed. Findings: There was significant signs of arthritis throughout the knee involving all 3 compartments. There was notable abnormality of the soft tissue within the knee with significant scarring of the MCL repair around the medial tibia but anterior to his typical slightly more posterior location. There also was disruption of the normal capsule laterally although intact lateral collateral ligament. Procedure Description: Andreia was greeted in the preoperative holding area where the correct side was identified and marked. The consent was reviewed with the patient and signed. The history and physical was updated. All questions were answered. Preoperative mediacations were administered: Acetaminophen 1000mg, Celebrex 400mg, and Gabapentin 300mg. An adductor canal block was then administered by the anesthesia team in the DSU. Andreia was taken back to the operating room. A general anesthetic was then administered. The patient was placed into the supine position on the operating room table. Posts were placed for positioning during the procedure. All bony prominences were well padded. Prophylactic antibiotics in the form of Cefazolin were administered. 1g of Tranxemic Acid was given intravenously within 30 minutes of incision. The left leg was then prepped with Chloraprep and draped in a standard fashion with impervious stockinette. A second prep with Chloraprep was performed prior to application of Iodine impregnated skin protection. A timeout to confirm correct identity, side and site, procedure, allergies, anesthesia, and medical concerns was performed. With the knee in some flexion, a midline incision was made overlying the knee. Full thickness skin flaps were raised once the extensor mechanism was encountered. These were raised medially and laterally. Any bleeding was controlled with electrocautery. Once the extensor mechanism was fully exposed, a medial parapatellar arthrotomy was performed in a flexed position. All bleeding from the arthrotomy and the geniculate arteries was coagulated. A medial subperiosteal peel was performed with electrocautery to the midcoronal plane. The fat pad was removed while keeping the patellar tendon protected. The anterior distal femur synovium was removed for later visualization. The ACL and PCL were resected although they were quite thin and partially torn. There was posterior capsular thickening at their insertion which was also released. Then, the anterior horn of the lateral meniscus was transected. The knee was then flexed with the patella translated. There is notable scarring around the patellar ligament yet no significant Synovium Seen in the Lateral Space about the Knee. Large osteophytes from the tibia were removed. Large osteophytes from the femur were removed. A single starting pin was then placed 1cm anterior to the PCL insertion and the notch in the direction of the femoral head. The OrthoAlign device was applied over the pin. It was oriented to be in line with the epicondylar axis and the trochlear groove. It was then pinned into place. The navigation computer was then turned on and calibrated. The distal femur cut was set at 0 degrees varus and 3.5 degrees flexion. The distal femur cutting guide then was positioned for a 9mm cut. The distal femur was cut with an oscillating saw while protecting the soft tissues. The tibia was then addressed. The OrthoAlign device was placed over the tibial tubercle and medial tibia and secured into position. Once again, OrthoAlign was calibrated and then set for a 0.5 degree varus cut and 5 degrees of posterior slope. With this locked into position, the cut thickness stylus was used to assess cut thickness. A fairly balanced cut was made taken off approximately 6 to 7 mm medially and 7 to 8 mm laterally from the low spot in the posterior aspect of the lateral compartment. This was then held in position and pinned into place with 2 additional pins and a cross pin for stability. The medial and lateral collateral ligaments were protected and the cut was performed. With this completed, it was assessed and noted to be of appropriate dimensions. The guide and OrthoAlign was removed. A spacer block was inserted and the knee was brought into extension to ensure enough space was present. The Orthoalign gap balancing device was then placed in extension. This was used to ensure that the ligaments were properly balanced with up to 2 to 3 mm laxity laterally compared medially. The extension gap was measured as 19mm. The knee was then brought into 90 degrees of flexion and the ligament commodity broker was once again placed. Under the same amount of force the flexion gap was measured. The Attune specific jig was placed and the flexion gap was made to match the extension gap. This did place significant mount of external rotation on the component although it did balance the flexion gap. The femur was then sized as a size 6 narrow. The 4-in-1 cutting guide was the placed. An phuc wing was used to confirm appropriate position of the anterior cut to avoid notching. This cutting guide was ensured to be flush on the cut surface and then pinned into place with headed pins. While protecting the soft tissues, quad tendon, and collateral ligaments, the anterior and posterior cuts were performed with a saw. The central two pins were removed and the posterior and anterior chamfers were cut next. The notch-cutting guide was placed. This was pinned to lateralize the femoral component as much as possible while keeping it flush on the cut surface. This was then pinned into position. A saw was used to make the notch cut. A rasp smoothed the cut surfaces. The medial and lateral menisci were removed. A trial femoral component was then inserted, impacted down to the cut surfaces, and the lug holes were drilled. A provisional trial tibial component was placed and the knee was brought through range of motion. The polyethylene was trialed until there was good flexion and extension with excellent stability to the medial and lateral collaterals. The patella was tracking without thumbs. A size 8mm polyethylene component provided the best range of motion and stability with less than 2mm gapping with medial and lateral stress and full extension without significant hyperextension. The tibial cut surface was fully exposed. The tibia was then sized as a 4. The tibia had been previously marked during trialing to correspond to the center of the tibial component to help with rotation. The trial was aligned to this fermín, approximately rotated to the medial 1/3rd of the tibial tubercle. The trial was pinned into place. The tibia was prepared with a reamer and a keel punch and lug holes. The knee was then brought into extension and the patella was measured as 24mm. Using the patellar clamp and cut guide, this was resected to a flat surface with at least 13mm of thickness remaining. The size 35 patella fit the best. This was oriented and then clamped into position. The lugs were drilled. The trial components were removed. The final components were opened on the back table. The periosteal and capsular tissues, especially posteriorly, around the knee were then systematically injected with a periarticular cocktail consisting of 246mg of Ropivacaine, 0.5mg of Epinephrine, 0.08mg of Clonidine, and 30mg of Ketorolac, diluted to 100cc. On the back table, with the implants opened, the cement was mixed. One batch of high viscosity cement was prepared with vacuum assistance. After the cement was ready a small amount was placed on the cut surface of the patella and the patellar button was clamped into position and held. While the cement was hardening, the cementless knee components were placed. Starting with the tibial component, the tibia was subluxed anteriorly and the lug holes of the component were lined up. The tibia was then impacted with an impactor and mallet until the tibial component was in contact with the tibia. Then, the femoral component was inserted. The lug holes were aligned and the component was impacted into position. The final polyethylene component was inserted. The knee was irrigated with Surgiphor Betadine solution. This was allowed to sit in the knee for 3 minutes and then it was thoroughly irrigated out with saline. After the cement had finally cured, approximately 15min, the clamp was removed from the patella and the knee was taken through range of motion. The patella was tracking with a no-thumbs technique. The capsule was then reapproximated with a No. 1 Vicryl at multiple locations. The capsule was finally closed with a No. 2 Stratafix, barbed suture. Deep tissues were then reapproximated with 0 Vicryl and 2-0 Vicryl. The skin was closed with a running 3-0 Monocryl in a subcuticular fashion. This was reinforced with skin glue. A Mepilex silver dressing was applied along with a [id number] OMAR wrap. A CryoCuff was applied. Andreia was transferred to the hospital bed without difficulty an suffering no apparent complication. Andreia has a good prognosis. Physical therapy will start today and without restrictions, weight-bearing as tolerated. Coumadin will be used for DVT prophylaxis as per her baseline with clotting disorder. Date of Procedure: 03/29/24
[2024-03-29] MEDS: fentaNYL 100 MCG/2 ML VIAL IVP ×2 (15:42→16:00)
[2024-03-29] MEDS: HYDROmorphone 1 MG/ML SYR IVP ×4 (15:46→16:39)
--- NOTE | 2024-03-29 15:51 | W.ANESPOSTOP ---
Postoperative Evaluation Date, Time and Location Date Performed: 03/29/24 Time Performed: 15:51 Patient Location: PACU Vital Signs Most Recent Imported Vital Signs: Most Recent Vital Signs Temp Pulse Resp BP Pulse Ox 36.5 C 80 15 125/69 99 03/29/24 12:21 03/29/24 12:21 03/29/24 12:21 03/29/24 12:21 03/29/24 12:21 Assessment Mental Status: Arousable with meaningful communication Airway and Respiratory Function: Patent airway with normal (patient baseline) respiratory exam Cardiovascular Function: Hemodynamically Stable Hydration Status: Adequately Hydrated Nausea & Vomiting: No Nausea or Vomiting Pain: Pain is Moderate or Severe Postoperative Pain Management: Pain being addressed with medication and Ongoing pain, patient will be managed as an inpatient Peripheral Nerve Block: Regional nerve block not resolved at time of post operative discharge
--- NOTE | 2024-03-29 17:20 | W.PC.ACHO ---
Registration Status: Primary Language: Preferred Language: Medical / Surgical History (Last Reviewed 03/29/24 @ 12:25 by Syed Lee MD) UTI (urinary tract infection) Dog bite Vaginal candidiasis Iron deficiency anemia Perimenopausal menorrhagia Pulmonary embolism (Last Reviewed 03/29/24 @ 12:25 by Syed Lee MD) S/P endometrial ablation S/P left knee surgery (09/30/12) Most Recent Vital Signs Temperature 36.6 C 03/29/24 17:03 Temperature Source Temporal Artery Scan 03/29/24 17:03 Pulse 107 H 03/29/24 17:03 Pulse Rhythm Regular 03/29/24 10:49 Pulse 87 03/29/24 16:45 Respiratory Rate 22 03/29/24 17:03 Blood Pressure 137/95 H 03/29/24 17:03 Blood Pressure Mean 114 03/29/24 16:45 Pulse Oximetry 97 03/29/24 17:03 Respiratory End-tidal CO2 34 03/29/24 16:41 Oxygen Delivery Method Room Air 03/29/24 17:03 Oxygen Flow Rate 0 03/29/24 17:03 Pain Level 10 03/29/24 17:03 Comment Notifying RN of vitals 03/29/24 17:03 Allergies streptokinase Allergy (Severe, Verified 03/29/24 10:39) SOB; TINGLING;ANAPHALYSIS Active Medications Generic Name Dose Route Start Last Admin Trade Name Freq PRN Reason Stop Dose Admin Acetaminophen 1,000 mg 03/29/24 06:00 03/29/24 11:21 Acetaminophen 500 Mg Tab PO 03/29/24 23:59 1,000 mg PREOP PA Administration Celecoxib 400 mg 03/29/24 06:00 03/29/24 11:21 Celecoxib 200 Mg Cap PO 03/29/24 23:59 400 mg PREOP PA Administration Gabapentin 300 mg 03/29/24 06:00 03/29/24 11:21 Gabapentin 300 Mg Cap PO 03/29/24 23:59 300 mg PREOP PA Administration Ringer's Solution 1,000 mls @ 0 mls/hr 03/29/24 06:00 03/29/24 16:45 IV 03/29/24 23:59 80 mls/hr INFUSION PA Infusion Cefazolin Sodium/Dextrose 2 gm in 50 mls @ 100 mls/hr 03/29/24 06:00 03/29/24 13:40 Ancef Duplex IVPB 03/29/24 23:59 Infused PREOP PA Infusion Tranexamic Acid/Sodium Chloride 1,000 mg in 100 mls @ 600 mls/hr 03/29/24 06:00 03/29/24 13:25 IVPB 03/29/24 23:59 Infused PREOP PA Infusion IV IV Catheter Type [Right Peripheral IV Midline] IV Catheter Gauge [Right 20 Midline] Diet Orders Category Date Time Status Regular/Normal [DIET] Nutrition 03/29/24 Dinner Active Diagnostics 03/29/24 Range/Units 10:45 PT 20.9 H (9.1-11.1) sec INR 2.2 H (0.9-1.1) Intake and Output - 24 Hour Total 02/17/24 09:12 thru 03/29/24 16:45 Intake Total 1000 Output Total 300 Balance 700 Weight 100.4 kg Intake: IV 1000 Output: Estimated Blood Loss 300 Other: Emesis Description None Problems (Last Reviewed 03/29/24 @ 12:25 by Syed Lee MD) Arthritis of left knee (Acute) v v v v v v v v v Sending and/or Receiving Nurses: Please use comment section below to note any information pertinent to the patient hand-off not included above. Information / Comments: Patient has 20G RAC w/ LR hanging, patient had LTK arthroplasty, coumadin at home, PT this AM 2.2, Given 100mcg fentanyl in pacu, and 2mg dilauded in pacu for pain, patient more comfortable know than she was, has anxiety and stress, dogs at home, provider will discharge home if patient is very persistant. Report received from: Report recieved from [facility] [employer] at 1705.
[2024-03-29] MEDS: oxyCODONE 5 MG TAB PO ×2 (18:07→21:27)
[2024-03-29] MEDS: ceFAZolin 1 GM/50 ML BAG IVPB (19:04)
[2024-03-29] MEDS: Tranexamic Acid 650 MG TAB 1300 MG PO (20:37)
[2024-03-29] MEDS: Refresh PLUS Eye Drops 0.4ml 1 EACH OU (20:37)
[2024-03-29] MEDS: clonazePAM 0.5 MG TAB PO (23:29)
[2024-03-29] MEDS: HYDROmorphone 2 MG/ML SYR 1 MG IVP (23:29)
[2024-03-30] MEDS: ceFAZolin 1 GM/50 ML BAG IVPB ×2 (02:36→10:41)
[2024-03-30 03:54] VITALS: BP 114/80; PULSE 76; RESP 16; TEMP 36.4; O2SAT 94
[2024-03-30] MEDS: oxyCODONE 5 MG TAB PO ×3 (05:22→15:41)
[2024-03-30 06:41] LABS: INR 1.6 (0.9-1.1); Prothrombin Time 15.7 sec (9.1-11.1)
[2024-03-30 07:56] VITALS: BP 120/79; PULSE 90; RESP 18; TEMP 37; O2SAT 98
[2024-03-30] MEDS: Pantoprazole 40 MG TABCR PO (08:32)
[2024-03-30] MEDS: Dexamethasone 4 MG TAB PO (08:32)
--- NOTE | 2024-03-30 08:34 | IN_ITS ---
PT Notes Visit Reasons: Left knee DJD Physical Therapy Day Surgery Initial Evaluation Date: 03/30/24 Referring Doctor: Dr. Lee PT Orders: PT CONSULT: s/p left TKA Precautions: fall, standard Patient Profile/Admitting Diagnosis: Andreia is a 53-year-old female who suffered a knee dislocation years ago and is now status post multiple ligament reconstruction. She underwent left TKA yesterday, and PT orders received for consultation post op day #1. Complicating factors include factor V Leiden, chronically anticoagulated, with h/o DVT (2019) and PE (1993). Social History/Home Situation: Andreai lives in a multi-level home with a roommate. She has no steps to enter, and plans to remain on first floor upon return home. Normally ambulates without assistive device. Disabled and does not work. Equipment Owned/DME: none Subjective: Andreia states that she had a difficult night. She was able to get up to the chair with nursing this morning, but notes increased pain with walking. She is anxious to return home. Objective: General Observation: Sitting in chair, knees bent to approx 80* in dependent position. No lines. Cryocuff in place to left knee. Mental Status: A&Ox3. Apprehensive about PT. Pain: 8/10 ROM: Right Upper Extremity: WFL Left Upper Extremity: WFL Right Lower Extremity: WFL Left Lower Extremity: Left knee passively allows -10* extension. In weight bearing, initially maintains 45* flexion. With cues, able to work towards -10*, although with significant apprehension. Flexion allows 80* actively. Not assessed passively. Strength: Right Upper Extremity: WFL Left Upper Extremity: WFL Right Lower Extremity: Hip flexion 4+/5. Quads 4+/5. Ankle DF 4+/5. Left Lower Extremity: Able to pump ankle and wiggle toes. Limited quad activation with quad setting, despite verbal and tactile cues. Able to perform SLR with extension lag x5 reps. Sensation: intact to light touch distally Bed Mobility/Transfers: Sit to stand: SBA Stand to sit : SBA Gait: Ambulates 25' x 2 with FWW, SBA. Declines further distances or stairs, stating she will not be walking any farther at home. During ambulation, maintains knee flexion, with weight bearing through forefoot. In static standing, worked on TKE, working heel to floor. Able to rest flat foot to floor eventually, but with continued apprehension and limited carry over to second trial of ambulation. Balance: Static Sitting: normal Dynamic Sitting: good Static Standing: fair Dynamic Standing: fair Special Tests: Mobility Limitations Standardized Measure [facility] AM-PAC 6 clicks Basic Mobility Inpatient Short Form: Raw Score: 21 CMS Score: 29% impairment Informed Consent/Education: Patient instructed in purpose of PT consult. Packet containing [] exercise protocol has been given to patient. Education and training on initial set of exercises that can be done at home have been com pleted with patient. Initial Evaluation (11008) Therapeutic Exercises ([id number]): Instructed in the following activities, and provided handout for home completion. Requires verbal and tactile cues throughout for effective completion, and demonstrates significant apprehension throughout. ankle pumps 10x quad sets 10x glute sets 10x SLR 5x heel slide (instructed, did not complete) standing TKE with UE support to FWW, working toward resting foot flat on the ground, straightening knee, 5x Assessment: Patient presents with clinical signs and symptoms consistent with current/admitt ing diagnoses (left TKA post op day #1) that have resulted to mobility limitations, gait instability, generalized weakness, and impairment of motor control as demonstrated by the following impairment level findings: 1. Decreased strength to left knee major muscle groups 2. Impaired standing balance 3. Limitation of joint range of motion in left knee Impairments are contributing to the following functional limitations: 1. Inability to safely ambulate without assistive device 2. Increase completion time for mobility ADL performance 3. Increased fall risk Patient is assessed as modreate complexity based on the following: History: 53-year-old feamle with impairment level findings, functional limitations, and past medical history as indicated above. Complicating factor of multiple previous knee surgeries, h/o knee instability, factor V Leiden with chronic anticoagulation and h/o DVT and PE. Examination: Demonstrable impairment in strength, balance, and mobility level with underlying impairments and functional limitations as documented above Presentation: evolving Decision Making: moderate complexity Goals: N/A. PT evaluation and 1-2 treatment sessions only for functional mobility training using recommended AD and for HEP instruction. Plan of Care/Treatment Plan: N/A. PT evaluation and 1-2 treatment session only for functional mobility training using recommended AD and for HEP instruction. DISCHARGE RECOMMENDATIONS: Recommend PT TREATMENT CODE/TIME: [id number] (99215, [id number]) Thank you for the opportunity to participate in the care of this patient. Please sign an return this page within 30 days if you agree with the above POC. Thank you! Physician Signature Date Salud Strong, PT, DPT [facility] All Active Problems Left ACL tear (Acute) Arthritis of left knee (Acute) Left knee injury (Acute) Housing instability, currently housed, at risk for homelessness (Acute) Cyst of right breast (Acute) Problem with transportation (Acute) Financial insecurity (Acute) Other social stressor (Acute) living with BF. His grandchildren involved with DCF. Pelvic pressure in female (Acute) Elevated serum creatinine (Acute) DVT (deep venous thrombosis) (Chronic) - leg , while off anticoagulants for bleeding, and Coumadin-goal INR is 2.5-3.5 Chronic kidney disease, stage 3a (Acute) 2020, Cr-1.4 Pulmonary emboli (Chronic) 1993, chronic coumadin, hx of factor 5 Leiden Neuropathic pain (Acute) Restless leg syndrome (Acute) Abdominal pain (Acute) Genital herpes (Acute) Opioid use (Acute) Broke contract with pain clinic. Tested + for MS Prediabetes (Chronic) Hyperlipidemia (Chronic) Chronic low back pain (Chronic) Generalized anxiety disorder (Acute) Osteoarthritis (Chronic) Major depressive disorder (Chronic) Factor V Leiden mutation (Acute) Chronic anticoagulation (Chronic) On Coumadin as of 2021-goal INR is 2.5-3.5 Medical History UTI (urinary tract infection) Dog bite Vaginal candidiasis 11/21/2021. Fluconazole x1 with Lotrimin. 12/04/2021 symptoms recurred. Fluconazole on 150 mg once a week for 3 weeks Iron deficiency anemia Perimenopausal menorrhagia Pulmonary embolism In 1993 Surgical History S/P endometrial ablation 10/10/20. [facility]. S/P left knee surgery (09/30/12) Arthroscopic ligamentous reconstruction of ACL, PCL with menisectomy for dislocation
--- NOTE | 2024-03-30 11:35 | DSE_ITS ---
Date of service: 03/30/24 Time of Service: 09:30 DS: Diagnosis Discharge Diagnosis (1) Arthritis of left knee: Status: Acute Discharge Plan Disposition Patient Disposition: Home W/Home Health Services Condition: Good Discharge Details Reason For Visit: Left knee DJD Admit Date/Time: 03/29/24 12:31 Admit Provider: Syed Lee Attending Provider: Syed Lee Primary Care Provider: Ottoniel Gaines Hospital Course Hospital Course: Patient was admitted to the medical/surgical floor following the procedure. The surgery was tolerated well without any notable medical, surgical, or anesthetic complications. Mobilization began postoperatively. She was voiding spontaneously. Vitals were stable. Physical therapy worked with the patient and was cleared for discharge home. No acute medical issues. Pain was controlled on oral regimen. Home Meds and New Rx's Prescriptions: New celecoxib [Celebrex] 200 mg capsule 200 mg PO BID PRNQty: 60 0RF Rx Instructions: Take one tablet twice daily for pain and inflammation acetaminophen 500 mg tablet 1,000 mg PO Q8H PRN Qty: 90 0RF Rx Instructions: Take two tablets up to every 8 hours as needed for pain pantoprazole 40 mg tablet,delayed release (DR/EC) 40 mg PO DAILY Qty: 14 0RF dexamethasone 4 mg tablet 4 mg PO DAILY Qty: 2 0RF Rx Instructions: Take one tablet once daily for two days docusate sodium [Colace] 100 mg capsule 100 mg PO BID Qty: 30 0RF gabapentin 300 mg capsule 300 mg PO QHS Qty: 14 0RF Rx Instructions: Take one tablet at bedtime oxycodone 10 mg tablet 10 mg PO Q4H PRNQty: 18 0RF Rx Instructions: Take one tablet up to every 4 hours as needed for severe postoperative pain naloxone [Narcan] 4 mg/actuation spray,non-aerosol 4 mg intranasal Q2M PRNQty: 2 0RF Rx Instructions: spray 1 dose into ONE nostril; alternate nostrils w each dose until help arrives Continued naloxone [Narcan] 4 mg/actuation spray,non-aerosol 1 spray intranasal Q2-3M PRN (Reason: opioid overdose) Qty: 2 4RF Patient Comments: does not have anymore Rx Instructions: spray 1 dose into ONE nostril; alternate nostrils w each dose until help arrives clotrimazole-betamethasone 1-0.05 % cream 1 applic topical .COMPLEX Qty: 15 0RF Rx Instructions: 1 applic topically to vulva and around urethra; valacyclovir 500 mg tablet 500 mg PO BID Qty: 10 3RF Patient Comments: does not have anymore warfarin 5 mg tablet 5 mg PO DAILY Qty: 60 5RF Protocol: Dose Management Condition: Thursday (Week One) Dose/Route: 7.5 mg Instruction: 1.5 x 5 mg tablets Condition: Thursday Dose/Route: 7.5 mg Instruction: 1.5 x 5 mg tablets Condition: Thursday Dose/Route: 7.5 mg Instruction: 1.5 x 5 mg tablets Condition: Thursday Dose/Route: 0 mg Instruction: 0 tablets Condition: Dose/Route: 7.5 mg Instruction: 1.5 x 5 mg tablets Condition: Thursday Dose/Route: 7.5 mg Instruction: 1.5 x 5 mg tablets Condition: Thursday Dose/Route: 7.5 mg Instruction: 1.5 x 5 mg tablets Condition: Thursday (Week Two) Dose/Route: 7.5 mg Instruction: 1.5 x 5 mg tablets Condition: Thursday Dose/Route: 0 mg Instruction: 0 tablets Condition: Thursday Dose/Route: 0 mg Instruction: 0 tablets Condition: Thursday Dose/Route: 5 mg Instruction: 1 x 5 mg tablet Condition: Dose/Route: 7.5 mg Instruction: 1.5 x 5 mg tablets Condition: Thursday Dose/Route: 7.5 mg Instruction: 1.5 x 5 mg tablets Condition: Thursday Dose/Route: 7.5 mg Instruction: 1.5 x 5 mg tablets Protocol Text: Adjustment Start Date: Thursday03/23/24 INR Value: 3.6 INR Date: 03/23/24 Recheck Date: 04/04/24 Rx Instructions: 7.5mg daily is what pt reports taking clonazepam [Klonopin] 0.5 mg tablet 0.5 mg PO TID PRN (Reason: anxiety) Qty: 84 2RF Complete Multi 1 EACH tablet 1 tab PO DAILY Discharge Instructions Additional Instructions: Total Knee Discharge Instructions Activity: The most important activity is to walk and to work on gentle motion (both flexion and extension). You should try to take short walks a few times a day. It is important that when resting you work on keeping the knee straight. Avoid putting a pillow behind the knee as this will encourage flexion. Work on range of motion exercises as provided by Physical Therapy. - Start outpatient physical therapy within 2 weeks. - You should wear the FEDERICO hose on both legs for 2 weeks. You may remove these at night. You may also use any compression sock in place of the FEDERICO hose. - Utilize [employer] to review exercises, see videos on exercises and obtain basic information pertaining to your surgery and your recovery. Dressing: Remove the Jeremy wrap by 2 days after your surgery and put on the FEDERICO stocking given to you from the hospital. Keep the surgical dressing (underneath the JEREMY wrap) in place for at least one week. After the first week it may be removed and replaced with light gauze and tape or nothing. The wound and dressing may get wet after 3 days but avoid soaking the dressing or otherwise it will need to be changed. Many people prefer covering the dressing with cling wrap (saran wrap) to minimize it from getting soaked. If it gets wet, just pat dry. If it starts to peel off then it will need to be changed. Medications: - You should take Tylenol and anti-inflammatory Celebrex as your primary pain control medications. If the Celebrex is too expensive or not covered, please call the office for another alternative (Advil/Ibuprofen or Naproxen/Aleve) - You have been prescribed a stronger pain medication Oxycodone for breakthrough pain, take as needed as prescribed. - You have also been prescribed a stomach acid reduction agent Pantoprozole to help reduce stomach acid and reflux. - You have been prescribed Gabapentin to take at night for restlessness and nerve pain. - You resume taking your baseline warfarin, 5mg, for DVT prevention. - You have also been prescribed Decadron to take to control post-operative nausea and pain. You will start this tomorrow. - If you have constipation you should take Colace (which has been prescribed) or Miralax (which is available [id number]). It takes most people 3-4 days to have a bowel movement. Follow-up: 2 weeks If you have any acute concerns or questions, please do not hesitate to contact the office at [phone]. You may contact Dr. Lee with any questions after hours through the hospital at [phone] or on his cell phone at [phone]. 1. Encounter Date and Reason I certify that Andreia Mayer was seen by Syed Lee MD on 03/30/24 and that I had a [id number] encounter with this patient that meets the physician face to face encounter requirements. 2. Clinical Findings Supporting Skilled Need and Homebound Status I certify that home health services are medically necessary, include either intermittent alf and/or physical/speech therapy, and that this patient is homebound in that absences from the home require considerable and taxing effort and are infrequent or of short duration, or are attributable to the need to receive medical care. [X] (a) Attached documentation from encounter provides clinical findings supporting skilled need and homebound status (including what assistance patient requires to leave the home). The encounter with the patient was in whole, or in part, for the following medical condition, which is the primary reason for home health care: Left knee DJD Correction: Physical Therapy: Andreia will benefit from home health physical therapy and occupational services. 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 She has no formal restrictions. She may weight-bear as tolerated with assistive devices. I encouraged her to work diligently with in-house ambulation and quad strengthening followed by gentle increase in motion. Speech Therapy: Homebound: Due to significant weakness and pain Andreia is unable to leave her home unassisted. 3. Certification and Authentication I certify that I composed the above information based on my clinical judgement relating to this patient's medical condition and, if applicable, clinical findings communicated to me by the NPP or inpatient physician who performed the Home Health Referral. All further orders will be obtained through Dr. Lee Referrals: Syed Lee MD [ [facility] STAFF PHYSICIAN] - Equipment/Supplies: Walker Activity:: Elevate Remove Dressings/Wound Care:: Do Not Remove Shower/Bathe:: Cover Activity:: Activity as Tolerated Equipment/Supplies:: Walker Diet:: As Tolerated DS: Summary Time Spent with Patient providing and/or coordinating discharge services: Less than 30 minutes Status at Discharge Functional status at discharge: uses cane/walker Overall status at discharge: patient is progressing back to baseline Mental Status: mental status grossly normal Speech and Movement: speech and movement normal Mood: congruent mood Affect: normal affect Quality:SDOH Health Related Social Needs: Health related social needs inadequate housing (Z59.1) , housing instability, housed, with risk of homelessness (Z59.811), transportation insecurity (Z59.82), problems related to housing/economic circumstances (Z59.89), feeling lonely/isolated (Z60.8) Health related social needs details None Exam Narrative Exam Narrative: Sitting up in the chair. No acute distress. Alert and orient x 3. Left lower extremity dressings clean dry and intact. She is resting in about 5 degrees of extension. She is active ankle dorsiflexion, plantarflexion. Sensation intact to light touch over the deep and superficial peroneal nerve and tibial nerve. Psych Mental Status: mental status grossly normal Speech and Movement: speech and movement normal Mood: congruent mood Affect: normal affect DS: Data Vitals/I&O Vitals and I&O: Vital Signs Temperature 37.0 C 03/30/24 07:56 Temperature Source Temporal Artery Scan 03/30/24 07:56 Pulse 90 03/30/24 07:56 Pulse Rhythm Regular 03/29/24 10:49 Pulse 87 03/29/24 16:45 Respiratory Rate 18 03/30/24 07:56 Blood Pressure 120/79 03/30/24 07:56 Blood Pressure Mean 114 03/29/24 16:45 Pulse Oximetry 98 03/30/24 07:56 Respiratory End-tidal CO2 34 03/29/24 16:41 Oxygen Delivery Method Room Air 03/30/24 07:56 Oxygen Flow Rate 0 03/30/24 07:56 Pain Level 7 03/30/24 10:41 Comment Notifying RN of vitals 03/29/24 17:03 Intake & Output 03/29/24 03/29/24 03/30/24 11:59 23:59 11:59 Intake Total 2078.667 / 2078.667 280 / 280 Output Total 1100 / 1100 400 / 400 Balance 978.667 / 978.667 -120 / -120 Weight 100.4 kg Intake: IV 1418.667 / 1418.667 60 / 60 Oral 660 / 660 220 / 220 Output: Urine 800 / 800 400 / 400 Estimated Blood Loss 300 / 300 Other: Urine Color Yellow Urine Appearance Clear Clear Emesis Description None Data Completed and Pending Labs on day of discharge: Labs from last 24 hours 03/30/24 06:14 PT 15.7 H INR 1.6 H PFSH All Active Problems Left ACL tear (Acute) Arthritis of left knee (Acute) Left knee injury (Acute) Housing instability, currently housed, at risk for homelessness (Acute) Cyst of right breast (Acute) Problem with transportation (Acute) Financial insecurity (Acute) Other social stressor (Acute) living with BF. His grandchildren involved with DCF. Pelvic pressure in female (Acute) Elevated serum creatinine (Acute) DVT (deep venous thrombosis) (Chronic) - leg , while off anticoagulants for bleeding, and Coumadin-goal INR is 2.5-3.5 Chronic kidney disease, stage 3a (Acute) 2020, Cr-1.4 Pulmonary emboli (Chronic) 1993, chronic coumadin, hx of factor 5 Leiden Neuropathic pain (Acute) Restless leg syndrome (Acute) Abdominal pain (Acute) Genital herpes (Acute) Opioid use (Acute) Broke contract with pain clinic. Tested + for MS Prediabetes (Chronic) Hyperlipidemia (Chronic) Chronic low back pain (Chronic) Generalized anxiety disorder (Acute) Osteoarthritis (Chronic) Major depressive disorder (Chronic) Factor V Leiden mutation (Acute) Chronic anticoagulation (Chronic) On Coumadin as of 2021-goal INR is 2.5-3.5 Medical History UTI (urinary tract infection) Dog bite Vaginal candidiasis 11/21/2021. Fluconazole x1 with Lotrimin. 12/04/2021 symptoms recurred. Fluconazole on 150 mg once a week for 3 weeks Iron deficiency anemia Perimenopausal menorrhagia Pulmonary embolism In 1993 Surgical History S/P endometrial ablation 10/10/20. Novasure. S/P left knee surgery (09/30/12) Arthroscopic ligamentous reconstruction of ACL, PCL with menisectomy for dislocation Family History Mother No problems noted. Father No problems noted. Social History Smoking/Tobacco Use Status: Never Smoking risk assessment performed?: Yes Alcohol Intake: never Drug use: Daily Substance use type: marijuana Counseling given: No Details: Smoked marijuana yesterday. Household members: significant other and other Details: BF has his son living with pt and her son Housing: house Number of Children: 3 number of grandchildren: 0 current occupation: unemployed Current gender identity: female What type of physical activity do you participate in: walking and independent ambulation Duration: 15-30 minutes/day Frequency: 3-4 times per week Seatbelt use: always Do you feel safe at home: Yes Do you feel safe in your relationship?: Yes Female Reproductive History Menstrual Duration of menses: 3-5 days control method: none History History 3 Para 3 Hx # Term Pregnancies Multiple births Hx # Pregnancies Ectopic pregnancies AB induced Hx Number of Living Children AB spontaneous Time Spent with Patient Time Spent with Patient: <45 minutes Time was spent: preparing to see the patient(eg.review tests), obtaining and/or reviewing separately otained hiistory and referring, communicating with other health healthcare prof
[2024-03-30 12:20] VITALS: BP 119/85; PULSE 95; RESP 18; TEMP 37.3; O2SAT 97
--- NOTE | 2024-03-30 14:29 | PDOC.CMIN ---
Date of service: 03/30/24 Time of Service: 11:00 Care Management Initial Assmt Initial Assessment Reason for Hospitalization: Left total knee replacement Functional Status/Living Situation Patient Presentation: Andreia was sitting up in the bedside chair, with legs elevated, when CM met with her. She had already been up and walking with PT and is eager to go home later today. Andreia has had a long history of trouble with that knee, and is really hopeful that this replacement will alleviate her pain and she will be able to become more active. Town of Residence: [place] Resides with: Other (has a roommate) Significant Other/Family: Out of area Employment Status: Disabled Instrumental Activities of Daily Living (ADLs): Independent (will require some help while she is recovering, but generally is independent) Medications Medication Management: No Issues/Barriers identified Physical Functioning/Mobility Assistive Device: Baseline independent. She is going home with a FWW and will have HH PT while she recovers. Advance Directives Advance Directives: Do you have an Advance Directive: N 09/08/22 12:43 AD On File at [facility]: N 09/08/22 12:43 Date Asked 03/29/24 03/25/24 12:05 AD Date Reviewed COLST On File at [facility] COLST Date Scanned Code Status Resuscitation Status Full Code Insurance Coverage/Financial Issues Insurance: [facility] Care Team Visit Care Team Role Provider Type Ottoniel Gaines NP Primary Care Provider NURSE PRACTITIONER InPatient Ricci Doss Other Providers OTHER Syed Lee MD Admit Provider [facility] STAFF PHYSICIAN Attending Provider Discharge Potential Discharge Needs: PCP F/U Appt and Surgical F/U Appt (Andreia has a PCP appt scheduled for 04/27, and a f/u with Dr. Lee on 04/11.) Anticipated Barriers to Discharge: None Identified Patient/Family Education Needs: Review discharge instructions, discuss Ask Me Three Transportation: Private vehicle Plan: Andreia will be discharged home later today with new orders for HH PT/OT through [place]. CM has contacted the [facility] to inform them of her planned admission to them. Her paperwork will be sent when she is discharged. Andreia will transport in a private vehicle. Andreia will f/u with Dr. Lee on 04/11 and she will f/u with her PCP on 04/27. [facility] All Active Problems Left ACL tear (Acute) Arthritis of left knee (Acute) Left knee injury (Acute) Housing instability, currently housed, at risk for homelessness (Acute) Cyst of right breast (Acute) Problem with transportation (Acute) Financial insecurity (Acute) Other social stressor (Acute) living with BF. His grandchildren involved with DCF. Pelvic pressure in female (Acute) Elevated serum creatinine (Acute) DVT (deep venous thrombosis) (Chronic) - leg , while off anticoagulants for bleeding, and Coumadin-goal INR is 2.5-3.5 Chronic kidney disease, stage 3a (Acute) 2020, Cr-1.4 Pulmonary emboli (Chronic) 1993, chronic coumadin, hx of factor 5 Leiden Neuropathic pain (Acute) Restless leg syndrome (Acute) Abdominal pain (Acute) Genital herpes (Acute) Opioid use (Acute) Broke contract with pain clinic. Tested + for MS Prediabetes (Chronic) Hyperlipidemia (Chronic) Chronic low back pain (Chronic) Generalized anxiety disorder (Acute) Osteoarthritis (Chronic) Major depressive disorder (Chronic) Factor V Leiden mutation (Acute) Chronic anticoagulation (Chronic) On Coumadin as of 2021-goal INR is 2.5-3.5 Medical History UTI (urinary tract infection) Dog bite Vaginal candidiasis 11/21/2021. Fluconazole x1 with Lotrimin. 12/04/2021 symptoms recurred. Fluconazole on 150 mg once a week for 3 weeks Iron deficiency anemia Perimenopausal menorrhagia Pulmonary embolism In 1993 Surgical History S/P endometrial ablation 10/10/20. Novasure. S/P left knee surgery (09/30/12) Arthroscopic ligamentous reconstruction of ACL, PCL with menisectomy for dislocation Family History Mother No problems noted. Father No problems noted. Social History Smoking/Tobacco Use Status: Never Smoking risk assessment performed?: Yes Alcohol Intake: never Drug use: Daily Substance use type: marijuana Counseling given: No Details: Smoked marijuana yesterday. Household members: significant other and other Details: ESTEPHANIE has his son living with pt and her son Housing: house Number of Children: 3 number of grandchildren: 0 current occupation: unemployed Current gender identity: female What type of physical activity do you participate in: walking and independent ambulation Duration: 15-30 minutes/day Frequency: 3-4 times per week Seatbelt use: always Do you feel safe at home: Yes Do you feel safe in your relationship?: Yes Female Reproductive History Menstrual Duration of menses: 3-5 days control method: none History History 3 Para 3 Hx # Term Pregnancies Multiple births Hx # Pregnancies Ectopic pregnancies AB induced Hx Number of Living Children AB spontaneous Readmission Within the Past 30 Days Yes or No: No Anticipated HH Services Anticipated HH Services at [facility]charge [facility] Services Needed (PT/OT).
[2024-03-30 14:34] VITALS: BP 117/63; PULSE 90; RESP 18; TEMP 36.6; O2SAT 99
--- NOTE | 2024-03-30 14:44 | PT.INTREAT ---
PT Notes Visit Reasons: Left knee DJD Pt refused her session today stating that she did not get much sleep last night and she knows what she needs to do when she gets home this afternoon.
--- NOTE | 2024-03-30 15:45 | CHAPLAIN ---
Andreia was in a chair with her legs elevated after having knee surgery yesterday. She said the site is painful but she's hoping after her recovery she have less pain in that knee and be able be more active. She lives in [place] but said she prefers coming to [facility] for care.
== END 2024-03-30 17:44 | disposition home health service (06) ==
LOC: SUR 12:34 → MS 16:55
PROVIDERS: Nurse Anesthetist, Certified Registered; Admitting Provider Student in an Organized Health Care Education/Training Program; PCP Nurse Practitioner Family; Visit Provider Student in an Organized Health Care Education/Training Program
PROC: (CPT 27447; principal; 2024-03-29 12:30)
DX: M17.12 Unilateral primary osteoarthritis, left knee (principal); G89.18 Other acute postprocedural pain; M25.562 Pain in left knee; Z59.811 Housing instability, housed, with risk of homelessness; Z59.86 Financial insecurity; N18.31 Chronic kidney disease, stage 3a; G25.81 Restless legs syndrome; R73.03 Prediabetes; E78.5 Hyperlipidemia, unspecified; G89.29 Other chronic pain; F41.1 Generalized anxiety disorder; F32.A Depression, unspecified; D68.51 Activated protein C resistance; Z79.01 Long term (current) use of anticoagulants
CPT/HCPCS: 27447; 20985; 36410; 36415; 64447; 96361; 96365; 96366; 96375; 97110; 97162; 99223; 85610; C1776; G0378; J0665; J0690; J1100; J1171; J1805; J2405; J2704; J3010; J8540

== ENCOUNTER 2024-04-11 15:28 | Outpatient (CLI) | payer MEDICAID, SELFPAY ==
--- NOTE | 2024-04-11 14:42 | DI.RAD_ITS ---
Exam(s) XR KNEE LT 1V XR STANDING ALIGNMENT EXAM: XR STANDING ALIGNMENT and XR knee LT 1 V CLINICAL HISTORY: 1ST POST OP S/P L TKA. TECHNIQUE: 2D digital imaging was performed. Five images were obtained. COMPARISON: CR XR KNEE LT 3V AP,LAT,PURA from 01/18/2024 CR XR STANDING ALIGNMENT from 01/18/2024 FINDINGS: BONES: The hips are well maintained. The right knee is unremarkable. There again seen postsurgical changes of a left total knee arthroplasty. The orthopedic hardware appears in good position. The an kles are well maintained.There is no significant leg length discrepancy. SOFT TISSUE: Normal. IMPRESSION: Stable left total knee arthroplasty. DATA REPOSITORY: RADIATION DOSE DELIVERED:
== END 2024-04-11 15:29 | disposition home or self-care (01) ==
LOC: DIORS 15:28
PROVIDERS: PCP Nurse Practitioner Family; Referring Provider Nurse Practitioner Family; Visit Provider Student in an Organized Health Care Education/Training Program
DX: Z96.652 Presence of left artificial knee joint (principal); Z47.1 Aftercare following joint replacement surgery
CPT/HCPCS: 73560; 77073

== ENCOUNTER 2024-04-29 11:00 | Outpatient (CLI) | payer MEDICAID, SELFPAY ==
--- NOTE | 2024-04-29 09:45 | DI.RAD_ITS ---
Exam(s) XR KNEE LT 2V AP,LAT EXAM: XR KNEE LT 2V AP,LAT CLINICAL HISTORY: LEFT KNEE INJURY. TECHNIQUE: 2D digital imaging was performed. Three images were obtained. AP and lateral views were obtained. COMPARISON: CR XR KNEE LT 3V AP,LAT,PURA from 01/18/2024 CR XR STANDING ALIGNMENT from 04/11/2024 CR XR KNEE LT 1V from 04/11/2024 FINDINGS: BONES: There are stable post operative changes of a left total knee arthroplasty present. No fractur e or dislocation. Incidental note is made of a small osteochondroma in the lateral aspect of the dist al femoral metaphysis. Stable orthopedic screws are seen in the distal femur and proximal tibia. JOINTS: The orthopedic hardware is in good position. No evidence of hardware loosening. SOFT TISSUE: Normal. IMPRESSION: Stable left total knee arthroplasty. DATA REPOSITORY: RADIATION DOSE DELIVERED:
== END 2024-04-29 11:01 | disposition home or self-care (01) ==
LOC: DIORS 11:00
PROVIDERS: PCP Nurse Practitioner Family; Visit Provider Physician Assistant
DX: Z96.652 Presence of left artificial knee joint (principal); Z47.1 Aftercare following joint replacement surgery
CPT/HCPCS: 73560

== ENCOUNTER 2024-05-10 13:13 | Outpatient (CLI) | payer MEDICAID, SELFPAY ==
[2024-05-10 12:01] LABS: INR 1.9 (0.9-1.1); Prothrombin Time 18.4 sec (9.1-11.1)
== END 2024-05-10 13:14 | disposition home or self-care (01) ==
LOC: LBO 13:14
PROVIDERS: PCP Nurse Practitioner Family; Visit Provider Nurse Practitioner Family
DX: I26.99 Other pulmonary embolism without acute cor pulmonale (principal); D68.51 Activated protein C resistance
CPT/HCPCS: 36415; 85610

== ENCOUNTER 2024-05-11 07:33 | Day surgery (SDC) | payer MEDICAID, SELFPAY ==
--- NOTE | 2024-05-10 17:44 | ANES.PREOP_ITS ---
General Info Date of Service Date Performed: 05/11/24 Height: 5 ft 5 in Weight: 100.4 kg Body Mass Index (BMI): 36.8 Surgical Procedure: Operation Date: 05/11/24 09:10 Proposed Procedure Side Surgeon p Quad Retinacular Repair Left Syed Lee MD Meds Allergies and Home Medications Allergies Allergy/AdvReac Type Severity Reaction Status Date / Time streptokinase Allergy Severe SOB; Verified 05/11/24 08:24 TINGLING;ANAPHALYSIS Home Medication ?Medication ?Instructions ?Recorded multivit,Ca,mlry-MG-jnabwodq-lutn 1 tab PO DAILY 06/08/12 18 mg-500 mcg-300 mcg-250 mcg tablet (Complete Multi) naloxone 4 mg/actuation nasal 1 spray intranasal Q2-3M PRN 12/14/19 spray (Narcan) opioid overdose #2 ea clonazepam 0.5 mg tablet (Klonopin) 0.5 mg PO TID PRN anxiety #84 02/29/24 tab-caps clotrimazole-betamethasone 1 1 applic topical .COMPLEX #15 grams 03/23/24 %-0.05 % topical cream valacyclovir 500 mg tablet 500 mg PO BID #10 tabs 03/23/24 warfarin 5 mg tablet 5 mg PO DAILY #60 tabs 03/23/24 acetaminophen 500 mg tablet 1,000 mg (2 x 500 mg) PO Q8H PRN 03/29/24 pain #90 tabs docusate sodium 100 mg capsule 100 mg PO BID #30 caps 03/29/24 (Colace) gabapentin 300 mg capsule 300 mg PO QHS #14 caps 03/29/24 naloxone 4 mg/actuation nasal 4 mg intranasal Q2M PRN #2 ea 03/29/24 spray (Narcan) pantoprazole 40 mg tablet,delayed 40 mg PO DAILY #14 tabs 03/29/24 release celecoxib 200 mg capsule (Celebrex) 200 mg PO BID PRN pain #60 caps 04/11/24 methadone 10 mg/5 mL oral solution 50 mg PO DAILY 04/27/24 oxycodone 5 mg tablet 5 mg PO TID PRN pain #30 tabs 04/30/24 Current Visit Medications: Current Medications Generic Name Dose Route Start Last Admin Trade Name Freq PRN Reason Stop Dose Admin Acetaminophen 1,000 mg 05/11/24 06:00 Acetaminophen 500 Mg Tab PO 05/11/24 23:59 PREOP PA Celecoxib 400 mg 05/11/24 06:00 Celecoxib 200 Mg Cap PO 05/11/24 23:59 PREOP PA Gabapentin 300 mg 05/11/24 06:00 Gabapentin 300 Mg Cap PO 05/11/24 23:59 PREOP PA Ringer's Solution 1,000 mls @ 80 mls/hr 05/11/24 06:00 IV 05/11/24 23:59 INFUSION PA Cefazolin Sodium/Dextrose 2 gm in 50 mls @ 100 mls/hr 05/11/24 06:00 Ancef Duplex IVPB 05/11/24 23:59 PREOP PA Tranexamic Acid/Sodium Chloride 1,000 mg in 100 mls @ 600 mls/hr 05/11/24 06:00 IVPB 05/11/24 23:59 PREOP PA IV Miscellaneous Supplies 1 each 05/11/24 06:00 Iv Access IV 05/11/24 23:59 DIRECTED PA Oxycodone HCl 10 mg 05/11/24 06:00 Oxycodone-Cr 10 Mg Tabcr PO 05/11/24 23:59 PREOP PA Sodium Chloride 0 ml 05/11/24 06:00 Normal Saline Flush 10 Ml Syr IV 05/11/24 23:59 PRN PRN Sodium Chloride 0 ml 05/11/24 06:00 Normal Saline 10 Ml Vial IJ 05/11/24 23:59 DIRECTED PRN Sterile Water 0 ml 05/11/24 06:00 Water,Injection,Sterile 10 Ml Vial IJ 05/11/24 23:59 DIRECTED PRN PFSH Active Problems Active Problems: Problem Status Onset Code Traumatic rupture of left quadriceps tendon Acute 04/24/24 S76.112A History of total left knee replacement Acute 03/29/24 Z96.652 Left ACL tear Acute S83.512A Left knee injury Acute S89.92XA Housing instability, currently housed, at risk for homelessness Acute Z59.811 Cyst of right breast Acute N60.01 Problem with transportation Acute Financial insecurity Acute Z59.86 Other social stressor Acute Z65.9 Pelvic pressure in female Acute R10.2 Elevated serum creatinine Acute R79.89 DVT (deep venous thrombosis) Chronic I82.409 Chronic kidney disease, stage 3a Acute N18.31 Pulmonary emboli Chronic I26.99 Neuropathic pain Acute M79.2 Restless leg syndrome Acute G25.81 Abdominal pain Acute R10.9 Genital herpes Acute A60.00 Opioid use Acute F11.90 Prediabetes Chronic R73.03 Hyperlipidemia Chronic E78.5 Chronic low back pain Chronic M54.5, G89.29 Generalized anxiety disorder Acute F41.1 Osteoarthritis Chronic M19.90 Major depressive disorder Chronic F32.9 Factor V Leiden mutation Acute D68.51 Chronic anticoagulation Chronic Z79.01 Medical History Medical History UTI (urinary tract infection) Dog bite Vaginal candidiasis 11/21/2021. Fluconazole x1 with Lotrimin. 12/04/2021 symptoms recurred. Fluconazole on 150 mg once a week for 3 weeks Iron deficiency anemia Perimenopausal menorrhagia Pulmonary embolism In 1993 Surgical History Surgical History S/P endometrial ablation 10/10/20. Novasure. S/P left knee surgery (09/30/12) Arthroscopic ligamentous reconstruction of ACL, PCL with menisectomy for dislocation Tobacco Smoking/Tobacco Use Status: Never Passive smoking exposure: No Alcohol Alcohol Intake: never Substance Use Substance use: Daily Substance use type: marijuana Prental History History 3 Para 3 Hx # Term Pregnancies Multiple births Hx # Pregnancies Ectopic pregnancies AB induced Hx Number of Living Children AB spontaneous Vital Signs and Lab Results Vital Signs Most Recent Vital Signs in EMR: Pulse Resp BP Pulse Ox 74 16 150/100 H 97 05/11/24 07:48 05/11/24 07:48 05/11/24 07:48 05/11/24 07:48 Lab Results Blood Type / Crossmatch: No Data to Display Complete Blood Count: No Data to Display Complete Metabolic Panel: No Data to Display Liver Function Panel: No Data to Display Coagulation Panel: INR International Normalized Ratio 1.7 (0.9-1.1) H 05/11/24 08 :24 Prothrombin Time 16.3 sec (9.1-11.1) H 05/11/24 08:24 Cardiac Panel: No Data to Display Arterial Blood Gas: No Data to Display Venous Blood Gas: No Data to Display Pancreas Panel: No Data to Display Thyroid Panel: No Data to Display Infectious Disease: No Data to Display Blood Cultures: No Data to Display Toxicology Panel: No Data to Display Panel: No Data to Display Anesthesia Assessment and Plan Anesthesia History Personal History: No History of Anesthesia Complications Family History: No Family History of Anesthesia Complications Exercise Tolerance Exercise Tolerance: Metabolic Equivalents>4 Cardiac & Pulmonary Exam Cardiac Exam: Normal S1/S2 Heart Sounds Pulmonary Exam: Clear Bilateral Breath Sounds Implantable Cardiac Device Does patient have a Pacemaker or an ICD?: No Airway Exam Known Difficult Airway: No Mallampati Class: 3 Mouth Opening: Normal (> 3cm) Thyromental Distance: Greater than 3 cm Neck Range of Motion: Full ROM and History of Cervical Fusion Neck Circumference: Normal Teeth Condition: Normal Dentition ASA Classification ASA Score: ASA 3 Emergency Case?: No NPO Status NPO Status: NPO Clears >2 hours, Solids >8 hours Status Status: Negative HCG Anesthesia Plan Resuscitation Status: Full Code Anesthesia Technique: General Anesthesia Airway Planned: Endotracheal Tube Pain Management: Surgeon and patient request nerve block Monitors Used: Standard Monitors Preoperative Comments:: 53 yo female for retinaculum repair. Was doing well s/p TKA, but fell. Denies major change in her health history. Sig PMHx: PE/DVT (warfarin.), CKDIII, PreDM, chronic LBP, neuropathic pain, anxiety (clonazepam), factor V Leiden. daily cannabis. Previous Anes: diff IV start. - TKA, GA (INR elevated), easy mask, glide 3 grade 1, prop/gabriel, no issues. Block done with 0.25% 10 mL and curved probe. - ablation, dex/midaz/prop, natural airway, no issues. Discussed plan of GAETT with adductor canal block +/- AFCN.
[2024-05-11] VITALS (17 sets, daily range): BP systolic 99–150; BP diastolic 62–100; PULSE 64–89; RESP 9–16; TEMP 36–36.5; O2SAT 97–100; BMI 36.8
--- NOTE | 2024-05-11 07:24 | W.PM.DSUDISC ---
Date of service: 05/11/24 Discharge Plan Disposition Patient Disposition: Home Condition: Good Discharge Details Reason For Visit: Quad Repair L TKR Attending Provider: Syed Lee Primary Care Provider: Ottoniel Gaines Home Meds and New Rx's Prescriptions: Continued naloxone [Narcan] 4 mg/actuation spray,non-aerosol 1 spray intranasal Q2-3M PRN (Reason: opioid overdose) Qty: 2 4RF Patient Comments: does not have anymore Rx Instructions: spray 1 dose into ONE nostril; alternate nostrils w each dose until help arrives clotrimazole-betamethasone 1-0.05 % cream 1 applic topical .COMPLEX Qty: 15 0RF Rx Instructions: 1 applic topically to vulva and around urethra; valacyclovir 500 mg tablet 500 mg PO BID Qty: 10 3RF Patient Comments: does not have anymore warfarin 5 mg tablet 5 mg PO DAILY Qty: 60 5RF Protocol: Dose Management Condition: Thursday Dose/Route: 5 mg Instruction: 1 x 5 mg tablet Condition: Thursday Dose/Route: 7.5 mg Instruction: 1.5 x 5 mg tablets Condition: Thursday Dose/Route: 5 mg Instruction: 1 x 5 mg tablet Condition: Thursday Dose/Route: 5 mg Instruction: 1 x 5 mg tablet Condition: Dose/Route: 5 mg Instruction: 1 x 5 mg tablet Condition: Thursday Dose/Route: 5 mg Instruction: 1 x 5 mg tablet Condition: Thursday Dose/Route: 5 mg Instruction: 1 x 5 mg tablet Protocol Text: Adjustment Start Date: Thursday05/10/24 INR Value: 1.9 INR Date: 05/10/24 Recheck Date: 05/17/24 Rx Instructions: 7.5mg daily is what pt reports taking clonazepam [Klonopin] 0.5 mg tablet 0.5 mg PO TID PRN (Reason: anxiety) Qty: 84 2RF Complete Multi 1 EACH tablet 1 tab PO DAILY methadone 10 mg/5 mL solution 50 mg PO DAILY celecoxib [Celebrex] 200 mg capsule 200 mg PO BID PRN (Reason: pain) Qty: 60 0RF Rx Instructions: Take one tablet twice daily for pain and inflammation acetaminophen 500 mg tablet 1,000 mg PO Q8H PRN Qty: 90 0RF Rx Instructions: Take two tablets up to every 8 hours as needed for pain pantoprazole 40 mg tablet,delayed release (DR/EC) 40 mg PO DAILY Qty: 14 0RF gabapentin 300 mg capsule 300 mg PO QHS Qty: 14 0RF Rx Instructions: Take one tablet at bedtime docusate sodium [Colace] 100 mg capsule 100 mg PO BID Qty: 30 0RF naloxone [Narcan] 4 mg/actuation spray,non-aerosol 4 mg intranasal Q2M PRNQty: 2 0RF Rx Instructions: spray 1 dose into ONE nostril; alternate nostrils w each dose until help arrives Changed oxycodone 5 mg tablet 5 mg PO Q4H MDD 3 tabs PRN (Reason: pain) Qty: 30 0RF Discharge Instructions Additional Instructions: Total Knee Discharge Instructions Activity: You may weight-bear as tolerated. We recommend all weightbearing be done with a knee immobilizer in position. If you are not weightbearing you may unstrapped the knee immobilizer and you can work on gentle range of motion up to 90 degrees of flexion. However, we should not push the range of motion in the first 2 weeks. Starting at 2 weeks you may resume physical therapy. Dressing: Remove the Jeremy wrap by 2 days after your surgery and put on the FEDERICO stocking given to you from the hospital. Keep the surgical dressing (underneath the JEREMY wrap) in place for at least one week. After the first week it may be removed and replaced with light gauze and tape or nothing. The wound and dressing may get wet after 3 days but avoid soaking the dressing or otherwise it will need to be changed. Many people prefer covering the dressing with cling wrap (saran wrap) to minimize it from getting soaked. If it gets wet, just pat dry. If it starts to peel off then it will need to be changed. Medications: - You should take Tylenol and anti-inflammatory Celebrex as your primary pain control medications. If the Celebrex is too expensive or not covered, please call the office for another alternative (Advil/Ibuprofen or Naproxen/Aleve) - You have been prescribed a stronger pain medication Oxycodone for breakthrough pain, take as needed as prescribed. - You have also been prescribed a stomach acid reduction agent Pantoprozole to help reduce stomach acid and reflux. - You have been prescribed Gabapentin to take at night for restlessness and nerve pain. - You will be taking Aspirin 81mg twice a day for DVT prevention unless instructed otherwise. - If you have constipation you should take Colace or Miralax (both [id number]). It takes most people 3-4 days to have a bowel movement. Follow-up: 2 weeks If you have any acute concerns or questions, please do not hesitate to contact the office at [phone]. You may contact Dr. Lee with any questions after hours through the hospital at [phone] or on his cell phone at [phone]. Stand Alone Forms: Anesthesia Discharge Inst., Anes.Nerve Block Instructions, Cheo John ([facility]) Referrals: Syed Lee MD [ [facility] STAFF PHYSICIAN] - 05/23/24 3:15 pm Equipment/Supplies: Brace and Walker Activity:: Activity as Tolerated Shower/Bathe:: 72 hours Diet:: As Tolerated Discharge Orders Discharge Orders: Discharge Order (Routine); Ordered 05/11/24 Ordered By: Barry Downey DS: Diagnosis Discharge Diagnosis (1) Traumatic rupture of left quadriceps tendon: Status: Acute
--- NOTE | 2024-05-11 08:23 | W.ANESVAS ---
Midline Placement Date Performed: 05/11/24 Procedure Time: 08:18 Requesting Provider: Seyd Lee Procedure Location: Day Surgery Unit Sedation Given (Indicate Dose Given): No Sedation given Patient Mental Status: Awake Sterility: Hand Hygiene, Surgical Cap, Surgical Mask, Sterile Gloves and Chlorhexidine Laterality: Right Insertion Site: Basilic Midline Device: PowerGlide Pro 20G Catheter Length: 10 cm Midline Procedure Procedure: 1% Lidocaine to skin and subcutaneous tissue with 25g needle Dressing: Tegaderm Applied Blood Return: Present Flushes: Easily Ultrasound: Sterile probe cover and gel used (Under nerve block order/image. ) Ultrasound Image Saved?: Yes Number of Attempts (See previous attempts in note section): 1 Procedure Tolerated: No Complications Procedure Outcome: Successful Procedure Comment:: Had no IV yet, Lab had stuck her for blood without success, midline placed per pt request. Performed By: Chad Hernandez
[2024-05-11] MEDS: Lactated Ringers 1,000 ML 80 ML IV (08:27)
[2024-05-11] MEDS: Gabapentin 300 MG CAP PO (08:28)
[2024-05-11] MEDS: Celecoxib 200 MG CAP 400 MG PO (08:28)
[2024-05-11] MEDS: Acetaminophen 500 MG TAB 1000 MG PO (08:29)
[2024-05-11] MEDS: oxyCODONE-CR 10 MG TABCR PO (08:33)
[2024-05-11 08:39] LABS: INR 1.7 (0.9-1.1); Prothrombin Time 16.3 sec (9.1-11.1)
--- NOTE | 2024-05-11 08:54 | W.ANESNERVE ---
Nerve Block Single Injection Procedure Date and Time Date Performed: 05/11/24 Procedure Start: 08:42 Location Where Procedure Performed Procedure Location: Day Surgery Unit Reason Performed: Postoperative Analgesia Requesting Provider: Syed Lee Timeout Performed Timeout Performed: Yes Monitoring Used ECG, Blood Pressure and SpO2 Sterility Sterility: Hand Hygiene, Surgical Cap, Surgical Mask, Sterile Gloves and Chlorhexidine Sedation Given During Procedure Sedation Given (Indicate Dose Given): Versed IV Dose:: 2 mg and Precedex IV Dose:: 8 mcg Patient Mental Status Patient Mental Status: Sedate with meaningful communication Nerve Block 1st Nerve Block: Laterality: Left Block Type: Adductor Canal Ultrasound Image Saved?: Yes Needle / Catheter Used: 100mm SonoPlex II Local Anesthetic Bolus (Indicate Dose Given): Lidocaine used for local infiltration of skin, Injected in 3-5ml increments after negative blood aspiration and Bupivacaine 0.25% Dose:: 10 mL Additives (Indicate Dose Given): None Ultrasound: Sterile probe cover and gel used Nerve Stimulator: Supplement to Ultrasound use and No twitch or parasthesia noted < 0.5 mA Paresthesia: None Procedure Tolerated: No Complications Procedure Outcome: Successful Performed By: Chad Hernandez 2nd Nerve Block: Laterality: Left Block Type: Other (Anterior femoral cutaneous. ) Ultrasound Image Saved?: Yes Needle / Catheter Used: 100mm SonoPlex II Local Anesthetic Bolus (Indicate Dose Given): Injected in 3-5ml increments after negative blood aspiration and Bupivacaine 0.25% Dose:: 5 mL Additives (Indicate Dose Given): None Ultrasound: Sterile probe cover and gel used Nerve Stimulator: Supplement to Ultrasound use and No twitch or parasthesia noted < 0.5 mA Paresthesia: None Procedure Tolerated: No Complications Procedure Outcome: Successful Performed By: Chad Hernandez
[2024-05-11] MEDS: ceFAZolin 2 GM/50 ML BAG IVPB (10:07)
[2024-05-11] MEDS: TRANEXAMIC ACID/SOD. CHL. 1,000 MG/100 ML BAG 600 MG IVPB (10:12)
--- NOTE | 2024-05-11 12:40 | W.ANESPOSTOP ---
Postoperative Evaluation Date, Time and Location Date Performed: 05/11/24 Time Performed: 12:40 Patient Location: Day Surgery Unit Vital Signs Most Recent Imported Vital Signs: Most Recent Vital Signs Temp Pulse Resp BP Pulse Ox 36.3 C L 72 9 L 129/76 97 05/11/24 12:08 05/11/24 12:11 05/11/24 12:11 05/11/24 12:11 05/11/24 12:11 Pain Score Most Recent Pain Score: Most Recent Pain Score Pain Level 0 05/11/24 12:08 Assessment Mental Status: Awake (Alert & Oriented to Patient Baseline) Airway and Respiratory Function: Patent airway with normal (patient baseline) respiratory exam Cardiovascular Function: Hemodynamically Stable Hydration Status: Adequately Hydrated Nausea & Vomiting: No Nausea or Vomiting Pain: Pain is tolerable per patient Peripheral Nerve Block: Regional nerve block not resolved at time of post operative discharge
[2024-05-11] MEDS: oxyCODONE 5 MG TAB PO (13:05)
--- NOTE | 2024-05-11 17:31 | W.PM.OP ---
Operative Note Operative Note PRE-OP DIAGNOSIS: Traumatic Retinacular Rupture - LEFT KNEE PROCEDURE: Irrigation and Debridement, Synovectomy, and Quadriceps/Retinacular Repair - LEFT Knee SURGEON: Syed Lee [facility] ASSISTANT: Barry Downey ANESTHESIA TYPE: General LMA/ETT Refer to Anesthesia Record ESTIMATED BLOOD LOSS: 50 TOURNIQUET TIME: 0 COMPLICATIONS: None Patient was transported to: PACU Patient's condition: stable Indications: Andreia is a 53-year-old who is about 5 weeks status post left knee replacement. Unfortunately last week, she slipped and fell and had a pop in the left knee. She was seen in the office and diagnosed with a rupture of her retinacular repair. Imaging to the operating room for irrigation debridement and repair of the retinaculum and quadriceps. I discussed technical details. I discussed rehabilitation time and modifications to her treatment plan. I reviewed risk to include bleeding, infection, pain, stiffness, damage to nerves and vessels, damage to muscle and tendons, recurrence, read tear, need for repeat procedures, blood clot. Despite these risk, she elects to proceed. Findings: There is a tear of the retinaculum from the level of the tibial tray through the quadriceps. There is also a small area of horizontal tearing approximately 4 cm proximal to the supra pole patella and the lateral portion of the quadriceps tendon. A thorough irrigation debridement was performed followed by repair of the arthrotomy with FiberWire. Procedure Description: Andreia was greeted in the preoperative holding area where the correct side was identified and marked. The consent was reviewed with the patient and signed. The history and physical was updated. All questions were answered. Preoperative mediacations were administered: Acetaminophen 1000mg, Celebrex 400mg, and Gabapentin 300mg. An adductor canal block was then administered by the anesthesia team in the PACU. Name was taken back to the operating room. A general anesthestic was administered. The patient was placed into the supine position on the operating room table. Posts were placed for positioning during the procedure. All bony prominences were well padded. Prophylactic antibiotics in the form of Cefazolin were administered. The left leg was then prepped with Chloraprep and draped in a standard fashion with impervious stockinette. A second prep with Chloraprep was performed prior to application of Iodine impregnated skin protection. A timeout to confirm correct identity, side and site, procedure, allergies, anesthesia, and medical concerns was performed. With the knee in some flexion, a midline incision was made overlying the knee utilizing the previous incision. At this point, it is obvious that a rupture of the majority of the arthrotomy and retinaculum and quadriceps was present. Full thickness skin flaps were raised once the extensor mechanism was encountered. These were raised medially and laterally. Any bleeding was controlled with electrocautery. Medial and lateral skin flaps were raised to fully evaluate the extensor mechanism. The defect was quite obvious. It ended about the midportion of patella with maybe some slight diastases at that level but by the inferior portion of the patella there was no defect. The proximal extent went through the quadriceps split and into the vastus lateralis. Using a curette and rongeur a debrided down any of the early scar formation to show tendinous material. Once the tendon was encountered it was able to be easily mobilized back over without significant tension and at 90 degrees of flexion. Once again, debridement was performed of any synovitis around the arthrotomy site and quadriceps repair site. The tissue was able to be debrided back to healthy tendon and this utilized the previously made capsulotomy except for small transverse portion of the tear proximal to the superior pole within the lateral portion of the quadriceps. With the torn tissues now cleaned back to normal base, repair was performed utilizing #2 FiberWire. The periosteal and capsular tissues were then systematically injected with a periarticular cocktail consisting of 50cc 0.25% Marcaine,Epnephrine, Clonidine, Ketorlad The tissue quality was excellent and there was great reapproximation of these tissues to each other and stable up to at least 100 degrees of flexion. There is no notable gapping of the arthrotomy site. Once again, the wound was thoroughly irrigated. Deep tissues were then reapproximated with 0 and 2-0 Vicryl. The skin was closed with a running 3-0 Monocryl in a subcuticular fashion. This was reinforced with skin glue. A Mepilex silver dressing was applied along with a [id number] OMAR wrap. A CryoCuff was applied. Andreia was transferred to the hospital stretcher without difficulty an suffering no apparent complication. Andreia has a gaurded prognosis. Aspirin 81mg BID will be used for DVT prophylaxis. Date of Procedure: 05/11/24
== END 2024-05-11 13:36 | disposition home or self-care (01) ==
PROVIDERS: PCP Nurse Practitioner Family; Visit Provider Student in an Organized Health Care Education/Training Program
PROC: (CPT 27385; principal; 2024-05-11 09:00)
DX: S76.112A Strain of left quadriceps muscle, fascia and tendon, initial encounter (principal); S83.8X2A Sprain of other specified parts of left knee, initial encounter; W00.0XXA Fall on same level due to ice and snow, initial encounter; G89.18 Other acute postprocedural pain; M25.562 Pain in left knee; Z96.652 Presence of left artificial knee joint; Z86.711 Personal history of pulmonary embolism; Z79.01 Long term (current) use of anticoagulants; D68.51 Activated protein C resistance; M65.862 Other synovitis and tenosynovitis, left lower leg
CPT/HCPCS: 27385; 27334; 36410; 64447; 64450; 85610; J0665; J0690; J1100; J1805; J2250; J2405; J2704

== ENCOUNTER 2024-05-23 16:25 | Outpatient (CLI) | payer MEDICAID, SELFPAY ==
[2024-05-23 16:21] LABS: INR 3.3 (0.9-1.1); Prothrombin Time 30.6 sec (9.1-11.1)
== END 2024-05-23 16:26 | disposition home or self-care (01) ==
LOC: LBO 16:26
PROVIDERS: PCP Nurse Practitioner Family; Visit Provider Nurse Practitioner Family
DX: I26.99 Other pulmonary embolism without acute cor pulmonale (principal)
CPT/HCPCS: 36415; 85610

== ENCOUNTER 2024-06-16 12:42 | Outpatient (CLI) | payer MEDICAID, SELFPAY ==
[2024-06-16 12:27] LABS: INR 1.5 (0.9-1.1)
== END 2024-06-16 12:43 | disposition home or self-care (01) ==
PROVIDERS: PCP Nurse Practitioner Family; Visit Provider Nurse Practitioner Family
DX: I82.402 Acute embolism and thrombosis of unspecified deep veins of left lower extremity (principal); I26.99 Other pulmonary embolism without acute cor pulmonale; D68.51 Activated protein C resistance
CPT/HCPCS: 36415; 85610

== ENCOUNTER 2024-06-23 11:11 | Outpatient (CLI) | payer MEDICAID, SELFPAY ==
[2024-06-23 11:45] LABS: Prothrombin Time 69.2 sec (9.1-11.1)
== END 2024-06-23 11:12 | disposition home or self-care (01) ==
LOC: LBO 11:11
PROVIDERS: PCP Nurse Practitioner Family; Visit Provider Nurse Practitioner Family
DX: I26.99 Other pulmonary embolism without acute cor pulmonale (principal); I82.403 Acute embolism and thrombosis of unspecified deep veins of lower extremity, bilateral
CPT/HCPCS: 36415; 85610

== ENCOUNTER 2024-06-30 15:11 | Outpatient (CLI) | payer MEDICAID, SELFPAY ==
[2024-06-30 15:28] LABS: INR 1.1 (0.9-1.1); Prothrombin Time 11.1 sec (9.1-11.1)
== END 2024-06-30 15:12 | disposition home or self-care (01) ==
LOC: LBO 15:11
PROVIDERS: PCP Nurse Practitioner Family; Visit Provider Family Medicine
DX: D68.51 Activated protein C resistance (principal); Z79.01 Long term (current) use of anticoagulants
CPT/HCPCS: 36415; 85610

== ENCOUNTER 2024-07-22 11:02 | Outpatient (CLI) | payer MEDICAID, SELFPAY ==
[2024-07-22 10:29] LABS: INR 2.5 (0.9-1.1); Prothrombin Time 23.9 sec (9.1-11.1)
== END 2024-07-22 11:03 | disposition home or self-care (01) ==
LOC: LBO 11:02
PROVIDERS: PCP Nurse Practitioner Family; Visit Provider Nurse Practitioner Family
DX: I26.90 Septic pulmonary embolism without acute cor pulmonale (principal)
CPT/HCPCS: 36415; 85610

== ENCOUNTER 2024-07-27 17:39 | Emergency (ER) | payer MEDICAID, SELFPAY ==
[2024-07-27] VITALS (12 sets, daily range): BP systolic 97–125; BP diastolic 60–93; PULSE 61–103; RESP 18; TEMP 36.9; O2SAT 78–98
--- NOTE | 2024-07-27 18:13 | ED.GENADUL_ITS ---
Discharge Plan Disposition Patient Disposition: Home Condition: Stable Discharge Details Chief Complaint: Laceration Clinical Impression: Injury of knee, left, Fall, Dehiscence of wound Primary Care Provider: Ottoniel Gaines ED Provider: Terese Lamas Home Meds and New Rx's Prescriptions: No Action naloxone [Narcan] 4 mg/actuation spray,non-aerosol 1 spray intranasal Q2-3M PRN (Reason: opioid overdose) Qty: 2 4RF Patient Comments: does not have anymore Rx Instructions: spray 1 dose into ONE nostril; alternate nostrils w each dose until help arrives clotrimazole-betamethasone 1-0.05 % cream 1 applic topical .COMPLEX Qty: 15 0RF Rx Instructions: 1 applic topically to vulva and around urethra; valacyclovir 500 mg tablet 500 mg PO BID Qty: 10 3RF Patient Comments: states she takes it when she needs it Complete Multi 1 EACH tablet 1 tab PO DAILY methadone 10 mg/5 mL solution 50 mg PO DAILY clonazepam [Klonopin] 0.5 mg tablet 0.5 mg PO TID PRN (Reason: anxiety) Qty: 84 2RF Xarelto 20 mg tablet 20 mg PO DAILY Qty: 90 3RF Patient Comments: states she is not taking but taking Warfarin instead from older dose meds Rx Instructions: must administer with evening meal acetaminophen 500 mg tablet 1,000 mg PO Q8H PRN Qty: 90 0RF Rx Instructions: Take two tablets up to every 8 hours as needed for pain warfarin 5 mg tablet 5 mg PO DAILY Patient Comments: TAKE ONE TABLET BY MOUTH EVERY DAY DIRECTED naloxone [Narcan] 4 mg/actuation spray,non-aerosol 4 mg intranasal Q2M PRNQty: 2 0RF Rx Instructions: spray 1 dose into ONE nostril; alternate nostrils w each dose until help arrives Discharge Instructions Instructions: Wound Dehiscence (DC) Additional Instructions: Leave dressing in place. Do not take your Coumadin tonight. Do not have anything to eat or drink after midnight tonight. The orthopedic office will call you in the morning with a time to arrive to have the wound repaired. Discharge Data Discharge Physician: Terese Lamas [facility] General Date/Time Provider Initiated Documentation: 07/27/24 17:51 . HPI Narrative: 53-year-old female presents for evaluation after fall. Patient states that she slipped on her floor and landed down on her left knee. She had a left knee replacement on March 29, 2024 and then surgery on May 11, 2024 to repair a left quadricep rupture. Bleeding is well-controlled at this time. Patient is on Coumadin. Her INR was checked earlier this week but she is unsure of the the result of the test. Denies any numbness or tingling. No other injuries. Unknown last tetanus. Related Data Home Medications ?Medication ?Instructions ?Recorded ?Confirmed multivit,Ca,ibei-UU-rfywfaqu-lutn 1 tab PO DAILY 06/08/12 07/27/24 18 mg-500 mcg-300 mcg-250 mcg tablet (Complete Multi) naloxone 4 mg/actuation nasal 1 spray intranasal Q2-3M PRN 12/14/19 07/27/24 spray (Narcan) opioid overdose #2 ea clotrimazole-betamethasone 1 1 applic topical .COMPLEX #15 grams 03/23/24 07/27/24 %-0.05 % topical cream valacyclovir 500 mg tablet 500 mg PO BID #10 tabs 03/23/24 07/27/24 naloxone 4 mg/actuation nasal 4 mg intranasal Q2M PRN #2 ea 03/29/24 07/27/24 spray (Narcan) methadone 10 mg/5 mL oral solution 50 mg PO DAILY 04/27/24 07/27/24 acetaminophen 500 mg tablet 1,000 mg (2 x 500 mg) PO Q8H PRN 05/11/24 07/27/24 pain #90 tabs clonazepam 0.5 mg tablet (Klonopin) 0.5 mg PO TID PRN anxiety #84 05/25/24 07/27/24 tab-caps rivaroxaban 20 mg tablet (Xarelto) 20 mg PO DAILY #90 tabs 06/29/24 07/27/24 warfarin 5 mg tablet 5 mg PO DAILY 07/27/24 07/27/24 Previous Rx's ?Medication ?Instructions ?Recorded naloxone 4 mg/actuation nasal 1 spray intranasal Q2-3M PRN 12/14/19 spray (Narcan) opioid overdose #2 ea clotrimazole-betamethasone 1 1 applic topical .COMPLEX #15 grams 03/23/24 %-0.05 % topical cream valacyclovir 500 mg tablet 500 mg PO BID #10 tabs 03/23/24 naloxone 4 mg/actuation nasal 4 mg intranasal Q2M PRN #2 ea 03/29/24 spray (Narcan) acetaminophen 500 mg tablet 1,000 mg (2 x 500 mg) PO Q8H PRN 05/11/24 pain #90 tabs clonazepam 0.5 mg tablet (Klonopin) 0.5 mg PO TID PRN anxiety #84 05/25/24 tab-caps rivaroxaban 20 mg tablet (Xarelto) 20 mg PO DAILY #90 tabs 06/29/24 Allergies Allergy/AdvReac Type Severity Reaction Status Date / Time streptokinase Allergy Severe SOB; Verified 07/27/24 17:49 TINGLING;ANAPHALYSIS General Stated Complaint: Laceration REINA: 3 Review of Systems Narrative: Remainder of review of systems otherwise negative except for as noted in the HPI x 5. Exam Narrative Exam Narrative: General: non-toxic, no respiratory distress, comfortable HEENT: normocephalic, atraumatic, lids and lashes normal, PERRL, EOMI, anicteric sclera, no conjunctival injection, moist oral mucosa Musculoskeletal: Dehiscence of left knee midline incision from prior knee replacement, no active bleeding, 2+ dorsal pedal pulses, sensation intact, full range of motion of arms and legs, no tenderness to palpation. no clubbing, cyanosis, or edema Neurologic: appropriate for age, strength normal Psych: alert and oriented Skin: As above, otherwise no petechiae, no lesions, warm and dry Course Vital Signs Vital signs: Vital Signs Temperature 36.9 C 07/27/24 17:45 Pulse 103 H 07/27/24 17:45 Respiratory Rate 18 07/27/24 17:45 Blood Pressure 125/93 H 07/27/24 17:45 Pulse Oximetry 98 07/27/24 17:45 Temperature 36.9 C 07/27/24 17:45 Temperature Source Oral 07/27/24 17:45 Pulse 103 H 07/27/24 17:45 Respiratory Rate 18 07/27/24 17:45 Blood Pressure 125/93 H 07/27/24 17:45 Pulse Oximetry 98 07/27/24 17:45 Oxygen Delivery Method Room Air 07/27/24 17:45 Oxygen Flow Rate 0 07/27/24 17:45 Pain Level 10 07/27/24 17:45 Medical Decision Making 53-year-old female presents for evaluation of left knee injury. Patient fell on to knee and caused significant dehiscence of prior surgical site. On review of records her most recent INR was 1.1. Will check INR today. On review of records her last tetanus was 10/2021. X-ray of knee was obtained which showed a large prepatellar soft tissue defect and soft tissue swelling. No foreign body or fracture. Laboratory studies show INR is 3 Case discussed with her orthopedic Dr. Lee. He requested dose of IV antibiotics. Patient was given 2 g of IV ceftriaxone. Wound was washed with 1 L of saline. Betadine was applied. All foreign debris was removed. Wet gauze was placed in the wound. ABD pads Kerlix and Jeremy bandage applied to area. Patient is aware that she should be n.p.o. after midnight and that she will get a call from the office in the morning. She will hold her Coumadin today.. Quality:SDOH Health Related Social Needs: Health related social needs inadequate housing (Z59.1) , housing instability, housed, with risk of homelessness (Z59.811), transportation insecurity (Z59.82), problems related to housing/economic circumstances (Z59.89), feeling lonely/isolated (Z60.8) Health related social needs details None PFSH All Active Problems (Updated 07/27/24 @ 20:48 by Terese Lamas MD) Dehiscence of wound (Acute) Fall (Acute) Injury of knee, left (Acute) Surgical wound dehiscence (Acute) L Knee Left ACL tear (Acute) Left knee injury (Acute) Housing instability, currently housed, at risk for homelessness (Acute) Cyst of right breast (Acute) Problem with transportation (Acute) Financial insecurity (Acute) Other social stressor (Acute) living with BF. His grandchildren involved with DCF. Pelvic pressure in female (Acute) Elevated serum creatinine (Acute) DVT (deep venous thrombosis) (Chronic) - leg , while off anticoagulants for bleeding, and Coumadin-goal INR is 2.5-3.5 Chronic kidney disease, stage 3a (Acute) 2020, Cr-1.4 Pulmonary emboli (Chronic) 1993, chronic coumadin, hx of factor 5 Leiden Neuropathic pain (Acute) Restless leg syndrome (Acute) Abdominal pain (Acute) Genital herpes (Acute) Opioid use (Acute) Broke contract with pain clinic. Tested + for MS Prediabetes (Chronic) Hyperlipidemia (Chronic) Chronic low back pain (Chronic) Generalized anxiety disorder (Acute) Osteoarthritis (Chronic) Major depressive disorder (Chronic) Factor V Leiden mutation (Acute) Chronic anticoagulation (Chronic) On Coumadin as of 2021-goal INR is 2.5-3.5 Medical History UTI (urinary tract infection) Dog bite Vaginal candidiasis 11/21/2021. Fluconazole x1 with Lotrimin. 12/04/2021 symptoms recurred. Fluconazole on 150 mg once a week for 3 weeks Iron deficiency anemia Perimenopausal menorrhagia Pulmonary embolism In 1993 Surgical History History of total left knee replacement (03/29/24) Traumatic rupture of left quadriceps tendon (04/24/24) S/P Repair: 05/11/2024 S/P endometrial ablation 10/10/20. Novasure. S/P left knee surgery (09/30/12) Arthroscopic ligamentous reconstruction of ACL, PCL with menisectomy for dislocation Family History Mother No problems noted. Father No problems noted. Social History Smoking/Tobacco Use Status: Never Smoking risk assessment performed?: Yes Alcohol Intake: never Drug use: Daily Substance use type: marijuana Counseling given: No Details: denies use in the last 24 hours. Household members: significant other and other Details: BF has his son living with pt and her son Housing: house Number of Children: 3 number of grandchildren: 0 current occupation: unemployed Current gender identity: female What type of physical activity do you participate in: walking and independent ambulation Duration: 15-30 minutes/day Frequency: 3-4 times per week Seatbelt use: always Do you feel safe at home: Yes Do you feel safe in your relationship?: Yes Female Reproductive History Menstrual Duration of menses: 3-5 days control method: none History History 3 Para 3 Hx # Term Pregnancies Multiple births Hx # Pregnancies Ectopic pregnancies AB induced Hx Number of Living Children AB spontaneous
[2024-07-27 18:30] LABS: Abs Immature Grans 0.02 10^3/uL (0.0-0.06); Absolute Basophil Count 0.03 10^3/uL (0.0-0.2); Absolute Eosinophil Count 0.18 10^3/uL (0.0-0.7); Absolute Lymphocyte Count 1.97 10^3/uL (1.2-3.4); Absolute Monocyte Count 0.36 10^3/uL (0.1-0.8); Absolute Neutrophil Count 2.97 10^3/uL (1.2-6.7); Basophils % 0.5 %; Eosinophils % 3.3 %; HCT 37.7 % (36.0-46.0); HGB 12.1 g/dL (11.2-15.7); Immature Grans % 0.4 %; Lymphocytes % 35.6 %; MCH 27.9 pg (27.0-33.0); MCHC 32.1 % (32.0-36.0); MCV 87 fL (80-95); MPV 10.2 fL (8.0-11.0); Monocytes % 6.5 %; Neutrophils % 53.7 %; Platelet Count 217 10^3/uL (130-400); RBC 4.33 10^6/uL (3.93-5.22); RDW 14.3 % (11.7-14.6); RDW-SD 45.1 fL; WBC 5.53 10^3/uL (4.4-10.8)
[2024-07-27 18:41] LABS: Prothrombin Time 28.3 sec (9.1-11.1)
[2024-07-27 18:43] LABS: BUN 15 mg/dL (7-18); CREATININE 1.2 mg/dL (0.55-1.02); Calcium 8.7 mg/dL (8.5-10.1); Chloride 105 mmol/L (98-107); ETHANOL BLOOD < 3.0 mg/dL (<10); Estimated GFR 53.79 (mL/min/1.73m2); Glucose 101 mg/dL (74-106); Potassium 4.5 mmol/L (3.5-5.1); Sodium 139 mmol/L (136-145)
--- NOTE | 2024-07-27 19:04 | DI.RAD_ITS ---
Exam(s) XR KNEE LT 4V+ EXAM: XR KNEE LT 4V+ CLINICAL HISTORY: injury. TECHNIQUE: 2D digital imaging was performed. Three views. COMPARISON: CR XR KNEE LT 2V AP,LAT from 04/29/2024 FINDINGS: BONES: Total knee prosthesis as well as screws in the distal femur and proximal tibia appear unchange d from prior exam.. No acute fracture is present. No bony destructive lesion is seen. JOINTS: The knee is normally aligned. A small joint effusion is seen. SOFT TISSUE: Anterior soft tissue swelling and large anterior laceration. No visible foreign body.. IMPRESSION: Stable appearance of hardware. Large anterior soft tissue laceration. No evidence of fracture. DATA REPOSITORY: RADIATION DOSE DELIVERED:
--- NOTE | 2024-07-27 19:31 | DI.VRAD_ITS ---
PROCEDURE INFORMATION: Exam: XR Left Knee Exam date and time: 07/27/2024 6:58 PM Age: 53 years old Clinical indication: Injury or trauma; Laceration; Patella or knee; Left; Foreign body involvement not specified TECHNIQUE: Imaging protocol: Radiologic exam of the left knee. Views: 4 or more views. COMPARISON: CR XR KNEE LT 2V AP,LAT 04/29/2024 10:03 AM FINDINGS: Bones/joints: Left knee arthroplasty and distal femoral and proximal tibial hardware is redemonstrated and appears unchanged from the study dated 04/29/2024. No acute fracture or dislocation. No suspicious bony lesions. No joint effusion. Soft tissues: A large soft tissue defect overlies the patella. There is moderate prepatellar soft tissue swelling. No unexpected radiopaque foreign bodies. IMPRESSION: 1. Large prepatellar soft tissue defect and soft tissue swelling. No unexpected radiopaque foreign bodies. Dictated and Authenticated by: Senia Lund MD. Orderin Adams Gudino MD
[2024-07-27] MEDS: cefTRIAXone 2 GM/50 ML BAG IVPB (20:29)
[2024-07-27] MEDS: oxyCODONE 5 mg/Acetaminophen 325 mg TAB 1 TAB PO (21:00)
== END 2024-07-27 21:03 | disposition home or self-care (01) ==
PROVIDERS: Emergency Provider Emergency Medicine Emergency Medical Services; PCP Nurse Practitioner Family
DX: S89.82XA Other specified injuries of left lower leg, initial encounter (principal); T81.328A Disruption or dehiscence of closure of other specified internal operation (surgical) wound, initial encounter; Z96.652 Presence of left artificial knee joint; Z79.01 Long term (current) use of anticoagulants; W19.XXXA Unspecified fall, initial encounter; Z59.10 Inadequate housing, unspecified; Z59.811 Housing instability, housed, with risk of homelessness; Z59.82 Transportation insecurity; Z59.89 Other problems related to housing and economic circumstances; Z60.8 Other problems related to social environment
CPT/HCPCS: 99283; 99284; 36415; 80048; 96365; 73564; 80320; 85025; 85610; J0696

== ENCOUNTER 2024-07-28 12:01 | Day surgery (SDC) | payer MEDICAID, SELFPAY ==
[2024-07-28] VITALS (16 sets, daily range): BP systolic 88–139; BP diastolic 41–84; PULSE 82–96; RESP 10–21; TEMP 36.1–36.3; O2SAT 95–100; BMI 43.2
--- NOTE | 2024-07-28 12:06 | W.ORTHOCONSU ---
Date of service: 07/28/24 Time of Service: 12:06 Assessment and Plan Assessment and plan (1) Dehiscence of wound: Status: Acute Assessment and plan: 53-year-old female with a left knee TKA surgical wound dehiscence; 2 months status post a left quadriceps repair performed on 05/11/2024 in the setting of a left total knee replacement (03/29/2024). Patient has been doing well, was seen in outpatient follow-up last week and at that time the wound was essentially healed with a soft scab on the distal end of the incision which was about 1.5 m in length. No evidence of infection. Unfortunately yesterday she had a mechanical fall because of one of her dogs, landing directly on her knee, the wound opened again. No concern for infection. Denies fever, redness, drainage. Reports moderate discomfort. Concerned about pain status post closure, previously provided with 5 mg oxycodone, believes she would be better served with 10 mg. Brief left knee exam: Knee held in near full extension. Demonstrates flexion to about 90 degrees. Outer dressing removed, gauze packed in the wound was not removed. There appears to be a partial dehiscence of the surgical incision the distal two thirds and only superficial layers. Dressing has dried blood. No active bleeding. No purulent drainage. Diffuse mild discomfort without obvious erythema or signs of infection. Discussed with patient as best possible. Somewhat noncompliant, requesting pain medication, specific on the dose and amount. Contaminated recurrent wound dehiscence. Good strong straight leg raise and the extension against resistance so hopefully deeper layers and quadriceps tendon capsule retinaculum are intact. Higher risk given recurrent problem and patient factors. Fortunately, no signs of Airgas on x-rays in the deeper tissues or the knee joint, which would suggest joint involvement. Will assess integrity of capsule and any oozing or weeping of joint fluid at the time of surgery. INR is elevated at 3. Decision to proceed with surgery on 07/28/2024 Left knee dehiscence irrigation debridement and wound closure The risks, benefits, and alternatives were thoroughly discussed. Patient was counseled regarding pain management, expected postoperative course, and recovery timeline. All questions were answered. Informed consent was obtained. Agree and understand treatment plan. Follow up 10-14 days after surgery. Will call if any changes or concerns. Breathing comfortably on room air. No coughs or wheezes. 2+ left radial pulse. Regular rate and rhythm. PFSH All Active Problems (Updated 07/28/24 @ 16:35 by Jay Lovell MD) Dehiscence of wound (Acute) Fall (Acute) Injury of knee, left (Acute) Surgical wound dehiscence (Acute) L Knee Left knee injury (Acute) Housing instability, currently housed, at risk for homelessness (Acute) Cyst of right breast (Acute) Problem with transportation (Acute) Financial insecurity (Acute) Other social stressor (Acute) living with BF. His grandchildren involved with DCF. Pelvic pressure in female (Acute) Elevated serum creatinine (Acute) DVT (deep venous thrombosis) (Chronic) - leg , while off anticoagulants for bleeding, and Coumadin-goal INR is 2.5-3.5 Chronic kidney disease, stage 3a (Acute) 2020, Cr-1.4 Pulmonary emboli (Chronic) 1993, chronic coumadin, hx of factor 5 Leiden Neuropathic pain (Acute) Restless leg syndrome (Acute) Abdominal pain (Acute) Genital herpes (Acute) Opioid use (Acute) Broke contract with pain clinic. Tested + for MS Prediabetes (Chronic) Hyperlipidemia (Chronic) Chronic low back pain (Chronic) Generalized anxiety disorder (Acute) Osteoarthritis (Chronic) Major depressive disorder (Chronic) Factor V Leiden mutation (Acute) Chronic anticoagulation (Chronic) On Coumadin as of 2021-goal INR is 2.5-3.5 Medical History (Updated 07/28/24 @ 16:35 by Jay Lovell MD) Left ACL tear UTI (urinary tract infection) Dog bite Vaginal candidiasis 11/21/2021. Fluconazole x1 with Lotrimin. 12/04/2021 symptoms recurred. Fluconazole on 150 mg once a week for 3 weeks Iron deficiency anemia Perimenopausal menorrhagia Pulmonary embolism In 1993 Surgical History History of total left knee replacement (03/29/24) Traumatic rupture of left quadriceps tendon (04/24/24) S/P Repair: 05/11/2024 S/P endometrial ablation 10/10/20. Novasure. S/P left knee surgery (09/30/12) Arthroscopic ligamentous reconstruction of ACL, PCL with menisectomy for dislocation Family History Mother No problems noted. Father No problems noted. Social History Smoking/Tobacco Use Status: Never Smoking risk assessment performed?: Yes Alcohol Intake: never Drug use: Daily Substance use type: marijuana Counseling given: No Details: Marijuana smoked 07/27/24 Household members: significant other and other Details: BF has his son living with pt and her son Housing: house Number of Children: 3 number of grandchildren: 0 current occupation: unemployed Current gender identity: female What type of physical activity do you participate in: walking and independent ambulation Duration: 15-30 minutes/day Frequency: 3-4 times per week Seatbelt use: always Do you feel safe at home: Yes Do you feel safe in your relationship?: Yes Female Reproductive History Menstrual Duration of menses: 3-5 days control method: none History History 3 Para 3 Hx # Term Pregnancies Multiple births Hx # Pregnancies Ectopic pregnancies AB induced Hx Number of Living Children AB spontaneous
--- NOTE | 2024-07-28 12:39 | W.PM.OP ---
Operative Note Operative Note PRE-OP DIAGNOSIS: Left knee complex/recurrent wound dehiscence POST-OP DIAGNOSIS: same PROCEDURE: Left knee complex wound irrigation debridement and closure, CPT #87586 SURGEON: Jay Lovell CORPORATE ACCOUNTING MANAGER: Ameya Hager ANESTHESIA TYPE: Local By Surgeon and General LMA/ETT Refer to Anesthesia Record ESTIMATED BLOOD LOSS: 10 PATHOLOGY: none sent COMPLICATIONS: None Patient was transported to: PACU Patient's condition: stable Indications: Please see complete medical record for details. Findings: Recurrent partial dehiscence of prior dehiscence after TKA involving the skin and subcutaneous layers with the proximal one third spared and the remainder involved. Intact quadriceps and medial retinaculum without any expression or clear violation into the knee replacement joint. No gross contamination like dirt hair or debris in the wound at all. Some early marginal necrosis throughout and moderate skin tension and wound widening most distally. Procedure Description: In the operating room, general anesthesia was induced. The patient was positioned supine on the operating room table. All bony prominences were well-padded. Preoperative antibiotics were administered. The left knee was prepped and draped in the usual sterile fashion for an open wound. The correct patient, procedure, and side of the procedure were all verified prior to incision. The wound was examined, fortunately there is no gross debris or contamination. It was copiously irrigated with about a liter of normal saline. There was a flap laterally but the medial margin was well adhered to the deeper layers. After irrigating the retinaculum capsule was examined again without any clear rent or defect. The knee was flexed to almost 90 degrees without any expression of joint fluid or anything from inside the knee joint. Knee joint was deemed separate from this more superficial although complex dehiscence. It measured about 15 cm in length with about 5 cm in width. Starting from superficial to deep the layers were debrided using a knife for the skin removing some black and poor quality skin edges to a healthy sharp margin and then using Prudence and abrasion type debridement in the intermediate layers and over the surface of the intact capsule. Care was taken to include the undermined flap on the lateral margin and proximally. After debridement was done, the wound was copiously irrigated with 3 L of normal saline. The wound was inspected again for any rents or defects, none found, and debridement was confirmed to be appropriate. Betadine wash was then placed into the wound and allowed to sit for 3 minutes. Clean sheets were placed down and everyone changed gloves and additional 3 L was irrigated and bluntly agitated throughout the different layers. The wound looked very clean with healthy margins but had moderate tension distally for closure. 1 g of vancomycin powder was then distributed throughout the wound including the undersurface flap. Given the recurrent nature of the wound and high risk for failure it was closed using larger sutures avoiding the skin edges so 2-0 Prolene was used in a trauma suture configuration interrupted. There was nice reapproximation of the skin edges with tension off of the central portion. An incisional wound VAC was then placed with excellent seal and the knee wrapped with a gentle Jeremy bandage. The patient awoke from anesthesia without complication and was transferred to the recovery room in a stable condition. Date of Procedure: 07/28/24
--- NOTE | 2024-07-28 12:46 | PDOC.DSDIS_ITS ---
Date of service: 07/28/24 Discharge Plan Disposition Patient Disposition: Home Discharge Details Attending Provider: Jay Lovell Primary Care Provider: Ottoniel Gaines Home Meds and New Rx's Prescriptions: New oxycodone 10 mg tablet 10 mg PO Q6H PRN3 Days Qty: 14 0RF Bio-K plus 50 billion cell capsule,delayed release(DR/EC) 1 cap PO DAILY 30 Days Qty: 30 0RF Rx Instructions: Use probiotic or yogurt while on antibiotics cefadroxil 1 gram tablet 1,000 mg PO BID 10 Days Qty: 20 0RF Rx Instructions: Use probiotic or yogurt while on antibiotics doxycycline hyclate 100 mg capsule 100 mg PO BID 10 Days Qty: 20 0RF Rx Instructions: Use probiotic or yogurt while on antibiotics Continued naloxone [Narcan] 4 mg/actuation spray,non-aerosol 1 spray intranasal Q2-3M PRN (Reason: opioid overdose) Qty: 2 4RF Patient Comments: does not have anymore Rx Instructions: spray 1 dose into ONE nostril; alternate nostrils w each dose until help arrives clotrimazole-betamethasone 1-0.05 % cream 1 applic topical .COMPLEX Qty: 15 0RF Rx Instructions: 1 applic topically to vulva and around urethra; valacyclovir 500 mg tablet 500 mg PO BID Qty: 10 3RF Patient Comments: states she takes it when she needs it Complete Multi 1 EACH tablet 1 tab PO DAILY methadone 10 mg/5 mL solution 50 mg PO DAILY clonazepam [Klonopin] 0.5 mg tablet 0.5 mg PO TID PRN (Reason: anxiety) Qty: 84 2RF Xarelto 20 mg tablet 20 mg PO DAILY Qty: 90 3RF Patient Comments: states she is not taking but taking Warfarin instead from older dose meds Rx Instructions: must administer with evening meal acetaminophen 500 mg tablet 1,000 mg PO Q8H PRN Qty: 90 0RF Rx Instructions: Take two tablets up to every 8 hours as needed for pain warfarin 5 mg tablet 5 mg PO DAILY Patient Comments: TAKE ONE TABLET BY MOUTH EVERY DAY DIRECTED naloxone [Narcan] 4 mg/actuation spray,non-aerosol 4 mg intranasal Q2M PRNQty: 2 0RF Rx Instructions: spray 1 dose into ONE nostril; alternate nostrils w each dose until help arrives Discharge Instructions Additional Instructions: Surgery: Left knee replacement recurrent superficial wound dehiscence irri gation, debridement, and closure with incisional VAC 07/28/2024 Activity: Weightbearing as tolerated. Gentle knee range of motion. Avoid deep knee flexion to minimize tension on the knee wound. Recommend elevation to minimize swelling and discomfort. Wiggle toes and perform ankle pumps to improve circulation. Prescriptions: Resume warfarin as instructed to prevent blood clot by your primary care provider who called to remind us that they would like you on Xarelto instead. Please arrange appropriate follow-up with your primary care. Oxycodone 10 mg take 1 every 6 hours as needed for severe pain You may use yeup-mlr-hvuvlbg Tylenol (acetaminophen) as needed for mild pain. Use both antibiotics to help prevent knee infection. Use daily probiotic or yogurt while on antibiotics. Dressings: Leave VAC and dressing in place until follow-up. Keep clean and dry at all times. Follow-up: Dr. Lee will arrange follow-up. You may take off the leg compression stockings this evening at home. You may also leave them on a few days longer if you have a history of leg swelling or edema. Let us know right away if you develop any redness, drainage, fevers, chest pain, or trouble breathing. Do not drink alcohol or drive for at least 24 hours after anesthesia. Please call the office during business hours with any questions or concerns. Stand Alone Forms: Anesthesia Discharge InstCheo Bowman (DSU) Discharge Orders Discharge Orders: Discharge Order (Routine); Ordered 07/28/24 Ordered By: Ameya Hager DS: Diagnosis Discharge Diagnosis (1) Surgical wound dehiscence: Status: Acute
[2024-07-28] MEDS: Lactated Ringers 1,000 ML 80 ML IV (13:46)
--- NOTE | 2024-07-28 14:01 | ANES.PREOP_ITS ---
General Info Date of Service Date Performed: 07/28/24 Height: 5 ft 5 in Weight: 117.9 kg Body Mass Index (BMI): 43.2 Surgical Procedure: Operation Date: 07/28/24 14:10 Proposed Procedure Side Surgeon p Knee Dehisence Closure Left Jay Lovell MD Meds Allergies and Home Medications Allergies Allergy/AdvReac Type Severity Reaction Status Date / Time streptokinase Allergy Severe SOB; Verified 07/28/24 12:53 [place];ANAPHALYSIS Home Medication ?Medication ?Instructions ?Recorded multivit,Ca,memz-NP-emqtmqtk-lutn 1 tab PO DAILY 06/08/12 18 mg-500 mcg-300 mcg-250 mcg tablet (Complete Multi) naloxone 4 mg/actuation nasal 1 spray intranasal Q2-3M PRN 12/14/19 spray (Narcan) opioid overdose #2 ea clotrimazole-betamethasone 1 1 applic topical .COMPLEX #15 grams 03/23/24 %-0.05 % topical cream valacyclovir 500 mg tablet 500 mg PO BID #10 tabs 03/23/24 naloxone 4 mg/actuation nasal 4 mg intranasal Q2M PRN #2 ea 03/29/24 spray (Narcan) methadone 10 mg/5 mL oral solution 50 mg PO DAILY 04/27/24 acetaminophen 500 mg tablet 1,000 mg (2 x 500 mg) PO Q8H PRN 05/11/24 pain #90 tabs clonazepam 0.5 mg tablet (Klonopin) 0.5 mg PO TID PRN anxiety #84 05/25/24 tab-caps rivaroxaban 20 mg tablet (Xarelto) 20 mg PO DAILY #90 tabs 06/29/24 warfarin 5 mg tablet 5 mg PO DAILY 07/27/24 oxycodone 10 mg tablet 10 mg PO Q6H PRN 3 days #14 tabs 07/28/24 Current Visit Medications: Current Medications Generic Name Dose Route Start Last Admin Trade Name Freq PRN Reason Stop Dose Admin Acetaminophen 1,000 mg 07/28/24 06:00 Acetaminophen 500 Mg Tab PO 07/28/24 23:59 PREOP PA Celecoxib 400 mg 07/28/24 06:00 Celecoxib 200 Mg Cap PO 07/28/24 23:59 PREOP PA Ringer's Solution 1,000 mls @ 80 mls/hr 07/28/24 06:00 07/28/24 13:46 IV 07/28/24 23:59 80 mls/hr INFUSION PA Administration Cefazolin Sodium/Dextrose 2 gm in 50 mls @ 100 mls/hr 07/28/24 06:00 Ancef Duplex IVPB 07/28/24 23:59 PREOP PA Tranexamic Acid/Sodium Chloride 1,000 mg in 100 mls @ 600 mls/hr 07/28/24 06:00 IVPB 07/28/24 23:59 PREOP PA IV Miscellaneous Supplies 1 each 07/28/24 06:00 Iv Access IV 07/28/24 23:59 DIRECTED PA Oxycodone HCl 0 mg 07/28/24 12:45 Oxycodone 5 Mg Tab PO 08/27/24 12:44 Q3H PRN PRN Pain Sodium Chloride 0 ml 07/28/24 06:00 Normal Saline Flush 10 Ml Syr IV 07/28/24 23:59 PRN PRN Sodium Chloride 0 ml 07/28/24 06:00 Normal Saline 10 Ml Vial IJ 07/28/24 23:59 DIRECTED PRN Sterile Water 0 ml 07/28/24 06:00 Water,Injection,Sterile 10 Ml Vial IJ 07/28/24 23:59 DIRECTED PRN PFSH Active Problems Active Problems: Problem Status Onset Code Dehiscence of wound Acute T81.30XA Fall Acute W19.XXXA Injury of knee, left Acute S89.92XA Surgical wound dehiscence Acute T81.31XA Left ACL tear Acute S83.512A Left knee injury Acute S89.92XA Housing instability, currently housed, at risk for homelessness Acute Z59.811 Cyst of right breast Acute N60.01 Problem with transportation Acute Financial insecurity Acute Z59.86 Other social stressor Acute Z65.9 Pelvic pressure in female Acute R10.2 Elevated serum creatinine Acute R79.89 DVT (deep venous thrombosis) Chronic I82.409 Chronic kidney disease, stage 3a Acute N18.31 Pulmonary emboli Chronic I26.99 Neuropathic pain Acute M79.2 Restless leg syndrome Acute G25.81 Abdominal pain Acute R10.9 Genital herpes Acute A60.00 Opioid use Acute F11.90 Prediabetes Chronic R73.03 Hyperlipidemia Chronic E78.5 Chronic low back pain Chronic M54.5, G89.29 Generalized anxiety disorder Acute F41.1 Osteoarthritis Chronic M19.90 Major depressive disorder Chronic F32.9 Factor V Leiden mutation Acute D68.51 Chronic anticoagulation Chronic Z79.01 Medical History Medical History UTI (urinary tract infection) Dog bite Vaginal candidiasis 11/21/2021. Fluconazole x1 with Lotrimin. 12/04/2021 symptoms recurred. Fluconazole on 150 mg once a week for 3 weeks Iron deficiency anemia Perimenopausal menorrhagia Pulmonary embolism In 1993 Surgical History Surgical History History of total left knee replacement (03/29/24) Traumatic rupture of left quadriceps tendon (04/24/24) S/P Repair: 05/11/2024 S/P endometrial ablation 10/10/20. Novasure. S/P left knee surgery (09/30/12) Arthroscopic ligamentous reconstruction of ACL, PCL with menisectomy for dislocation Tobacco Smoking/Tobacco Use Status: Never Passive smoking exposure: No Alcohol Alcohol Intake: never Substance Use Substance use: Daily Substance use type: marijuana Details: Marijuana smoked 07/27/24 Prental History History 3 Para 3 Hx # Term Pregnancies Multiple births Hx # Pregnancies Ectopic pregnancies AB induced Hx Number of Living Children AB spontaneous Vital Signs and Lab Results Vital Signs Most Recent Vital Signs in EMR: Most Recent Vital Signs Temp Pulse Resp BP Pulse Ox 36.1 C L 88 16 139/84 98 07/28/24 12:58 07/28/24 12:58 07/28/24 12:58 07/28/24 12:58 07/28/24 12:58 Lab Results Blood Type / Crossmatch: No Data to Display Complete Blood Count: White Blood Count 5.53 10^3/uL (4.4-10.8) 07/27/24 18:24 Red Blood Count 4.33 10^6/uL (3.93-5.22) 07/27/24 18:24 Hemoglobin 12.1 g/dL (11.2-15.7) 07/27/24 18:24 Hematocrit 37.7 % (36.0-46.0) 07/27/24 18:24 Platelet Count 217 10^3/uL (130-400) 07/27/24 18:24 Complete Metabolic Panel: Sodium 139 mmol/L (136-145) 07/27/24 18:24 Potassium 4.5 mmol/L (3.5-5.1) 07/27/24 18:24 Chloride 105 mmol/L (98-107) 07/27/24 18:24 Carbon Dioxide 31.0 mmol/L (21.0-32.0) 07/27/24 18:24 BUN 15 mg/dL (7-18) 07/27/24 18:24 Creatinine 1.2 mg/dL (0.55-1.02) H 07/27/24 18:24 Est GFR (CKD-EPI 2020) 53.79 (mL/min/1.73m2) 07/27/24 18:24 Calcium 8.7 mg/dL (8.5-10.1) 07/27/24 18:24 Glucose 101 mg/dL (74-106) 07/27/24 18:24 Liver Function Panel: No Data to Display Coagulation Panel: INR International Normalized Ratio 3.0 (0.9-1.1) H 07/27/24 18 :24 Prothrombin Time 28.3 sec (9.1-11.1) H 07/27/24 18:24 Cardiac Panel: No Data to Display Arterial Blood Gas: No Data to Display Venous Blood Gas: No Data to Display Pancreas Panel: No Data to Display Thyroid Panel: No Data to Display Infectious Disease: No Data to Display Blood Cultures: No Data to Display Toxicology Panel: Ethyl Alcohol Level < 3.0 mg/dL (<10) 07/27/24 18:24 Panel: No Data to Display Anesthesia Assessment and Plan Anesthesia History Personal History: No History of Anesthesia Complications Family History: No Family History of Anesthesia Complications Exercise Tolerance Exercise Tolerance: Metabolic Equivalents>4 Cardiac & Pulmonary Exam Cardiac Exam: Normal S1/S2 Heart Sounds Pulmonary Exam: Clear Bilateral Breath Sounds Implantable Cardiac Device Does patient have a Pacemaker or an ICD?: No Airway Exam Known Difficult Airway: No Mallampati Class: 3 Mouth Opening: Normal (> 3cm) Thyromental Distance: Greater than 3 cm Neck Range of Motion: Full ROM and History of Cervical Fusion Neck Circumference: Normal Teeth Condition: Normal Dentition ASA Classification ASA Score: ASA 3 Emergency Case?: No NPO Status NPO Status: NPO Clears >2 hours, Solids >8 hours Status Status: Not Relevant due to Medical History Anesthesia Plan Resuscitation Status: Full Code Anesthesia Technique: General Anesthesia Airway Planned: Endotracheal Tube Monitors Used: Standard Monitors Preoperative Comments:: 53 yo female for left knee dehiscence. Had been doing well but fell. Denies major change in her health history. Took acetaminophen and ibuprofen between 0430 and 0630 (told me and [facility] RN different times), the ibuprofen was a PM. Sig PMHx: PE/DVT, CKDIII, PreDM, chronic LBP, neuropathic pain, anxiety (clonazepam), factor V Leiden. daily cannabis. Methadone (took today) Previous Anes: diff IV start. - Quad tendon repair, glide 3 grade 1, easy mask. adductor canal + AFCN. - TKA, GA (INR elevated), easy mask, glide 3 grade 1, prop/gabriel, no issues. Block done with 0.25% 10 mL and curved probe. - ablation, dex/midaz/prop, natural airway, no issues. Plan was discussed with the patient of GA, which she agrees with. She is appropriately responding to questions, but she is falling asleep/closing her eyes. She did take her methadone this AM, and also an ibuprofen PM.
[2024-07-28] MEDS: ceFAZolin 2 GM/50 ML BAG IVPB (14:46)
[2024-07-28] MEDS: TRANEXAMIC ACID/SOD. CHL. 1,000 MG/100 ML BAG 600 MG IVPB (14:52)
[2024-07-28] MEDS: Bupivacaine 0.25% Pres-Free W/EPI 30 ML VIAL ×2 (15:32→15:34)
[2024-07-28] MEDS: Vancomycin 1,000 MG VIAL 1000 MG (15:39)
--- NOTE | 2024-07-28 16:20 | W.ANESPOSTOP ---
Postoperative Evaluation Date, Time and Location Date Performed: 07/28/24 Time Performed: 16:20 Patient Location: PACU Vital Signs Most Recent Imported Vital Signs: Most Recent Vital Signs Temp Pulse Resp BP Pulse Ox 36.1 C L 88 16 139/84 98 07/28/24 12:58 07/28/24 12:58 07/28/24 12:58 07/28/24 12:58 07/28/24 12:58 Assessment Mental Status: Awake (Alert & Oriented to Patient Baseline) Airway and Respiratory Function: Patent airway with normal (patient baseline) respiratory exam Cardiovascular Function: Hemodynamically Stable (much improved MAP post ephedrine IM. ) Hydration Status: Adequately Hydrated Nausea & Vomiting: No Nausea or Vomiting Pain: Other (Appears comfortable, eyes half open, asking for pain med. ) Peripheral Nerve Block: Patient did not receive a nerve block Postoperative Comments:: Discussed pain medication and that she required very little anesthesia and was minimally breathing at the end and that treating her pain with opiate medications at this time would not be safe.
== END 2024-07-28 17:24 | disposition home or self-care (01) ==
PROVIDERS: PCP Nurse Practitioner Family; Visit Provider Student in an Organized Health Care Education/Training Program
PROC: (CPT 13160; principal; 2024-07-28 14:00)
DX: T81.31XA Disruption of external operation (surgical) wound, not elsewhere classified, initial encounter (principal); Z96.652 Presence of left artificial knee joint
CPT/HCPCS: 13160; J0690; J1100; J2003; J2371; J2405; J2704; J3010; J3370